=== PATIENT | female | born 1985 | race Caucasian/White ===

== ENCOUNTER → 2022-04-22 | Outpatient (CLI) | payer OTHER, SELFPAY ==
[2022-04-22 17:50] LABS: hCG Titer Quant., Serum 5852 mIU/mL (1-3)
== END | disposition home or self-care (01) ==
PROVIDERS: Visit Provider Obstetrics & Gynecology
DX: N92.0 Excessive and frequent menstruation with regular cycle (principal)
CPT/HCPCS: 36415; 84702; 86850; 86900; 86901

== ENCOUNTER → 2022-04-24 | Outpatient (CLI) | payer OTHER, SELFPAY ==
[2022-04-24 17:38] LABS: hCG Titer Quant., Serum 8251 mIU/mL (1-3)
== END | disposition home or self-care (01) ==
LOC: LAB 16:40
PROVIDERS: Visit Provider Obstetrics & Gynecology
DX: N92.0 Excessive and frequent menstruation with regular cycle (principal)
CPT/HCPCS: 36415; 84702

== ENCOUNTER 2022-04-25 18:07 | Emergency (ER) | payer OTHER, SELFPAY ==
[2022-04-25 18:08] VITALS: BP 114/77; PULSE 123; RESP 16; TEMP 37; O2SAT 100; BMI 17.2
--- NOTE | 2022-04-25 18:34 | US_ITS ---
ACR Level 3 findings have been noted. An addendum which confirms receipt of the report will follow. STUDY: FIRST TRIMESTER OBSTETRICAL ULTRASOUND REASON FOR EXAM: Female, 36 years old Pelvic pain/ bleeding with LMP: February 27, 2022 TECHNIQUE: Transvaginal TECHNICAL QUALITY: Adequate. PRIOR ULTRASOUND: None. FINDINGS: There is visualization of a single gestational sac in a normal intrauterine position. The mean sac diameter (MSD) measures 1.1 cm, indicating an estimated gestational age (EGA) of 6 weeks, 0 days. The gestational sac shape is within normal limits. There is a visualized yolk sac. The yolk sac measures 0.2 cm. The placenta is non-visualized. There is visualization of an embryo with no cardiac activity, consistent with intrauterine demise. The crown-rump length (CRL) measures 1.1 cm, indicating an estimated gestational age (EGA) of 7 weeks, 2 days. The estimated gestation age (EGA) by LMP is 8 weeks, 1 days. The estimated date of delivery (KIMBERLEE) by LMP is December 04, 2022. The estimated gestation age (EGA) by US is 6 weeks, 5 days. The estimated date of delivery (KIMBERLEE) by US is December 14, 2022. The uterus measures 9.7 x 6.5 x 5.3 cm. There is no demonstrated uterine fibroid. The cervix is closed. The right ovary measures 2.8 x 2.4 x 1.8 cm. There is no right ovarian cyst. There is no visualized right adnexal mass or complex lesion. The left ovary measures 2.9 x 2.4 x 2.1 cm. There is no left ovarian cyst. There is no visualized left adnexal mass or complex lesion. There is no fluid in the cul de sac. US/Transvaginal w/Preg US IMPRESSION: demise in utero at 6 weeks 5 days. Electronically Signed: Melvin Hall MD at 20:06 [facility] ,
[2022-04-25 18:51] LABS: Absolute Lymphocyte Count 1.94 X10^3/uL (0.83-4.51); Absolute Neutrophil Count 6.2 X10^3/uL (2.0-7.7); Basophil# 0.04 X10^3/uL; Basophil% 0.4 % (0-1); Eosinophil# 0.15 X10^3/uL; Eosinophils% 1.7 % (0-5); Hematocrit 42.7 % (37-47); Hemoglobin 13.9 g/dL (12.0-15.0); Lymphocyte # 1.94 X10^3/ul (0.83-4.51); Lymphocyte % 21.6 % (19-41); Mean Corp Hgb Conc 32.6 g/dL (32-36); Mean Corpuscular Hgb 26.8 pg (27.0-32.0); Mean Corpuscular Volume 82.3 fL (81-99); Mean Platelet Vol. 10.3 fl (6.2-12.0); Monocyte# 0.63 X10^3/uL; NRBC Flagged by Analyzer 0 % (0-5); Neutrophil # 6.19 X10^3/uL (2.7-7.7); Platelet Count 250 K/mm3 (150-450); RBC Distribution Width CV 13.2 % (11.6-14.6); RBC Distribution Width SD 39.8 fl (35.1-43.9); Red Blood Count 5.19 M/mm3 (4.2-5.4)
--- NOTE | 2022-04-25 18:54 | ED.VIS.FEGU ---
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 current occupational exposures/hazards: No pets and animals: Yes (Not managing litterbox) pets and animals: cat(s) history of recent travel: Yes ([place] February) out of state: Yes out of country: No sexually active: Yes Smoking Status: Never smoker alcohol intake: former details: social prior to substance use type: does not use well-balanced diet: about half the time caffeine: No eating out: 1-3 times/week during the past year weight has: remained stable what type of physical activity do you participate in: none champ/spiritism: Orthodox seatbelt use: always do you feel safe at home: Yes additional social history: Palomo- Principal EXAM Physical Exam Const Vital Signs: 04/25/22 18:08 Temperature 98.6 F Temperature Source Temporal Pulse Rate 123 H Respiratory Rate 16 Blood Pressure 114/77 Blood Pressure Mean 89 Pulse Ox 100 Oxygen Delivery Method Room Air [facility] Lab Data Labs: Laboratory Results - last 24 hr 04/25/22 18:43 WBC 9.0 RBC 5.19 Hgb 13.9 Hct 42.7 MCV 82.3 MCH 26.8 L MCHC 32.6 RDW Std Deviation 39.8 RDW Coeff of Tamiko 13.2 Plt Count 250 MPV 10.3 Immature Gran % (Auto) 0.300 Neut % (Auto) 69.0 Lymph % (Auto) 21.6 Carbon % (Auto) 7.0 Eos % (Auto) 1.7 Baso % (Auto) 0.4 Absolute Neuts (auto) 6.2 Absolute Lymphs (auto) 1.94 Nucleated RBC % 0 Discharge Plan Triage Chief Complaint: Vag Bld, Preg ED Provider: Priyank Martinez Dx/Rx/DC Orders Prescriptions: No Action PNV no.[id number] 400 mcg-35 mg- 25 mg-5 mg tablet,chewable PO Primary Care Provider: Care Physician,No Primary Referrals: Care Physician,No Primary [Primary Care Provider] -
--- NOTE | 2022-04-25 18:54 | ED.VIS.FEGU ---
HPI HPI - Female History of Present Illness Chief Complaint: Vag Bld, Preg Narrative Narrative: 36-year-old at approximately 8 weeks gestation presents with left-sided pelvic pain, and reported vaginal bleeding. She states that her vaginal bleeding is only when she urinates. She was seen at an outside emergency department and diagnosed with a urinary tract infection. She completed 5 days of Keflex, but states she is still having vaginal bleeding. It is only when she urinates. She is not having vaginal bleeding otherwise. She was concerned about this, and also she states that her beta-hCG was not rising consistently so she was being seen by her POWER DRIVEN BRUSH MAKER, Dr. Adele Miner, and had quantitative measurements performed yesterday in the . She is scheduled for an ultrasound in the office on Friday but was concerned because of the continued vaginal bleeding and her left pelvic cramping. She was unsure of her blood type but states she thinks she did it when she had it done as an outpatient recently. 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 current occupational exposures/hazards: No pets and animals: Yes (Not managing litterbox) pets and animals: cat(s) history of recent travel: Yes (February) out of state: Yes out of country: No sexually active: Yes Smoking Status: Never smoker alcohol intake: former details: social prior to substance use type: does not use well-balanced diet: about half the time caffeine: No eating out: 1-3 times/week during the past year weight has: remained stable what type of physical activity do you participate in: none champ/sikhism: Baptist seatbelt use: always do you feel safe at home: Yes additional social history: Palomo- Principal ROS ROS ED ROS Narrative Constitutional: No fever, no chills. HEENT: No sore throat. No neck pain. No loss of vision. No rhinorrhea. Cardiovascular: No chest pain. No palpitations. No pedal edema. Respiratory: No cough, no shortness of breath. Abdominal: No abdominal pain. No nausea. No vomiting. Left-sided pelvic cramping on occasion. Genitourinary: No dysuria. Positive hematuria reported as vaginal bleeding. Bleeding only happens when she urinates and wipes with toilet tissue. Diagnosed with recent UTI treated with 5 days of Keflex 4 times a day. Musculoskeletal: No myalgias. No arthralgias. Neurologic: No headaches. No dizziness. No lightheadedness. Skin: No rash. No change in color. Psychiatric: No depression. No anxiety. EXAM Physical Exam Narrative Exam Narrative: Afebrile. Vital signs noted. HEENT: Normocephalic. Atraumatic. PERRL, EOMI. Neck soft and supple. No point tenderness or step off. Cardiovascular: Regular rate and rhythm with intermittent tachycardia. No murmurs, rubs, or gallops appreciated. Respiratory: No tachypnea. Lungs clear to auscultation bilaterally. Gastrointestinal: Abdomen soft, nontender, with normoactive bowel sounds. No rebound or guarding. Neurological: Awake. Alert. Nonfocal, nonlateralizing. Skin: No rash. Normal color. No pallor. Musculoskeletal: No pedal edema. Full range of motion extremities. Const Vital Signs: 04/25/22 18:08 04/25/22 20:07 Temperature 98.6 F Temperature Source Temporal Pulse Rate 123 H Respiratory Rate 16 18 Blood Pressure 114/77 Blood Pressure Mean 89 Pulse Ox 100 Oxygen Delivery Method Room Air MDM MDM MDM Narrative Medical decision making narrative: Comprehensive work-up was pursued. I reviewed her laboratory work from yesterday. She has a positive and her blood type. Additionally her quantitative measurement was greater than 8000. CBC shows normal white count of 9.0, hemoglobin 13.9, hematocrit 42.7. Electrolyte panel is grossly unremarkable except for AST of 13 and low. hCG quantitative measurement is 9644. Urinalysis shows 10-25 RBCs but no evidence of infection. I do not feel further antibiotics are indicated. Ultrasound was obtained transvaginally. While there is gestational sac with a crown rump length of the embryo of 1.1 cm, there is no noted cardiac activity. This is consistent with demise at 6 weeks and 5 days. Pelvic examination was deferred. Once again, patient states that she has not had actually having vaginal bleeding but is more from the urethra as shown by hematuria on her urinalysis. In discussion with Dr. Adele Miner, patient is to report to the office tomorrow morning at 820. Repeat ultrasound will be performed at that time. However, with the suspicion of intrauterine demise, should the patient be thinking of a surgical option, she will be n.p.o. after midnight and only drink clear liquids in the morning. Should she experience heavy vaginal bleeding, she is to return to the emergency department. I feel she can be discharged safely home with close follow-up tomorrow morning with her [employer] MAKER who will also provide further counseling. Return instructions were reviewed. Disposition is discharged home in stable condition. Lab Data Attestation: I reviewed the patient's lab results. Labs: Laboratory Results - last 24 hr 04/25/22 04/25/22 04/25/22 18:43 18:43 18:43 WBC 9.0 RBC 5.19 Hgb 13.9 Hct 42.7 MCV 82.3 MCH 26.8 L MCHC 32.6 RDW Std Deviation 39.8 RDW Coeff of Tamiko 13.2 Plt Count 250 MPV 10.3 Immature Gran % (Auto) 0.300 Neut % (Auto) 69.0 Lymph % (Auto) 21.6 [place] % (Auto) 7.0 Eos % (Auto) 1.7 Baso % (Auto) 0.4 Absolute Neuts (auto) 6.2 Absolute Lymphs (auto) 1.94 Nucleated RBC % 0 Sodium 139 Potassium 3.8 Chloride 105 Carbon Dioxide 28.0 Anion Gap 6 BUN 10 Creatinine 0.61 Estim Creat Clear Calc 92.17 Est GFR (MDRD) Af Amer 144 Est GFR (MDRD) Non-Af 119 BUN/Creatinine Ratio 16.5 Glucose 94 Calcium 9.5 Total Bilirubin 0.80 AST 13 L ALT 17 Alkaline Phosphatase 46 Total Protein 7.7 Albumin 4.2 Globulin 3.5 Albumin/Globulin Ratio 1.2 HCG, Quant 9644 H Urine Color Urine Clarity Urine pH Ur Specific [place] Urine Protein Urine Glucose (UA) Urine Ketones Urine Occult Blood Urine Nitrite Urine Bilirubin Urine Urobilinogen Ur Leukocyte Esterase Urine RBC Urine WBC Ur Squamous Epith Cells Urine Bacteria Urine Mucus 04/25/22 18:50 WBC RBC Hgb Hct MCV MCH MCHC RDW Std Deviation RDW Coeff of Tamiko Plt Count MPV Immature Gran % (Auto) Neut % (Auto) Lymph % (Auto) [place] % (Auto) Eos % (Auto) Baso % (Auto) Absolute Neuts (auto) Absolute Lymphs (auto) Nucleated RBC % Sodium Potassium Chloride Carbon Dioxide Anion Gap BUN Creatinine Estim Creat Clear Calc Est GFR (MDRD) Af Amer Est GFR (MDRD) Non-Af BUN/Creatinine Ratio Glucose Calcium Total Bilirubin AST ALT Alkaline Phosphatase Total Protein Albumin Globulin Albumin/Globulin Ratio HCG, Quant Urine Color Yellow Urine Clarity Sl. Cloudy Urine pH 7.0 Ur Specific [place] 1.010 Urine Protein Negative Urine Glucose (UA) Normal Urine Ketones 15 H Urine Occult Blood 250 H Urine Nitrite Negative Urine Bilirubin Negative Urine Urobilinogen Normal Ur Leukocyte Esterase 25 H Urine RBC 10-25 SEEN Urine WBC 0-5 SEEN Ur Squamous Epith Cells 0-5 SEEN Urine Bacteria 0 SEEN Urine Mucus 0 SEEN Radiography Diagnostic Testing: Clinical Impression(s) from Imaging Studies Obstetrics Ultrasound 04/25/22 18:34 IMPRESSION: demise in utero at 6 weeks 5 days. Electronically Signed: Melvin Hall MD at 20:06 EST , ADDENDUM: 04/25/222014 IMPRESSION: demise in utero at 6 weeks 5 days. N.B. : CRISPIN Dolan, confirmed on 04/25/2022 20:08:57 (ET) that the healthcare facility has received the radiology report. Electronically Signed: Melvin Hall MD at 20:06 EST , Discharge Plan Triage Chief Complaint: Vag Bld, Preg ED Provider: Priyank Martinez Dx/Rx/DC Orders Clinical Impression: demise, less than 22 weeks, Hematuria, Incomplete miscarriage Instructions: Loss Grieving, ED MISCARRIAGE Incomplete, ED Hematuria Prescriptions: No Action PNV no.[id number] 400 mcg-35 mg- 25 mg-5 mg tablet,chewable PO Primary Care Provider: Care Physician,No Primary Referrals: Adele Miner MD [Med Staff - Active Staff] - 1 Day Care Physician,No Primary [Primary Care Provider] - Activity Restrictions/Additional Instructions: Go to Dr. Adele Miner's office tomorrow morning at 820 a.m. He will have a repeat ultrasound. If you think you may want a surgical procedure, only have clear liquids in the morning and do not eat anything after midnight tonight. Disposition Disposition: Home, Self Care
[2022-04-25 19:00] LABS: Bacteria 0 SEEN /hpf (None Seen); Mucous, Urine 0 SEEN /hpf (<or=2+)
[2022-04-25 19:01] LABS: Color, Urine Yellow (Yellow); Glucose, Dipstick Normal (Normal); Ketone-Dipstick 15 mg/dl (Negative); Leukocyte Esterase-Dipstick 25 /ul (Negative); Nitrite-Dipstick Negative (Negative); Occult Blood-Urine 250 /ul (Negative); Protein-Dipstick Negative (Negative); Urine Bilirubin Dipstick Negative (Negative); Urine Clarity Sl. Cloudy (Clear); Urine Urobilinogen Normal (Normal)
[2022-04-25] MEDS: 0.9% Normal Saline 1,000 ML 999 ML IV (19:01)
[2022-04-25 19:08] LABS: ALB/GLOB Ratio 1.2 RATIO (0.9-2.4); AST(SGOT) 13 U/L (15-37); Alanine Aminotransfer ALT/SGPT 17 U/L (13-56); Albumin, Serum 4.2 g/dL (3.2-5.0); Alkaline Phosphatase 46 U/L (45-117); Anion Gap 6 (5-15); BUN 10 mg/dL (7-18); BUN/Creat Ratio 16.5 RATIO (10-20); Calcium,Total 9.5 mg/dL (8.5-10.1); Chloride 105 mmol/L (98-107); Creatinine, Serum 0.61 mg/dL (0.55-1.02); EST Glomerular Filtration Rate 119 mL/min (>60); Est Glom Filt Rate - Afr Amer 144 mL/min (>60); Estimated Creatinine Clearance 92.17 ml/min; Globulin 3.5 g/dL (2.2-4.2); Glucose 94 mg/dL (74-106); Potassium 3.8 mmol/L (3.5-5.1); Protein, Total 7.7 g/dL (6.4-8.2); Sodium Level 139 mmol/L (136-145)
[2022-04-25 19:19] LABS: Red Blood Cells-Urine 10-25 SEEN /hpf (0-5); Squamous Epithelial Cells - UA 0-5 SEEN /hpf (5-10); White Blood Cells 0-5 SEEN /hpf (0-5)
[2022-04-25 19:24] LABS: hCG Titer Quant., Serum 9644 mIU/mL (1-3)
[2022-04-25 20:07] VITALS: RESP 18
[2022-04-25 20:31] VITALS: RESP 16
== END 2022-04-25 20:48 | disposition home or self-care (01) ==
PROVIDERS: Emergency Provider Emergency Medicine; Visit Provider Emergency Medicine
DX: O03.4 Incomplete spontaneous abortion without complication (principal); O26.891 Other specified pregnancy related conditions, first trimester; R31.9 Hematuria, unspecified; Z3A.08 8 weeks gestation of pregnancy
CPT/HCPCS: 76817; 80053; 81001; 84702; 85025; 99282; J7030

== ENCOUNTER 2022-04-26 10:18 | Day surgery (SDC) | payer OTHER, SELFPAY ==
[2022-04-26] VITALS (9 sets, daily range): BP systolic 77–105; BP diastolic 49–67; PULSE 68–82; RESP 12–18; TEMP 37–37.4; O2SAT 98–100; BMI 16.2
[2022-04-26] MEDS: Lactated Ringers 1,000 ML 15 ML IV (10:30)
--- NOTE | 2022-04-26 12:31 | HP.PCM_ITS ---
History and Physical [facility] [address] [place] [address] OFFICE VISIT Date of Service:? 04/26/22 MR#: [id number] Acct: [id number] Name:ARANZA AVILEZ Rep #: [id number] : 1985 ? ? Provider: Dr. Adele Miner MD Age/Sex:? 36/F ? ? Location: [facility] [place] Status: Signed Intake Vital Signs ? 04/25/2218:08 04/26/2208:49 04/26/2208:54 Height 5 ft 4 in 5 ft 4 in 5 ft 4 in Weight: 100 lb ? 96 lb 4 oz BMI 17.2 ? 16.5 BP 114/77 ? 125/88 H Respiration 16 ? ? Pulse 123 H ? ? Temp 98.6 F ? ? Pulse Oximetry (%) 100 ? ? Intake Visit Reasons:?ER follow up SAB Keyboarding Clerk Required: No Is patient in pain?: No Allergies No Known Allergies Allergy (Verified 04/26/22 08:54) Medications PNV 153-FA 400 mcg-om3 35 mg-dha 25 mg-epa 5 mg-fish oil chew tablet tab PO 04/23/22 [History Confirmed 04/26/22] Is last menstrual period known: Yes Last Menstrual Period: 02/27/22 Post menopausal: No Patient : Yes : No PFSH Surgical History?(Updated 04/26/22 @ 08:55 by Sally Worthington) S/P Family History?(Updated 04/26/22 @ 08:55 by Sally Worthington) Grandmother?? Colon cancer ?? ? Paternal Brain cancer,? Onset Age: 70 ?? ? MaternalGrandfather Heart disease Social History? adopted:? No household members:? spouse and children housing:? house number of children:? 2 current occupational status:? 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 No pets and animals:? Yes (Not managing litterbox) pets and animals: cat(s) history of recent travel:? Yes (February) out of state: Yes out of country: No sexually active:? Yes Smoking Status:? Never smoker alcohol intake:? former details:? social prior to substance use type:? does not use well-balanced diet:? about half the time caffeine:? No eating out:? 1-3 times/week during the past year weight has:? remained stable what type of physical activity do you participate in:? none champ/muslim:? Holiness seatbelt use:? always do you feel safe at home:? Yes additional social history:? Palomo- Principal HPI ER follow up SAB Details: ARANZA LAM is a 36 year old who presents for follow up from er having bleeding and cramping, on ultrasound pole 10mm with no FHT seen and last night 12 mm with no FHT seen.? she denies fevers and is having less bleeding this morning, wants t oproceed with d and c Female Reproductive History Last Menstrual Period: 02/27/22 History ? ? ? 3 ? Elective abortions ? Hx Para ? ? ? 2 ? Spontaneous abortions ? Hx # Term Pregnancies ? Ectopic pregnancies ? Hx # Pregnancies ? Multiple births ? # of living children ? ? ? 2 Past Pregnancies Del. Date Name GA/Weeks Outcome Route Bth Weight Gen Labor Lgth Anesthesia Del Locatn Provider FOB 02/11/16 Rubén 41 live - full term C-sectionA 7#4oz Male 24 hours epidural Emely Culver 02/03/19 Ellen 37 live - full term 6#7oz Female 8 hours epidural Emely Culver Delivery Date: 02/11/16? Last Updated by: Fouzia Funes ? ? ? Failure to progress Delivery Date: 02/03/19? Last Updated by: Fouzia Funes ? ? ? pre-term labor ROS Const Constitutional: Reports as per HPI; Denies fever(s) ENT ENT: Reports system reviewed and no additional complaints, except as documented Cardio Card: Reports system reviewed and no additional complaints, except as documented Resp Resp: Reports system reviewed and no additional complaints, except as documented GI GI: Reports as per HPI : Reports as per HPI Musc Musc: Reports system reviewed and no additional complaints, except as documented Skin Skin/Breast: Reports system reviewed and no additional complaints, except as documented Neuro Neuro: Reports system reviewed and no additional complaints, except as documented Endo Endo: Reports system reviewed and no additional complaints, except as documented Exam Const General: healthy appearing, comfortable and no acute distress HENMT Head: normal to inspection and normocephalic Neck Neck: no lymphadenopathy noted Thyroid: thyroid normal Chest Chest palpation & inspection: normal inspection of the chest Resp Effort & Inspection: normal respiratory effort Cardio Rate: regular rate Rhythm: regular rhythm GI Inspection: normal to inspection Palpation: soft and nontender External Female Exam: normal external appearance Speculum Exam - Vagina: normal appearance of the vagina and vaginal bleeding Bimanual Exam- Vagina & Uterus: uterine shape normal and non-tender OB/External & Speculum: vaginal bleeding Speculum Exam: vaginal bleeding Skin General: no rashes or lesions noted Neuro General: no focal motor deficits Extrem General: normal to inspection and no pedal edema Psych Appearance: grossly normal Coding Level of Care Code Off vis,est,level 4 Diagnoses Missed ? O02.1 Assessment and Plan Assessment and Plan (1) Missed : ?Status:?Acute ?Comment: proceed with d and c Plan After discussing the patient's diagnosis and treatment plan options, patient wishes to proceed with surgical management.? I have discussed with the patient the risks, benefits, and alternatives of the procedure which include but are not limited to risks of anesthesia, bleeding, infection, possible damage to bowel, bladder, or surrounding vasculature which could lead to additional surgery to evaluate any complications.? Patient agrees to procedure and wishes to proceed.? ACOG/uptodate references given for additional information regarding procedure.?
--- NOTE | 2022-04-26 12:58 | OP.PCM_ITS ---
Problems Associated Problem List Diagnoses (1) Missed : Report of Operation Date of Procedure: 04/26/22 Pre-Operative Diagnosis: see problem list Post-Operative Diagnosis: same Surgery/Procedure Performed:: Suction dilation and curettage Description of Surgical Findings:: no FHT present, Nonviable 7 weeks tight rope walker: None Type of Anesthesia: Local MAC Special Medications: none Specimen's removed: POC Drains: none Estimated Blood Loss (mL): 50 Fluids Replaced: crystalloid Description of Procedure: Patient was taken to the operating room and placed under MAC local anesthesia. She was prepped and draped in the normal sterile fashion the dorsal lithotomy position. Bladder was drained of clear urine and anterior lip of the cervix was grasped and the uterus sounded to 9. Cervix was progressively dilated to allow passage of a 9 mm suction curette. Progressive passes were made removing the retained products of conception without complication. Sharp curettage confirmed complete removal of the retained products. All instruments were removed from the vagina and excellent hemostasis was noted and the patient was taken to recovery in stable condition. Grafts/Implants Used: none Complications none Admit VTE Documentation VTE Present on Admission: No VTE Mechan Device Prophylaxis: SCD's Procedures Urinary/Genital [id number]: [id number] Surg Trtmt missed Ab, 1TM
--- NOTE | 2022-04-26 13:00 | POC_PTH ---
PATIENT: ARANZA LAM LOC: [facility] [place] U#:[id number] AGE/SX: 36/F ROOM: RE04/26/[address]: Dr. Adele Miner MD : 1985 BED: DIS: 04/26/2022 SPEC #: [id number] RECD: 04/26/22 14:34 STATUS: HUBERT REAnnmarie #: [id number] JOVANNI: 04/26/22 13:[address]: Adele Miner DEPT: SURGICAL PATHOLOGY RECD BY: Abena Carrasco ENTERED: 04/29/22 10:22 SP TYPE: PROD CONC OTHR DR: No Primary Care Phys Tissues: Product of conception, NOS Procedures: Surgery Specimen Level IV HEADER OPERATION: Suction dilation and curettage PRE-OP DIAGNOSIS: Missed TISSUE SUBMITTED: Products of conception MICROSCOPIC DIAGNOSIS Endometrium, curettage: Chorionic villi, decidualized stroma and trophoblastic cells consistent with products of conception. AM:patti 04/30/2022 MICROSCOPIC DESCRIPTION Slides are reviewed. GROSS DESCRIPTION Received in fixative is one container labeled with the patient's name and designated products of conception. The specimen consists of multiple irregular fragments of dean soft tissue mixed with mucoid tissue that in aggregate measure 5 x 5 x 1.5 cm. tissue is not identified. [employer] Tube Bender tissue is submitted in three cassettes. / SJ:patti 04/29/2022 TC:5 CPT: 30881
--- NOTE | 2022-04-26 13:01 | DCINST_ITS ---
Discharge Instructions Procedure D&C Diet Discharge Diet: No restrictions Activity Discharge Activity: Return to Normal Activity, May Shower and May Take a Tub Bath (after 1 week) May resume sexual activity in: 1-2 weeks Weight Bearing Status: Weight bearing as tolerated Lifting Restrictions: none Dressing / Incision Call your doctor if you observe: Fever of 101 or Higher, Using more than 1 pad per hour, Shortness of breath and Uncontrolled pain Follow Up Care Please Follow Up With: Adele Miner MD When: Call [phone] to schedule appointment. Test Results: Test results from this visit will be discussed in further detail at your follow- up appointment, if applicable. Discharge Plan Admission Attending Provider: Adele Miner Primary Care Provider: Care Physician,Alisa Primary Discharge Orders/Prescriptions Prescriptions: No Action PNV no.[id number] 400 mcg-35 mg- 25 mg-5 mg tablet,chewable PO Referrals / Follow Up: Care Physician,No Primary [Primary Care Provider] - Disposition Disposition (needs filled in before D/C Order can be placed): Home, Self Care
[2022-04-26] MEDS: Lidocaine 1% (20 ml mdv) 20 ML Vial (13:12)
== END 2022-04-26 14:45 | disposition home or self-care (01) ==
LOC: SDC 10:20 → AC 10:21
PROVIDERS: Referring Provider Obstetrics & Gynecology; Visit Provider Obstetrics & Gynecology
PROC: (CPT 59820; principal; 2022-04-26 12:45)
DX: O02.1 Missed abortion (principal)
CPT/HCPCS: 59820; 01965; 88305; J7120

== ENCOUNTER → 2024-10-18 | Outpatient (CLI) | payer OTHER, SELFPAY ==
[2024-10-21 06:07] LABS: Chlamydia By Nucleic Acid AMP Negative (Negative); Gonococcus By Nucleic Acid AMP Negative (Negative)
[2024-10-21 11:08] LABS: HPV APTIMA, High Risk Negative (Negative)
== END | disposition home or self-care (01) ==
LOC: LABSPEC 15:45
PROVIDERS: Referring Provider Obstetrics & Gynecology; Visit Provider Obstetrics & Gynecology
DX: O09.90 Supervision of high risk pregnancy, unspecified, unspecified trimester (principal); Z3A.00 Weeks of gestation of pregnancy not specified
CPT/HCPCS: 87086; 87088; 87491; 87591; 87624; 88175; G0145

== ENCOUNTER → 2024-11-15 | Outpatient (CLI) | payer OTHER, SELFPAY ==
[2024-11-15 17:11] LABS: Absolute Lymphocyte Count 1.78 X10^3/uL (0.83-4.51); Absolute Neutrophil Count 8.5 X10^3/uL (2.0-7.7); Basophil# 0.04 X10^3/uL; Basophil% 0.4 % (0-1); Eosinophil# 0.32 X10^3/uL; Eosinophils% 2.8 % (0-5); Hematocrit 38.8 % (37-47); Hemoglobin 12.9 g/dL (12.0-15.0); Lymphocyte # 1.78 X10^3/ul (0.83-4.51); Lymphocyte % 15.7 % (19-41); Mean Corp Hgb Conc 33.2 g/dL (32-36); Mean Corpuscular Hgb 27.2 pg (27.0-32.0); Mean Corpuscular Volume 81.9 fL (81-99); Mean Platelet Vol. 10.7 fl (6.2-12.0); Monocyte# 0.69 X10^3/uL; Monocyte% 6.1 % (0-10); NRBC Flagged by Analyzer 0 % (0-5); Neutrophil # 8.46 X10^3/uL (2.7-7.7); Neutrophil % 74.5 % (47-70); Platelet Count 256 K/mm3 (150-450); RBC Distribution Width CV 13.5 % (11.6-14.6); RBC Distribution Width SD 40.1 fl (35.1-43.9); Red Blood Count 4.74 M/mm3 (4.2-5.4); White Blood Count 11.4 K/mm3 (4.4-11.0)
[2024-11-15 18:12] LABS: Ferritin 18 ng/mL (22-378); HIV Nonreactive (Nonreactive); Hepatitis B Surface Antigen Nonreactive (Nonreactive); Hepatitis C Antibody Nonreactive (Nonreactive); Iron 61 ug/dL (50-170); Iron Binding Capacity,Total 442 ug/dL (250-450); Iron Binding Capacity,Unsat 381 ug/dL (228-428); Rubella IgG REAC (Nonreactive); Syphilis Antibodies Nonreactive (Nonreactive); Vitamin B12 524 pg/mL (180-914)
--- OUTSIDE RECORDS SUMMARY | 2024-11-15 23:32 | XMS RPT_ITS | CCD ---
Author Organization [facility] Care Team Providers Care Binding Cutter Name Role Phone Liliana, Mirian F Unavailable Unavailable Liliana, Mirian F Unavailable Unavailable Liliana, Mirian F Unavailable Unavailable Liliana, Mirian F Unavailable Unavailable Unavailable Unavailable Unavailable LILIANAMIRIAN F. STiffanie Admitting Unavailabl e LILIANA, MIRIAN FTiffanie Gibson Attending Unavailabl e No, Physician Primary Care Provider Unavailabl e LILIANA, MIRIAN FTiffanie STiffanie Attending Unavailabl e LILIANA, MIRIAN FTiffanie STiffanie Attending Unavailabl e LILIANA, MIRIAN F. STiffanie Attending Unavailabl e LILIAAN, MIRIAN F. STiffanie Attending Unavailabl e LILIANA, MIRIAN F. STiffanie Attending Unavailabl e LILIANA, MIRIAN F. STiffanie Attending Unavailabl e LILIANA, MIRIAN F. STiffanie Attending Unavailabl e NO, PHYSICIAN Primary Care Unavailable No, Physician Primary Care Provider Unavailabl KRISTY Jeter Attending Unavailable NO, PHYSICIAN Primary Care Unavailable Required, No Pcp Unavailable Unavailable Evan Robinsn Unavailable Unavailable Care Physician, No Primary Primary Care Provider Unavailable Care Physician, No Primary Referring Provider Un available Dr. Adele Miner Attending Provider Dr. Adele Miner Referring Provider Dr. Adele Miner Other Provider NO, PHYSICIAN Primary Care Unavailable DARSHAN PARDO Attending Unavailab Orlin Soriano Unavailable Unavailable Mandie Treviño Unavailable Unavailable Chantelle Robins Attending Unavailable Ms. Orlin Casarez Attending Audrey Treviño, Ms. Mandie Oneil Attending Unavailable Generic Provider MD, No Assigned Pcp Primary Car e Provider Unavailable RITA BERMUDEZ Admitting Unavailable NO, PHYSICIAN Primary Care Unavailable SYSTEM, PROVIDER NOT IN Referring Unavaila RITA [employer] Unavailable RITA BERMUDEZ Admitting Unavailable NO, PHYSICIAN Primary Care Unavailable NICOLE BLANDON Attending Unavailabl e SYSTEM, PROVIDER NOT IN Referring Unavaila ble Stentz PA-C, Thierry Primary Care Provider MARKUS ARCE Attending Unavailable STENTZ, THIERRY Primary Care Unavailable Stentz PA-C, Thierry Unavailable STENTZ, THIERRY Attending Unavailable STENTZ, THIERRY Referring Unavailable STENTZ, THIERRY Primary Care Unavailable STENTZ, THIERRY Primary Care Unavailable Care Physician, No Primary Primary Care Provider Unavailable Lety Mejia RN Attending Provider Unavailabl e Care Physician, No Primary Referring Provider Un available Isidra SANDRA, Dr. Angulo Attending Provider [phone] Dr. Adele Miner MD Referring Provider Care Physician, No Primary Referring Unava ilable Care Physician, No Primary Primary Care Unava ilable Manuela Olea NP Attending Unavailable Lety Mejia Attending Unavailable Care Physician, No Primary Primary Care Unava ilable Care Physician, No Primary Primary Care Unava ilable Lety Mejia Attending Unavailable Care Physician, No Primary Primary Care Unava ilable Adele Miner Referring Unavailable Adele Miner Attending Unavailable Care Physician, No Primary Referring Unava ilable Care Physician, No Primary Primary Care Unava ilable Adele Miner Attending Unavailable Emmie BOOKER-CManuela Attending Provider [phone] Medications Current Medications Medication Drug Class(es) Dates Sig (Normalized) Sig (Original) acetaminophen 325 mg / oxyCODONE hydrochloride 5 mg oral tablet (2 sources) Opioid Agonist Start: 02-06-2019 End: 02-11-2019 take 1 tablet by mouth every six hours as needed for pain oxyCODONE-acetami nophen (PERCOCET) 5-325 mg per tablet Indications: Delivery of by section Take 1 (one) tablet by mouth every 6 (six) hours as needed for pain . 20 tablet 0 02/06/2019 02/11/2019 Active Start: 02-05-2019 End: 02-06-2019 take 1 tablet by mouth every four hours as needed oxyCODONE-acetaminophen (PERCOCET) 5-325 mg per tablet 1 tablet azithromycin 250 mg oral tablet (1 source) Macrolide Antimicrobial Start: 03-29-2022 End: 04-02-2022 Zithromax Z-Lázaro 250 mg oral tablet ; 2 tab(s) by mouth at once on day 1, then 1 tablet once a day on days 2-5 Quantity: 6 Refills: 0 Ordered: 29-Mar-2022 Chantelle Robins Start: 29-Mar-2022 End: 02-Apr-2022 Generic Substitution Allowed Comments: Do not take dairy products, antacids, or iron preparations within one hour of this medication.Finish all this medication unless otherwise directed by prescriber. Comment on above: Do not take dairy pr oducts, antacids, or iron preparations within one hour of this medication.Finish all this medication unless otherwise directed by prescriber. cetirizine hydrochloride 10 mg oral tablet (1 source) Histamine-1 Receptor Antagonist Start: 06-24-2024 End: 06-24-2025 take 1 tablet by mouth once daily cetirizine (ZyrTEC) 10 mg tablet Indications: Seasonal allergies Take 1 tablet (10 mg) by mouth once daily. 90 tablet 3 06/24/2024 06/24/2025 Active cholecalciferol 0.025 mg oral tablet (2 sources) Vitamin D Start: 05-22-2023 End: 06-24-2025 take 1 tablet by mouth once daily cholecalciferol (Vitamin D-3) 25 MCG (1000 UT) tablet Indications: Vitamin D deficiency Take 1 tablet (1,000 Units) by mouth once daily. 90 tablet 3 06/24/2024 06/24/2025 Active ergocalciferol 1.25 mg oral capsule (1 source) Provitamin D2 Compound Start: 05-23-2023 End: 05-22-2024 take 1 capsule by mouth every week ergocalciferol (Vitamin D-2) 1.25 MG (39091 UT) capsule Indications: Vitamin D deficiency Take 1 capsule (50,000 Units) by mouth 1 (one) time per week. 12 capsule 3 05/23/2023 05/22/2024 Active ibuprofen 800 mg oral tablet (2 sources) Nonsteroidal Anti-inflammatory Drug Start: 02-06-2019 End: 03-08-2019 take 1 tablet by mouth every six hours as needed ibuprofen (ADVIL,MOTRIN) 800 MG tablet Take 1 (one) tablet (800 mg total) by mouth every 6 (six) hours as needed for pain . 30 tablet 0 02/06/2019 03/08/2019 Active Start: 02-05-2019 End: 02-06-2019 take 1 tablet by mouth every eight hours as needed ibuprofen (ADVIL,MOTRIN) tablet 800 mg Pnv No.[id number]-Gaah (3 sources) Start: 04-23-2022 Pnv No.[id number] Active TABLET PO April 23, 2022 12:00am Pnv No.[id number]-Gg0-Tsp-Zbh-Gabt 400 mcg-35 mg- 25 mg-5 mg tablet,chewable (2 sources) Start: 04-23-2022 Pnv No.[id number]-Oxq-Lfa-Opag 400 mcg-35 mg- 25 mg-5 mg tablet,chewable Active {tbl} PO April 23, 2022 1:00am polymyxin b 42598 unt/ml / trimethoprim 1 mg/ml ophthalmic solution (1 source) Dihydrofolate Reductase Inhibitor Antibacterial , Polymyxin-cla ss Antibacterial Start: 08-27-2022 End: 09-02-2022 take 1 drop(s) into the eye(s) every three hours Polytrim 10,000 units-1 mg/mL ophthalmic solution ; 1 drop(s) in each affected eye every 3 hours Quantity: 1 Refills: 0 Ordered: 27-Aug-2022 Mandie Treviño Start: 27-Aug-2022 End: 02-Sep-2022 Generic Substitution Allowed Comments: For the eye. Comment on above: For the eye. vitamin with Ca-Iron-FA 27-1 mg Tab (2 sources) take 1 tablet by mouth once daily vitamin with Ca-Iron-FA 27-1 mg Tab Indications: Take 1 tablet by mouth daily Reasons: . 0 Active Completed/Discontinued Medications Medication Drug Class(es) Dates Sig (Normalized) Sig (Original) aluminum hydroxide 40 mg/ml / magnesium hydroxide 40 mg/ml / simethicone 4 mg/ml oral suspension (1 source) Start: 02-03-2019 End: 02-06-2019 take 30 mL by mouth every four hours as needed 30 mL, Oral, Every 4 hours PRN, indigestion, Starting Fri02/03/19 at 2302, bisacodyl 10 mg rectal suppository (1 source) Stimulant Laxative Start: 02-03-2019 End: 02-06-2019 10 mg, Rectal, Daily PRN, constipation, Starting Fri02/03/19 at 2302, Use oral medication first for constipation. Use rectal suppository, if ordered, for constipation if oral route not tolerated. calcium chloride 0.0014 meq/ml / potassium chloride 0.004 meq/ml / sodium chloride 0.103 meq/ml / sodium lactate 0.028 meq/ml injectable solution (2 sources) Start: 02-04-2019 End: 02-06-2019 take 60 mL intravenous route every hour 60 mL/hr, Intravenous, Continuous, Starting [facility] 02/04/19 at 0000, L&D Post-Delivery Start when oxyTOCIN (PITOCIN) drip is discontinued. Discontinue after 24 hours if patient is afebrile and tolerating orals. Start: 02-03-2019 End: 02-03-2019 take 1000 mL intravenous route every twenty-four hours as needed lactated ringers bolus 1,000 mL ceFAZolin 2000 mg injection (1 source) Cephalosporin Antibacterial Start: 02-03-2019 End: 02-03-2019 ceFAZolin in dextrose (iso-os) (ANCEF) 2 gram/50 mL IVPB - ADS Override Pull citric acid 66.8 mg/ml / sodium citrate 100 mg/ml oral solution (1 source) Calculi Dissolution Agent, Anti-coagulant Start: 02-03-2019 End: 02-03-2019 citric acid-sodium citrate (BICITRA) 500-334 mg/5 mL solution - ADS Override Pull diphenhydrAMINE (BENADRYL) oral solid 25 mg (1 source) Start: 02-03-2019 End: 02-06-2019 take 25 mg by mouth every six hours as needed diphenhydrAMINE (BENADRYL) oral solid 25 mg docusate sodium 100 mg oral capsule (1 source) Start: 02-03-2019 End: 02-06-2019 100 mg, Oral, 2 times daily PRN, constipation, Starting Fri02/03/19 at 2302, Use oral medication first for constipation.&nbsp ; Use rectal suppository, if ordered, for constipation if oral route not tolerated. DO NOT CRUSH OR CHEW. 2 ml famotidine 10 mg/ml injection (1 source) Histamine-2 Receptor Antagonist Start: 02-03-2019 End: 02-03-2019 famotidine (PEPCID) 20 mg/2 mL injection - ADS Override Pull ferrous sulfate 325 mg oral tablet (1 source) Start: 02-03-2019 End: 02-06-2019 325 mg, Oral, 2 times daily PRN, If hemoglobin is less than 10, Starting 02/03/19 at 2302, iohexol (OMNIPaque) 350 mg iodine/mL solution 60 mL (1 source) Start: 05-20-2023 End: 05-20-2023 iohexol (OMNIPaque) 350 mg iodine/mL solution 60 mL 1 ml ketorolac tromethamine 30 mg/ml injection (1 source) Nonsteroidal Anti-inflammatory Drug, Cyclooxygenase Inhibitor Start: 02-04-2019 End: 02-05-2019 take 30 mg intravenous route every six hours as needed ketorolac (TORADOL) injection 30 mg Medrol Dosepak 4 mg oral tablet (1 source) Start: 05-25-2022 Medrol Dosepak 4 mg oral tablet ; Take as directed. Quantity: 1 Refills: 0 Ordered: 25-May-2022 Orlin Casarez Start: 25-May-2022 Generic Substitution Allowed Comments: It is very important that you take or use this exactly as directed. Do not skip doses or discontinue unless directed by your doctor.Obtain medical advice before taking any non-prescription drugs as some may affect the action of this medication.Take with food or milk. Comment on above: It is very important that you take or use this exactly as directed. Do not skip doses or discontinue unless directed by your doctor.Obtain medical advice before taking any non-prescription drugs as some may affect the action of this medication.Take with food or milk. 2 ml metoclopramide 5 mg/ml injection (1 source) Dopamine-2 Receptor Antagonist Start: 02-03-2019 End: 02-03-2019 metoclopramide (REGLAN) 5 mg/mL injection - ADS Override Pull 30 ml morphine sulfate 1 mg/ml injection (1 source) Opioid Agonist Start: 02-03-2019 End: 02-03-2019 morphine 30 mg/30 mL (1 mg/mL) PRESCRIPTION CLERK - ADS Override Pull morphine air intelligence specialist bolus from syringe 2 mg (1 source) Start: 02-03-2019 End: 02-06-2019 take 2 mg intravenous route every hour as needed 2 mg, Intravenous, Every 1 hour prn, PRN pain, Starting Fri02/03/19 at 2301, For 4 doses May give additional bolus to a max of four doses. If pain is not controlled after, call physician. Indication: Naive 1 ml nalbuphine hydrochloride 10 mg/ml injection (1 source) Opioid Agonist/Antagonist Start: 02-03-2019 End: 02-03-2019 take 10 mg intravenous route every three hours as needed nalbuphine (NUBAIN) injection 10 mg naloxone (NARCAN) injection 0.4 mg (1 source) Start: 02-03-2019 End: 02-06-2019 naloxone (NARCAN) injection 0.4 mg 2 ml ondansetron 2 mg/ml injection (1 source) Serotonin-3 Receptor Antagonist Start: 02-03-2019 End: 02-06-2019 take 4 mg intravenous route every six hours as needed 4 mg, Intravenous, Every 6 hours PRN, nausea, vomiting, Starting Fri02/03/19 at 2301 oxytocin in lactated ringers (PITOCIN) 20 unit/1,000 mL infusion (1 source) Start: 02-03-2019 End: 02-04-2019 oxytocin in lactated ringers (PITOCIN) 20 unit/1,000 mL infusion vitamin with Ca-Iron-FA tablet 1 tablet (1 source) Start: 02-04-2019 End: 02-06-2019 take 1 tablet by mouth once daily 1 tablet, Oral, Daily, First dose on Juliana 02/04/19 at 0900, rho(d) immune globulin (RHOPHYLAC) injection 300 mcg (1 source) Start: 02-03-2019 End: 02-06-2019 inject 300 ug by intramuscular injection every twenty-four hours as needed rho(d) immune globulin (RHOPHYLAC) injection 300 mcg simethicone 80 mg chewable tablet (1 source) Start: 02-03-2019 End: 02-06-2019 take 80 mg by mouth after mealtime as needed 80 mg, Oral, After meals as needed, flatulence, Starting Fri02/03/19 at 2302, 1000 ml sodium chloride 9 mg/ml injection (3 sources) Start: 05-20-2023 End: 05-20-2023 sodium chloride 0.9 % bolus 1,000 mL Start: 02-03-2019 End: 02-06-2019 0-150 mL/hr, Intravenous, As needed, To flush line after IV infusions when no maintenance IV ordered or a compatibility issue with maintenance IV, Starting Fri02/03/19 at 2302, L&D Post-Delivery Run as Primary IV. NOT intended for KVO. 1 ml terbutaline sulfate 1 m g/ml injection (1 source) Start: 02-03-2019 End: 02-03-2019 terbutaline (BRETHINE) 1 mg/ mL injection - ADS Override Pull Problems Active Problems Problem Classification Problem Date Documented Da te Episodic/Chronic Acute cerebrovascular disease (3 sources) Hemorrhage into subdural space of neuraxis; Translations: [Nontraumatic subdural hemorrhage, unspecified] Onset: 05-20-2023 05-20-2023 Chronic Genitourinary symptoms and ill-defined conditions (5 sources) Blood in urine; Translations: [Hematuria, unspecified] 05-03-2022 Episodic Headache; including migraine (1 source) Headache; including migraine; Translations: [Headache, unspecified] Onset: 05-25-2022 Hemorrhage during ; abruptio placenta; placenta previa (2 sources) Threatened ; Translations: [Threatened ] Onset: 04-20-2022 Episodic Inflammation; infection of eye (except that caused by tuberculosis or sexually transmitteddisease) (2 sources) Acute infectious conjunctivitis; Translations: [Other mucopurulent conjunctivitis] Onset: 08-27-2022 08-27-2022 Episodic Inflammatory diseases of female pelvic organs (3 sources) Cyst of Bartholin's gland duct; Translations: [Cyst of Bartholin's gland] 10-18-2024 Episodic Comment on above: left side asymptomat ic reviewed precautions Malaise and fatigue (5 sources) Fatigue; Translations: [Other fatigue] Onset: 06-24-2024 06-24-2024 Episodic Menstrual disorders (8 sources) Amenorrhea; Translations: [Absence of menstruation] Onset: 03-29-2022 03-29-2022 Chronic Comment on above: hcg x2 Nutritional deficiencies (7 sources) Vitamin D deficiency; Translations: [Vitamin D deficiency, unspecified] Onset: 05-23-2023 05-23-2023 Chronic Other complications of (5 sources) Miscarriage; Translations: [ demise, less than 22 weeks] 05-03-2022 Episodic Other complications of (5 sources) Missed miscarriage; Translations: [Missed ] 04-30-2022 Episodic Comment on above: proceed with d and c Other complications of (10 sources) High risk ; Translations: [Supervision of high risk , unspecified, unspecified trimester] 10-08-2024 Episodic Comment on above: , KIMBERLEE 05/18/25, PC: Rubén & Ellen, : Palomo , KIMBERLEE 12/04/22, P C uRbén, Ellen Palomo Other complications of (4 sources) Missed ; Translations: [Missed ] Episodic Other complications of (4 sources) H/O: miscarriage; Translations: [Supervision of with other poor reproductive or obstetric history, unspecified trimester] 10-18-2024 Episodic Comment on above: x1, Apr 2022 Other complications of (5 sources) Multigravida of advanced maternal age; Translations: [Supervision of elderly multigravida, unspecified trimester] 10-08-2024 Episodic Other complications of (1 source) Supervision of high risk , unspecified, unspecified trimester; Translations: [Supervision of high risk , unspecified, unspecified trimester] Onset: 11-05-2024 Episodic Other eye disorders (1 source) Other specified disorders of eye and adnexa; Translations: [Other specified disorders of eye and adnexa] Onset: 08-27-2022 Episodic Other female genital disorders (5 sources) History of premature labor; Translations: [Personal history of pre-term labor] 10-08-2024 Episodic Comment on above: Last - 37w eeks Other lower respiratory disease (2 sources) Cough 03-29-2022 Episodic Comment on above: COUGH Other nutritional; endocrine; and metabolic disorders (1 source) Decreased body mass index; Translations: [Body mass index (BMI) 19.9 or less, adult] 06-24-2024 Episodic Other nutritional; endocrine; and metabolic disorders (4 sources) Body mass index (BMI) 19.9 or less, adult; Translations: [Body mass index (BMI) 19.9 or less, adult] Onset: 06-24-2024 Episodic Other nutritional; endocrine; and metabolic disorders (5 sources) Underweight; Translations: [Underweight] 10-08-2024 Episodic Comment on above: BMI 18; B12, Thiamin e & iron studies ordered w/NOB Other and delivery including normal (11 sources) ; Translations: [Encounter for supervision of normal , unspecified, unspecified trimester] Onset: 03-29-2022 10-18-2024 Episodic Comment on above: Discussed genetic/ca rrier testing plan NIPT discussed genetic & carrier testing Other screening for suspected conditions (not mental disorders or infectious disease) (7 sources) Prothrombin time abnormal; Translations: [Abnormal coagulation profile] Onset: 05-23-2023 05-23-2023 Episodic Other upper respiratory disease (6 sources) Seasonal allergy; Translations: [Other seasonal allergic rhinitis] 06-24-2024 Chronic Other upper respiratory disease (2 sources) Other seasonal allergic rhinitis; Translations: [Other seasonal allergic rhinitis] Onset: 06-24-2024 Chronic Other upper respiratory disease (2 sources) Pain in throat 05-25-2022 Episodic Comment on above: SORE THROAT Spontaneous (5 sources) Incomplete miscarriage; Translations: [Incomplete spontaneous without complication] 05-03-2022 Episodic Unclassified (2 sources) PINK EYE SX 08-27-2022 Comment on above: PINK EYE SX Unclassified (1 source) Acute bacterial conjunctivitis of left eye 08-27-2022 Unclassified (1 source) Contact with and (suspected) exposure to COVID-19; Translations: [Contact with and (suspected) exposure to COVID-19] Onset: 05-25-2022 Unclassified (1 source) Cough, unspecified; Translations: [Cough, unspecified] Onset: 05-25-2022 Unclassified (1 source) Partially vaccinated for COVID-19; Translations: [Partially vaccinated for COVID-19] Onset: 03-29-2022 Unclassified (1 source) Traumatic subdural hemorrhage with loss of consciousness status unknown, initial encounter; Translations: [Traumatic subdural hemorrhage with loss of consciousness status unknown, initial encounter] Onset: 05-20-2023 Unclassified (2 sources) trauma- syncopal event- Sm SDH Onset: 05-20-2023 Past or Other Problems Problem Classification Problem Date Documented Date Episodic/Chronic Acute bronchitis (3 sources) Acute bronchitis; Translations: [Acute bronchitis] Onset: 03-29-2022 03-29-2022 Episodic Fluid and electrolyte disorders (2 sources) Hypokalemia; Translations: [Hypokalemia] Onset: 05-23-2023 05-23-2023 Episodic Intracranial injury (3 sources) Traumatic subdural hemorrhage; Translations: [Traumatic subdural hemorrhage with loss of consciousness of unspecified duration, subsequent encounter] Onset: 05-23-2023 2023 Episodic Other circulatory disease (1 source) Other specified symptoms and signs involving the circulatory and respiratory systems; Translations: [Oth symptoms and signs involving the circ and resp systems] Onset: 03-29-2022 Episodic Other complications of ; puerperium affecting management of mother (3 sources) Deliveries by ; Translations: [Encounter for delivery without indication] Onset: 02-03-2019 02-03-2019 Episodic Other lower respiratory disease (1 source) Chronic cough; Translations: [Chronic cough] Onset: 03-29-2022 Episodic Other upper respiratory disease (1 source) Nasal congestion; Translations: [Nasal congestion] Onset: 03-29-2022 Episodic Other upper respiratory infections (4 sources) Acute upper respiratory infection; Translations: [Acute upper respiratory infections of unspecified site] Onset: 05-25-2022 05-25-2022 Episodic Residual codes; unclassified (1 source) Immunization not carried out for unspecified reason; Translations: [Immunization not carried out for unspecified reason] Onset: 03-29-2022 Episodic Syncope (5 sources) Syncope and collapse; Translations: [Syncope and collapse] Onset: 05-20-2023 05-20-2023 Episodic Unclassified (1 source) Traumatic subdural hemorrhage with loss of consciousness status unknown, initial encounter; Translations: [Traumatic subdural hemorrhage with loss of consciousness status unknown, initial encounter] Onset: 05-20-2023 Unclassified (2 sources) Onset: 05-23-2023 Resolved: 06-24-2024 05-23-2023 Results Test Name Value Interpretation Reference Range Facility Chlamydia/GC LASHON aptimaon CHLAMY,NUC ACID Negative Normal Negative [facility] Comment on above: Performed By: #### L 7000.1800, L7400.0280, M100.2200 #### [facility] [address] [place], [address] GC BY NUC ACID Negative Normal Negative [facility] Comment on above: Result Comment: Perf ormed at: =G - [facility] [address], [place] [id number] Drafter Chief Design: Kelsie Hartman MD, Phone: [phone] Performed By: #### L 7000.1800, L7400.0280, M100.2200 #### [facility] [address] [place], [address] PAP IG HPV APTIMA 16/18,45on 10-21-2024 ADEQ Comment Normal . [facility] Comment on above: Order Comment: Speci men Comment: [id number] Specimen Comment: No. of containers..01 ThinPrep Vial Result Comment: Sati sfactory for evaluation. No endocervical component is identified. Performed By: #### L 7000.1800, L7400.0280, M100.2200 #### [facility] [address] [place], [address] COMM . Normal . [facility] Comment on above: Order Comment: Speci men Comment: [id number] Specimen Comment: No. of containers..01 ThinPrep Vial Performed By: #### L 7000.1800, L7400.0280, M100.2200 #### [facility] [address] [place], [address] COMMENT Comment Normal . [facility] Comment on above: Order Comment: Speci men Comment: [id number] Specimen Comment: No. of containers..01 ThinPrep Vial Result Comment: This liquid based ThinPrep(R) pap test was screened with the use of an image guided system. Performed By: #### L 7000.1800, L7400.0280, M100.2200 #### [facility] [address] [place], [address] DIAG Comment Normal . [facility] Comment on above: Order Comment: Speci men Comment: [id number] Specimen Comment: No. of containers..01 ThinPrep Vial Result Comment: NEGA TIVE FOR INTRAEPITHELIAL LESION OR MALIGNANCY. Performed By: #### L 0.1800, L7400.0280, M100.2200 #### [facility] [address] [place], [address] HPV APTIMA, HR Negative Normal Negative [facility] Comment on above: Order Comment: Speci men Comment: [id number] Specimen Comment: No. of containers..01 ThinPrep Vial Result Comment: This nucleic acid amplification test detects fourteen high- risk HPV types (16,18,31,33,35,39,45,51,52,56,58,59,66,68) without differentiation. Performed By: #### L 7000.1800, L7400.0280, M10 #### [facility] [address] [place], [address] HPV [place] Rfx Comment Normal . [facility] Comment on above: Order Comment: Speci men Comment: [id number] Specimen Comment: No. of containers..01 ThinPrep Vial Result Comment: Crit eria not met, HPV Genotype not performed. Performed at: - [facility] [id number] Drafter Chief Design: Kelsie Hartman MD, Phone: [phone] Performed at: = - [facility], [place] [id number] Drafter Chief Design: Kelsie Hartman MD, Phone: [phone] Performed By: #### L 7000.1800, L7400.0280, M100.2200 #### [facility] [address] [place], [address] PAPSMR Comment Normal . [facility] Comment on above: Order Comment: Speci men Comment: [id number] Specimen Comment: No. of containers..01 ThinPrep Vial Result Comment: The Pap smear is a screening test designed to aid in the detection of premalignant and malignant conditions of the uterine cervix. It is not a diagnostic procedure and should not be used as the sole means of detecting cervical cancer. Both false-positive and false-negative reports do occur. Performed By: #### L 7000.1800, L7400.0280, M100.2200 #### [facility] [address] [place], [address] PERFORM Comment Normal . [facility] Comment on above: Order Comment: Speci men Comment: [id number] Specimen Comment: No. of containers..01 ThinPrep Vial Result Comment: Ada Hatch, Hospice Executive Director (ASCP) Performed By: #### L 7000.1800, L7400.0280, M100.2200 #### [facility] [address] [place], [address] Urine Cultureon 10-21-2024 [facility] Mixed Gram Positive Organisms [place] Count 25,000-50,000 MIXC Mixed contaminants. Submit a new specimen if indicated. Normal [facility] Comment on above: Performed By: #### L 7000.1800, L7400.0280, M100.2200 #### [facility] [address] [place], [address] Cervical or vaginal specimen microscopic examination by liquid based cytology (reportOrdered By: Adele Miner on 10-18-2024 Cytology report Cyto stain.thin prep Doc (Cvx/Vag) Comment . [facility] Comment on above: Criteria not met, HP V Genotype not performed.Performed at: [address], [place] [id number] Director: Kelsie Hartman MD, Phone: [phone] at: =G [address] [place], [place] [id number] Director: Kelsie Hartman MD, Phone: [phone] Cervical or vagninal specime n microscopic examination by cytology stain (reported asOrdered By: Adele Miner on 10-18-2024 Cytology report Cyto stain Doc (Cvx/Vag) Comment . [facility] Comment on above: The Pap smear is a s creening test designed to aid in thedetection of premalignant and malignant conditions of theuterine cervix. It is not a diagnostic procedure andshould not be used as the sole means of detecting cervicalcancer. Both false-positive and false-negative reports dooccur. Chlamydia trachomatis rRNA d etection by probe and target amplification methodOrdered By: Adele Miner on 10-18-2024 C. trachomatis rRNA LASHON+probe Ql (Unsp spec) Negative Negative [facility] Detection in cervical specim en of any of human papilloma virus (HPV) 16, 18, 31, 33,Ordered By: Adele Miner on 10-18-2024 HPV 16+18+31+33+35+39+45+5 1+52+56+58+59+66+68 DNA Probe+sig amp Ql (Cvx) Negative Negative [facility] Comment on above: This nucleic acid am plification test detects fourteen high- risk HPV types (16,18,31,33,35,39,45,51,52,56,58,59,66,68)without differentiation. Laboratory - CytologyOrdered By: Adele Miner on 10-18-2024 Hospice Executive Director Cyto stain Nom (Cvx/Vag) [ID] Comment . [facility] Comment on above: Elvia Hatch, Hospice Executive Director (ASCP) Laboratory - Miscellaneous t estsOrdered By: Adele Miner on 10-18-2024 Service comment (Unsp spec) [Interp] . . [facility] Neisseria gonorrhoeae nuclei c acid detection by amplified probe techniqueOrdered By: Adele Miner on 10-18-2024 N. gonorrhoeae DNA LASHON+probe Ql (Unsp spec) Negative Negative [facility] Comment on above: Performed at: =G - L [address]ow[address] MarcumQmgtvxajfb[address] StreetMauris[address] [place] [id number] Director: Kelsie Hartman MD, Phone: [phone] No Panel InformationOrdered By: Adele Miner on 10-18-2024 Pap Smear Specimen Adequacy Comment . [facility] Comment on above: Satisfactory for jose luation. No endocervical component is identified. [facility] Visit Reporton 10-18-2024 [facility] Visit Report [facility] [address], [address] [place] [address] OFFICE VISIT Date of Service: 10/18/24 MR#: [id number] Acct: [id number] Name: ALYSSIA ROBERSON Rep #: [id number] : 1985 Provider: Dr. Adele mackey MD Age/Sex: 39/F Location[place] [facility] [place] Status: Signed with Addenda ADDENDUM by Dr. Adele Miner MD on 10/18/24 at 1321 Assessment and Plan Assessment and Plan (1) : Status: Acute Qualifiers: Weeks of gestation: 9 weeks Qualified Code(s): Z3A.09 - 9 weeks gestation of Comment: Discussed genetic/carrier testing plan NIPT (2) Supervision of high-risk : Status: Acute Comment: , KIMBERLEE 05/18/25, PC: Rubén Hughes, : Palomo (3) History of delivery, currently : Status: Acute Comment: x2 - desires repeat csec (4) AMA (advanced maternal age) multigravida 35+: Status: Acute (5) Underweight (BMI < 18.5): Status: Acute Comment: BMI 18; B12, Thiamine iron studies ordered w/NOB (6) History of labor: Status: Acute Comment: Last - 37weeks (7) History of miscarriage, currently : Status: Resolved Comment: x1, Apr 2022 Plan left labia bartholins gland fluctuant cyst 10/18/24 1321 Date Adele Miner MD cc: * Signed Intake Vital Signs 05/10/22 16:08 10/18/24 10:21 Height 5 ft 4 in 5 ft 4 in Weight: 108 lb 2 oz BMI 18.5 BP 112/71 Intake Visit Reasons: NOB 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 Missed Surgical History (Updated 10/08/24 @ 12:08 by Lety Mejia RN) Status post surgery S/P dilatation and curettage S/P Family History Grandmother Brain cancer, Onset Age: 70 Grandfather Heart disease Mother Heart disease Grandmother Colon cancer Social History adopted: No household members: spouse and children housing: house number of children: 2 current occupational status: employed current occupation: [employer] current occupational exposures/hazards: No pets and animals: Yes (Not managing litterbox) pets and animals: cat(s) history of recent travel: No sexually active: Yes Smoking Status: Never smoker alcohol intake: current alcohol intake frequency: holidays/special occasions only details: Not while substance use type: does not use well-balanced diet: daily or most days caffeine: Yes Type: coffee eating out: 1-3 times/week during the past year weight has: remained stable what type of physical activity do you participate in: none champ/yazidism: Yazidism seatbelt use: always do you feel safe at home: Yes additional social history: : Palomo- Principal History 4 Elective abortions Hx Para 2 Spontaneous abortions 1 Hx # Term Pregnancies Ectopic pregnancies Hx # Pregnancies Multiple births # of living children 2 Past Pregnancies Del. Date Name GA/Weeks Outcome Route Bth Weight Infant Gen Labor Lgth Anesthesia Del Locatn Provider FOB 02/11/16 Rubén 41 live - full term 7#4oz Male 24 hours epidural Emely Culver 02/03/19 Ellen 37 live - full term 6#7oz Female 8 hours epidural Emely Culver 04/09/22 8 spontaneous Delivery Date: 02/11/16 Last Updated by: Fouzia Funes Failure to progress Delivery Date: 02/03/19 Last Updated by: Fouzia Funes pre-term labor Delivery Date: 04/09/22 Last Updated by: Lety Mejia RN D C HPI NOB LMP 3/5 Details: ALYSSIA ROBERSON is a 39 year old who presents for New OB visit. OB Visit KIMBERLEE Calculator Estimated Delivery Date Method Current WG Current Estimate 05/18/25 LMP (Certain) 9w 5d Estimated Due Date: 05/18/25 Expected Delivery Route/Plan plan RLTCS Specific Issue/Plans Covid status: [] Flu vaccine: [] Tdap vaccine: [] Rhogam: [] LARC form signed: [] Problem list reviewed and updated with the most current plan of care details and appropriate orders placed. Relevant counseling for the gestational age provide (more content not included)... Normal [facility] Urine cultureOrdered By: Coy Miner on 10-18-2024 Bacteria identified Cx Nom (U) Positive Abnormal [facility] CBC panel Auto (Bld)on 06-24 Erythrocyte distribution width (RBC) [Ratio] 12.6 % Normal 11.5-14.5 [facility] Comment on above: Performed By: #### 5 8410-2 #### ANGEL MOLINA ([id number]) [facility]) [address] [place] [address] Hematocrit (Bld) [Volume fraction] 46.1 % High 36.0-46.0 [facility] Comment on above: Performed By: #### 5 8410-2 #### ANGEL MOLINA ([id number]) [facility] ([facility]) [address] [place] [address] Hemoglobin (Bld) [Mass/Vol] 14.8 g/dL Normal 12.0-16.0 [facility] Comment on above: Performed By: #### 5 8410-2 #### ANGEL MOLINA ([id number]) [facility] ([facility]) [address] [place] [address] 08583 MCH (RBC) [Entitic mass] 26.9 pg Normal 26.0-34.0 [facility] Comment on above: Performed By: #### 5 8410-2 #### ANGEL MOLINA ([id number]) [facility] ([facility]) [address] [place] [address] 91590 MCHC (RBC) [Mass/Vol] 32.1 g/dL Normal 32.0-36.0 [facility] Comment on above: Performed By: #### 5 8410-2 #### ANGEL MOLINA ([id number]) [facility] ([facility]) [address] [place] [address] 09904 MCV (RBC) [Entitic vol] 84 fL Normal 80-100 [facility] Comment on above: Performed By: #### 5 8410-2 #### ANGEL MOLINA ([id number]) [facility] ([facility]) [address] [place] [address] 81198 Nucleated RBC/100 WBC (Bld) [Ratio] 0.0 /100 WBCs Normal 0.0-0.0 [facility] Comment on above: Performed By: #### 5 8410-2 #### ANGEL MOLINA ([id number]) [facility] ([facility]) [address] [place] [address] 50007 Platelets (Bld) [#/Vol] 310 x10*3/uL Normal 150-450 [facility] Comment on above: Performed By: #### 5 8410-2 #### ANGEL MOLINA ([id number]) [facility] ([facility]) [address] [place] [address] 38756 RBC (Bld) [#/Vol] 5.50 x10*6/uL High 4.00-5.20 [facility] Comment on above: Performed By: #### 5 8410-2 #### ANGEL MOLINA ([id number]) [facility] ([facility]) [address] [place], [place] [address] WBC (Bld) [#/Vol] 9.5 x10*3/uL Normal 4.4-11.3 [facility] Comment on above: Performed By: #### 5 8410-2 #### ANGEL MOLINA ([id number]) [facility] ([facility]) [address] [place] [address] Calcidiolon 06-24-2024 25-hydroxyvitamin D3 [Mass/Vol] 33 ng/mL Normal 30-100 [facility] Comment on above: Order Comment: Defic iency: < 20 ng/ml Insufficiency: 20-29 ng/ml Sufficiency: 30-100 ng/ml This assay accurately quantifies the sum of Vitamin D3, 25-Hydroxy and Vitamin D2,25-Hydroxy. Performed By: #### 1 989-3 #### ANGEL MOLINA ([id number]) [facility] ([facility]) [address] [place] [address] Cobalaminson 06-24-2024 Cobalamin (Vitamin B12) [Mass/Vol] 431 pg/mL Normal 211-911 [facility] Comment on above: Performed By: #### 2 132-9 #### ANGEL MOLINA ([id number]) [facility] ([facility]) [address] [place], [place] [address] Comprehensive metabolic 2000 panelon 06-24-2024 Albumin BCP dye [Mass/Vol] 4.7 g/dL Normal 3.4-5.0 [facility] Comment on above: Performed By: #### 2 4323-8 #### ANGEL MOLINA ([id number]) [facility] ([facility]) [address] [place], [place] [address] ALP [Catalytic activity/Vol] 42 U/L Normal 33-110 [facility] Comment on above: Performed By: #### 2 4323-8 #### ANGEL MOLINA ([id number]) [facility] ([facility]) [address] [place] [address] ALT With P-5'-P [Catalytic activity/Vol] 9 U/L Normal 7-45 [facility] Comment on above: Result Comment: Jocy ents treated with Sulfasalazine may generate falsely decreased results for ALT. Performed By: #### 2 4323-8 #### ANGEL MOLINA ([id number]) [facility] ([facility]) [address] [place] [address] Anion gap [Moles/Vol] 10 mmol/L Normal 10-20 [facility] Comment on above: Performed By: #### 2 4322-8 #### ANGEL MOLINA ([id number]) [facility]) [address] [place] [address] AST With P-5'-P [Catalytic activity/Vol] 17 U/L Normal 9-39 [facility] Comment on above: Performed By: #### 2 4322-8 #### ANGEL MOLINA ([id number]) [facility]) [address] [place] [address] Bilirubin [Mass/Vol] 0.8 mg/dL Normal 0.0-1.2 [facility] Comment on above: Performed By: #### 2 4322-8 #### ANGEL MOLINA ([id number]) [facility]) [address] [place] [address] Calcium [Mass/Vol] 9.7 mg/dL Normal 8.6-10.3 [facility] Comment on above: Performed By: #### 2 3-8 #### ANGEL MOLINA ([id number]) [facility]) [address] [place] [address] Chloride [Moles/Vol] 102 mmol/L Normal 98-107 [facility] Comment on above: Performed By: #### 2 3-8 #### ANGEL MOLINA ([id number]) [facility]) [address] [place] [address] CO2 [Moles/Vol] 30 mmol/L Normal 21-32 [facility] Comment on above: Performed By: #### 2 4323-8 #### ANGEL MOLINA ([id number]) [facility]) [address] [place] [address] Creatinine [Mass/Vol] 0.71 mg/dL Normal 0.50-1.05 [facility] Comment on above: Performed By: #### 2 4323-8 #### ANGEL MOLINA ([id number]) [facility]) [address] [place] [address] GFR/1.73 sq M.predicted MDRD (S/P/Bld) [Vol rate/Area] mL/min/{1.73_m2} Normal >60 [facility] Comment on above: Result Comment: Calc ulations of estimated GFR are performed using the 2020 CKD-EPI Study Refit equation without the race variable for the IDMS-Traceable creatinine methods. https://jasn.asnjournals.org/content/early//ASN.53451 49361 Performed By: #### 2 4323-8 #### ANGEL MOLINA ([id number]) [facility] ([facility]) [address] [place] [address]3097 Glucose [Mass/Vol] 76 mg/dL Normal 74-99 [facility] Comment on above: Performed By: #### 2 4323-8 #### ANGEL MOLINA ([id number]) [facility]) [address] [place] [address] 44087 Potassium [Moles/Vol] 3.7 mmol/L Normal 3.5-5.3 [facility] Comment on above: Performed By: #### 2 4323-8 #### ANGEL MOLINA ([id number]) [facility]) [address] [place] [address]1705 Protein [Mass/Vol] 7.3 g/dL Normal 6.4-8.2 [facility] Comment on above: Performed By: #### 2 4323-8 #### ANGEL JESSE ([id number]) [facility]) [facility] [place] [address] Sodium [Moles/Vol] 138 mmol/L Normal 136-145 [facility] Comment on above: Performed By: #### 2 4323-8 #### ORTIZ JESSE ([id number]) [facility]) [address] [place] [address] Urea nitrogen [Mass/Vol] 15 mg/dL Normal 6-23 [facility] Comment on above: Performed By: #### 2 4323-8 #### ORTIZ JESSE ([id number]) [facility] ([facility]) [address] [place] [address] TSH WITH REFLEX TO FREE T4 I F ABNORMALon 06-24-2024 TSH Qn 1.46 m[IU]/L Normal 0.44-3.98 [facility] Comment on above: Order Comment: TSH t esting is performed using different testing methodology at [facility] than at other [facility]. Direct result comparisons should only be made within the same method. Performed By: #### T HYDS #### ANGEL MOLINA ([id number]) [facility] ([facility]) [address] [place], [place] [address] ECHOCARDIOGRAM COMPLETE W CO NTRASTon 05-21-2023 ECHOCARDIOGRAM COMPLETE W CONTRAST Patient Info Name: ALYSSIA ROBERSON Age: 37 years : 1985 Gender: Female Ht: 163 cm Wt: 46 kg BSA: 1.44 m2 HR: 86 bpm BP: 94 / 57 mmHg Heart Rhythm: Sinus Rhythm Technical Quality: Technically difficult Exam Date: 05/21/2023 10:00 AM Patient Status: Inpatient Technical Support Agent: Bessie Jaffe RCDS Exam Type: ECHOCARDIOGRAM COMPLETE W CONTRAST Study Info Indications R55 - Syncope and collapse Referring Physician: ODELL Owens; [id number] BMI: 17.51 kg/m2 Summary 1. Normal LV chamber size. Normal wall thickness. Systolic function is normal with no regional wall motion abnormalities. Estimated ejection fraction of 55 to 60%. 2. The left ventricular diastolic function is normal. 3. No hemodynamically significant valvular disease. 4. Right ventricular size and systolic function are normal. 5. There is no pulmonary hypertension, estimated right ventricle systolic pressure is 22 mmHg. History/Risk Factors Tobacco Use: Never Family History: Diabetes Mellitus History/Risk Factors Syncope, subdural hematoma. Procedure(s): Complete two-dimensional, color flow and Doppler transthoracic echocardiogram is performed. Definity explained to patient. Patient verbalizes understanding and agrees to proceed. Definity 1.3ml/8.7ml normal sterile saline 2 ml total given IV over 30-60 seconds. Left Ventricle Normal LV chamber size. Normal wall thickness. Systolic function is normal with no regional wall motion abnormalities. Estimated ejection fraction of 55 to 60%. The left ventricular diastolic function is normal. Right Ventricle Right ventricular size and systolic function are normal. Left Atria Left atrial chamber is normal with a left atrial volume index of 16 ml/m2 by BP MOD. Right Atria Right atrial chamber dimension is normal. Pericardium/Pleural There is no pericardial effusion. Inferior Vena Cava Normal inferior vena cava with >50% collapse upon inspiration consistent with normal right atrial pressure. Aorta The aortic measurements are indexed to age and body surface area. The aortic root is normal measuring 2.5 cm with an index of 1.7 cm/m2. The proximal ascending aorta is normal measuring 2.5 cm with an index of 1.7 cm/m2. Left Ventricular Outflow Tract ---- Name Value Normal ---- LVOT 2D ---- LVOT Diameter 1.9 cm LVOT Doppler ---- LVOT Peak Velocity 1.0 m/s LVOT Mean Gradient 3 mmHg LVOT VTI 23 cm LVOT VTI/AV VTI Ratio 0.9 LVOT Stroke Volume 64 ml LVOT Stroke Index 44.61 ml/m2 Pulmonic Valve ---- Name Value Normal ---- RVOT Doppler ---- RVOT Peak Velocity 63 cm/s RVOT Mean Gradient 1 mmHg RVOT VTI 16 cm PV Doppler ---- PV Peak Velocity 0.80 m/s PV Mean Gradient 2 mmHg PV VTI 19 cm Mitral Valve ---- Name Value Normal ---- MV Doppler ---- MV Peak Velocity 1.02 m/s MV Mean Gradient 2 mmHg MV VTI 21 cm MV Decel [place] 489 cm/s2 MV PHT 53 ms MV Area (PHT) 4.1 cm2 4.0-5.0 MV Area (Cont Eq VTI) 3.0 cm2 MV Area Index (Cont Eq VTI) 2.08 cm2/m2 MV DVI 0.95 MV Diastolic Function ---- MV E Peak Velocity 1.10 m/s MV A Peak Velocity 0.72 m/s MV E/A 1.5 MV Decel Time 183 ms MV Annular TDI ---- MV Septal e' Velocity 11.1 cm/s >=8.0 MV E/e' (Septal) 9.9 <=8.0 MV Lateral e' Velocity 13.2 cm/s >=10.0 MV E/e' (Lateral) 8.3 <=8.0 MV e' Average 12.15 cm/s MV E/e' (Average) 9.1 Tricuspid Valve ---- Name Value Normal ---- TV Regurgitation Doppler ---- TR Peak Velocity 2.17 m/s Estimated PAP/RSVP ---- RA Pressure 3 mmHg <=5 PA Systolic Pressure 22 mmHg <=36 RV Systolic Pressure 22 mmHg <36 TV Annular TDI ---- RV s' Velocity 0.1 m/s 0.1-0.2 Aorta ------- (more content not included)... Normal [facility] US DOPPLER CAROTIDon 05-21-2 023 US DOPPLER CAROTID Patient Info Name: ALYSSIA ROBERSON Age: 37 years : 1985 Gender: Female Exam Date: 05/21/2023 7:58 AM Patient Status: Inpatient Healthcare Or Medical: Elvia Jarvis, PRINCE, BEVERLY Referring Physician: EROS Rueda; Indications - syncopal work up R55 - Syncope and collapse Procedure Description 37619 Duplex examination using B-mode, color and spectral Doppler of extracranial arteries; complete bilateral study. NASCET criteria is used when performing imaging correlation with carotid duplex interpretation. Conclusions * Right. * Normal duplex examination of the right internal carotid artery. * Right vertebral artery is patent with antegrade flow. * No evidence of hemodynamically significant stenosis in the right common carotid, external carotid and subclavian arteries. * Left. * Normal duplex examination of the left internal carotid artery. * Left vertebral artery is patent with antegrade flow. * No evidence of hemodynamically significant stenosis in the left common carotid, external carotid and subclavian arteries. Recommendations * Based upon this study, Advanced Carotid Imaging does not appear to be warranted. Clinical correlation advised. Measurements ---- Name Value ---- Right PSV ---- Right Prox CCA PSV 108 cm/s Right Mid CCA PSV 118 cm/s Right Distal CCA PSV 103 cm/s Right Prox ICA PSV 137 cm/s Right Mid ICA PSV 101 cm/s Right Distal ICA PSV 102 cm/s Right ECA PSV 126 cm/s Right Vert PSV 52 cm/s Right Prox SCA PSV 136 cm/s Rt ICA/CCA Ratio 1.3 Measurements ---- Name Value ---- Right EDV ---- Right Prox CCA EDV 20 cm/s Right Mid CCA EDV 25 cm/s Right Distal CCA EDV 28 cm/s Right Prox ICA EDV 37 cm/s Right Mid ICA EDV 44 cm/s Right Distal ICA EDV 47 cm/s Right ECA EDV 0 cm/s Right Vert EDV 15 cm/s Right Prox SCA EDV 12 cm/s Measurements ---- Name Value ---- Left PSV ---- Left Prox CCA PSV 108 cm/s Left Mid CCA PSV 117 cm/s Left Distal CCA PSV 102 cm/s Left Prox ICA PSV 104 cm/s Left Mid ICA PSV 97 cm/s Left Distal ICA PSV 85 cm/s Left ECA PSV 117 cm/s Left Vert PSV 58 cm/s Left Prox SCA PSV 196 cm/s Lt ICA/CCA Ratio 1.0 Measurements ---- Name Value ---- Left EDV ---- Left Prox CCA EDV 26 cm/s Left Mid CCA EDV 30 cm/s Left Distal CCA EDV 31 cm/s Left Prox ICA EDV 33 cm/s Left Mid ICA EDV 33 cm/s Left Distal ICA EDV 36 cm/s Left ECA EDV 10 cm/s Left Vert EDV 21 cm/s Left Prox SCA EDV 0 cm/s Right Findings * No plaque noted in the right common carotid artery. * No plaque noted in the right internal carotid artery. * No plaque noted in the right external carotid artery. Left Findings * No plaque noted in the left common carotid artery. * No plaque noted in the left internal carotid artery. * No plaque noted in the left external carotid artery. Risk Factors Patient has a history of SDH. . Report Signatures Finalized by ADY Barba DO on 05/21/2023 09:14 AM Normal [facility] Basic metabolic 2000 panelon 05-20-2023 Anion gap [Moles/Vol] 9 mmol/L Low 10 - 2 0 mmol/L [facility] Calcium [Mass/Vol] 7.7 mg/dL Low 8.6 - 10. 3 mg/dL [facility] Chloride [Moles/Vol] 111 mmol/L High 98 - 10 7 mmol/L [facility] CO2 [Moles/Vol] 22 mmol/L 21 - 32 mmol/L [facility] Creatinine [Mass/Vol] 0.76 mg/dL 0.50 - 1.05 mg/dL [facility] GFR/1.73 sq M.predicted MDRD (S/P/Bld) [Vol rate/Area] - PINF [facility] Comment on above: Calculations of gricelda mated GFR are performed using the 2020 CKD-EPI Study Refit equation without the race variable for the IDMS-Traceable creatinine methods. https://jasn.asnjournals.org/content/early/ASN.89809 61138 Glucose [Mass/Vol] 98 mg/dL 74 - 99 mg/dL [facility] Interpretation and review of laboratory results Abnormal [facility] Potassium [Moles/Vol] 3.8 mmol/L 3.5 - 5.3 mmol/L [facility] Sodium [Moles/Vol] 138 mmol/L 136 - 145 mmol/L [facility] Urea nitrogen [Mass/Vol] 13 mg/dL 6 - 23 mg/dL [facility] Anion gap [Moles/Vol] 9 mmol/L Low 10-20 [facility] Comment on above: Performed By: #### 2 4321-2 #### ORTIZ JESSE ([id number]) [facility] ([facility]) [address] [place] [address] Calcium [Mass/Vol] 7.7 mg/dL Low 8.6-10.3 [facility] Comment on above: Performed By: #### 2 4321-2 #### ANGEL MOLINA ([id number]) [facility] ([facility]) [address] [place] [address] Chloride [Moles/Vol] 111 mmol/L High 98-107 [facility] Comment on above: Performed By: #### 2 4321-2 #### ANGEL MOLINA ([id number]) [facility] ([facility]) [facility] [place] [address] CO2 [Moles/Vol] 22 mmol/L Normal 21-32 [facility] Comment on above: Performed By: #### 2 4321-2 #### ANGEL MOLINA ([id number]) [facility] ([facility]) [address] [place] [address] Creatinine [Mass/Vol] 0.76 mg/dL Normal 0.50-1.05 [facility] Comment on above: Performed By: #### 2 4321-2 #### ANGEL MOLINA ([id number]) [facility] ([facility]) [address] [place] [address] GFR/1.73 sq M.predicted MDRD (S/P/Bld) [Vol rate/Area] mL/min/{1.73_m2} Normal >60 [facility] Comment on above: Result Comment: Calc ulations of estimated GFR are performed using the 2020 CKD-EPI Study Refit equation without the race variable for the IDMS-Traceable creatinine methods. https://jasn.asnjournals.org/content/early//ASN.25544 86518 Performed By: #### 2 4321-2 #### ANGEL MOLINA ([id number]) [facility] ([facility]) [address] [place] [address] Glucose [Mass/Vol] 98 mg/dL Normal 74-99 [facility] Comment on above: Performed By: #### 2 4321-2 #### ANGEL MOLINA ([id number]) [facility] ([facility]) [address] [place] [address] Potassium [Moles/Vol] 3.8 mmol/L Normal 3.5-5.3 [facility] Comment on above: Performed By: #### 2 4321-2 #### ANGEL MOLINA ([id number]) [facility] ([facility]) [address] [place] [address] Sodium [Moles/Vol] 138 mmol/L Normal 136-145 [facility] Comment on above: Performed By: #### 2 4321-2 #### ANGEL MOLINA ([id number]) [facility] ([facility]) [address] [place] [address] Urea nitrogen [Mass/Vol] 13 mg/dL Normal 6-23 [facility] Comment on above: Performed By: #### 2 4321-2 #### ANGEL MOLINA ([id number]) [facility] ([facility]) [address] [place] [address] CBC W Auto Differential pane l (Bld)on 05-20-2023 Basophils (Bld) [#/Vol] 0.05 10*3/uL [facility] Basophils/100 WBC (Bld) 0.7 % 0.0 - 2.0 % [facility] Eosinophils (Bld) [#/Vol] 0.30 10*3/uL [facility] Eosinophils/100 WBC (Bld) 4.1 % 0.0 - 6.0 % [facility] Erythrocyte distribution width (RBC) [Ratio] 12.9 % 11.5 - 14.5 % [facility] Hematocrit (Bld) [Volume fraction] 41.4 % 36.0 - 46.0 % [facility] Hemoglobin (Bld) [Mass/Vol] 13.7 g/dL 12.0 - 16.0 g/dL [facility] Immature granulocytes (Bld) [#/Vol] 0.03 10*3/uL [facility] Immature granulocytes/100 WBC (Bld) 0.4 % 0.0 - 0.9 % [facility] Comment on above: Immature Granulocyte Count (IG) includes promyelocytes, myelocytes and metamyelocytes but does not include bands. Percent differential counts (%) should be interpreted in the context of the absolute cell counts (cells/UL). Lymphocytes (Bld) [#/Vol] 1.65 10*3/uL [facility] Lymphocytes/100 WBC (Bld) 22.5 % 13.0 - 44.0 % [facility] MCH (RBC) [Entitic mass] 27.1 pg 26.0 - 34.0 pg [facility] MCHC (RBC) [Mass/Vol] 33.1 g/dL 32.0 - 36.0 g/dL [facility] MCV (RBC) [Entitic vol] 82 fL 80 - 100 fL [facility] Monocytes (Bld) [#/Vol] 0.48 10*3/uL [facility] Monocytes/100 WBC (Bld) 6.5 % 2.0 - 10.0 % [facility] Neutrophils (Bld) [#/Vol] 4.82 10*3/uL [facility] Comment on above: Percent differential counts (%) should be interpreted in the context of the absolute cell counts (cells/uL). Neutrophils/100 WBC (Bld) 65.8 % 40.0 - 80.0 % [facility] Nucleated RBC/100 WBC (Bld) [Ratio] 0.0 % [facility] Platelets (Bld) [#/Vol] 191 10*3/uL [facility] RBC (Bld) [#/Vol] 5.06 10*6/uL [facility] WBC (Bld) [#/Vol] 7.3 10*3/uL [facility] Basophils (Bld) [#/Vol] 0.05 x10*3/uL Normal 0.00-0.10 [facility] Comment on above: Performed By: #### 5 7021-8 #### ANGEL MOLINA ([id number]) [facility] ([facility]) [address] [place] [address] Basophils/100 WBC (Bld) 0.7 % Normal 0.0-2.0 [facility] Comment on above: Performed By: #### 5 7021-8 #### ANGEL MOLINA ([id number]) [facility] ([facility]) [address] [place] [address] 10141 Eosinophils (Bld) [#/Vol] 0.30 x10*3/uL Normal 0.00-0.70 [facility] Comment on above: Performed By: #### 5 7021-8 #### ANGEL MOLINA ([id number]) [facility] ([facility]) [address] [place] [address] Eosinophils/100 WBC (Bld) 4.1 % Normal 0.0-6.0 [facility] Comment on above: Performed By: #### 5 7021-8 #### ANGEL MOLINA ([id number]) [facility] ([facility]) [address] [place] [address] 03667 Erythrocyte distribution width (RBC) [Ratio] 12.9 % Normal 11.5-14.5 [facility] Comment on above: Performed By: #### 5 7021-8 #### ANGEL MOLINA ([id number]) [facility] ([facility]) [address] [place] [address] 27652 Hematocrit (Bld) [Volume fraction] 41.4 % Normal 36.0-46.0 [facility] Comment on above: Performed By: #### 5 7021-8 #### ANGEL MOLINA ([id number]) [facility] ([facility]) [address] [place] [address] 47[address] Hemoglobin (Bld) [Mass/Vol] 13.7 g/dL Normal 12.0-16.0 [facility] Comment on above: Performed By: #### 5 7021-8 #### ANGEL MOLINA ([id number]) [facility] ([facility]) [address] [place] [address] Immature granulocytes (Bld) [#/Vol] 0.03 x10*3/uL Normal 0.00-0.70 [facility] Comment on above: Performed By: #### 5 7021-8 #### ANGEL MOLINA ([id number]) [facility] ([facility]) [address] [place] [address] 82372 Immature granulocytes/100 WBC (Bld) 0.4 % Normal 0.0-0.9 [facility] Comment on above: Result Comment: Christine ture Granulocyte Count (IG) includes promyelocytes, myelocytes and metamyelocytes but does not include bands. Percent differential counts (%) should be interpreted in the context of the absolute cell counts (cells/UL). Performed By: #### 5 7021-8 #### ANGEL MOLINA ([id number]) [facility] ([facility]) [address] [place] [address] Lymphocytes (Bld) [#/Vol] 1.65 x10*3/uL Normal 1.20-4.80 [facility] Comment on above: Performed By: #### 5 7021-8 #### ANGEL MOLINA ([id number]) [facility] ([facility]) [address] [place] [address] Lymphocytes/100 WBC (Bld) 22.5 % Normal 13.0-44.0 [facility] Comment on above: Performed By: #### 5 7021-8 #### ANGEL MOLINA ([id number]) [facility] ([facility]) [address] [place] [address] MCH (RBC) [Entitic mass] 27.1 pg Normal 26.0-34.0 [facility] Comment on above: Performed By: #### 5 7021-8 #### ANGEL MOLINA ([id number]) [facility] ([facility]) [address] [place] [address] MCHC (RBC) [Mass/Vol] 33.1 g/dL Normal 32.0-36.0 [facility] Comment on above: Performed By: #### 5 7021-8 #### ANGEL MOLINA ([id number]) [facility] ([facility]) [address] [place] [address] MCV (RBC) [Entitic vol] 82 fL Normal 80-100 [facility] Comment on above: Performed By: #### 5 7021-8 #### ANGEL MOLINA ([id number]) [facility] ([facility]) [address] [place] [address] Monocytes (Bld) [#/Vol] 0.48 x10*3/uL Normal 0.10-1.00 [facility] Comment on above: Performed By: #### 5 7021-8 #### ANGEL MOLINA ([id number]) [facility] ([facility]) [address] [place] [address] 80079 Monocytes/100 WBC (Bld) 6.5 % Normal 2.0-10.0 [facility] Comment on above: Performed By: #### 5 7021-8 #### ANGEL MOLINA ([id number]) [facility] ([facility]) [address] [place] [address] 81146 Neutrophils (Bld) [#/Vol] 4.82 x10*3/uL Normal 1.20-7.70 [facility] Comment on above: Result Comment: Perc ent differential counts (%) should be interpreted in the context of the absolute cell counts (cells/uL). Performed By: #### 5 7021-8 #### ANGEL MOLINA ([id number]) [facility] ([facility]) [address] [place] [address] 36503 Neutrophils/100 WBC (Bld) 65.8 % Normal 40.0-80.0 [facility] Comment on above: Performed By: #### 5 7021-8 #### ANGEL MOLINA ([id number]) [facility] ([facility]) [address] [place] [address] 33350 Nucleated RBC/100 WBC (Bld) [Ratio] 0.0 /100 WBCs Normal 0.0-0.0 [facility] Comment on above: Performed By: #### 5 7021-8 #### ANGEL MOLINA ([id number]) [facility] ([facility]) [address] [place] [address] 32945 Platelets (Bld) [#/Vol] 191 x10*3/uL Normal 150-450 [facility] Comment on above: Performed By: #### 5 7021-8 #### ANGEL MOLINA ([id number]) [facility] ([facility]) [address] [place] [address] 00762 RBC (Bld) [#/Vol] 5.06 x10*6/uL Normal 4.00-5.20 [facility] Comment on above: Performed By: #### 5 7021-8 #### ANGEL MOLINA ([id number]) [facility] ([facility]) [address] [place] [address] WBC (Bld) [#/Vol] 7.3 x10*3/uL Normal 4.4-11.3 [facility] Comment on above: Performed By: #### 5 7021-8 #### ANGEL MOLINA ([id number]) [facility] ([facility]) [address] [place] [address]8949 COVID-19, MOLECULARon 2022 SARS-CoV-2 (COVID-19) RNA LASHON+probe Ql (Unsp spec) Not detected Normal Not Detected [facility] Comment on above: Order Comment: This test was performed under the FDA's Emergency Use Authorization (EUA). Testing was performed using the Hebert SARS-CoV-2 RT-PCR Test on the [employer] System. This test has not been approved for use in asymptomatic patients and its performance in this patient population has not been evaluated. Negative results do not rule out the presence of SARS-CoV-2. Fact sheets for the EUA can be found at the following links: For Healthcare Providers: https://www.fda.gov/media/226517/download For Patients: https://www.fda.gov/media/246063/download Performed By: #### L [id number] #### [facility] [address] [place], [place] [address] Malvin Weller M.D. [id number] CT ANGIO CHEST FOR PULMONARY EMBOLISMon 05-20-2023 CT ANGIO CHEST FOR PULMONARY EMBOLISM Interpreted By: Lesley Talbot, STUDY: CT ANGIO CHEST FOR PULMONARY EMBOLISM; 05/20/2023 10:29 am INDICATION: Signs/Symptoms:tachyca rdia/syncope. COMPARISON: None. ACCESSION NUMBER(S): [id number] ORDERING CLINICIAN: MARKUS ARCE TECHNIQUE: Helical data acquisition of the chest was obtained 60 mL Omnipaque 350. Images were reformatted in axial, coronal, and sagittal planes. 3D MIP images were generated and reviewed. FINDINGS: LUNGS and AIRWAYS: There is no infiltrate or pleural fluid. There is no pulmonary nodule. MICKIE AND MEDIASTINUM: There is no hilar or mediastinal adenopathy. HEART and VESSELS: There is no thoracic aortic aneurysm or dissection. There is good opacification of the pulmonary arterial system with no embolism. No coronary artery calcifications are seen. The study is not optimized for evaluation of coronary arteries. The cardiac chambers are not enlarged. No evidence of pericardial effusion. UPPER ABDOMEN: The visualized subdiaphragmatic structures demonstrate no remarkable findings. CHEST WALL and OSSEOUS STRUCTURES: There are no suspicious osseous lesions. Multilevel degenerative changes are present IMPRESSION: Unremarkable CT scan of the chest. No pulmonary embolism. MACRO: None Signed by: Lesley Talbot 05/20/2023 10:35 AM Dictation workstation: [id number] [facility] CT CERVICAL SPINE WO IV CONT [facility] 05-20-2023 CT CERVICAL SPINE WO IV CONTRAST Interpreted By: Liz Cavazos, STUDY: CT CERVICAL SPINE WO IV CONTRAST; 05/20/2023 12:16 pm INDICATION: Signs/Symptoms:trauma. COMPARISON: None. ACCESSION NUMBER(S): [id number] ORDERING CLINICIAN: MARKUS ARCE TECHNIQUE: Axial CT images of the cervical spine are obtained. Axial, coronal and sagittal reconstructions are provided for review. FINDINGS: No acute fracture or subluxation. Straightening of the cervical spine may be seen with strain or sprain. Bifid anterior and posterior aspects of C1 arch likely developmental. No vertebral body or disc height loss. No significant osteophyte formation. No facet arthropathy. No prevertebral hematoma. Minimal bilateral maxillary sinus mucosal thickening. IMPRESSION: No evidence for an acute fracture or subluxation of the cervical spine. Straightening of the cervical spine may be seen with strain or sprain. Signed by: Liz Cavazos 05/20/2023 12:29 PM Dictation workstation: [id number] [facility] CT Cervical spine WO contras ton 05-20-2023 No evidence for an acute fracture or subluxation of the cervical spine. Straightening of the cervical spine may be seen with strain or sprain. Signed by: Liz Cavazos 05/20/2023 12:29 PM Dictation workstation: [id number] MMODAL Interpreted By: Liz Cavazos, STUDY: CT CERVICAL SPINE WO IV CONTRAST; 05/20/2023 12:16 pm INDICATION: Signs/Symptoms:trauma. COMPARISON: None. ACCESSION NUMBER(S): [id number] ORDERING CLINICIAN: MARKUS ARCE TECHNIQUE: Axial CT images of the cervical spine are obtained. Axial, coronal and sagittal reconstructions are provided for review. FINDINGS: No acute fracture or subluxation. Straightening of the cervical spine may be seen with strain or sprain. Bifid anterior and posterior aspects of C1 arch likely developmental. No vertebral body or disc height loss. No significant osteophyte formation. No facet arthropathy. No prevertebral hematoma. Minimal bilateral maxillary sinus mucosal thickening. MMODAL Liz Cavazos MD - 05/20/2023 Interpreted By: Liz Cavazos, STUDY: CT CERVICAL SPINE WO IV CONTRAST; 05/20/2023 12:16 pm INDICATION: Signs/Symptoms:trauma. COMPARISON: None. ACCESSION NUMBER(S): [id number] ORDERING CLINICIAN: MARKUS ARCE TECHNIQUE: Axial CT images of the cervical spine are obtained. Axial, coronal and sagittal reconstructions are provided for review. FINDINGS: No acute fracture or subluxation. Straightening of the cervical spine may be seen with strain or sprain. Bifid anterior and posterior aspects of C1 arch likely developmental. No vertebral body or disc height loss. No significant osteophyte formation. No facet arthropathy. No prevertebral hematoma. Minimal bilateral maxillary sinus mucosal thickening. IMPRESSION: No evidence for an acute fracture or subluxation of the cervical spine. Straightening of the cervical spine may be seen with strain or sprain. Signed by: Liz Cavazos 05/20/2023 12:29 PM Dictation workstation: [id number] [facility] Work Phone: Radiology Study observation (narrative) [facility] Work Phone: CT Cervical spine WO contras tOrdered By: Liz Cavazos on 05-20-2023 [facility] Work Phone: CT Chest W contrast IV and C T angiogram Pulmonary arteries for pulmonary embolus W contrast Axel 05-20-[address] scan of the chest. No pulmonary embolism. MACRO: None Signed by: Lesley Talbot 05/20/2023 10:35 AM Dictation workstation: [id number] [facility] Interpreted By: Lesley Talbot, STUDY: CT ANGIO CHEST FOR PULMONARY EMBOLISM; 05/20/2023 10:29 am INDICATION: Signs/Symptoms:tachyca rdia/syncope. COMPARISON: None. ACCESSION NUMBER(S): [id number] ORDERING CLINICIAN: MARKUS ARCE TECHNIQUE: Helical data acquisition of the chest was obtained 60 mL Omnipaque 350. Images were reformatted in axial, coronal, and sagittal planes. 3D MIP images were generated and reviewed. FINDINGS: LUNGS and AIRWAYS: There is no infiltrate or pleural fluid. There is no pulmonary nodule. MICKIE AND MEDIASTINUM: There is no hilar or mediastinal adenopathy. HEART and VESSELS: There is no thoracic aortic aneurysm or dissection. There is good opacification of the pulmonary arterial system with no embolism. No coronary artery calcifications are seen. The study is not optimized for evaluation of coronary arteries. The cardiac chambers are not enlarged. No evidence of pericardial effusion. UPPER ABDOMEN: The visualized subdiaphragmatic structures demonstrate no remarkable findings. CHEST WALL and OSSEOUS STRUCTURES: There are no suspicious osseous lesions. Multilevel degenerative changes are present MMODAL Lesley Talbot M D - 05/20/2023 Interpreted By: Lesley Talbot, STUDY: CT ANGIO CHEST FOR PULMONARY EMBOLISM; 05/20/2023 10:29 am INDICATION: Signs/Symptoms:tachyca rdia/syncope. COMPARISON: None. ACCESSION NUMBER(S): [id number] ORDERING CLINICIAN: MARKUS ARCE TECHNIQUE: Helical data acquisition of the chest was obtained 60 mL Omnipaque 350. Images were reformatted in axial, coronal, and sagittal planes. 3D MIP images were generated and reviewed. FINDINGS: LUNGS and AIRWAYS: There is no infiltrate or pleural fluid. There is no pulmonary nodule. MICKIE AND MEDIASTINUM: There is no hilar or mediastinal adenopathy. HEART and VESSELS: There is no thoracic aortic aneurysm or dissection. There is good opacification of the pulmonary arterial system with no embolism. No coronary artery calcifications are seen. The study is not optimized for evaluation of coronary arteries. The cardiac chambers are not enlarged. No evidence of pericardial effusion. UPPER ABDOMEN: The visualized subdiaphragmatic structures demonstrate no remarkable findings. CHEST WALL and OSSEOUS STRUCTURES: There are no suspicious osseous lesions. Multilevel degenerative changes are present IMPRESSION: Unremarkable CT scan of the chest. No pulmonary embolism. MACRO: None Signed by: Lesley Talbot 05/20/2023 10:35 AM Dictation workstation: [id number] [facility] Work Phone: CT Chest W contrast IV and C T angiogram Pulmonary arteries for pulmonary embolus W contrast IVOrdered By: Lesley Talbot on 05-20-2023 [facility] Work Phone: CT HEAD OR BRAIN WITHOUT CON TRASTon 05-20-2023 CT HEAD OR BRAIN WITHOUT CONTRAST EXAMINATION: CT HEAD OR BRAIN WITHOUT CONTRAST HISTORY: follow up SDH Injury/Trauma or Illness?:Illness/Other How long have you had these symptoms (acute/chronic)?:Acute Reason for exam?:follow up SDH Type of Exam?:Subsequent/Follo w-up Additional signs and symptoms?:n/a S06.5XAA SDH (subdural hematoma) (HCC) COMPARISON: Head CT on 05/20/2023 at 10:29 a[address] TECHNIQUE: CT of the head without intravenous contrast. Dose reduction techniques were performed. FINDINGS: Acute: Trace hyperdensity along the right aspect the anterior interhemispheric fissure best seen on axial image 46, series 60. No new hemorrhage, herniation, or hydrocephalus. No evidence of recent infarct. Brain: Brain parenchyma within normal limits in density and volume for age. Vessels: No abnormal intravascular density to suggest thrombosis. Bones: No suspicious lesion in the calvarium or skull base. Other: Unremarkable extracranial soft tissues. IMPRESSION: Stable tiny para falcine subdural hematoma without new acute intracranial findings or mass effect. Workstation ID: [id number] Dictated by: ROSEMARY BANEGAS on FriMay 20, 2023 6:03:10 PM EST Transcribed by: ROSEMARY BANEGAS on FriMay 20, 2023 6:03:10 PM EST Finalized by: ROSEMARY BANEGAS on FriMay 20, 2023 6:03:[address] [facility] Comment on above: Order Comment: Injur y/Trauma or Illness?:Illness/Other How long have you had these symptoms (acute/chronic)?:Acute Reason for exam?:follow up SDH Type of Exam?:Subsequent/Follow-up Additional signs and symptoms?:n/a CT HEAD WO IV CONTRASTon CT HEAD WO IV CONTRAST Interpreted By: Garfield Oshea, STUDY: CT HEAD WO IV CONTRAST; 05/20/2023 10:29 am INDICATION: Signs/Symptoms:syncope /fall. COMPARISON: None. ACCESSION NUMBER(S): [id number] ORDERING CLINICIAN: MARKUS ARCE TECHNIQUE: Noncontrast axial CT scan of head was performed. Angled reformats in brain and bone windows were generated. The images were reviewed in bone, brain, blood and soft tissue windows. FINDINGS: There is trace acute subdural hematoma along the anterior interhemispheric fissure measuring up to 0.3 cm in thickness. No midline shift is seen. The li/white matter junction is preserved. The basal cisterns are patent. Visualized paranasal sinuses and mastoid air cells are clear. The calvarium is intact. IMPRESSION: Trace acute subdural hematoma along the anterior interhemispheric fissure measuring up to 0.3 cm in thickness. No midline shift. I discussed the findings by phone with Dr. Arce at 11:20 a.m. on 05/20/2020 Signed by: Garfield Oshea 05/20/2023 11:22 AM Dictation workstation: [id number] [facility] CT Head WO contraston 2022 Trace acute subdural hematoma along the anterior interhemispheric fissure measuring up to 0.3 cm in thickness. No midline shift. I discussed the findings by phone with Dr. Arce at 11:20 a.m. on 05/20/2020 Signed by: Garfield Oshea 05/20/2023 11:22 AM Dictation workstation: [id number] Interpreted By: Garfield Oshea, STUDY: CT HEAD WO IV CONTRAST; 05/20/2023 10:29 am INDICATION: Signs/Symptoms:syncope /fall. COMPARISON: None. ACCESSION NUMBER(S): [id number] ORDERING CLINICIAN: MARKUS ARCE TECHNIQUE: Noncontrast axial CT scan of head was performed. Angled reformats in brain and bone windows were generated. The images were reviewed in bone, brain, blood and soft tissue windows. FINDINGS: There is trace acute subdural hematoma along the anterior interhemispheric fissure measuring up to 0.3 cm in thickness. No midline shift is seen. The li/white matter junction is preserved. The basal cisterns are patent. Visualized paranasal sinuses and mastoid air cells are clear. The calvarium is intact. MMODAL Garfield Oshea MD - 05/20/2023 Interpreted By: Garfield Oshea, STUDY: CT HEAD WO IV CONTRAST; 05/20/2023 10:29 am INDICATION: Signs/Symptoms:syncope /fall. COMPARISON: None. ACCESSION NUMBER(S): [id number] ORDERING CLINICIAN: MARKUS ARCE TECHNIQUE: Noncontrast axial CT scan of head was performed. Angled reformats in brain and bone windows were generated. The images were reviewed in bone, brain, blood and soft tissue windows. FINDINGS: There is trace acute subdural hematoma along the anterior interhemispheric fissure measuring up to 0.3 cm in thickness. No midline shift is seen. The li/white matter junction is preserved. The basal cisterns are patent. Visualized paranasal sinuses and mastoid air cells are clear. The calvarium is intact. IMPRESSION: Trace acute subdural hematoma along the anterior interhemispheric fissure measuring up to 0.3 cm in thickness. No midline shift. I discussed the findings by phone with Dr. Arce at 11:20 a.m. on 05/20/2020 Signed by: Garfield Oshea 05/20/2023 11:22 AM Dictation workstation: [id number] [facility] Work Phone: CT Head WO contrastOrdered B y: Garfield Oshea on 05-20-2023 [facility] Work Phone: HCG ( test) IA.rapi d Ql (U)Ordered By: Taylor Metcalf on 05-20-2023 HCG ( test) Ql (U) Negative NEGATIVE [facility] Interpretation and review of laboratory results Normal [facility] HCG ( test) IAmartin d Ql (U)on 05-20-2023 HCG ( test) Ql (U) Negative Normal NEGATIVE [facility] Comment on above: Performed By: #### 8 0384-1 #### ORTIZ JESSE ([id number]) [facility] ([facility]) [address] [place] [address] No Panel Informationon 05-20 Radiology Study observation (narrative) [facility] Work Phone: [facility] I.cardiac panel Hig h sensitivity methodon 05-20-2023 Interpretation and review of laboratory results Normal [facility] Less than 99th percentile of normal range cutoff- Female and children under 18 years old <14 ng/L; Male <21 ng/L: Negative Repeat testing should be performed if clinically indicated. Female and children under 18 years old 14-50 ng/L; Male 21-50 ng/L: Consistent with possible cardiac damage and possible increased clinical risk. Serial measurements may help to assess extent of myocardial damage. >50 ng/L: Consistent with cardiac damage, increased clinical risk and myocardial infarction. Serial measurements may help assess extent of myocardial damage. NOTE: Children less than 1 year old may have higher baseline troponin levels and results should be interpreted in conjunction with the overall clinical context. NOTE: Troponin I testing is performed using a different testing methodology at [facility] than at other [facility]. Direct result comparisons should only be made within the same method. [facility] Interpretation and review of laboratory results Normal [facility] Less than 99th percentile of normal range cutoff- Female and children under 18 years old <14 ng/L; Male <21 ng/L: Negative Repeat testing should be performed if clinically indicated. Female and children under 18 years old 14-50 ng/L; Male 21-50 ng/L: Consistent with possible cardiac damage and possible increased clinical risk. Serial measurements may help to assess extent of myocardial damage. >50 ng/L: Consistent with cardiac damage, increased clinical risk and myocardial infarction. Serial measurements may help assess extent of myocardial damage. NOTE: Children less than 1 year old may have higher baseline troponin levels and results should be interpreted in conjunction with the overall clinical context. NOTE: Troponin I testing is performed using a different testing methodology at [facility] than at other [facility]. Direct result comparisons should only be made within the same method. [facility] Troponin I, High Sensitivity , Initialon 05-20-2023 Tropinin I.cardiac panel High sensitivity method ng/L 0 - 13 ng/L [facility] Troponin I.cardiac panelon 1 07-21-2022 Tropinin I.cardiac panel High sensitivity method <3 Normal 0-13 [facility] Comment on above: Order Comment: Less than 99th percentile of normal range cutoff- Female and children under 18 years old <14 ng/L; Male <21 ng/L: Negative Repeat testing should be performed if clinically indicated. Female and children under 18 years old 14-50 ng/L; Male 21-50 ng/L: Consistent with possible cardiac damage and possible increased clinical risk. Serial measurements may help to assess extent of myocardial damage. >50 ng/L: Consistent with cardiac damage, increased clinical risk and myocardial infarction. Serial measurements may help assess extent of myocardial damage. NOTE: Children less than 1 year old may have higher baseline troponin levels and results should be interpreted in conjunction with the overall clinical context. NOTE: Troponin I testing is performed using a different testing methodology at [facility] than at other [facility]. Direct result comparisons should only be made within the same method. Performed By: #### 8 9577-1 #### ORTIZ JESSE ([id number]) [facility] ([facility]) [address] [place] [address] Tropinin I.cardiac panel High sensitivity method <3 Normal 0-13 [facility] Comment on above: Order Comment: Less than 99th percentile of normal range cutoff- Female and children under 18 years old <14 ng/L; Male <21 ng/L: Negative Repeat testing should be performed if clinically indicated. Female and children under 18 years old 14-50 ng/L; Male 21-50 ng/L: Consistent with possible cardiac damage and possible increased clinical risk. Serial measurements may help to assess extent of myocardial damage. >50 ng/L: Consistent with cardiac damage, increased clinical risk and myocardial infarction. Serial measurements may help assess extent of myocardial damage. NOTE: Children less than 1 year old may have higher baseline troponin levels and results should be interpreted in conjunction with the overall clinical context. NOTE: Troponin I testing is performed using a different testing methodology at [facility] than at other [facility]. Direct result comparisons should only be made within the same method. Performed By: #### 8 9577-1 #### ANGEL MOLINA ([id number]) [facility] ([facility]) [address] [id number] Troponin, High Sensitivity, 1 Houron 05-20-2023 Tropinin I.cardiac panel High sensitivity method ng/L 0 - 13 ng/L [facility] Urinalysis complete panel (U )on 05-20-2023 Appearance (U) Clear Clear [facility] Bilirubin (U) [Mass/Vol] Negative NEGATIVE [facility] Color (U) Straw Straw, Yellow [facility] Glucose Auto test strip (U) [Mass/Vol] Negative NEGATIVE mg/dL [facility] Interpretation and review of laboratory results Normal [facility] Ketones (U) [Mass/Vol] Negative NEGAT PIPE mg/dL [facility] Leukocyte esterase Auto test strip Ql (U) [facility] Nitrite Auto test strip Ql (U) Negative NEGATIVE [facility] pH (U) 7.0 [pH] 5.0, 5.5, 6.0, 6.5, 7.0, 7.5, 8.0 [facility] Protein (U) [Mass/Vol] Negative NEGAT PIPE mg/dL [facility] RBC (U) [#/Vol] Negative [facility] Specific gravity (U) [Rel density] 1.009 1.005 - 1.035 [facility] Urobilinogen (U) [Mass/Vol] mg/dL NINF - 2.0 mg/dL [facility] Appearance (U) Clear Normal Clear [facility] Comment on above: Performed By: #### 2 4356-8 #### ANEGL MOLINA ([id number]) [facility] ([facility]) [address] [place] [address] Bilirubin (U) [Mass/Vol] Negative Normal NEGATIVE [facility] Comment on above: Performed By: #### 2 435-8 #### ANGEL MOLINA ([id number]) [facility] ([facility]) [address] [place] [address] Color (U) Straw Normal Straw, Yellow [facility] Comment on above: Performed By: #### 2 435-8 #### ANGEL MOLINA ([id number]) [facility] ([facility]) [address] [place] [address] Glucose Auto test strip (U) [Mass/Vol] Negative Normal NEGATIVE [facility] Comment on above: Performed By: #### 2 435-8 #### ANGEL MOLINA ([id number]) [facility] ([facility]) [address] [place] [address] Ketones (U) [Mass/Vol] Negative Normal NEGATIVE [facility] Comment on above: Performed By: #### 2 435-8 #### ANGEL MOLINA ([id number]) [facility] ([facility]) [address] [place] [address]95 Leukocyte esterase Auto test strip Ql (U) Negative Normal NEGATIVE [facility] Comment on above: Performed By: #### 2 4355-8 #### ANGEL MOLINA ([id number]) [facility] ([facility]) [address] [place] [address] 27775 Nitrite Auto test strip Ql (U) Negative Normal NEGATIVE [facility] Comment on above: Performed By: #### 2 4355-8 #### ANGEL MOLINA ([id number]) [facility] ([facility]) [address] [place] [address] 20819 pH (U) 7.0 [pH] Normal 5.0, 5.5, 6.0, 6.5, 7.0, 7.5, 8.0 [facility] Comment on above: Performed By: #### 2 435-8 #### ANGEL MLOINA ([id number]) [facility] ([facility]) [address] [place] [address] Protein (U) [Mass/Vol] Negative Normal NEGATIVE [facility] Comment on above: Performed By: #### 2 4356-8 #### ANGEL MOLINA ([id number]) [facility] ([facility]) [address] [place] [address] RBC (U) [#/Vol] Negative Normal NEGATIVE [facility] Comment on above: Performed By: #### 2 4356-8 #### ANGEL MOLINA ([id number]) [facility] ([facility]) [address] [place] [address] Specific gravity (U) [Rel density] 1.009 Normal 1.005-1.035 [facility] Comment on above: Performed By: #### 2 4356-8 #### ANGEL MOLINA ([id number]) [facility] ([facility]) [address] [place] [address] Urobilinogen (U) [Mass/Vol] mg/dL Normal <2.0 [facility] Comment on above: Performed By: #### 2 4356-8 #### ANGEL MOLINA ([id number]) [facility] ([facility]) [address] [place] [address] Provider Note - ED v3on 08-08 Provider Note - ED v3 Provider Note: Chart Review: ED NOTES ED NOTES: 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 She stated she noticed the drainage and it kept waking her last night. She woke up with crust in her left eye and her sclera red. She denies any URI symptoms. She has a young child at home but is unaware of exposure. HISTORY OF PRESENTING ILLNESS ALYSSIA is a 37 year old Female and was seen by me at 27-Aug-2022 09:57. The historian is the patient. Triage Information: Most recent Vital Sign Value Date PAST MEDICAL HISTORY ALLERGIES/INTOLERANCES : No Known Allergies HEALTH HISTORY: No documented data. OUTPATIENT MEDICATIONS: Home Medications Review Status for Reconciliation: Complete Med Status: Patient Currently Takes Medications Drug Name: Polytrim 10,000 units-1 mg/mL ophthalmic solution Instructions: 1 drop(s) in each affected eye every 3 hours SIGNIFICANT EVENTS: Social/Behavioral Description:pt denies PHYSICAL EXAM CONSTITUTIONAL: Well appearing, well nourished, awake, alert, oriented to person, place, time/situation and in no apparent distress. HENMT: Airway patent, ears with clear tympanic membranes bilaterally. Nasal mucosa clear. Mouth with normal mucosa. Throat has no vesicles, no oropharyngeal exudates and uvula is midline. Face with no lymph node enlargement. EYES: Left eye with moderate red and injected peripheral conjunctivae. No crust noted at this time. CRITICAL CARE VITAL SIGNS: T PRBP SpO2O2(LPM) %FiO2 Method 27-Aug-2022 09:14:[id number]/8 7 98 MDM MDM/ED COURSE: Alyssia is a 37 yo female evaluated for bacterial conjunctivitis. The clinical presentation was consistent with bacterial conjunctivitis. I will treat with polytrim drops. Also discuss non-pharmacological interventions to help with the symptoms. Alyssia denied need for work note. SHe was discharged. DISPOSITION Diagnosis/Annotation: ED Dx Name:Acute bacterial conjunctivitis of left eye Code:H10.32 Disposition: discharged CONSULT CRITICAL CARE TIME Is this a critically ill patient: no Electronic Signatures: Mandie Treviño (BREAD SLICER MACHINE-PATIENT SCHEDULER) (Signed 27-Aug-2022 20:03) Authored: ED Notes, HPI, PMH, PE, Results/Vital Signs, MDM/ED Course, Clinical Impression, Attestation, Chart Review, Scores Last Updated: 27-Aug-2022 20:03 by Mandie Treviño (BREAD SLICER MACHINE-PATIENT SCHEDULER) [facility] Covid 19 Resultson 2 SARS-CoV-2 (COVID-19) RNA LASHON+probe Ql (Unsp spec) NEGATIVE COVID-19 Test Coronaviruses are common world-wide and are the cause of many common colds. SARS-COV2 is a new coronavirus that began circulating worldwide in 2019 so we are calling it COVID-19. It has been estimated that four out of five patients with COVID-19 will recover at home without the need for medical attention. Symptoms of COVID-19 may include cough, fever, shortness of breath, loss of taste or smell and other flu-like symptoms including chills, sore muscles, sore throat, and headache. Severe illness is more common in older people and people with other health problems such as high blood pressure, obesity, and immune system problems. If the test is positive, you have COVID-19. You will be contacted by the ordering physicians office and instructed to remain on home isolation, in accordance with CDC guidelines. You may also be contacted by the [facility] to see if any of your close contacts may have been exposed to the virus and need to quarantine. If the test is negative, you likely do not have COVID-19 at this time, but you still may have a different illness that can spread to other people (like Influenza, or the Flu) and could still be at risk for getting COVID-19. We recommend that you stay away from other people to limit the spread of illness until your symptoms are improving and you are fever-free for 24 hours without the use of fever lowering medications such as acetaminophen or ibuprofen. No test is 100% accurate so if you are still concerned you may have COVID-19, talk to your doctor about the need to continue to stay away from others. Medicines Unless your provider told you not to use the following: Acetaminophen (Tylenol and others) is generally safe. Anti-inflammatory medications, such as Ibuprofen (Advil or Motrin) or Naproxen (Aleve) can also be used. Huzb-pmr-vjhiijz cough and cold medicines can be used according to the instructions on the package. Some nujx-dtu-vfnszyh medicines also contain acetaminophen. Make sure you are not taking more than your recommended dose. For those not hospitalized, there is no specific treatment available for this illness. Antibiotics do not treat Coronaviruses. Follow-Up Follow up with your doctor by scheduling a virtual visit or consider follow-up at one of our urgent care fever clinics. If you are having difficulty breathing, or are very weak and having difficulty standing, this is a medical emergency. Call 911 or have someone take you to the nearest emergency room immediately. If possible, wear a facemask. Additional guidance from the CDC for patients who tested POSITIVE for COVID-19 How to isolate: Isolate yourself in a specific room at home and limit your contact with others. Use a separate bathroom from other members of the household, when possible. Leave home only to get essential medical care. Do not go to work, school or public areas. Avoid using public transportation, ride-sharing, or taxis. Restrict contact with pets and other animals. If you must care for your pet or be around animals while you are sick, wash your hands before and after your interaction and wear a facemask. Make sure that shared spaces in the home have good airflow, such as by an air conditioner or an opened window, weather permitting. Personal Hygiene Procedures: Wear a face mask when in the same room as other people or pets. If a face mask interferes with your breathing, others should wear a mask when sharing space with you. Frequent hand-washing: wash your hands with soap and water for at least 20 seconds. If soap and water are not available, use alcohol-based hand supervisor plastics. Avoid touching your eyes, nose, and mouth with unwashed hands. Household Hygiene Procedures: Avoid sharing personal household items such as dishes, glassware, cups, eating utensils, towels or bedding with other people or pets in your home. After use, these items should be washed with soap and hot water. Disinfect all high-touch surfaces every day with antibacterial cleaning solutions such as Lysol wipes, bleach, cleansers, etc. High-touch surfaces include tabletops, doorknobs, bathroom fixtures, toilets, phones, keyboards, tablets and bedside tables. Immediately clean any surfaces that may have blood, poop or body fluids on them, using antibacterial cleaning solutions such as Lysol wipes, bleach, cleansers, etc. If clothing or bedding come into contact with blood, poop or body fluids, they should be washed immediately. Follow the directions on the laundry detergent and clothing labels but hot water is recommended when possible. Stopping home isolation precautions: If possible, consult your doctor before stopping home isolation precautions. According to the CDC, you can discontinue home isolation precautions when you have met both of these criteria: Your fever and respiratory symptoms have been gone for 24 emma (more content not included)... Normal [facility] INFLUENZA A/B, COVID 2019 PC R,SYMPTOMATICon 05-26-2022 INFLUENZA A, PCR Detected Abnormal Not Detected [facility] Comment on above: Result Comment: Resp iratory virus testing is performed routinely by PCR for Influenza A/B and RSV. If Influenza and RSV PCR are negative, testing for parainfluenza 1,2,3 viruses and adenovirus is routinely performed for oncology inpatients and intensive care unit patients at [facility] and is available on request on other patients by calling Laboratory Client Services at [phone]. Not Detected results do not preclude Influenza A/B or RSV infections since the adequacy of sample collection or low viral burden may impact the clinical sensitivity of this test method. Performed By: #### C OINP #### [facility] [id number] [place] [id number] INFLUENZA B, PCR Not detected Normal Not Detected [facility] Comment on above: Result Comment: Resp iratory virus testing is performed routinely by PCR for Influenza A/B and RSV. If Influenza and RSV PCR are negative, testing for parainfluenza 1,2,3 viruses and adenovirus is routinely performed for oncology inpatients and intensive care unit patients at [facility] and is available on request on other patients by calling Laboratory Client Services at [phone] Not Detected results do not preclude Influenza A/B or RSV infections since the adequacy of sample collection or low viral burden may impact the clinical sensitivity of this test method. Performed By: #### C OINP #### [facility] [address] [place] [id number] SARS-CoV-2 (COVID-19) RNA LASHON+probe Ql (Unsp spec) Not detected Normal Not Detected [facility] Comment on above: Result Comment: . This assay is designed to detect the ORF1a/b and E genes of SARS-CoV-2 via nucleic acid amplification. A Not Detected result does not preclude 2019-nCoV infection since the adequacy of sample collection and/or low viral burden may result in presence of viral nucleic acids below the clinical sensitivity of this test method. Fact sheet for providers: https://www.fda.gov/media/563890/download Fact sheet for patients: https://www.fda.gov/media/295275/download This test has received FDA Emergency Use Authorization (EUA) and has been verified for use by [facility] ([facility]). This test is only authorized for the duration of time that circumstances exist to justify the authorization of the emergency use of in vitro diagnostic tests for the detection of SARS-CoV-2 virus and/or diagnosis of COVID-19 infection under section 564(b)(1) of the Act, 21 U.S.C. 360bbb-3(b)(1), unless the authorization is terminated or revoked sooner. [facility] is certified under CLIA-88 as qualified to perform high complexity testing. Testing is performed in the [facility] laboratories [place] [address] [place] [address]. Performed By: #### C OINP #### [facility] [address] [place] [address] GROUP A STREP,PCRon 05-25-20 22 GROUP A STREP,PCR Not detected Normal Not Detected [facility] Comment on above: Result Comment: This test was performed utilizing an FDA-cleared rapid nucleic acid amplification by PCR to qualitatively detect Group A Streptococci from throat swab specimens without the need for culture confirmation of negative results. Performed By: #### G APC1 #### [place] [address] Lab Specimen Source Throat Normal [facility] Comment on above: Performed By: #### G APC1 #### [place] [address] INFLUENZA A/B, COVID 2019 PC R,SYMPTOMATICon 05-25-2022 Lab Specimen Source Nasal, Nasopharyngeal Normal [facility] Comment on above: Performed By: #### C OINP #### [address] [place] [address] Provider Note - ED v3on 05-09 Provider Note - ED v3 Provider Note: Chart Review ED NOTES ED NOTES: Presents for evaluation of URI. Symptoms including cough, hoarse voice, sore throat, congestion, body aches, malaise, and headache have been present for 2-3 days and refractory to OTC meds. No fever, chills, loss of taste/smell, nausea, vomiting, abdominal pain, CP, or SOB. No exacerbating factors. 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 HISTORY OF PRESENTING ILLNESS ALYSSIA is a 36 year old Female and was seen by me at 25-May-2022 08:26. Triage Information: Most recent Vital Sign Value Date PAST MEDICAL HISTORY ALLERGIES/INTOLERANCES : No Known Allergies HEALTH HISTORY: No documented data. 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 HENMT: Airway patent, ears with clear tympanic membranes bilaterally. Nasal mucosa clear. Mouth with normal mucosa. Throat has no vesicles, no oropharyngeal exudates and uvula is midline. Face with no lymph node enlargement. EYES: Clear bilaterally, pupils equal, round and reactive to light. CARDIOVASCULAR: Normal rate, regular rhythm. Heart sounds S1, S2. No murmurs, rubs or gallops. PMI non-displaced. RESPIRATORY: Breath sounds clear and equal bilaterally. NEUROLOGICAL: Alert and oriented, no focal deficits, no motor or sensory deficits. SKIN: Skin normal color for race, warm, dry and intact. No evidence of trauma. PSYCHIATRIC: Alert and oriented to person, place, time/situation. normal mood and affect. No apparent risk to self or others. CRITICAL CARE VITAL SIGNS: T PRBP SpO2O2(LPM) %FiO2 Method 25-May-2022 08:22:[id number]/8 6 99RA MDM MDM/ED COURSE: Discussed Findings with: patient Data Reviewed: vital signs Awaiting: lab results Treatment Plan: Swab obtained for flu COVID and strep testing. Rx Medrol Dosepak. Encouraged pt to trial otc cold remedies, push by mouth fluids and rest. Patient's clinical presentation is otherwise unremarkable at this time. Patient is discharged with instructions to follow-up with primary care or seek emergency medical attention for worsening symptoms or any new concerns. DISPOSITION Diagnosis/Annotation: ED Dx Name:Acute upper respiratory infection Code:J06.9 Disposition: discharged Type: home CONSULT CRITICAL CARE TIME Is this a critically ill patient: no Electronic Signatures for Addendum Section: Orlin Casarez (BREAD SLICER MACHINE-PATIENT SCHEDULER) (Signed Addendum 26-May-2022 12:23) Pt notified of covid/flu/strep test results. Electronic Signatures: Orlin Casarez (BREAD SLICER MACHINE-PATIENT SCHEDULER) (Signed 26-May-2022 12:23) Authored: ED Notes, HPI, PMH, ROS, PE, Results/Vital Signs, MDM/ED Course, Clinical Impression, Attestation, Chart Review, Scores Last Updated: 26-May-2022 12:23 by Orlin Casarez (BREAD SLICER MACHINE-PATIENT SCHEDULER) [facility] Absolute lymphocyte counton 04-25-2022 Lymphocytes Auto (Unsp spec) [#/Vol] 1.94 10*3/uL 0.83-4.51 [facility] Work Phone: Basophil percentageon 2021 Basophil percentage 0-5 SEEN /hpf 0-5 [facility] Work Phone: Basophils/100 WBC (Bld) 0.4 % 0-1 [facility] Work Phone: Bilirubin [Mass/Vol] 0.80 mg/dL 0.20-1.00 [facility] Work Phone: Comment on above: For patients on eltr ombopag therapy, use of Dimension [place] TBIL is not recommended. Chloride [Moles/Vol] 105 mmol/L 98-107 [facility] Work Phone: Eosinophils/100 WBC (Bld) 1.7 % 0-5 [facility] Work Phone: Glucose [Mass/Vol] 94 mg/dL 74-106 [facility] Work Phone: Neutrophils (Bld) [#/Vol] 6.2 10*3/uL 2.0-7.7 [facility] Work Phone: Neutrophils/100 WBC (Bld) 69.0 % 47-70 [facility] Work Phone: Potassium [Moles/Vol] 3.8 mmol/L 3.5-5.1 [facility]: Protein [Mass/Vol] 7.7 g/dL 6.4-8.2 [facility] Work Phone: Sodium [Moles/Vol] 139 mmol/L 136-145 [facility] Work Phone: WBC (Bld) [#/Vol] 9.0 10*3/uL 4.4-11.0 [facility] Work Phone: Bilirubin Test strip Ql (U)o n 04-25-2022 Bilirubin Ql (U) Negative Negative [facility] Work Phone: Blood erythrocytes count (nu mber/volume)on 04-25-2022 RBC (Bld) [#/Vol] 5.19 10*6/uL 4.2-5.4 [facility] Work Phone: Blood hemoglobin measurement (mass/volume)on 04-25-2022 Hemoglobin (Bld) [Mass/Vol] 13.9 g/dL 12.0-15.0 [facility] Work Phone: Blood lymphocytes/100 leukoc yteson 04-25-2022 Lymphocytes/100 WBC (Bld) 21.6 % 19-41 [facility] Work Phone: Blood monocytes/100 leukocyt eson 04-25-2022 Monocytes/100 WBC (Bld) 7.0 % 0-10 [facility] Work Phone: Blood platelet mean volumeon 04-25-2022 Platelet mean volume (Bld) [Entitic vol] 10.3 fL 6.2-12.0 [facility] Work Phone: Determination of erythrocyte mean corpuscular volume (MCV)on 04-25-2022 MCV (RBC) [Entitic vol] 82.3 fL 81-99 [facility] Work Phone: Hematocrit Auto (Bld) [Volum e fraction]on 04-25-2022 Hematocrit (Bld) [Volume fraction] 42.7 % 37-47 [facility] Work Phone: Ketones Test strip Ql (U)on 04-25-2022 Ketones Ql (U) 15 mg/dl Negative [facility] Work Phone: Laboratory - Chemistry and C hemistry - challengeon 04-25-2022 ALP [Catalytic activity/Vol] 46 U/L 45-117 [facility] Work Phone: ALT [Catalytic activity/Vol] 17 U/L 13-56 [facility] Work Phone: CO2 [Moles/Vol] 28.0 mmol/L 21.0-32.0 [facility] Work Phone: Globulin (S) [Mass/Vol] 3.5 g/dL 2.2-4.2 [facility] Work Phone: Urea nitrogen/Creatinine [Mass ratio] 16.5 mg/mg 10-20 [facility] Work Phone: Laboratory - Hematology and Cell countson 04-25-2022 Erythrocyte distribution width (RBC) [Entitic vol] 39.8 fL 35.1-43.9 [facility] Work Phone: Erythrocyte distribution width (RBC) [Ratio] 13.2 % 11.6-14.6 [facility] Work Phone: Immature granulocytes/100 WBC (Bld) 0.300 % 0.0-0.9 [facility] Work Phone: Comment on above: IG% - Immature Granu locytes (promyelocytes, myelocytes and metamyelocytes) > 1% indicates that a LEFT SHIFT is Present. MCH (RBC) [Entitic mass] 26.8 pg 27.0-32.0 [facility] Work Phone: Nucleated RBC/100 WBC (Bld) [Ratio] 0 % 0-5 [facility] Work Phone: MCHC Auto (RBC) [Mass/Vol]on 04-25-2022 MCHC (RBC) [Mass/Vol] 32.6 g/dL 32-36 [facility] Work Phone: Mucus LM Ql (Urine sed)on Mucus Ql (Urine sed) 0 SEEN /hpf [facility] Work Phone: Nitrite Test strip Ql (U)on 04-25-2022 Nitrite Ql (U) Negative Negative [facility] Work Phone: No Panel Informationon 04-25 Estimated Creatinine Clearance Calc 92.17 ml/min [facility] Work Phone: Estimated GFR (MDRD) Amer 144 mL/min >60 [facility] Work Phone: Comment on above: GFR Calc Estimated GFR (MDRD) Non-Af Amer 119 mL/min >60 [facility] Work Phone: Comment on above: Non- GFR Calc Platelets bldon 04-25-2022 Platelets (Bld) [#/Vol] 250 10*3/uL 150-450 [facility] Work Phone: Protein Test strip Ql (U)on 04-25-2022 Protein Ql (U) Negative Negative [facility] Work Phone: Serum or plasma albumin sugar urement (mass/volume)on 04-25-2022 Albumin [Mass/Vol] 4.2 g/dL 3.2-5.0 [facility] Work Phone: Serum or plasma albumin/glob ulin mass ratioon 04-25-2022 Albumin/Globulin [Mass ratio] 1.2 {ratio} 0.9-2.4 [facility] Work Phone: Serum or plasma calcium sugar urement (mass/volume)on 04-25-2022 Calcium [Mass/Vol] 9.5 mg/dL 8.5-10.1 [facility] Work Phone: Serum or plasma choriogonado tropin detectionon 04-25-2022 HCG ( test) Ql 9644 mIU/mL <4 [facility] Work Phone: Comment on above: hCG levels with Gest ational AgeGestational Age hCG mIU/mL (IU/L)0.2 - 1 week 5 - 501-2 weeks 50 - 5002-3 weeks 100 - 59118-9 weeks 500 - 886576-2 weeks 1000 - 693742-7 weeks 46937 - 100,0006-8 weeks 05766 - 200,0002-3 months 60623 - 100,000 Serum or plasma creatinine m easurement (mass/volume)on 04-25-2022 Creatinine [Mass/Vol] 0.61 mg/dL 0.55-1.02 [facility] Work Phone: Comment on above: The validity of the calculated GFR & GFRAA in patients over 70 years has not been determined. Clinical correlation is essential. Serum or plasma urea nitroge n measurement (mass/volume)on 04-25-2022 Urea nitrogen [Mass/Vol] 10 mg/dL 7-18 [facility] Work Phone: Squamous epithelial cells de tection in urine sediment by light microscopyon 04-25-2022 Epithelial cells.squamous LM Ql (Urine sed) 0-5 SEEN /hpf 5-10 [facility] Work Phone: Thin prep Papanicolaou smear with manual screeningon 04-25-2022 Thin prep Papanicolaou smear with manual screening 13 U/L 15-37 [facility] Work Phone: Thin prep Papanicolaou smear with manual screening 6 5-15 [facility] Work Phone: Urine blood detectionon 04-09 RBC Ql (U) 250 /ul Negative [facility] Work Phone: RBC Ql (U) 10-25 SEEN /hpf 0-5 [facility] Work Phone: Urine clarityon 04-25-2022 Clarity (U) Sl. Cloudy Clear [facility] Work Phone: Urine color determinationon 04-25-2022 Color (U) Yellow Yellow [facility] Work Phone: Urine glucose detectionon Glucose Ql (U) Normal mg/dl Normal [facility] Work Phone: Urine leukocyte esterase det ection by dipstickon 04-25-2022 Leukocyte esterase Test strip Ql (U) 25 /ul Negative [facility] Work Phone: Urine pHon 04-25-2022 pH (U) 7.0 [pH] 5.0 - 8.0 [facility] Work Phone: Urine sediment bacteria coun t by microscopy (number/high power field)on 04-25-2022 Bacteria LM.HPF (Urine sed) [#/Area] 0 /[HPF] None Seen [facility] Work Phone: Urine specific gravity measu rementon 04-25-2022 Specific gravity (U) [Rel density] 1.010 1.002-1.030 [facility] Work Phone: Urobilinogen Auto test strip Ql (U)on 04-25-2022 Urobilinogen Ql (U) Normal mg/dl Normal [facility] Work Phone: Serum or plasma choriogonado tropin detectionon 04-24-2022 HCG ( test) Ql 8251 mIU/mL <4 [facility] Work Phone: Comment on above: hCG levels with Gest ational AgeGestational Age hCG mIU/mL (IU/L)0.2 - 1 week 5 - 501-2 weeks 50 - 5002-3 weeks 100 - 06857-2 weeks 500 - 924504-7 weeks 1000 - 457989-8 weeks 11378 - 100,0006-8 weeks 87539 - 200,0002-3 months 67282 - 100,000 Serum or plasma choriogonado tropin detectionon 04-22-2022 HCG ( test) Ql 5852 mIU/mL <4 [facility] Work Phone: Comment on above: hCG levels with Gest ational AgeGestational Age hCG mIU/mL (IU/L)0.2 - 1 week 5 - 501-2 weeks 50 - 5002-3 weeks 100 - 46689-5 weeks 500 - 548434-7 weeks 1000 - 673302-5 weeks 78328 - 100,0006-8 weeks 71359 - 200,0002-3 months 48521 - 100,000 Provider Note - ED v3on 10-2 Provider Note - ED v3 Provider Note: Chart Review: HISTORY OF PRESENTING ILLNESS ALYSSIA is a 36 year old Female and was seen by me at 29-Mar-2022 17:10. The historian is the patient. Triage Information: Most recent Vital Sign Value Date PAST MEDICAL HISTORY ALLERGIES/INTOLERANCES : No Known Allergies HEALTH HISTORY: No known health issues. Family history: no pertinent history. Social history: non-smoker. ; has a daughter. OUTPATIENT MEDICATIONS: Home Medications Review Status for Reconciliation: Complete Med Status: Patient Currently Takes Medications Drug Name: Zithromax Z-Lázaro 250 mg oral tablet Instructions: 2 tab(s) by mouth at once on day 1, then 1 tablet once a day on days 2-5 SIGNIFICANT EVENTS: Social/Behavioral Description:pt denies History of excision of benign tumor in R arm. Has had csections x2. Has received 1 dose of the COVID-19 vaccine, and received the [id number] influenza vaccine. CRITICAL CARE RESULTS: Recent Lab Results: Urine Hcg test today was positive. VITAL SIGNS: T PRBP SpO2O2(LPM) %FiO2 Method 29-Mar-2022 17:03:[id number] 0 98 MDM MDM/ED COURSE: This note was generated with voice recognition software and may contain errors including spelling, grammar, syntax, and misrecognization of what was dictated CHIEF COMPLAINT cough HISTORY OF PRESENT ILLNESS Patient presents today with complaints of a persitsent, painful cough (clear phlegm) x 2 weeks. Reports she feels like her chest is congested, but does not always produce phlegm with her cough. She has slight nasal congestion (clear to yellow nasal drainage), a sore throat, PND, and a hoarse voice. She denies any fever/chills, body aches, ear pain, headaches, abdominal pain, chest pain, wheezing/shortness of breath, rashes, urinary symptoms, nausea/vomiting, and diarrhea. Denies any lightheadedness or dizziness; no changes in mental status. No swelling in legs. Appetite is normal and is able to drink fluids without difficulty; denies any loss of sense of taste/smell. Reports feels like symptoms are getting worse since onset. Has been taking Mucinex, aspirin, and Tylenol with some relief; no other yzvt-zrn-wedimve medications or home remedies for symptom management. Her daughter is currently ill with similar sxs; no other known ill contacts. Has received the COVID-19 vaccine x1, as well as this year's flu vaccine. Is not a smoker. Reports is overdue for her menses - is sexually active and reports her and her have been considering conceiving. REVIEW OF SYSTEMS 10 systems reviewed negative with exception of history of present illness listed above PHYSICAL EXAMINATION General: Mildly ill-appearing, pleasant female; alert and oriented; in no acute distress. Sitting comfortably on exam table. Non-dyspneic. Eyes: Pupils equal, round and reactive to light. No conjunctival erythema; no scleral icterus. HENT: No frontal or maxillary sinus tenderness; + audible nasal congestion. Airway patent, TMs and ear canals clear bilaterally. Nasal mucosa mildly injected and edematous. Oral mucosa moist. Posterior pharynx pink but without vesicles or oropharyngeal exudate aside from PND. Uvula is midline. Managing oral secretions without difficulty. Neck: Supple. Mildly tender, mobile anterior cervical lymphadenopathy bilat. Trachea is midline. Respiratory: Respirations easy and unlabored, Breath sounds equal. Lungs are clear to auscultation; no wheezes, rhonchi, or rales; has good air movement throughout. Persistent, non-productive cough noted a few times during visit. Slight tenderness noted over entire anterior chest wall. Non-dyspneic with ambulation; able to maintain SpO2. Cardiovascular: Normal rate, Regular rhythm. Normal S1S2. No m/r/g. No peripheral edema. Gastrointestinal: Soft, non-tender, non-distended; no palpable masses or organomegaly. Bowel sounds normoactive. Musculoskeletal: Grossly normal; appropriate for age. Integumentary: [place], warm, dry, and intact. No rashes or skin discoloration appreciated. Good skin turgor. Neurologic: Alert and oriented, no gross deficits. Cognition and Speech: Oriented, Speech clear and coherent. Psychiatric: Cooperative, Appropriate mood & affect. MEDICAL DECISION MAKING Course: Worsening; stable. Impression/Plan: No red flags on exam today, but will need close monitoring, especially in light of today's + test. I have reviewed the COVID-19 algorithm, and counseled pt on COVID-19 current recommendations. Symptoms consistent with acute bronchitis, but reviewed other potential etiologies. Patient declines testing for COVID today, but urged precautionary measures. Due to severity and duration of symptoms, will begin treatment with Zithromax today. Urged to complete full course of medication, even if symptoms resolve more quickly. Instructed to push fluids, rest, and to u (more content not included)... Normal [facility]Con 02-04-2019 Erythrocyte distribution width (RBC) [Entitic vol] 13.3 % 11.6 - 14.8 % [facility] Hematocrit (Bld) [Volume fraction] 29.7 % Low 36 - 46 % [facility] Hemoglobin (Bld) [Mass/Vol] 9.8 g/dL Low 12 - 16 g/dL [facility] Interpretation and review of laboratory results Abnormal [facility] MCH (RBC) [Entitic mass] 25.5 pg Low 26 - 34 pg [facility] MCHC (RBC) [Mass/Vol] 33.0 g/dL 31 - 37 g/dL [facility] MCV (RBC) [Entitic vol] 77.1 fL Low 80 - 100 fL [facility] Platelet mean volume (Bld) [Entitic vol] 11.8 fL 9 - 15.5 fL [facility] Platelets (Bld) [#/Vol] 163 10*3/uL [facility] RBC (Bld) [#/Vol] 3.85 10*6/uL Low [facility] WBC (Bld) [#/Vol] 15.05 10*3/uL [facility] CBC WITH AUTO DIFFERENTIALon 02-03-2019 Basophils (Bld) [#/Vol] 0.03 10*3/uL [facility] Basophils/100 WBC (Bld) 0.3 % [facility] Eosinophils (Bld) [#/Vol] 0.11 10*3/uL [facility] Eosinophils/100 WBC (Bld) 1.0 % [facility] Erythrocyte distribution width (RBC) [Entitic vol] 13.3 % 11.6 - 14.8 % [facility] Hematocrit (Bld) [Volume fraction] 36.9 % 36 - 46 % [facility] Hemoglobin (Bld) [Mass/Vol] 12.3 g/dL 12 - 16 g/dL [facility] Immature granulocytes (Bld) [#/Vol] 0.06 10*3/uL [facility] Immature granulocytes/100 WBC (Bld) 0.50 % [facility] Comment on above: The IG parameter is the percentage of metamyelocytes, myelocytes, and promyelocytes. Interpretation and review of laboratory results Abnormal [facility] Lymphocytes (Bld) [#/Vol] 2.17 10*3/uL [facility] Lymphocytes/100 WBC (Bld) 19.9 % [facility] MCH (RBC) [Entitic mass] 25.3 pg Low 26 - 34 pg [facility] MCHC (RBC) [Mass/Vol] 33.3 g/dL 31 - 37 g/dL [facility] MCV (RBC) [Entitic vol] 75.9 fL Low 80 - 100 fL [facility] Monocytes (Bld) [#/Vol] 0.83 10*3/uL [facility] Monocytes/100 WBC (Bld) 7.6 % [facility] Neutrophils (Bld) [#/Vol] 7.71 10*3/uL High [facility] Neutrophils/100 WBC (Bld) 70.7 % [facility] Platelet mean volume (Bld) [Entitic vol] 11.4 fL 9 - 15.5 fL [facility] Platelets (Bld) [#/Vol] 211 10*3/uL [facility] RBC (Bld) [#/Vol] 4.86 10*6/uL [facility] WBC (Bld) [#/Vol] 10.91 10*3/uL [facility] Metabolic Pane cosme 02-03-2019 Albumin [Mass/Vol] 3.0 g/dL Low 3.2 - 5.2 g/dL [facility] ALP [Catalytic activity/Vol] 139 U/L 40 - 140 U/L [facility] ALT [Catalytic activity/Vol] 11 U/L Low 14 - 65 U/L [facility] Anion gap [Moles/Vol] 15 mmol/L 10 - 2 0 mmol/L [facility] AST [Catalytic activity/Vol] 17 U/L 0 - 45 U/L [facility] Bilirubin [Mass/Vol] 0.3 mg/dL 0 - 1.3 mg/dL [facility] Calcium [Mass/Vol] 8.9 mg/dL 8.4 - 10. 2 mg/dL [facility] Chloride [Moles/Vol] 107 mmol/L 98 - 10 8 mmol/L [facility] Creatinine [Mass/Vol] 0.76 mg/dL 0.4 - 1.1 mg/dL [facility] GFR/1.73 sq M predicted among non-blacks MDRD (S/P/Bld) [Vol rate/Area] The eGFR should be used for monitoring renal function only and not for medication dosing. [facility] GFR/1.73 sq M.predicted CKD-EPI (S/P/Bld) [Vol rate/Area] 104 >=60 mL/min/1.73 m2 [facility] Glucose [Mass/Vol] 80 mg/dL 65 - 99 mg/dL [facility] HCO3 [Moles/Vol] 22 mmol/L 21 - 32 mmol/L [facility] Interpretation and review of laboratory results Abnormal [facility] Potassium [Moles/Vol] 3.6 mmol/L 3.5 - 5.1 mmol/L [facility] Protein [Mass/Vol] 6.9 g/dL 6 - 8 g/dL [facility] Sodium [Moles/Vol] 140 mmol/L 135 - 145 mmol/L [facility] Urea nitrogen [Mass/Vol] 8 mg/dL 8 - 25 mg/dL [facility] Urea nitrogen/Creatinine [Mass ratio] 10.5 mg/mg [facility] Type and Screenon 02-03-2019 ABO and Rh group Nom (Bld) A Positive [facility] Blood group antibody screen Ql Negative [facility] Specimen Expires 02/06/2019 23:59 EST [facility] GYNon 03-25-2017 RAT EXTERMINATOR Name: ALYSSIA ROBERSON LResubmission due to incomplete transmission of the original reportSour Thin Prep Cervical/Endocervical- Pap Smear Clinical History None given Specimen Adequacy Satisfactory No transformation zone component identified. Diagnosis Negative for Intraepithelial Lesion or Malignancy. HPV Results HPV 16/18/Other HPV16: Negative HPV18: Negative HPVOTHER: Negative Assay performed using [employer] 4800 system utilizing Real-Time PCR toamplify target HPV DNA. This system specifically identifies HPV16 [id number] while concurrently detecting the other twelve high risk types(31,33,35,39,45,5 1,52,56,58,59,66,68). Completed by LT on 2017-04-03 Electronically Signed By Harpreet MESA (ASCP) , Transition Specialist (Case signed 04/01/2017) The Papanicolaou smear is a screening tool, and like any screen, has an inherent false negative rate. Interpretation of results should be made in the context of patient history and clinical findings. Normal [facility] Human Papillomavirus,High Ri skon 03-25-2017 HPV 16 Negative Normal Negative [facility] Comment on above: Performed By: #### H PV ####Unless otherwise noted, all testing performed by [address] [id number]: [id number] Director: Malvin Weller M.D. HPV 18 Negative Normal Negative [facility] Comment on above: Performed By: #### H PV ####Unless otherwise noted, all testing performed by [address] [id number]: [id number] Director: Malvin Weller M.D. HPV, Other Negative Normal Negative [facility] Comment on above: Result Comment: Assa y performed using [employer]00 system utilizing Real-Time PCR toamplify target HPV DNA. This system specifically identifies HPV16 [id number] while concurrently detecting the other twelve high risk types(31,33,35,39,45,51,52,56,58,59,66,68).Test Performed by [facility] [id number] [place] [address] Performed By: #### H PV ####Unless otherwise noted, all testing performed by [address] [id number]: [id number] Director: Malvin Weller M.D. Vital Signs Date Time Vital Sign Value Performing Clinician Facility 11-15-2024 13:36-0400 Body height 162.56 cm No Primary Care Physician [facility] 11-15-2024 13:36-0400 Body mass index (BMI) [Ratio] 18.2 kg/m2 No Primary Care Physician [facility] 11-15-2024 13:36-040 Body weight 48.19 kg No Primary Care Physician [facility] 11-15-2024 13:36-0400 Diastolic blood pressure 70 mm[Hg] No Primary Care Physician [facility] 11-15-2024 13:36-0400 Systolic blood pressure 103 mm[Hg] No Primary Care Physician [facility] 10-18-2024 10:210400 Body height 162.56 cm No Primary Care Physician [facility] 10-18-2024 10:21-0400 Body mass index (BMI) [Ratio] 18.5 kg/m2 No Primary Care Physician [facility] 10-18-2024 10:210400 Body weight 49.04 kg No Primary Care Physician [facility] 10-18-2024 10:-0400 Diastolic blood pressure 71 mm[Hg] No Primary Care Physician [facility] 10-18-2024 10:210400 Systolic blood pressure 112 mm[Hg] No Primary Care Physician [facility] 06-24-2024 13:10-0500 Body height 167.6 cm Thierry Stentz PA-C Work Phone: [facility] 06-24-2024 13:10-0500 Body mass index (BMI) [Ratio] 17.27 kg/m2 Thierry Stentz PA-C Work Phone: [facility] 06-24-2024 13:10-0500 Body weight 48.53 kg Thierry Stentz PA-C Work Phone: [facility] 06-24-2024 13:10-0500 Diastolic blood pressure 70 mm[Hg] Thierry Stentz PA-C Work Phone: [facility] 06-24-2024 13:10-0500 Heart rate 105 /min Thierry Stentz PA-C Work Phone: [facility] 06-24-2024 13:10-0500 SaO2% (BldA) [Mass fraction] 96 % Thierry Stentz PA-C Work Phone: [facility] 06-24-2024 13:10-0500 Systolic blood pressure 100 mm[Hg] Thierry Stentz PA-C Work Phone: [facility] 2023 10:06-0500 Body height 168.9 cm Thierry Stentz PA-C Work Phone: [facility] 2023 10:06-0500 Body mass index (BMI) [Ratio] 16.22 kg/m2 Thierry Stentz PA-C Work Phone: [facility] 2023 10:06-0500 Body weight 46.27 kg Thierry Stentz PA-C Work Phone: [facility] 2023 10:06-0500 Diastolic blood pressure 70 mm[Hg] Thierry Stentz PA-C Work Phone: [facility] 2023 10:06-0500 Heart rate 74 /min Thierry Stentz PA-C Work Phone: [facility] 2023 10:06-0500 Systolic blood pressure 98 mm[Hg] Thierry Stentz PA-C Work Phone: [facility] 05-20-2023 13:41-0500 Diastolic blood pressure 75 mm[Hg] Markus Arce DO Work Phone: [facility] 05-20-2023 13:41-0500 Heart rate 101 /min Markus Arce DO Work Phone: [facility] 05-20-2023 13:41-0500 Respiratory rate 17 /min Markus Arce DO Work Phone: [facility] 05-20-2023 13:41-0500 SaO2% (BldA) [Mass fraction] 99 % Markus Arce DO Work Phone: [facility] 05-20-2023 13:41-0500 Systolic blood pressure 99 mm[Hg] Markus Arce DO Work Phone: [facility] 05-20-2023 07:53-0500 Body height 162.6 cm Markus Arce DO Work Phone: [facility] 05-20-2023 07:53-0500 Body mass index (BMI) [Ratio] 17.16 kg/m2 Markus Arce DO Work Phone: [facility] 05-20-2023 07:53-0500 Body temperature 98.91 [degF] Markus Arce DO Work Phone: [facility] 05-20-2023 07:53-0500 Body weight 45.36 kg Markus Arce DO Work Phone: [facility] 08-27-2022 11:14-0400 Body height 162.5 cm No Pcp Required [facility] 08-27-2022 11:14-0400 Body temperature 98.06 [degF] No Pcp Required [facility] 08-27-2022 11:14-0400 Diastolic blood pressure 87 mm[Hg] No Pcp Required [facility] 08-27-2022 11:14-0400 Heart rate 93 /min No Pcp Required [facility] 08-27-2022 11:14-0400 Respiratory rate 18 /min No Pcp Required [facility] 08-27-2022 11:14-0400 SaO2% (BldA) [Mass fraction] 98 % No Pcp Required [facility] 08-27-2022 11:14-0400 Systolic blood pressure 132 mm[Hg] No Pcp Required [facility] 05-25-2022 10:22-0500 Body height 163 cm No Pcp Required [facility] 05-25-2022 10:22-0500 Body temperature 97.88 [degF] No Pcp Required [facility] 05-25-2022 10:22-0500 Diastolic blood pressure 86 mm[Hg] No Pcp Required [facility] 05-25-2022 10:22-0500 Heart rate 62 /min No Pcp Required [facility] 05-25-2022 10:22-0500 SaO2% (BldA) [Mass fraction] 99 % No Pcp Required [facility] 05-25-2022 10:22-0500 Systolic blood pressure 119 mm[Hg] No Pcp Required [facility] 04-26-2022 13:55-0500 Body temperature 98.6 [degF] No Primary Care Physician [facility] Work Phone: 04-26-2022 13:55-0500 Diastolic blood pressure 67 mm[Hg] No Primary Care Physician [facility] Work Phone: 04-26-2022 13:55-0500 Heart rate 77 /min No Primary Care Physician [facility] Work Phone: 04-26-2022 13:55-0500 Respiratory rate 14 /min No Primary Care Physician [facility] Work Phone: 04-26-2022 13:55-0500 SaO2% (BldA) [Mass fraction] 100 % No Primary Care Physician [facility] Work Phone: 04-26-2022 13:55-0500 Systolic blood pressure 95 mm[Hg] No [facility] Physician [facility] [facility] Work Phone: 04-26-2022 11:23-0500 Body height 162.56 cm No Primary Care Physician [facility] Work Phone: 04-26-2022 11:23-0500 Body mass index (BMI) [Ratio] 16.2 kg/m2 No Primary Care Physician [facility] Work Phone: 04-26-2022 11:23-0500 Body weight 43 kg No Primary Care Physician [facility] Work Phone: 04-26-2022 08:54-0500 Body mass index (BMI) [Ratio] 16.5 kg/m2 No Primary Care Physician [facility] Work Phone: 04-26-2022 08:54-0500 Body weight 43.65 kg No Primary Care Physician [facility] Work Phone: 04-26-2022 08:54-0500 Diastolic blood pressure 88 mm[Hg] No Primary Care Physician [facility] Work Phone: 04-26-2022 08:54-0500 Systolic blood pressure 125 mm[Hg] No Primary Care Physician [facility] Work Phone: 04-25-2022 20:31-0500 Respiratory rate 16 /min No Primary Care Physician [facility] Work Phone: 04-25-2022 18:08-0500 Body mass index (BMI) [Ratio] 17.2 kg/m2 No Primary Care Physician [facility] Work Phone: 04-25-2022 18:08-0500 Body temperature 98.6 [degF] No Primary Care Physician [facility] Work Phone: 04-25-2022 18:08-0500 Body weight 45.35 kg No Primary Care Physician [facility] Work Phone: 04-25-2022 18:08-0500 Diastolic blood pressure 77 mm[Hg] No Primary Care Physician [facility] Work Phone: 04-25-2022 18:08-0500 Heart rate 123 /min No Primary Care Physician [facility] Work Phone: 04-25-2022 18:08-0500 SaO2% (BldA) [Mass fraction] 100 % No Primary Care Physician [facility] Work Phone: 04-25-2022 18:08-0500 Systolic blood pressure 114 mm[Hg] No Primary Care Physician [facility] Work Phone: 03-29-2022 19:03-0400 Body height 162 cm No Pcp Required [facility] 03-29-2022 19:03-0400 Body temperature 98.24 [degF] No Pcp Required [facility] 03-29-2022 19:03-0400 Diastolic blood pressure 90 mm[Hg] No Pcp Required [facility] 03-29-2022 19:03-0400 Heart rate 88 /min No Pcp Required [facility] 03-29-2022 19:03-0400 Respiratory rate 14 /min No Pcp Required [facility] 03-29-2022 19:03-0400 SaO2% (BldA) [Mass fraction] 98 % No Pcp Required [facility] 03-29-2022 19:03-0400 Systolic blood pressure 125 mm[Hg] No Pcp Required [facility] 03-19-2019 15:46-0400 Body weight 52.16 kg Sophia Ford RN [facility] 03-19-2019 15:46-0400 Diastolic blood pressure 75 mm[Hg] Sophia Ford RN [facility] 03-19-2019 15:46-0400 Systolic blood pressure 98 mm[Hg] Sophia Ford RN [facility] 02-06-2019 07:35-0400 Body Temperature 98.1 [degF] [facility] 02-06-2019 07:35-0400 BP Diastolic 67 mm[Hg] [facility] 02-06-2019 07:35-0400 BP Systolic 101 mm[Hg] [facility] 02-06-2019 07:35-0400 Pulse (Heart Rate) 85 /min [facility] 02-06-2019 07:35-0400 Pulse Oximetry 96 % [facility] 02-06-2019 07:35-0400 Respiratory Rate 16 /min [facility] 02-03-2019 20:50-0400 Body weight 58.33 kg [facility] Encounters Encounter Date Encounter Type Care Provider Facility Start: 11-15-2024 End: 11-15-2024 ambulatory No Primary Care Physician Facility:[facility] Start: 11-15-2024 End: 11-15-2024 Patient encounter procedure Manuela MANCIA -[facility] Work Phone: Start: 10-18-2024 End: 10-18-2024 ambulatory No Primary Care Physician [facility] Work Phone: Start: 10-18-2024 End: 10-18-[address] Adele Miner MD -[facility] Work Phone: Start: 10-18-2024 End: 10-18-[address] Adele Miner MD -[facility] Work Phone: Start: 10-18-2024 End: 10-18-2024 ambulatory No Primary Care Physician Facility:[facility] Start: 10-18-2024 End: 10-18-2024 ambulatory No Primary Care Physician Facility:[facility] Start: 10-08-2024 Non-patient / Non-visit Lety gill RN -[facility] Work Phone: Start: 10-08-2024 ambulatory Lety Mejia Facility :[facility] Start: 06-24-2024 End: 06-24-2024 Office outpatient visit 15 minutes Thierry Diaz PA-C Work Phone: [facility] Comment on above: Vitamin D deficiency (Primary Dx); Screening for thyroid disorder; Fatigue, unspecified type; BMI < 18.5; Seasonal allergies Start: 06-24-2024 End: 06-24-2024 ambulatory [facility] Start: 2023 End: 2023 Office outpatient visit 15 minutes Thierry Stentbarney PA-C Work Phone: [facility] Comment on above: Traumatic subdural h emorrhage with loss of consciousness, subsequent encounter (Primary Dx) Start: 05-20-2023 End: 05-21-2023 ambulatory [facility] Start: 05-20-2023 End: 05-20-2023 Emergency department patient visit Markus Arce DO Work Phone: [facility] Comment on above: Subdural hemorrhage (CMS/HCC) (Primary Dx); Syncope and collapse Start: 08-27-2022 End: 08-27-2022 Emergency department patient visit Mandie Deeum [facility] Start: 05-25-2022 End: 05-25-2022 Emergency department patient visit Orlin Casarez [facility] Start: 04-26-2022 Non-patient / Non-visit No Valarie bessie Care Physician [facility] Start: 04-26-2022 End: 04-26-2022 [facility] to [facility] day [facility] Start: 04-26-2022 End: 04-26-2022 ambulatory No Primary Care Physician [facility] Work Phone: Start: 04-26-2022 End: 04-26-2022 Patient encounter procedure No Primary Care Physician [facility] Start: 04-25-2022 End: 04-25-2022 Emergency department patient visit No Primary Care Physician [facility]-Emergency Department Start: 04-24-2022 End: 04-24-2022 ambulatory No Primary Care Physician [facility] Work Phone: Start: 04-24-2022 End: 04-24-2022 Patient encounter procedure No Primary Care Physician [facility]-Laboratory Start: 04-22-2022 End: 04-22-2022 ambulatory No Primary Care Physician [facility] Work Phone: Start: 04-22-2022 End: 04-22-2022 Patient encounter procedure No Primary Care Physician [facility]Laboratory Start: 04-20-2022 End: 04-20-2022 Emergency department patient visit PHYSICIAN DEREK [facility] Start: 03-29-2022 End: 03-29-2022 Emergency department patient visit Chantelle Shimon [facility] Start: 10-01-2021 ambulatory [facility] Start: 10-01-2021 Chart abstracting Sophia Ford RN [facility] Start: 03-22-2019 End: 03-24-2019 [facility] Start: 02-03-2019 Evaluation and management of inpatient [place] Domenico Gibson [facility] Start: 02-03-2019 End: 02-06-2019 Evaluation and management of inpatient Mar[place] Domenico Gibson [facility] Work Phone: [facility] Labor [facility] Delivery Comment on above: Delivery of pregnanc y by section (Primary Dx) Start: 01-18-2019 End: 01-18-2019 Patient encounter procedure [place] Domenico Gibson [facility] Start: 11-24-2018 End: 11-25-2018 [facility] [facility] Start: 08-17-2018 End: 08-18-2018 [facility] Start: 08-07-2018 End: 08-07-2018 [facility] [place] [facility] Start: 06-30-2018 End: 06-30-2018 Patient encounter procedure MIRIAN FORD [facility] Start: 03-25-2017 Ambulatory Mirian Ford Facili ty:[facility] Start: 03-25-2017 End: 03-25-2017 Patient encounter procedure Mirian Ford Work Phone: [facility] Procedures Date Procedure Procedure Detail Performing Clinician Start: 10-18-2024 Liquid based cervica l cytology screening No Primary Care Physician Comment on above: NEGATIVE FOR INTRAEP ITHELIAL LESION OR MALIGNANCY. This liquid based Th inPrep(R) pap test was screened withthe use of an image guided system. Start: 10-18-2024 Urine culture No Primar y Care Physician Start: 05-20-2023 CT CERVICAL SPINE WO IV CONTRAST MARKUS ARCE Start: 05-20-2023 INITIATE REQUEST TO ANOTHER FACILITY MARKUS ARCE Start: 05-20-2023 CT ANGIO CHEST FOR PULMONARY EMBOLISM MARKUS ARCE Start: 05-20-2023 CT HEAD WO IV CONTRAST MARKUS ARCE Start: 05-20-2023 Ct cervical spine w/ o contrast material Markus Arce DO Work Phone: Start: 05-20-2023 HCG, URINE, QUALITATIVE [facility] Start: 05-20-2023 URINALYSIS WITH REFL EX MICROSCOPIC MARKUS ARCE Start: 05-20-2023 Basic metabolic 2000 panel - Serum or Plasma MARKUS ARCE Start: 05-20-2023 CBC W Auto Different ial panel - Blood MARKUS ARCE Start: 05-20-2023 TROPONIN SERIES- (IN ITIAL, 1 HR) [facility]US ARCE Start: 05-20-2023 Ct angiography chest w/contrast/noncontrast Markus Arce DO Work Phone: Start: 05-20-2023 Ct head/brain w/o co ntrast material Markus Arce DO Work Phone: Start: 05-20-2023 ECG 12-LEAD [facility] Start: 05-20-[address] VIVIANEN YAZMIN Start: 05-20-2023 ORTHOSTATIC BLOOD PRESSURE MARKUS ARCE Start: 05-20-2023 Urnls dip stick/tabl et rgnt auto w/o microscopy Markus Arce DO Work Phone: Start: 05-20-2023 End: 05-20-2023 Basic metabolic panel calcium total Markus Arce DO Work Phone: Start: 05-20-2023 Troponin I.cardiac p megan - Serum or Plasma by High sensitivity method Markus Arce DO Work Phone: Start: 04-26-2022 Dilation and curetta ge of uterus No Primary Care Physician Start: 04-25-2022 Transvaginal obstetr ic ultrasonography No Primary Care Physician Start: 02-04-2019 Complete blood count (hemogram) panel - Blood by Automated count Mirian Ford Work Phone: Start: 02-04-2019 Blood type and Indir ect antibody screen panel - Blood Mirian Ford Work Phone: Start: 02-04-2019 Comprehensive metabo lic 2000 panel - Serum or Plasma Mirian Ford Work Phone: Start: 02-04-2019 Complete blood count with white cell differential, automated Mirian Ford Work Phone: Start: 02-04-2019 Complete blood count with white cell differential, manual Mirian Ford Work Phone: section Mirian Ford Work Phone: H/O: section Hx of cesa rean section No Primary Care Physician Comment on above: X 2 H/O: section History of delivery, currently No Primary Care Physician Comment on above: x2 - desires repeat csec H/O: section History of delivery, currently Dr. Adele Miner MD H/O: section History of delivery, currently Manuela Olea [employer] H/O: surgery S/P dilatation a nd curettage No Primary Care Physician End: 06-09-2021 H/O: surgery S/P dilatation and curettage No Primary Care Physician Plan of Treatment Date Care Activity Detail Author Start: 2036 Zoster Vaccines (1 of 2) Zoste r Vaccines (1 of 2) [facility] Start: 02-06-2029 DTaP/Tdap/Td Vaccine s (2 - Td or Tdap) DTaP/Tdap/Td Vaccines (2 - Td or Tdap) [facility] Start: 06-24-2025 End: 06-24-2025 Patient encounter procedure 06/24/2025 1:15 PM EST Office Visit [facility] [address] [place] [address] Thierry Diaz PA-C [address] [facility] [address] [place] [address] [facility] Start: 11-15-2024 Procedure [facility] Start: 11-15-2024 CBC W Auto Different ial panel - Blood [facility] Start: 11-15-2024 Cobalamin (Vitamin B 12) [Mass/volume] in Serum or Plasma [facility] Start: 11-15-2024 Ferritin [Mass/volum e] in Serum or Plasma [facility] Start: 11-15-2024 Hepatitis C antibody measurement [facility] Start: 11-15-2024 Iron and Iron bindin g capacity panel - Serum or Plasma [facility] Start: 11-15-2024 Rubella IgG measurement [facility] Start: 11-15-2024 Serologic test for syphilis [facility] Start: 11-15-2024 Thiamine measurement [facility] Start: 11-15-2024 [facility] Start: 06-24-2024 End: 06-24-2025 25-hydroxyvitamin D3 [Mass/volume] in Serum or Plasma Vitamin D 25-Hydroxy,Total (for eval of Vitamin D levels) Lab Routine Vitamin D deficiency Expected: 06/24/2024 (Approximate), Expires: 06/24/2025 [facility] Work Phone: Comment on above: Expected: 06/24/2024 (Approximate), Expires: 06/24/2025 Start: 06-24-2024 End: 06-24-2025 CBC panel - Blood by Automated count CBC Lab Routine BMI < 18.5 Expected: 06/24/2024 (Approximate), Expires: 06/24/2025 [facility] Work Phone: Comment on above: Expected: 06/24/2024 (Approximate), Expires: 06/24/2025 Start: 06-24-2024 End: 06-24-2025 Cobalamin (Vitamin B12) [Mass/volume] in Serum or Plasma Vitamin B12 Lab Routine Fatigue, unspecified type Expected: 06/24/2024 (Approximate), Expires: 06/24/2025 [facility] Work Phone: Comment on above: Expected: 06/24/2024 (Approximate), Expires: 06/24/2025 Start: 06-24-2024 End: 06-24-2025 Comprehensive metabolic 2000 panel - Serum or Plasma Comprehensive Metabolic Panel Lab Routine BMI < 18.5 Expected: 06/24/2024 (Approximate), Expires: 06/24/2025 [facility] Service Area Work Phone: Comment on above: Expected: 06/24/2024 (Approximate), Expires: 06/24/2025 Start: 06-24-2024 End: 06-24-2025 TSH with reflex to Free T4 if abnormal TSH with reflex to Free T4 if abnormal Lab Routine Screening for thyroid disorder Expected: 06/24/2024 (Approximate), Expires: 06/24/2025 [facility] Work Phone: Comment on above: Expected: 06/24/2024 (Approximate), Expires: 06/24/2025 Start: 06-24-2024 End: 06-24-2024 Patient encounter procedure 06/24/2024 1:15 PM EST Office Visit [facility] [address] [place] [address] Thierry Diaz PA-C [address] [facility] [address] [place] [address] [facility] Start: 02-08-2024 COVID-19 Vaccine ( season) COVID-19 Vaccine ( season) [facility] Start: 02-08-2024 Influenza vaccination Influenza Vacc ine (#1) [facility] Start: 02-07-2023 Influenza vaccination Influenza Vacc ine (#1) [facility] Start: 04-26-2022 Ambulation without limitation [facility] Work Phone: Start: 04-26-2022 Medical regimen orde rs management [facility] Work Phone: Start: 04-26-2022 Medication education [facility] Work Phone: Start: 04-26-2022 Patient discharge [facility] Work Phone: Start: 04-26-2022 Procedure discontinued [facility] Work Phone: Start: 04-26-2022 Taking patient vital signs [facility] Work Phone: Start: 04-26-2022 Vital signs measurements [facility] Work Phone: Start: 04-26-2022 [facility] Work Phone: Start: 04-29-2021 COVID-19 Vaccine (3 - Pfizer series) COVID-19 Vaccine (3 - Pfizer series) [facility] Start: 02-03-2019 End: 02-03-2019 Anesthesia Event 02/03/2019 Anesthesia Event Obstetrics Shaheed Kraus MD [address] [place] [address] [phone] [facility] Start: 2007 Screening for malign ant neoplasm of cervix [facility] Start: 2005 Hepatitis B Vaccines (1 of 3 - 19+ 3-dose series) Hepatitis B Vaccines (1 of 3 - 19+ 3-dose series) [facility] Start: 2004 Hepatitis C screening Hepatitis C [facility] Start: 1999 Varicella vaccination Varicell a Vaccines (1 of 2 - 13+ 2-dose series) [facility] Start: 1987 MMR Vaccines (1 of 1 - Standard series) MMR Vaccines (1 of 1 - Standard series) [facility] Start: 1987 Varicella vaccination Varicell a Vaccines (1 of 2 - 2-dose childhood series) [facility] Start: 1986 Hepatitis B Vaccines (1 of 3 - 3-dose series) Hepatitis B Vaccines (1 of 3 - 3-dose series) [facility] Start: 1986 HIV screening HIV Screening [facility] Start: 1986 Lipid panel Lipid Panel [facility] Start: 1986 Yearly Adult Physical Yearly Adult P [facility] CBC W Auto Different ial panel - Blood [facility] Cobalamin (Vitamin B 12) [Mass/volume] in Serum or Plasma [facility] End: 05-20-2023 ECG 12 lead ECG 12 lead ECG STAT Once for 1 Occurrences starting 05/20/2023 until 05/20/2023 [facility] Service Area Work Phone: Comment on above: Once for 1 Occurrenc es starting 05/20/2023 until 05/20/2023 Erythrocyte mean corpuscular volume determination [facility] Ferritin [Mass/volum e] in Serum or Plasma [facility] Hematocrit [Volume Fraction] of Blood [facility] Hemoglobin [Mass/vol ume] in Blood [facility] Hepatitis B virus surface Ag [Presence] in Serum [facility] Hepatitis C antibody measurement [facility] Iron [Mass/mass] in Unspecified specimen [facility] Iron and Iron bindin g capacity panel - Serum or Plasma [facility] Iron saturation [Mas s Fraction] in Serum or Plasma [facility] Leukocytes [#/volume ] in Blood [facility] Mean corpuscular hemoglobin concentration determination [facility] Mean corpuscular hemoglobin determination [facility] Neutrophil count [facility] Neutrophil percent differential count [facility] Patient Education Loss Grieving ED MISCARRIAGE Incomplete ED Hematuria [facility] Work Phone: Patient referral [facility] Work Phone: Platelets [#/volume] in Blood [facility] Red blood cell count [facility] Red cell distributio n width determination [facility] Rubella IgG measurement [facility] Serologic test for syphilis [facility] Thiamine measurement [facility] Total iron binding capacity measurement [facility] Immunizations Immunization Date Immunization Notes Care Provider Fa cility 02-06-2019 tetanus toxoid, reduced diphtheria toxoid, and acellular pertussis vaccine, adsorbed [facility] 02-03-2019 diphtheria, tetanus toxoids and acellular pertussis vaccine, unspecified formulation [facility] 02-03-2019 measles, mumps and rubella virus vaccine [facility] 02-03-2019 varicella zoster immune globulin [facility] 02-13-2016 influenza, seasonal, injectable Thierry Diaz PA-C Work Phone: [facility] 02-13-2016 influenza virus vaccine, unspecified formulation Markus Arce DO Work Phone: [facility] Work Phone: Payers Date Payer Category Payer Self-pay 2021 Managed Care (Private) MEDICAL M NDUAL [facility] [id number] 2018 Unknown [id number] 2018 Unknown MMO MED MUTUAL S UPERMED PPO xxxxxxxxxxxx 2018-Present [id number] 2018 Unknown [id number] [id number]. [id number] 1986 Unknown [id number] 2.16.840.1.369384.3.579.2. 903 1986 Unknown [id number] 2.16.840.1.286358.3.579.2. 900 1986 Unknown [id number] 2.16.840.1.873267.3.579.2. 900 1986 Unknown [id number] 2.16.840.1.505311.3.579.2. 900 1986 Unknown [id number] 2.16.840.1.844235.3.579.2. 900 1986 Unknown [id number] 2.16.840.1.899031.3.579.2. 900 1986 Unknown [id number] 2.16.840.1.711575.3.579.2. 900 1986 Unknown [id number] 2.16.840.1.103162.3.579.2. 900 1986 Unknown [id number] 2.16.840.1.507827.3.579.2. 903 1986 Unknown [id number] 2.16.840.1.796510.3.579.2. 902 1986 Unknown [id number] 2.16.840.1.505122.3.579.2. 1069 1986 Unknown [id number] 2.16.840.1.115059.3.579.2. 1069 1986 Unknown [id number] 2.16.840.1.727241.3.579.2. 1069 1986 Unknown [id number] 2.16.840.1.455283.3.579.2. 903 1986 Unknown [id number] 2.16.840.1.110646.3.579.2. 903 1986 Unknown [id number] 2.16.840.1.462788.3.579.2. 1243 1986 Unknown [id number] 2.16.840.1.901920.3.579.2. 1244 1986 Unknown [id number] 2.16.840.1.953573.3.579.2. 1245 Unknown [id number] Unknown [id number] 2.16.840.1.285505.3.579.2. 462 Unknown [id number] 2.16.840.1.663234.3.579.2. 462 Unknown [id number] 2.16.840.1.086498.3.579.2. 462 Unknown [id number] 2.16.840.1.099641.3.579.2. 462 Unknown [id number] 2.16.840.1.726473.3.579.2. 462 Social History Date Type Detail Facility Start: 03-29-2017 End: 04-26-2022 Tobacco smoking status [facility] Unknown if ever smoked [facility] Work Phone: Start: 1985 Sex Assigned At Not on file [facility] Work Phone: Start: 02-06-2019 End: 10-08-2024 Tobacco smoking status [facility]IS Never smoker [facility] Start: 02-06-2019 Alcohol intake Ex-drinker (finding) [facility] Start: 02-04-2019 End: 05-23-2023 Tobacco use and exposure Smokeless tobacco non-user [facility] Start: 1985 Sex Assigned At Female [facility] Start: 05-23-2023 End: 2023 Gender identity Not on file [facility] Work Phone: Start: 05-10-2023 End: 06-24-2024 Exposure to SARS-CoV-2 (event) Not sure [facility] Work Phone: Start: 05-23-2023 End: 2023 History of Social function [facility] Work Phone: Goals Date Patient Goal Desired Activity /State Mental Status Date Assessment Result Facility 04-26-2022 Cognitive function Level Of Consciousness Sedated [facility] Work Phone: 04-26-2022 Cognitive function Patient Ángel cooper Person;Place;Time [facility] Work Phone: Clinical Notes 05-20-2023 to 11-15-2024 Note Date & Type Note Facility 11-15-2024 Progress note [facility] 10-18-2024 Evaluation note Diagnosis Onset Date Resolution AMA (advanced maternal age) multigravida 35+ acute October 18, 2024 10:17am History of delivery, currently acute October 18, 2024 10:17am History of labor acute October 18, 2024 10:17am acute October 18, 2024 10:17am Supervision of high-risk acute October 18 10:17am Underweight (BMI < 18.5) acute October 18, 2024 10:17am History of miscarriage, currently resolved October 18 10:17am [facility] Work Phone: 1(713) 259-334005-12-2025 Evaluation note* Diagnosis Onset Date Resolution Status Admit Date AMA (advanced maternal age) multigravida 35+ acute October 18, 2024 10:17am History of delivery , currently acute October 18 10:17am History of labor acute October 18, 2024 10:17am acute October 18, 2024 10:17am Supervision of high-risk acute October 18, 2024 1 0:17am Underweight (BMI < 18.5) acute October 18, 2024 10:17am History of miscarriage, currently resolved October 18 10:17am AMA (advanced maternal age) multigravida 35+ acute November 15, 2024 1:28pm Bartholin's gland cyst acute 2024 1:28pm History of delivery , currently acute November 15 1:28pm History of labor acute November 15, 2024 1:28pm acute November 15, 2024 1:28pm Supervision of high-risk acute November 15, 2024 1 :28pm Underweight (BMI < 18.5) acute November 15, 2024 1:28pm [facility] Work Phone: 1(334) 598-917001-16-2025 History of Present illness Narrative* Thierry Diaz PA-C - 06/24/2024 1:15 PM EST Subjective Patient ID: Alyssia Roberson is a 39 y.o. female who presents for pt here for 1 yr follow up (Pt c/o frequent bloody nose and allergy sx). HPI ALLERGIES: Chronic, worse now in winter. Bloody noses. Zyrtec prn helpful. VIT D DEF: 1000mcg daily, need to check level. Was following [employer] in [place], needs to schedule. Review of Systems Constitutional: Negative. Respiratory: Negative. Cardiovascular: Negative. Gastrointestinal: Negative. Objective BP 100/70 Pulse 105 Ht 1.676 m (5' 6) Wt 48.5 kg (107 lb) SpO2 96% BMI 17.27 kg/m Physical Exam Constitutional: General: She is not in acute distress. Appearance: Normal appearance. She is not ill-appearing. HENT: Head: Normocephalic and atraumatic. Eyes: Extraocular Movements: Extraocular movements intact. Conjunctiva/sclera: Conjunctivae normal. Cardiovascular: Rate and Rhythm: Normal rate. Pulmonary: Effort: Pulmonary effort is normal. Abdominal: General: There is no distension. Musculoskeletal: General: Normal range of motion. Cervical back: Normal range of motion. Skin: General: Skin is warm and dry. Neurological: General: No focal deficit present. Mental Status: She is alert and oriented to person, place, and time. Psychiatric: Mood and Affect: Mood normal. Behavior: Behavior normal. Thought Content: Thought content normal. Judgment: Judgment normal. Assessment/Plan Nonfasting labs today. Rx Zyrtec daily, advised saline gel dry nares. No other medication changes today. Follow up 1 year or sooner prn. documented in this [facility] Work Phone: 1(661) 770-512001-15-2024 History of Present illness Narrative* Thierry Diaz PA-C - 2023 10:00 AM EST Subjective Patient ID: Alyssia Roberson is a 38 y.o. female who presents for pt here for 1 month f/u brain bleed due to fall . HPI 1 month since admitted for subdural hemorrhage, cleared by neuro who does not desire follow up withher. She endorses feeling very well and back to baseline, denies any symptoms currently. Review of Systems Constitutional: Negative. Respiratory: Negative. Cardiovascular: Negative. Gastrointestinal: Negative. Objective BP 98/70 Pulse 74 Ht 1.689 m (5' 6.5) Wt 46.3 kg (102 lb) BMI 16.22 kg/m Physical Exam Constitutional: General: She is not in acute distress. Appearance: Normal appearance. She is not ill-appearing. HENT: Head: Normocephalic and atraumatic. Eyes: Extraocular Movements: Extraocular movements intact. Conjunctiva/sclera: Conjunctivae normal. Cardiovascular: Rate and Rhythm: Normal rate and regular rhythm. Heart sounds: Normal heart sounds. No murmur heard. Pulmonary: Effort: Pulmonary effort is normal. Abdominal: General: There is no distension. Musculoskeletal: General: Normal range of motion. Cervical back: Normal range of motion. Skin: General: Skin is warm and dry. Neurological: General: No focal deficit present. Mental Status: She is alert and oriented to person, place, and time. Psychiatric: Mood and Affect: Mood normal. Behavior: Behavior normal. Thought Content: Thought content normal. Judgment: Judgment normal. Assessment/Plan We will follow up in 1 year and recheck Vit D levels then. [facility] 1(440) 953-335912-12-2023 Emergency department Note* Markus Arce, DO - 05/20/2023 7:46 AM EST HPI Chief Complaint Patient presents with Syncope Brought to ED per [facility] squad from home after syncopal episode. She reports that she passed out when she stood up from the toilet. started with N/V around 0300, but she denies any N/V/D. EKG done at Patient presents by mahsa after a syncopal event at home. States that she did not feel well yesterday and actually had lied herself on the ground when walking to bed last night. She states that she had a prior syncopal episode a decade ago when she was told to lay down if I felt like I was ever going to pass out again. She states that she got up to use the bathroom this morning and had a syncopal event. She believes it was only brief but woke up on the ground. At the time of arrival she states her only symptom is she feels tired. Additionally, she states that her was up all night vomiting so she does not sleep very well. She herself has not had any nausea or vomiting. Denies coughor shortness of breath. Johnston Coma Scale Score: 15 Patient History No past medical history on file. No past surgical history on file. No family history on file. Social History Tobacco Use Smoking status: Not on file Smokeless tobacco: Not on file Substance Use Topics Alcohol use: Not on file Drug use: Not on file Physical Exam ED Triage Vitals [05/20/23 0753] Temp Heart Rate Resp BP 37.2 C (98.9 F) (!) 117 16 91/72 SpO2 Temp src Heart Rate Source Patient Position 100 % -- -- -- BP Location FiO2 (%) -- -- Physical Exam Vitals and nursing note reviewed. Constitutional: General: She is not in acute distress. Appearance: Normal appearance. She is normal weight. She is not ill-appearing, toxic-appearing or diaphoretic. HENT: Head: Normocephalic and atraumatic. Right Ear: Tympanic membrane, ear canal and external ear normal. There is no impacted cerumen. Left Ear: Tympanic membrane, ear canal and external ear normal. There is no impacted cerumen. Ears: Comments: No hemotympanum Nose: Nose normal. No rhinorrhea. Eyes: Extraocular Movements: Extraocular movements intact. Pupils: Pupils are equal, round, and reactive to light. Neck: Comments: Trachea is midline Cardiovascular: Rate and Rhythm: Regular rhythm. Tachycardia present. Heart sounds: No murmur heard. Pulmonary: Effort: Pulmonary effort is normal. Breath sounds: Normal breath sounds. No wheezing. Abdominal: General: Abdomen is flat. Bowel sounds are normal. There is no distension. Palpations: Abdomen is soft. Tenderness: There is no abdominal tenderness. Musculoskeletal: General: Normal range of motion. Cervical back: Normal range of motion. Skin: General: Skin is warm and dry. Findings: No rash. Neurological: General: No focal deficit present. Mental Status: She is alert and oriented to person, place, and time. Mental status is at baseline. Cranial Nerves: No cranial nerve deficit. Motor: No weakness. Psychiatric: Mood and Affect: Mood normal. Behavior: Behavior normal. Thought Content: Thought content normal. Judgment: Judgment normal. ED Course & MDM Diagnoses as of 05/20/23 1245 Subdural hemorrhage (CMS/HCC) Syncope and collapse Medical Decision Making Twelve-lead EKG was interpreted by myself and this was noted to contribute directly to patient care. Study reveals a sinus tachycardia with sinus arrhythmia at 104 bpm, normal axis, normal R wave progression, no acute ischemic changes. No S1 Q3 T3 is identified Patient was notably orthostatic while here in the department. She was given several fluid boluses which was noted to improve, but not resolved, her tachycardia and hypotension. When the patient's CATscan results were made available to me, specifically the CAT scan of her brain, I spoke to Dr. Mallika pena, who is on-call for neurosurgery services. His recommendation was to repeat the patient's CAT scan in 6 hours after the initial study and if this was negative to discharge the patient home. Giventhe nature of the patient's presentation, with her still being tachycardic and hypotensive, I feel that the risk for recurrent syncope and additional injury is high. I felt that the patient would need to be admitted for medical services as well in addition to having the subdural hemorrhage monitored. I spoke to our hospitalist physician on-call here who was not comfortable admitting the patient here without trauma or neurosurgery services. I spoke to the transfer center once again, and they informed me that the system is full with no available beds anywhere. I did speak to the hospitalist at [place], Dr. Mccullough, who stated that he would accept the patient however it might be a day or 2 until the patient has a bed available. Given lack of available resources with the system at this time which I did convey to the patient, she was agreeable to transfer to an outside facility. I spoke to Rosemary who is the nurse practitioner for trauma services at [facility] and she agreed to accept the patient to the service of her attending physician, Dr. Bermudez. The patient will be transported by local [facility] in stabilized condition to [facility] emergency room to the service of Dr. Bermudez Critical care time for this patient excluding billable procedures is 48 minutes secondary to multiple repeat physical examinations, expert consultation, and interpretation of radiographic studies. Procedure Procedures Makrus Arce DO 05/20/23 1245 documented in this [facility] Work Phone: 1(349) 579-355712-12-2023 Physician Emergency department Note* Markus Arce DO - 05/20/2023 7:46 AM EST HPI Chief Complaint Patient presents with Syncope Brought to ED per SUNNY bragg from home after syncopal episode. She reports that she passed out when she stood up from the toilet. started with N/V around 0300, but she denies any N/V/D. EKG done at Patient presents by mahsa after a syncopal event at home. States that she did not feel well yesterday and actually had lied herself on the ground when walking to bed last night. She states that she had a prior syncopal episode a decade ago when she was told to lay down if I felt like I was ever going to pass out again. She states that she got up to use the bathroom this morning and had a syncopal event. She believes it was only brief but woke up on the ground. At the time of arrival she states her only symptom is she feels tired. Additionally, she states that her was up all night vomiting so she does not sleep very well. She herself has not had any nausea or vomiting. Denies coughor shortness of breath. Randolph Coma Scale Score: 15 Patient History No past medical history on file. No past surgical history on file. No family history on file. Social History Tobacco Use Smoking status: Not on file Smokeless tobacco: Not on file Substance Use Topics Alcohol use: Not on file Drug use: Not on file Physical Exam ED Triage Vitals [05/20/23 0753] Temp Heart Rate Resp BP 37.2 C (98.9 F) (!) 117 16 91/72 SpO2 Temp src Heart Rate Source Patient Position 100 % -- -- -- BP Location FiO2 (%) -- -- Physical Exam Vitals and nursing note reviewed. Constitutional: General: She is not in acute distress. Appearance: Normal appearance. She is normal weight. She is not ill-appearing, toxic-appearing or diaphoretic. HENT: Head: Normocephalic and atraumatic. Right Ear: Tympanic membrane, ear canal and external ear normal. There is no impacted cerumen. Left Ear: Tympanic membrane, ear canal and external ear normal. There is no impacted cerumen. Ears: Comments: No hemotympanum Nose: Nose normal. No rhinorrhea. Eyes: Extraocular Movements: Extraocular movements intact. Pupils: Pupils are equal, round, and reactive to light. Neck: Comments: Trachea is midline Cardiovascular: Rate and Rhythm: Regular rhythm. Tachycardia present. Heart sounds: No murmur heard. Pulmonary: Effort: Pulmonary effort is normal. Breath sounds: Normal breath sounds. No wheezing. Abdominal: General: Abdomen is flat. Bowel sounds are normal. There is no distension. Palpations: Abdomen is soft. Tenderness: There is no abdominal tenderness. Musculoskeletal: General: Normal range of motion. Cervical back: Normal range of motion. Skin: General: Skin is warm and dry. Findings: No rash. Neurological: General: No focal deficit present. Mental Status: She is alert and oriented to person, place, and time. Mental status is at baseline. Cranial Nerves: No cranial nerve deficit. Motor: No weakness. Psychiatric: Mood and Affect: Mood normal. Behavior: Behavior normal. Thought Content: Thought content normal. Judgment: Judgment normal. ED Course & MDM Diagnoses as of 05/20/23 1245 Subdural hemorrhage (CMS/HCC) Syncope and collapse Medical Decision Making Twelve-lead EKG was interpreted by myself and this was noted to contribute directly to patient care. Study reveals a sinus tachycardia with sinus arrhythmia at 104 bpm, normal axis, normal R wave progression, no acute ischemic changes. No S1 Q3 T3 is identified Patient was notably orthostatic while here in the department. She was given several fluid boluses which was noted to improve, but not resolved, her tachycardia and hypotension. When the patient's CATscan results were made available to me, specifically the CAT scan of her brain, I spoke to Dr. Mallika pena, who is on-call for neurosurgery services. His recommendation was to repeat the patient's CAT scan in 6 hours after the initial study and if this was negative to discharge the patient home. Giventhe nature of the patient's presentation, with her still being tachycardic and hypotensive, I feel that the risk for recurrent syncope and additional injury is high. I felt that the patient would need to be admitted for medical services as well in addition to having the subdural hemorrhage monitored. I spoke to our hospitalist physician on-call here who was not comfortable admitting the patient here without trauma or neurosurgery services. I spoke to the transfer center once again, and they informed me that the system is full with no available beds anywhere. I did speak to the hospitalist at [place], Dr. Mccullough, who stated that he would accept the patient however it might be a day or 2 until the patient has a bed available. Given lack of available resources with the system at this time which I did convey to the patient, she was agreeable to transfer to an outside facility. I spoke to Rosemary who is the nurse practitioner for trauma services at [facility] and she agreed to accept the patient to the service of her attending physician, Dr. Bermudez. The patient will be transported by local squad in stabilized condition to [facility] emergency room to the service of Dr. Bermudez Critical care time for this patient excluding billable procedures is 48 minutes secondary to multiple repeat physical examinations, expert consultation, and interpretation of radiographic studies. Procedure Procedures Markus Arce DO 05/20/23 1245 [facility] Work Phone: Evaluation note* Diagnosis Onset Date Resolution Status Missed acute Missed acute [facility] Work Phone: Evaluation noteNo assessment information available [facility] Work Phone: Evaluation note* Diagnosis Subdural hemorrhage (CMS/HCC)- Primary Subdural hemorrhage Syncope and collapse documented in [facility] Work Phone: Evaluation note* Diagnosis Traumatic subdural hemorrhage with loss of consciousness, subsequent encounter- Primary documented in this encounter [facility] Work Phone: Evaluation note* Diagnosis Vitamin D deficiency- Primary Screening for thyroid disorder Fatigue, unspecified type BMI < 18.5 Seasonal allergies Allergic rhinitis, cause unspecified documented in this encounter [facility] Work Phone: Progress note Author Manuela Olea [facility] Note Date/Time November 15, 2024 1:52p [facility]'[address], [address] [place] [address] OFFICE VISIT Date of Service: 11/15/24 MR#: [id number] Acct: [id number] Name: ALYSSIA ROBERSON Rep #: [id number] : 1985 Provider: BLANCHE Olea Age/Sex: 39/F [place] [facility] [place] Status: Signed Intake Vital Signs 05/10/22 16:08 10/18/24 10:21 11/15/24 13:36 Height 5 ft 4 in 5 ft 4 in 5 ft 4 in Weight: 106 lb 4 oz BMI 18.2 BP 103/70 Intake Visit Reasons: 14wk ob Chief Complaint: 14 Week 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: No Is patient in pain?: No Allergies No Known Allergies Allergy (Verified 11/15/24 13:37) Medications ?Medication ?Instructions ?Recorded ?Confirmed ?Type PNV 153-FA 400 mcg-om3 35 mg-dha tab PO 04/23/2211/15 History 25 mg-epa 5 mg-fish oil chew tablet Last Menstrual Period: 08/11/24 Zika: Zika virus screening: Negative : No PFSH PFSH Medical History Seasonal allergies 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 Missed Surgical History Status post surgery S/P dilatation and curettage S/P Family History Grandmother Brain cancer, Onset Age: 70 Grandfather Heart disease Mother Heart disease Grandmother Colon cancer Social History adopted: No household members: spouse and children housing: house number of children: 2 current occupational status: employed current occupation: [employer] current occupational exposures/hazards: No pets and animals: Yes (Not managing litterbox) pets and animals: cat(s) history of recent travel: No sexually active: Yes Smoking Status: Never smoker alcohol intake: current alcohol intake frequency: holidays/special occasions only details: Not while substance use type: does not use well-balanced diet: daily or most days caffeine: Yes Type: coffee eating out: 1-3 times/week during the past year weight has: remained stable what type of physical activity do you participate in: none champ/yazidism: Yazidism seatbelt use: always do you feel safe at home: Yes additional social history: : Palomo- Principal History 4 Elective abortions Hx Para 2 Spontaneous abortions 1 Hx # Term Pregnancies Ectopic pregnancies Hx # Pregnancies Multiple births # of living children 2 Past Pregnancies Del. Date Name GA/Weeks Outcome Route Bth Weight Gen Labor Lgth Anesthesia Del Locatn Provider FOB 02/11/16 Rubén 41 live - full term 7#4oz Male 24 hours epidural Emely Culver 02/03/19 Ellen 37 live - full term 6#7oz Female 8 hours epidural Emely Culver 04/09/22 8 spontaneous Delivery Date: 02/11/16 Last Updated by: Fouzia Funes Failure to progress Delivery Date: 02/03/19 Last Updated by: Fouzia Funes pre-term labor Delivery Date: 04/09/22 Last Updated by: Lety Mejia RN D&C HPI 14wk ob Details: ALYSSIA ROBERSON is a 39 year old who presents for routine OB visit. OB Visit KIMBERLEE Calculator Estimated Delivery Date Method Current WG Current Estimate 05/18/25 LMP (Certain) 13w 5d Expected Delivery Route/Plan plan RLTCS Specific Issue/Plans Covid status: [] Flu vaccine: [] Tdap vaccine: [] Rhogam: [] LARC form signed: [] Problem list reviewed and updated with the most current plan of care details and appropriate orders placed. Relevant counseling for the gestational age provided. Continue routine care and follow up unless otherwise noted in visit notes/problem list details Initial Weight: Not Recorded Date -?-?-?-?-?-?-?-?-?-?-?-?- EGA Weight BP Urine Prot -?-?-?-?-?-?-?-?-?-?-?-?- Glucose FHR FuHt Pres Dilation -?-?-?-?-?-?-?-?-?-?-?-?- Effaced St Visit Note 10/18/24 -?-?-?-?-?-?-?-?-?-?-?-?- 9w 5d 108 lb 2 oz 112/71 -?-?-?-?-?-?-?-?-?-?-?-?- 160 -?-?-?-?-?-?-?-?-?-?-?-?- SM- SM- CRL 3.1cm cons with LMP 11/15/24 -?-?-?-?-?-?-?-?-?-?-?-?- 13w 5d 106 lb 4 oz 103/70 Nega tive -?-?-?-?-?-?-?-?-?-?-?-?- Negative 160 -?-?-?-?-?-?-?-?-?-?-?-?- MH-No VB. Feels well. PN labs and NIPT today. Br US to confirm FHT ACOG First Trimester First Trimester: Desire for , Alcohol, Tobacco Cessation, Illicit/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 Drug/Substance Use, Intimate Partner Violence, Barriers to care, Unstable Housing, Communication Barriers, Environmental/Work Hazards, Anticipated Course of Care, Toxoplasmosis Precations, Use of Any medications, Sexual activity, Exercise, Dental Care, Sauna/Hot tub use, Seat Belt use, Childbirth classes/Hospital facilities, Travel, Indications for Ultrasound and Screening for Aneuploidy; Discussed ROS Const Reports system reviewed and no additional complaints, except as documented GI Denies abdominal pain, Denies nausea and Denies vomiting Exam Const General: cooperative Nutritional Appearance: well nourished GI Palpation: soft, nontender and other (gravid) Results POC Urinalysis 2 Dip (Clinic) Office Urine Glucose Negative Last Edit by Renée Arce on 11/15/24 13 :38 Office Urine Protein Negative Last Edit by Renée Arce on 11/15/24 13 :38 Coding Level of Care Code OB Routine Diagnoses Supervision of high risk in second trimester O09.92 Trimester: second trimester 13 weeks gestation of Z3A.13 Weeks of gestation: 13 weeks History of delivery, currently O34.219 Multigravida of advanced maternal age in second trimester O09.522 Trimester: second trimester Underweight (BMI < 18.5) R63.6; Z68.1 History of labor Z87.51 Bartholin's gland cyst N75.0 Assessment and Plan Assessment and Plan (1) Supervision of high-risk : Status: Acute Qualifiers: Trimester: second trimester Qualified Code(s): O09.92 - Supervision of high risk , unspecified, second trimester Comment: , KIMBERLEE 05/18/25, PC: Tay, : Palomo (2) : Status: Acute Qualifiers: Weeks of gestation: 13 weeks Qualified Code(s): Z3A.13 - 13 weeks gestation of Comment: Discussed genetic/carrier testing plan NIPT (3) History of delivery, currently : Status: Acute Comment: x2 - desires repeat csec (4) AMA (advanced maternal age) multigravida 35+: Status: Acute Qualifiers: Trimester: second trimester Qualified Code(s): O09.522 - Supervision of elderly multigravida, second trimester (5) Underweight (BMI < 18.5): Status: Acute Comment: BMI 18; B12, Thiamine & iron studies ordered w/NOB (6) History of labor: Status: Acute Comment: Last - 37weeks (7) Bartholin's gland cyst: Status: Acute Comment: left side asymptomatic reviewed precautions Orders: Orders POC Urinalysis 2 Dip (Clinic) Today Plan problem list reviewed and updated for most current plan of care and appropriate orders placed. Relevant counseling for the gestational age appropriate provided and ACOG education checklist updated. Continue routine care and follow up. 11/15/24 1352 <Electronically signed by Manuela ferrell INSIDE CONTRACTOR SALES INSIDE CONTRACTOR SALES-C> Date _ Manuela Olea INSIDE CONTRACTOR SALES INSIDE CONTRACTOR SALES-C Cosigner Signature: Date (if applicable) CC: ~ [facility] Work Phone: Reason for referral (narrative)* Consultation (Routine) - Authorized Specialty Diagnoses / Procedures Referred By Contac t Referred To Contact Primary Care Procedures Follow Up In Primary Care - Established Thierry Diaz PA-C [address] [facility], [place] [address] Referral ID Status Reason Start Date Expiration Date V isits Requested Visits Authorized [id number] Authorized 2023 06/22/2024 1 1 [facility] Work Phone: reason for referral (narrative)* Consultation (Routine) - Authorized Specialty Diagnoses / Procedures Referred By Jack parkinson Referred To Contact Primary Care Procedures Follow Up In Primary Care - Established Thierry Diaz PA-C [address] [facility], [place] [address] Phone: tel: fax: Referral ID Status Reason Start Date Expiration Date V isits Requested Visits Authorized [id number] Authorized 06/24/2024 06/24/2025 1 1 [facility] Work Phone: reason for referral (narrative)No reason for referral information [facility] Work Phone: Summary Purpose Family History Relationship Condition Age at Onset Recorded Date/T barron grandmother Malignant neoplasm of colon Unknown Malignant neoplasm of brain 70 grandfather Cardiac disease Unknown Relationship Condition Age at Onset Recorded Date/T barron grandmother Malignant neoplasm of brain 70 grandfather Cardiac disease Unknown mother Cardiac disease Unknown grandmother Malignant neoplasm of colon Unknown Advance Directives Documents on File Type Date Recorded 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 Expl anation Advance Directives and Livin g Will 02/03/2019 9:10 PM Latest Code Status on File Code Status Date Activated Date Inactivated Comments Full Code 02/03/2019 11:02 PM Full Code 02/03/2019 9:19 PM 02/03/2019 11:02 PM Advance Directive Response Recorded Date/ Time Living Will No April 25 8:11pm Power of Wallcovering Hanger No April 25, 2022 8:11pm Hospital Course * Laxmi Bee, - 02/06/2019 10:30 AM EDT DISCHARGE SUMMARY Patient: Alyssia Roberson Date of : 1985 Site: [facility] Family Provider: Physician No Admit Date: 02/03/2019 Discharge Date/Time: 02/06/19 Midday Disposition: Home Clinical Summary Hospital Course: Alyssia Roberson is a 33 y.o. female patient of Dr. Ford who presented in labor at 38 weeks. Patient had history of previous and desired repeat for delivery. Patient underwent a repeat LTCS without complications. Patient had a normal postop course and was discharged on POD#3. Discharge Diagnoses: Term IUP, RLTCS. Surgeries: 02/03/19 SECTION Consults: No orders of the defined types were placed in this encounter. Allergies: Patient has no known allergies. Discharge Diet: Condition: Good Discharge Medications: Current Discharge Medication List START taking these medications Details ibuprofen (ADVIL,MOTRIN) 800 MG tablet Take 1 (one) tablet (800 mg total) by mouth every 6 (six) hours as needed for pain . Qty: 30 tablet, Refills: 0 oxyCODONE-acetaminophen (PERCOCET) 5-325 mg per tablet Take 1 (one) tablet by mouth every 6 (six) hours as needed for pain . Qty: 20 tablet, Refills: 0 Associated Diagnoses: Delivery of by section CONTINUE these medications which have NOT CHANGED Details vitamin with Ca-Iron-FA 27-1 mg Tab Take 1 tablet by mouth daily Reasons: . Physician(s) Family Provider: Physician No, Phone: None Address: [facility] Follow Up: No follow-up provider specified. Additional Information: Pelvic rest, driving restrictions, no heavy lifting. Follow-up in 4-6 weeks. Patient instructions, including activity, were given to the patient/family at discharge. Please seethe After Visit Summary in the electronic medical record for details. Time spent on discharge: < 30 minutes Completed by: Laxmi Bee DO on 02/06/19, 10:30 AM documented in this encounter Discharge Instructions * Discharge Instr - Other Orders* Janice Krishnan RN - 02/06/2019 10:55 AM EDT Thank you for delivery at [facility], it was a pleasure taking care of you. If you have anyquestions regarding your care please call the [facility] [phone]. * Additional Instructions* Janice Krishnan RN - 02/06/2019 Section: What to Expect at Home Your Recovery A section, or , is surgery to deliver your baby through a cut, called an incision, that the doctor makes in your lower belly and uterus. You may have some pain in your lower belly and need pain medicine for 1 to 2 weeks. You can expect some vaginal bleeding for several weeks. You will probably need about 6 weeks to fully recover. It is important to take it easy while the incision is healing. Avoid heavy lifting, strenuous activities, or exercises that strain the belly muscles while you are recovering. Ask a family member or friend for help with housework, cooking, and shopping. This care sheet gives you a general idea about how long it will take for you to recover. But each person recovers at a different pace. Follow the steps below to get better as quickly as possible. How can you care for yourself at home? Activity Rest when you feel tired. Getting enough sleep will help you recover. Try to walk each day. Start by walking a little more than you did the day before. Bit by bit, increase the amount you walk. Walking boosts blood flow and helps prevent pneumonia, constipation, and blood clots. Avoid strenuous activities, such as bicycle riding, jogging, weightlifting, and aerobic exercise, for 6 weeks or until your doctor says it is okay. Until your doctor says it is okay, do not lift anything heavier than your baby. Do not do sit-ups or other exercises that strain the belly muscles for 6 weeks or until your doctorsays it is okay. Hold a pillow over your incision when you cough or take deep breaths. This will support your belly and decrease your pain. You may shower as usual. Pat the incision dry when you are done. You will have some vaginal bleeding. Wear sanitary pads. Do not douche or use tampons until your doctor says it is okay. Ask your doctor when you can drive again. You will probably need to take at least 6 weeks off work. It depends on the type of work you do andhow you feel. Ask your doctor when it is okay for you to have sex. Diet You can eat your normal diet. If your stomach is upset, try bland, low-fat foods like plain rice, broiled chicken, toast, and yogurt. Drink plenty of fluids (unless your doctor tells you not to). You may notice that your bowel movements are not regular right after your surgery. This is common. Try to avoid constipation and straining with bowel movements. You may want to take a fiber supplement every day. If you have not had a bowel movement after a couple of days, ask your doctor about taking a mild laxative. If you are , limit alcohol. Alcohol can cause a lack of energy and other health problems for the baby when a woman drinks heavily. It can also get in the way of a mom's ability to feed her baby or to care for the child in other ways. There isn't a lot of research about exactly how much alcohol can harm a baby. Having no alcohol is the safest choice for your baby. If youchoose to have a drink now and then, have only one drink, and limit the number of occasions that you have a drink. Wait to breastfeed at least 2 hours after you have a drink to reduce the amount of alcohol the baby may get in the milk. Medicines Your doctor will tell you if and when you can restart your medicines. He or she will also give you instructions about taking any new medicines. If you take blood thinners, such as warfarin (Coumadin), clopidogrel (Plavix), or aspirin, be sure to talk to your doctor. He or she will tell you if and when to start taking those medicines again. Make sure that you understand exactly what your doctor wants you to do. Take pain medicines exactly as directed. ? If the doctor gave you a prescription medicine for pain, take it as prescribed. ? If you are not taking a prescription pain medicine, ask your doctor if you can take an ztxv-pwy-thpehtc medicine. If you think your pain medicine is making you sick to your stomach: ? Take your medicine after meals (unless your doctor has told you not to). ? Ask your doctor for a different pain medicine. If your doctor prescribed antibiotics, take them as directed. Do not stop taking them just because you feel better. You need to take the full course of antibiotics. Incision care If you have strips of tape on the incision, leave the tape on for a week or until it falls off. Wash the area daily with warm, soapy water, and pat it dry. Don't use hydrogen peroxide or alcohol,which can slow healing. You may cover the area with a gauze bandage if it weeps or rubs against clothing. Change the bandage every day. Keep the area clean and dry. Other instructions If you breastfeed your baby, you may be more comfortable while you are healing if you place the baby so that he or she is not resting on your belly. Try tucking your baby under your arm, with his or her body along the side you will be feeding on. Support your baby's upper body with your arm. With that hand you can control your baby's head to bring his or her mouth to your breast. This is sometimes called the football hold. Follow-up care is a morocho part of your treatment and safety. Be sure to make and go to all appointments, and call your doctor if you are having problems. It's also a good idea to know your test resultsand keep a list of the medicines you take. When should you call for help? Call 911 anytime you think you may need emergency care. For example, call if: You have thoughts of harming yourself, your baby, or another person. You passed out (lost consciousness). You have chest pain, are short of breath, or cough up blood. You have a seizure. Call your doctor now or seek immediate medical care if: You have pain that does not get better after you take pain medicine. You have severe vaginal bleeding. You are dizzy or lightheaded, or you feel like you may faint. You have new or worse pain in your belly or pelvis. You have loose stitches, or your incision comes open. You have symptoms of infection, such as: ? Increased pain, swelling, warmth, or redness. ? Red streaks leading from the incision. ? Pus draining from the incision. ? A fever. You have symptoms of a blood clot in your leg (called a deep vein thrombosis), such as: ? Pain in your calf, back of the knee, thigh, or groin. ? Redness and swelling in your leg or groin. You have signs of preeclampsia, such as: ? Sudden swelling of your face, hands, or feet. ? New vision problems (such as dimness, blurring, or seeing spots). ? A severe headache. Watch closely for changes in your health, and be sure to contact your doctor if: You do not get better as expected. Where can you learn more? Log into your personal health record on https://Nuservt.OmniGuide and enter M806 in the Education box to learn more about Section: What to Expect at Home. Current as of: February 11, 2018 Content Version: 12.1 6789-0460 [employer]. Care instructions adapted under license by your healthcare professional. If you have questions about a medical condition or this instruction, always ask your healthcare professional. [employer] disclaims any warranty or liability for your use of this information. After Your Delivery (the Period): Care Instructions Your Care Instructions Congratulations on the of your baby. Like , the period can be a time of excitement, whitney, and exhaustion. You may look at your wondrous little baby and feel happy. You may also be overwhelmed by your new sleep hours and new responsibilities. At first, babies often sleep during the days and are awake at night. They do not have a pattern or routine. They may make sudden gasps, jerk themselves awake, or look like they have crossed eyes. These are all normal, and they may even make you smile. In these first weeks after delivery, try to take good care of yourself. It may take 4 to 6 weeks tofeel like yourself again, and possibly longer if you had a . You will likely feel very tired for several weeks. Your days will be full of ups and downs, but lots of whitney as well. Follow-up care is a morocho part of your treatment and safety. Be sure to make and go to all appointments, and call your doctor if you are having problems. It's also a good idea to know your test resultsand keep a list of the medicines you take. How can you care for yourself at home? Take care of your body after delivery Use pads instead of tampons for the bloody flow that may last as long as 2 weeks. Ease cramps with ibuprofen (Advil, Motrin). Ease soreness of hemorrhoids and the area between your vagina and rectum with ice compresses or witch lynnette pads. Ease constipation by drinking lots of fluid and eating high-fiber foods. Ask your doctor about uvmt-tdm-rblkanj stool softeners. Cleanse yourself with a gentle squeeze of warm water from a bottle instead of wiping with toilet paper. Take a sitz bath in warm water several times a day. Wear a good nursing bra. Ease sore and swollen breasts with warm, wet washcloths. If you are not , use ice rather than heat for breast soreness. Your period may not start for several months if you are . You may bleed more, and longer at first, than you did before you got . Wait until you are healed (about 4 to 6 weeks) before you have sexual intercourse. Your doctor willtell you when it is okay to have sex. Try not to travel with your baby for 5 or 6 weeks. If you take a long car trip, make frequent stopsto walk around and stretch. Avoid exhaustion Rest every day. Try to nap when your baby naps. Ask another adult to be with you for a few days after delivery. Plan for children's program coordinator if you have other children. Stay flexible so you can eat at odd hours and sleep when you need to. Both you and your baby are making new schedules. Plan small trips to get out of the house. Change can make you feel less tired. Ask for help with housework, cooking, and shopping. Remind yourself that your job is to care for your baby. Know about help for depression Baby blues are common for the first 1 to 2 weeks after . You may cry or feel sad or irritable for no reason. Rest whenever you can. Being tired makes it harder to handle your emotions. Go for walks with your baby. Talk to your partner, friends, and family about your feelings. If your symptoms last for more than a few weeks, or if you feel very depressed, ask your doctor forhelp. depression can be treated. Support groups and counseling can help. Sometimes medicine can also help. Stay healthy Eat healthy foods so you have more energy and lose extra baby pounds. If you breastfeed, avoid drugs. If you quit smoking during , try to stay smoke-free. If you choose to have a drink now and then, have only one drink, and limit the number of occasions that you have a drink. Wait to breastfeed at least 2 hours after you have a drink to reduce the amount of a lcohol the baby may get in the milk. Start daily exercise after 4 to 6 weeks, but rest when you feel tired. Learn exercises to tone your belly. Do Kegel exercises to regain strength in your pelvic muscles. You can do these exercises while you stand or sit. ? Squeeze the same muscles you would use to stop your urine. Your belly and thighs should not move. ? Hold the squeeze for 3 seconds, and then relax for 3 seconds. ? Start with 3 seconds. Then add 1 second each week until you are able to squeeze for 10 seconds. ? Repeat the exercise 10 to 15 times for each session. Do three or more sessions each day. Find a class for new mothers and new babies that has an exercise time. If you had a , give yourself a bit more time before you exercise, and be careful. When should you call for help? Call 911 anytime you think you may need emergency care. For example, call if: You have thoughts of harming yourself, your baby, or another person. You passed out (lost consciousness). You have chest pain, are short of breath, or cough up blood. You have a seizure. Call your doctor now or seek immediate medical care if: You have severe vaginal bleeding. This means you are passing blood clots and soaking through a pad each hour for 2 or more hours. You are dizzy or lightheaded, or you feel like you may faint. You have a fever. You have new or more belly pain. You have signs of a blood clot in your leg (called a deep vein thrombosis), such as: ? Pain in the calf, back of the knee, thigh, or groin. ? Redness and swelling in your leg or groin. You have signs of preeclampsia, such as: ? Sudden swelling of your face, hands, or feet. ? New vision problems (such as dimness, blurring, or seeing spots). ? A severe headache. Watch closely for changes in your health, and be sure to contact your doctor if: Your vaginal bleeding seems to be getting heavier. You have new or worse vaginal discharge. You feel sad, anxious, or hopeless for more than a few days. You do not get better as expected. Where can you learn more? Log into your personal health record on https://Unyqehart.Akira Mobile.Oxynade and enter A461 in the Education box to learn more about After Your Delivery (the Period): Care Instructions. Current as of: February 11, 2018 Content Version: 12.20050414-2108 [employer]. Care instructions adapted under license by your healthcare professional. If you have questions about a medical condition or this instruction, always ask your healthcare professional. [employer] disclaims any warranty or liability for your use of this information. * Attachments The following attachments cannot be sent through Care Everywhere. * Baby-Friendly : General Info ([place]) * Section: Post-op ([place]) * ([place]) documented in this encounter History of Present Illness * Laxmi Bee DO - 02/06/2019 10:22 AM EDT Patient seen and evaluated, doing very well. Ambulating, urinating, tolerating regular diet. VSS Exam WNL POD#3 D/C to home. JRV * Mirian Ford MD - 02/05/2019 12:59 PM EDT POST OP DAY 2 Well. Excellent pain control. 98.3 83 18 101/68 Chest clear. Cor RRR. Breasts lactating. Abdomen soft non tender. Fundus below umbilicus. Extremities without edema. Post op day 2 well. Start oral meds. * Mirian Ford MD - 02/04/2019 12:45 PM EDT POST OP DAY 1 Breast feeding. Feels well. 97.8 98 18 108/76 Chest clear. Cor RRR. Breasts without lesions. Abdomen soft and non tender. Normal bowel sounds. Incision clean and dry. Extremities without edema. HGB 9.8 Post op day 1 well. documented in this encounter Assessments Diagnosis Delivery of by section- Primary Chief Complaint and Reason for Visit Chief Complaint E ORDER E ORDER VAGINAL BLEEDING ER follow up SAB Reason for Visit Missed Missed Chief Complaint E ORDER E ORDER VAGINAL BLEEDING ER follow up SAB Chief Complaint Admit Date Amb Documentation October 08, 2024 11:36a m Amb Documentation October 08, 2024 12:15p m NOB LMP 08/11October 18, 2024 10:17 am Reason for Visit Admit Date AMA (advanced maternal age) multigravida 35+ October 18, 2024 10:17am History of delivery, currently October 18, 2024 10:17am History of labor October 18, 2024 10:17am October 18, 2024 10:17 am Supervision of high-risk October 072024 10:17am Underweight (BMI < 18.5) October 18, 2024 10:17am History of miscarriage, currently pregna nt October 18, 2024 10:17am Chief Complaint Admit Date Amb Documentation October 08, 2024 11:36a m Amb Documentation October 08, 2024 12:15p m NOB LMP 3/5 October 18, 2024 10:17 am 14wk ob November 15, 2024 1:28p m Reason for Visit Admit Date AMA (advanced maternal age) multigravida 35+ October 18, 2024 10:17am History of delivery, currently October 18, 2024 10:17am History of labor October 18, 2024 10:17am October 18, 2024 10:17 am Supervision of high-risk October 072024 10:17am Underweight (BMI < 18.5) October 18, 2024 10:17am History of miscarriage, currently pregna nt October 18, 2024 10:17am AMA (advanced maternal age) multigravida 35+ November 15, 2024 1:28pm Bartholin's gland cyst November 15, 2024 1: 28pm History of delivery, currently November 15, 2024 1:28pm History of labor November 15, 2024 1:28pm November 15, 2024 1:28p m Supervision of high-risk November 15, 2024 1:28pm Underweight (BMI < 18.5) November 15, 2024 1:28pm Additional Source Comments INFORMATION SOURCE (unrecogn ized section and content) DATE CREATED AUTHOR 12/02/2017 [facility] DATE CREATED AUTHOR AUTHOR'S ORGANIZ ATION 02/04/2019 [facility] DATE CREATED AUTHOR AUTHOR'S ORGANIZ ATION 03/26/2019 [facility] DATE CREATED AUTHOR AUTHOR'S ORGANIZ ATION 10/03/2021 [facility] DATE CREATED AUTHOR AUTHOR'S ORGANIZ ATION 04/26/2022 [facility] DATE CREATED AUTHOR AUTHOR'S ORGANIZ ATION 05/31/2022 [facility] DATE CREATED AUTHOR AUTHOR'S ORGANIZ ATION 09/01/2022 [facility] DATE CREATED AUTHOR AUTHOR'S ORGANIZ ATION 05/25/2023 [facility] DATE CREATED AUTHOR AUTHOR'S ORGANIZ ATION 02/25/[address] [facility] DATE CREATED AUTHOR AUTHOR'S ORGANIZ ATION 06/27/2024 [facility] DATE CREATED AUTHOR AUTHOR'S ORGANIZ ATION 06/29/2024 [place] DATE CREATED AUTHOR AUTHOR'S ORGANIZ ATION 11/11/2024 [facility] Reason for Visit (unrecogniz ed section and content) Reason Comments Back Pain Status Reason Specialty Diagnoses / Procedures Referre d By Contact Referred To Contact Diagnoses PRIOR C/S Procedures SECTION Reason Comments Syncope Brought to ED per AF D squad from home after syncopal episode. She reports that she passed out when she stood up from the toilet. started with N/V around 0300, but she denies any N/V/D. EKG done at Reason Comments pt here for 1 month f/u brain bleed due to fall Specialty Diagnoses / Procedures Referred By Jack parkinson Referred To Contact Primary Care Procedures Follow Up In Primary Care - Established Thierry Diaz PA-C [address] [place] [address] Referral ID Status Reason Start Date Expiration Date V isits Requested Visits Authorized [id number] Authorized 05/23/2023 05/22/2024 1 1 Reason Comments pt here for 1 yr follow up Pt c/o freque nt bloody nose and allergy sx Specialty Diagnoses / Procedures Referred By Contoleg t Referred To Contact Primary Care Procedures Follow Up In Primary Care - Established Thierry Diaz PA-C [address] [place] [address] Phone: tel: fax: Referral ID Status Reason Start Date Expiration Date V isits Requested Visits Authorized [id number] Authorized 2023 06/22/2024 1 1 Mirian Ford MD - 02/03/2019 9:18 PM EDT H&P Notes (unrecognized sect ion and content) PRE OP HISTORY AND PHYSICAL Chief complaint: at 38 weeks gestation, prior section in labor. History of present illness: Alyssia is a 33-year-old who is 2 para 1001, her last menstrual period was 05/14/18, giving her a due date of February 182018, placing her at 38 weeks gestation. She presented to labor and delivery in labor dilated to 5 cm. The tracing is reassuring. She had had a section for cephalopelvic disproportion of a 7 pound 5 ounce male back in 2015. She gives full informed consent for a repeat section, which was originally scheduled for 39 weeks gestation. care: Uncomplicated care she has remained normotensive her total weight gain has been 30 pounds group B strep status is negative, her diabetes screen was normal. Past medical history: No chronic illnesses. Allergies: no known drug allergies. Medications: vitamins. 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 section in 2015, for cephalopelvic disproportion after laboring for 24 hours. Family history: Negative for diabetes, hypertension, heart disease, renal disease. Review of systems: Negative for fever, chills, nausea, vomiting, diarrhea, vaginal bleeding, headaches, visual changes, epigastric pain. Physical examination: She appears uncomfortable as she is in labor. She is 5 feet 4 inches tall. She weighs 130 pounds. Pulse is 80. Respiratory rate is 12. Blood pressure is 120/80. Temperature 98.6. HEENT is within normal limits. Neck is supple. There is no thyromegaly. Chest is clear. Heart shows regular rate and rhythm without murmurs. Breasts are without lesions. Abdomen is gravid soft and nontender with a fundal height of 36 cm. Extremities are without edema. Cervix is 80% effaced 5 cm dilated -1 station the baby is vertex. Membranes are intact. monitoring: Contractions are every 3 minutes. The tracing is category 1 with nice accelerations no decelerations. Assessment and plan: 33-year-old female at 38 weeks gestation with prior section now on labor. The plan is to proceed with a section to which she gives full informed consent. documented in this encounter Plan of Care - Janice Krishnan RN - 02/06/2019 1:21 PM EDTPlan of Care - Asya Nagy RN - 02/05/2019 11:46 PM EDTPlan of Care - Ailin Crockett RN - 02/05/2019 1:16 AM EDT Miscellaneous Notes (unrecog nized section and content) Patient has met all care plan outcomes. She has not had any pain today, discharge instructions were given & she understood all them. Pt is aware of s/s of infection & is not currently experiencing any. No signs of fluid imbalance, no s/s of DVT. Problem: Actual or potential alteration in health Goal: Absence of healthcare acquired conditions Outcome: Partially Met Goal: Knowledge of Interdisciplinary Plan of Care Outcome: Partially Met Goal: Knowledge of Enviroment Outcome: Partially Met Problem: Pain Goal: Manage acute pain Outcome: Partially Met Goal: Manage chronic pain Outcome: Partially Met Goal: Reduced pain sensation Outcome: Partially Met Goal: Achievement of comfort function goal Outcome: Partially Met Problem: Fluid Volume - Risk of, Imbalanced Goal: Absence of imbalanced fluid volume signs and symptoms Outcome: Partially Met Goal: Balanced intake and output Outcome: Partially Met Problem: Infection - Risk of, Surgical Site Infection Goal: Absence of infection signs and symptoms Outcome: Partially Met Problem: Venous Thromboembolism, Risk of Goal: Absence of venous thromboembolism Outcome: Partially Met Problem: Plan for Discharge Goal: Knowledge of discharge plan and instructions Outcome: Partially Met POC Updated Section Delivery Note Diagnosis: Active Problems: Delivery of by section Maude Roberson [[id number]] Delivery Anesthesia Method: Spinal Operative Delivery Forceps attempted?: No Vacuum extractor attempted?: Yes Number of pop offs: 1 Presentation Presentation: Vertex Alpha Information date/time: 02/03/192221 Gender: Female Delivery type: , Low Transverse Delivery location: OB Unit Initial disposition: Routine NB Care Details: Trial of labor?: No categorization: Repeat priority: Unscheduled Indications for : Prior , Low Transverse Skin incision type: Pfannenstiel Delivery Providers Delivering clinician: Mirian Ford MD Other personnel: Provider Role Covering Attending Resident Wireline Operator Delivery Nurse Registered Nurse Delivery Assist Nurse Practitioner Cord Vessels: 3 vessels Complications: None Delayed cord clamping?: No Cord blood obtained?: Refrigerator Cord segment obtained?: No Gases sent?: No Stem cell collection (by Provider)?: No Placenta Date/time: 02/03/20192222 Removal: Manual removal Appearance: Intact Disposition: Refrigerator Alpha Apgars Living status: Living Scoring [place]: 0 1 2 Skin color Blue or pale Acrocyanotic Completely pink Heart rate Absent <100 bpm >100 bpm Reflex irritability No response Grimace Cry or active withdrawal Muscle tone Limp Some flexion Active motion Respiratory effort Absent Weak cry; hypoventilation Good, crying Skin color: Heart rate: Reflex irritability: Muscle tone: Respiratory effort: Total: 1 Minute: 1 2 2 2 2 9 5 Minute: 1 2 2 2 2 9 10 Minute: 15 Minute: 20 Minute: Apgars assigned by: Addis LOMAS RN Measurements Weight: 6 lb 8 oz (2948 g) Length: 20 Head Circumference: 13.5 Chest Circumference: 12.25 Abdominal Girth: 12 Lacerations Episiotomy: None Perineal lacerations: None Other Lacerations: no non-perineal laceration Repair suture: None Other Procedures Procedures: None Poc reviewed Pt refuses etco2 Pt is alert and oriented PO is on and is 98% on room air Brief Post Operative Note Patient Name: Alyssia Roberson : 1985 (33 y.o.) Date of Service: 02/03/2019 CSN: [id number] Procedure(s): SECTION Pre-Operative Diagnoses: * PRIOR C/S, labor Post-Operative Diagnoses:same Surgeon(s) and Role: * Mirian Ford MD - Primary Anesthesiologist: Shaheed Kraus MD Pre Wave Assembler: Carole Adams RN Scrub Person: Chantelle Wilde RN Scrub Person Assist: Katelyn Pratt RN Nursery Nurse: Lyndsey Lomas RN Operative findings: 6# 8 oz female, apgars of 9 & 9. Normal tubes and ovaries. Normal uterus. Intra and immediate post-operative complications: none. Type of anesthesia used: Estimated blood loss: 500 ml Estimated urine output: Refer to surgical log Specimen(s): * No specimens in log * Implant(s): * No implants in log * Drain(s): * No LDAs found * Wound(s): * No LDAs found * Mirian Ford MD 02/03/2019 10:47 PM documented in this encounter Care Teams (unrecognized sec tion and content) Binding Cutter Relationship Specialty Start Date End Date No, Physician [facility] PCP - General 02/03/19 Binding Cutter Relationship Specialty Start Date End Date Generic Provider, No Assigned PcpMD [address] [place] [address] PCP - General Family Medicine 05/20/23 Binding Cutter Relationship Specialty Start Date End Date Thierry Diaz PA-C [address] [facility] [place] [address] PCP - General Family Medicine 05/23/23 Binding Cutter Relationship Specialty Start Date End Date Thierry Diaz PA-C [address] [facility], [place] [address] PCP - General Family Medicine 05/23/23 Thierry Diaz PA-C [address] [facility] [address] [place] [address] PCP - MMO ACO PCP 06/09/23 Team Status: Active Member Role Status Dates No Primary Care Physician Primary Care Provider Active Team Status: Active Member Role Status Dates No Primary Care Physician Primary Care Provider Active Start: October 08, 2024 Lety Mejia RN Attending Provider Active St art: October 08, 2024 Team Status: Inactive Member Role Status Dates No Primary Care Physician Primary Care Provider Active Start: October 18, 2024 End: October 18, 2024 No Primary Care Physician Referring Provider Active Start: October 18, 2024 End: October 18, 2024 Dr. Adele Miner MD Attending Provider Active Start: October 18, 2024 End: October 18, 2024 Team Status: Inactive Member Role Status Dates No Primary Care Physician Primary Care Provider Active Start: October 18, 2024 End: October 18, 2024 Dr. Adele Miner MD Attending Provider Active Start: October 18, 2024 End: October 18, 2024 Dr. Aedle Miner MD Referring Provider Active Start: October 18, 2024 End: October 18, 2024 Team Status: Inactive Member Role Status Dates No Primary Care Physician Primary Care Provider Active Start: November 15, 2024 End: November 15, 2024 No Primary Care Physician Referring Provider Active Start: November 15, 2024 End: November 15, 2024 Manuela Olea NP, [employer] Attending Provider Active Start: November 15, 2024 End: November 15, 2024 Team Status: Active Member Role Status Dates No Primary Care Physician Primary Care Provider Active Start: November 15, 2024 Dr. Adele Miner MD Attending Provider Active Start: November 15, 2024 Dr. Adele Miner MD Referring Provider Active Start: November 15, 2024 <item><item><item> Privacy Markings (unrecogniz ed section and content) Section Author: Becka Johnson PROHIBITION ON REDISCLOSURE OF CONFIDENTIAL INFORMATION This notice accompanies a disclosure of information concerning a client made to you with the consent of such client. Section Author: Becka Johnson PROHIBITION ON REDISCLOSURE OF CONFIDENTIAL INFORMATION This notice accompanies a disclosure of information concerning a client made to you with the consent of such client. Section Author: Becka Johnson PROHIBITION ON REDISCLOSURE OF CONFIDENTIAL INFORMATION This notice accompanies a disclosure of information concerning a client made to you with the consent of such client. Scheduled Active and Recently Administ ered Medications (unrecognized section and content) Medication Order 05/18/2023 05/19/2023 05/20/2023 iohexol (OMNIPaque) 350 mg iodine/mL solution 60 mL (COMPLETED) 60 mL, intravenous, Once in imaging, Starting on Fri05/20/23 at 1029, For 1 dose 1030 (Given - Provid er: Ashley Harmon) sodium chloride 0.9 % bolus 1,000 mL (COMPLETED) 1,000 mL, intravenous, at 1,000 mL/hr, Administer over 1 Hours, Once, On Fri05/20/23 at 0800, For 1 dose 0805 (New Bag - Prov ider: Ashleigh Valentin RN)0910 (Stopped - Provider: Ashleigh Valentin RN) sodium chloride 0.9 % bolus 1,000 mL (COMPLETED) 1,000 mL, intravenous, at 1,000 mL/hr, Administer over 1 Hours, Once, On Fri05/20/23 at 0920, For 1 dose 0928 (New Bag - Prov ider: Ashleigh Valentin RN)1036 (Stopped - Provider: Ashleigh Valentin RN) Goals (unrecognized section and content) Goals may be documented in a n alternate sectionGoals may be documented in an alternate section FOR RECORDS PERTAINING TO PATIENTS WHO ARE OR HAVE BEEN ENROLLED IN A CHEMICAL DEPENDENCY/SUBSTANCEABUSE PROGRAM, SOME INFORMATION MAY BE OMITTED. This clinical summary was aggregated from multiple sources. Caution should be exercised in using it in the provision of clinical care. This summary normalizes information from multiple sources, and as a consequence, information in this document may materially change the coding, format and clinical context of patient data. In addition, data may be omitted in some cases. CLINICAL DECISIONS SHOULD BE BASED ON THE PRIMARY CLINICAL RECORDS. [employer] provides no warranty or guarantee of the accuracy or completeness of information in this document.
== END | disposition home or self-care (01) ==
PROVIDERS: Referring Provider Obstetrics & Gynecology; Visit Provider Obstetrics & Gynecology
DX: O09.521 Supervision of elderly multigravida, first trimester (principal); Z3A.00 Weeks of gestation of pregnancy not specified
CPT/HCPCS: 36415; 82607; 82728; 83540; 83550; 84425; 85025; 86703; 86762; 86780; 86803; 86850; 86900; 86901; 87340

== ENCOUNTER → 2025-02-10 | Outpatient (CLI) | payer OTHER, SELFPAY ==
[2025-02-10 15:54] LABS: Hematocrit 34.7 % (37-47); Hemoglobin 11.3 g/dL (12.0-15.0); Immature Granulocytes Count 0.200 X10^3/uL (0.0-0.0); Mean Corp Hgb Conc 32.6 g/dL (32-36); Mean Corpuscular Volume 83.4 fL (81-99); Mean Platelet Vol. 10.4 fl (6.2-12.0); NRBC Flagged by Analyzer 0 % (0-5); Platelet Count 242 K/mm3 (150-450); RBC Distribution Width CV 13.6 % (11.6-14.6); RBC Distribution Width SD 41.1 fl (35.1-43.9); Red Blood Count 4.16 M/mm3 (4.2-5.4); White Blood Count 10.8 K/mm3 (4.4-11.0)
[2025-02-10 16:33] LABS: Glucose Challenge Gest 1H 50g 176 mg/dL (70-140); HIV Nonreactive (Nonreactive); Syphilis Antibodies Nonreactive (Nonreactive)
--- OUTSIDE RECORDS SUMMARY | 2025-02-10 21:18 | XMS RPT_ITS | CCD ---
Author Organization [facility] CliniSyfl Care Team Providers Care Manager Paper Name Role Phone Liliana, Mirian F Unavailable Unavailable Liliana, Mirian F Unavailable Unavailable Liliaan, Mirian F Unavailable Unavailable Liliana, Mirian F Unavailable Unavailable Unavailable Unavailable Unavailable LILIANAMIRIAN F. STiffanie Admitting Unavailabl e LILIANA, MIRIAN FTiffanie Gibson Attending Unavailabl e No, Physician Primary Care Provider Unavailabl e LILIANA, MIRIAN F. STiffanie Attending Unavailabl e LILIANA, MIRIAN FTiffanie [...] Primary Referring Provider Un available Dr. Adele Gan Attending Provider Dr. Adele Gan Referring Provider Dr. Adele Gan Other Provider [phone] NO, PHYSICIAN Primary Care Unavailable DARSHAN PARDO [...] Stentz PA-C, Thierry Primary Care Provider MARKUS MENDOZA Attending Unavailable STENTZ, THIERRY Primary Care Unavailable Stentz PA-C, Thierry Unavailable STENTZ, THIERRY Attending Unavailable STENTZ, THIERRY Referring Unavailable STENTZ, THIERRY Primary Care Unavailable STENTZ, THIERRY Primary Care Unavailable Care Physician, No Primary Primary Care Provider Unavailable Lety Mejia RN Attending Provider Unavailabl e Care Physician, No Primary Referring Provider Un available Isidra SANDRA, Dr. Angulo Attending Provider [phone] Dr. Adele Gan MD Referring Provider Emmie HEAD OF DIGITAL-CManuela Attending Provider [phone] Ja Dietz DO, Dr. Scanlon Attending Provider NO PRIMARY CARE, MD Primary Care Unavailable THIERRY VELAZQUEZ Attending Unavailable ADELE GAN Referring UnavailBianca Nickerson CNM Attending Provider [phone] Care Physician, No Primary Referring Unava ilable Care Physician, No Primary Primary Care Unava ilable Emmie HEAD OF DIGITALManuela Attending Unavailable Adele Gan Attending Unavailable Adele Gan Referring Unavailable Care Physician, No Primary Primary Care Unava ilable Adele Gan Referring Unavailable Care Physician, No Primary Primary Care Unava ilable Adele Gan Attending Unavailable Care Physician, No Primary Referring Unava ilable Care Physician, No Primary Primary Care Unava ilable Adele Gan Attending Unavailable Lety Mejia Attending Unavailable Care Physician, No Primary Primary Care Unava ilable Lety Mejia Attending Unavailable Care Physician, No Primary Primary Care Unava ilable Adele Gan Attending Unavailable Care Physician, No Primary Referring Unava ilable Care Physician, No Primary Primary Care Unava ilable Care Physician, No Primary Referring Unava ilable Bianca Perez Attending Unavailable Care Physician, No Primary Primary Care Unava ilable Care Physician, No Primary Referring Unava ilable Care Physician, No Primary Primary Care Unava ilGhislaine Ley Attending [facility] Care Physician, No Primary Primary Care Provider Unavailable Medications Current Medications Medication Drug Class(es) Dates [...] every week ergocalciferol (Vitamin D-2) 1.25 MG (35200 UT) capsule Indications: Vitamin D deficiency Take [...] needed ibuprofen (ADVIL,MOTRIN) tablet 800 mg Pnv No.026-Zg-Rr1-Ytl-Nkk-Wlck (3 sources) Start: 04-23-2022 Pnv No.541-Sb-Rr4-Izm-Nsw-Yjoq Active TABLET PO April 23, 2022 12:00am Pnv No.914-El-Yu3-Rbx-Gnd-Bnxi 400 mcg-35 mg- 25 mg-5 mg tablet,chewable (6 sources) Start: 04-23-2022 Pnv No.821-Wc-Cg3-Amu-Noz-Mogr 400 mcg-35 mg- 25 mg-5 mg tablet,chewable Active {tbl} PO April 23, 2022 1:00am polymyxin b 20448 unt/ml / trimethoprim 1 mg/ml ophthalmic solution [...] Oral, Every 4 hours PRN, indigestion, Starting 02/03/19 at 2302, bisacodyl 10 mg rectal suppository (1 source) Stimulant Laxative Start: 02-03-2019 End: 02-06-2019 10 mg, Rectal, Daily PRN, constipation, Starting 02/03/19 at 2302, Use oral medication first for constipation. Use rectal suppository, if ordered, for constipation if oral route not tolerated. 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 pelvic rest . Inflammation; infection of eye (except that caused by tuberculosis or sexually transmitteddisease) (2 sources) Acute infectious conjunctivitis; Translations: [Other mucopurulent conjunctivitis] Onset: 08-27-2022 08-27-2022 Episodic Inflammatory diseases of female pelvic organs (18 sources) Cyst of Bartholin's gland duct; Translations: [Cyst of Bartholin's gland] Onset: 01-12-2025 10-18-2024 Episodic Comment on above: left side asymptomat ic reviewed precautions Malaise and fatigue (5 sources) Fatigue; Translations: [Other fatigue] Onset: 06-24-2024 06-24-2024 Episodic Menstrual disorders (12 sources) Amenorrhea; Translations: [Absence of menstruation] Onset: 03-29-2022 03-29-2022 Chronic Comment on above: hcg x2 Nutritional deficiencies (7 sources) Vitamin D deficiency; Translations: [Vitamin D deficiency, unspecified] Onset: 05-23-2023 05-23-2023 Chronic Other complications of (9 sources) Miscarriage; Translations: [ demise, less than 22 weeks] 05-03-2022 Episodic Other complications of (9 sources) Missed miscarriage; Translations: [Missed ] 04-30-2022 Episodic Comment on above: proceed with d and c Other complications of (20 sources) High risk ; Translations: [Supervision of high risk , unspecified, unspecified trimester] 10-08-2024 Episodic Comment on above: , KIMBERLEE 05/18/25, PC: [facility] Ellen, : Palomo , KIMBERLEE 12/04/22, P C Ellen [place] Palomo Other complications of (4 sources) Missed ; Translations: [Missed ] Episodic Other complications of (12 sources) H/O: miscarriage; Translations: [Supervision of with other poor reproductive or obstetric history, unspecified trimester] 10-18-2024 Episodic Comment on above: x1, Apr 2022 Other complications of (20 sources) Multigravida of advanced maternal age; Translations: [Supervision of elderly multigravida, unspecified trimester] 10-08-2024 Episodic Other complications of (1 source) Supervision of high risk , unspecified, second trimester; Translations: [Supervision of high risk , unspecified, second trimester] Onset: 01-12-2025 Episodic Other complications of (1 source) Supervision of elderly multigravida, second trimester; Translations: [Supervision of elderly multigravida, second trimester] Onset: 01-12-2025 Episodic Other complications of (1 source) Supervision of elderly multigravida, first trimester; Translations: [Supervision of elderly multigravida, first trimester] Onset: 11-19-2024 Episodic Other eye disorders (1 source) Other specified disorders of eye and adnexa; Translations: [Other specified disorders of eye and adnexa] Onset: 08-27-2022 Episodic Other female genital disorders (20 sources) History of premature labor; Translations: [Personal history of pre-term labor] 10-08-2024 Episodic Comment on above: Last - 37w eeks Other female genital disorders (1 source) Personal history of pre-term labor; Translations: [Personal history of pre-term labor] Onset: 01-12-2025 Episodic Other lower respiratory disease (2 sources) Cough 03-29-2022 Episodic Comment on above: COUGH Other nutritional; endocrine; and metabolic disorders (1 source) Decreased body mass index; Translations: [Body mass index (BMI) 19.9 or less, adult] 06-24-2024 Episodic Other nutritional; endocrine; and metabolic disorders (5 sources) Body mass index (BMI) 19.9 or less, adult; Translations: [Body mass index (BMI) 19.9 or less, adult] Onset: 06-24-2024 Episodic Other nutritional; endocrine; and metabolic disorders (20 sources) Underweight; Translations: [Underweight] 10-08-2024 Episodic Comment on above: BMI 18; B12, Thiamin e & iron studies ordered w/NOB Other nutritional; endocrine; and metabolic disorders (1 source) Underweight; Translations: [Underweight] Onset: 01-12-2025 Episodic Other and delivery including normal (20 sources) ; Translations: [Encounter for supervision of normal , unspecified, unspecified trimester] Onset: 03-29-2022 10-18-2024 Episodic Comment on above: Discussed genetic/ca rrier testing plan NIPT discussed genetic & carrier testing Other screening for suspected conditions (not mental disorders or infectious disease) (7 sources) Prothrombin time abnormal; Translations: [Abnormal coagulation profile] Onset: 05-23-2023 05-23-2023 Episodic Other upper respiratory disease (10 sources) Seasonal allergy; Translations: [Other seasonal allergic rhinitis] 06-24-2024 Chronic Other upper respiratory disease (2 sources) Other seasonal allergic rhinitis; Translations: [Other seasonal allergic rhinitis] Onset: 06-24-2024 Chronic Other upper respiratory disease (2 sources) Pain in throat 05-25-2022 Episodic Comment on above: SORE THROAT Previous (1 source) Maternal care for unspecified type scar from previous delivery; Translations: [Maternal care for unspecified type scar from previous delivery] Onset: 01-12-2025 Episodic Residual codes; unclassified (1 source) 22 weeks gestation of ; Translations: [22 weeks gestation of ] Onset: 01-12-2025 Episodic Residual codes; unclassified (1 source) 18 weeks gestation of ; Translations: [18 weeks gestation of ] Onset: 12-15-2024 Episodic Residual codes; unclassified (1 source) 13 weeks gestation of ; Translations: [13 weeks gestation of ] Onset: 11-15-2024 Episodic Spontaneous (9 sources) Incomplete miscarriage; Translations: [Incomplete spontaneous without [...] without indication] Onset: 02-03-2019 02-03-2019 Episodic Other complications of (1 source) Supervision of high risk , unspecified, unspecified trimester; Translations: [Supervision of high risk , unspecified, unspecified trimester] Onset: 11-05-2024 Episodic Other lower respiratory disease (1 source) [...] Test Name Value Interpretation Reference Range Facility Laboratory - Chemistry and C hemistry - challengeOrdered By: Bianca Perez on 01-12-2025 Glucose Ql (U) Negative [facility] - UrinalysisOrder ed By: Bianca Perez on 01-12-2025 Protein Ql (U) Negative [facility] Office Visit Reporton 01-12-2025 [facility] Office Visit Report [facility] [address], [address] [place] [address] OFFICE VISIT Date of Service: 01/12/25 MR#: [id number] Acct: [id number] Name: ALYSSIA ROBERSON Rep #: [id number] : 1985 Provider: NEVAEH Mayes ams Age/Sex: 39/F [place] [facility] [place]: [place] Intake Vital Signs 10/18/24 10:21 12/15/24 11:00 01/12/25 09:22 Height 5 ft 4 in 5 ft 4 in 5 ft 4 in Weight: 115 lb 5 oz BMI 19.8 BP 103/72 Intake Visit Reasons: 22wk ob Shingle Packer Required: No Is patient in pain?: No Feel stressed/tense/nervous/an xious/difficulty sleeping: not at all Allergies No Known Allergies Allergy (Verified 01/12/25 09:31) Medications ???Medication ???Instructions ???Recorded ???Confirmed ???Type PNV 153-FA 400 mcg-om3 35 mg-dha tab PO 04/23/22 01/12/25 History 25 mg-epa 5 mg-fish oil chew [...] 2 current occupational status: employed current occupation: [employer] current occupational exposures/hazards: No pets and animals: [...] physical activity do you participate in: none champ/yazidi: Cheondoism seatbelt use: always do you feel safe [...] by: Lety Mejia RN D C HPI 22wk ob Details: ALYSSIA ROBERSON is a 39 year old who presents for routine OB visit. OB Visit KIMBERLEE Calculator Estimated Delivery Date Method Current WG Current Estimate 05/18/25 LMP (Certain) 22w 0d Expected Delivery Route/Plan plan RLTCS Specific Issue/Plans [...] list details Initial Weight: Not Recorded Date -???-???-???-???-???-???- ???-???-???-???-???-???- EGA Weight BP Urine Prot -???-???-???-???-???-???- ???-???-???-???-???-???- Glucose FHR FuHt Pres Dilation -???-???-???-???-???-???- ???-???-???-???-???-???- Effaced St Visit Note 10/18/24 -???-???-???-???-???-???- ???-???-???-???-???-???- 9w 5d 108 lb 2 oz 112/71 -???-???-???-???-???-???- ???-???-???-???-???-???- 160 -???-???-???-???-???-???- ???-???-???-???-???-???- SM- SM- CRL 3.1cm cons with LMP 11/15/24 -???-???-???-???-???-???- ???-???-???-???-???-???- 13w 5d 106 lb 4 oz 103/70 Negative -???-???-???-???-???-???- ???-???-???-???-???-???- Negative 160 -???-???-???-???-???-???- ???-???-???-???-???-???- MH-No VB. Fe els well. PN labs and NIPT today. Br US to confirm FHT 12/15/24 -???-???-???-???-???-???- ???-???-???-???-???-???- 18w 0d 109 lb 2 oz 110/75 Negative -???-?? (more content not included)... Normal [facility] - Chemistry and C hemistry - challengeOrdered By: Ghislaine Dietz on 12-15-2024 Glucose Ql (U) Negative [facility] - UrinalysisOrder ed By: Ghislaine Dietz on 12-15-2024 Protein Ql (U) Negative [facility] Office Visit Reporton 12-15-2024 Coal [facility] Office Visit Report [facility] [address], [address] [place] [address] OFFICE VISIT Date of Service: 12/15/24 MR#: [id number] Acct: [id number] Name: ALYSSIA ROBERSON Rep #: [id number] : 1985 Provider: Dr. Ghislaine Salinas, Age/Sex: 39/F [place] [facility] [place]: Signed Intake Vital Signs 10/18/24 10:21 11/15/24 13:36 12/15/24 11:00 Height 5 ft 4 in 5 ft 4 in 5 ft 4 in Weight: 109 lb 2 oz BMI 18.7 BP 110/75 Intake Visit Reasons: 18wk ob Shingle Packer Required: No Is patient in pain?: No Allergies No Known Allergies Allergy (Verified 12/15/24 11:02) Medications ???Medication ???Instructions ???Recorded ???Confirmed ???Type PNV 153-FA 400 mcg-om3 35 mg-dha tab PO 04/23/22 12/15/24 History 25 mg-epa 5 mg-fish oil chew [...] 2 current occupational status: employed current occupation: [employer] current occupational exposures/hazards: No pets and animals: [...] physical activity do you participate in: none champ/yazidi: Cheondoism seatbelt use: always do you feel safe [...] Emely Culver 04/09/22 8 spontaneous Delivery Date: 09/04/16 Last Updated by: Fouzia Funes Failure to progress Delivery Date: 02/03/19 Last Updated by: Fouzia Funes pre-term labor Delivery Date: 04/09/22 Last Updated by: Lety Mejia RN D C HPI 18wk ob Details: ALYSSIA ROBERSON is a 39 year old who presents for routine OB visit. OB Visit KIMBERLEE Calculator Estimated Delivery Date Method Current WG Current Estimate 05/18/25 LMP (Certain) 18w 0d Expected Delivery Route/Plan plan RLTCS Specific Issue/Plans [...] list details Initial Weight: Not Recorded Date -???-???-???-???-???-???- ???-???-???-???-???-???- EGA Weight BP Urine Prot -???-???-???-???-???-???- ???-???-???-???-???-???- Glucose FHR FuHt Pres Dilation -???-???-???-???-???-???- ???-???-???-???-???-???- Effaced St Visit Note 10/18/24 -???-???-???-???-???-???- ???-???-???-???-???-???- 9w 5d 108 lb 2 oz 112/71 -???-???-???-???-???-???- ???-???-???-???-???-???- 160 -???-???-???-???-???-???- ???-???-???-???-???-???- SM- SM- CRL 3.1cm cons with LMP 11/15/24 -???-???-???-???-???-???- ???-???-???-???-???-???- 13w 5d 106 lb 4 oz 103/70 Negative -???-???-???-???-???-???- ???-???-???-???-???-???- Negative 160 -???-???-???-???-???-???- ???-???-???-???-???-???- MH-No VB. Fe els well. PN labs and NIPT today. Br US to confirm FHT 12/15/24 -???-???-???-???-???-???- ???-???-???-???-???-???- 18w 0d 109 lb 2 oz 110/75 Negative -???-???-???-???-???-???- ???-???-???-???-???-???- Negative 150 (more content not included)... Normal [facility] Vitamin B1, Thiamineon 11-24 VIT B1 THIAMINE 176.5 nmol/L Normal 66.5-200.0 [facility] Comment on above: Order Comment: Test( s) 764479-Eom. B1, Whole Bloodwas developed and its performance characteristicsdetermined by [employer]. It has not been cleared or approvedby the Food and Drug Administration. Result Comment: Perf ormed at: [facility] - [facility] [id number] [employer]ver[employer] Operator: Kristen Kothari MD, Phone: [phone] Performed By: #### L 791.2532, Z027.8814, L3890.6006, L100.0100, BTS, L509.8002, L3890.6102, L509.4006, L3890.6301, L3300.8000, L503.6030 ####[facility] [id number] [facility]. [place], [place], [phone]) Absolute lymphocyte countOrd ered By: Adele Gan on 11-15-2024 Lymphocytes Auto (Unsp spec) [#/Vol] 1.78 10*3/uL 0.83-4.51 [facility] Absolute neutrophil countOrd ered By: Adele Gan on 11-15-2024 Neutrophils (Bld) [#/Vol] 8.5 10*3/uL High 2.0-7.7 [facility] Automated lymphocyte count a s percentage of total leukocytesOrdered By: Adele Gan on 11-15-2024 Lymphocytes/100 WBC Auto (Unsp spec) 15.7 % Low 19-41 [facility] Basophil percentageOrdered B y: Adele Gan on 11-15-2024 Basophils/100 WBC (Bld) 0.4 % 0-1 [facility] CBC W/Diff, Automatedon 06-0 Absolute Lymph 1.78 X10 3/uL Normal 0.83-4.51 [facility] Comment on above: Performed By: #### L 503.0106, L503.6550, L3890.6006, L100.0100, BTS, L509.8002, L3890.6102, L509.4006, L3890.6301, L3300.8000, L503.6030 #### [facility] [address] [place], [place], [phone] ([phone]) Absolute Neut 8.5 X10 3/uL High 2.0-7.7 [facility] Comment on above: Performed By: #### L 503.0106, L503.6550, L3890.6006, L100.0100, BTS, L509.8002, L3890.6102, L509.4006, L3890.6301, L3300.8000, L503.6030 #### [facility] [address] [place], [address] Basophils/100 WBC (Bld) 0.4 % Normal 0-1 [facility] Comment on above: Performed By: #### L 503.0106, L503.6550, L3890.6006, L100.0100, BTS, L509.8002, L3890.6102, L509.4006, L3890.6301, L3300.8000, L503.6030 #### [facility] [address] [place], [address] Eosinophils/100 WBC (Bld) 2.8 % Normal 0-5 [facility] Comment on above: Performed By: #### L 503.0106, L503.6550, L3890.6006, L100.0100, BTS, L509.8002, L3890.6102, L509.4006, L3890.6301, L3300.8000, L503.6030 #### [facility] [address] [place], [address] Erythrocyte distribution width (RBC) [Ratio] 13.5 % Normal 11.6-14.6 [facility] Comment on above: Performed By: #### L 503.0106, L503.6550, L3890.6006, L100.0100, BTS, L509.8002, L3890.6102, L509.4006, L3890.6301, L3300.8000, L503.6030 #### [facility] [address] [place], [address] Hematocrit (Bld) [Volume fraction] 38.8 % Normal 37-47 [facility] Comment on above: Performed By: #### L 503.0106, L503.6550, L3890.6006, L100.0100, BTS, L509.8002, L3890.6102, L509.4006, L3890.6301, L3300.8000, L503.6030 #### [facility] [address] [place], [address] Hemoglobin (Bld) [Mass/Vol] 12.9 g/dL Normal 12.0-15.0 [facility] Comment on above: Performed By: #### L 503.0106, L503.6550, L3890.6006, L100.0100, BTS, L509.8002, L3890.6102, L509.4006, L3890.6301, L3300.8000, L503.6030 #### [facility] [address] [place], [address] IG% 0.500 Normal 0.0-0.9 [facility] Comment on above: Result Comment: IG% - Immature Granulocytes (promyelocytes, myelocytes and metamyelocytes) > 1% indicates that a LEFT SHIFT is Present. Performed By: #### L 503.0106, L503.6550, L3890.6006, L100.0100, BTS, L509.8002, L3890.6102, L509.4006, L3890.6301, L3300.8000, L503.6030 #### [facility] [address] [place], [address] Lymphocytes/100 WBC (Bld) 15.7 % Low 19-41 [facility] Comment on above: Performed By: #### L 503.0106, L503.6550, L3890.6006, L100.0100, BTS, L509.8002, L3890.6102, L509.4006, L3890.6301, L3300.8000, L503.6030 #### [facility] [address] [place], [address] MCH (RBC) [Entitic mass] 27.2 pg Normal 27.0-32.0 [facility] Comment on above: Performed By: #### L 503.0106, L503.6550, L3890.6006, L100.0100, BTS, L509.8002, L3890.6102, L509.4006, L3890.6301, L3300.8000, L503.6030 #### [facility] [address] [place], [address] MCHC (RBC) [Mass/Vol] 33.2 g/dL Normal 32-36 [facility] Comment on above: Performed By: #### L 503.0106, L503.6550, L3890.6006, L100.0100, BTS, L509.8002, L3890.6102, L509.4006, L3890.6301, L3300.8000, L503.6030 #### [facility] [address] [place], [address] MCV (RBC) [Entitic vol] 81.9 fL Normal 81-99 [facility] Comment on above: Performed By: #### L 503.0106, L503.6550, L3890.6006, L100.0100, BTS, L509.8002, L3890.6102, L509.4006, L3890.6301, L3300.8000, L503.6030 #### [facility] [address] [place], [address] Monocytes/100 WBC (Bld) 6.1 % Normal 0-10 [facility] Comment on above: Performed By: #### L 503.0106, L503.6550, L3890.6006, L100.0100, BTS, L509.8002, L3890.6102, L509.4006, L3890.6301, L3300.8000, L503.6030 #### [facility] [address] [place], [address] Neutrophils/100 WBC (Bld) 74.5 % High 47-70 [facility] Comment on above: Performed By: #### L 503.0106, L503.6550, L3890.6006, L100.0100, BTS, L509.8002, L3890.6102, L509.4006, L3890.6301, L3300.8000, L503.6030 #### [facility] [address] [place], [address] Nucleated RBC (Bld) [#/Vol] 0 10*3/uL Normal 0-5 [facility] Comment on above: Performed By: #### L 503.0106, L503.6550, L3890.6006, L100.0100, BTS, L509.8002, L3890.6102, L509.4006, L3890.6301, L3300.8000, L503.6030 #### [facility] [address] [place], [place], [phone] ([phone] Platelet mean volume (Bld) [Entitic vol] 10.7 fL Normal 6.2-12.0 [facility] Comment on above: Performed By: #### L 503.0106, L503.6550, L3890.6006, L100.0100, BTS, L509.8002, L3890.6102, L509.4006, L3890.6301, L3300.8000, L503.6030 #### [facility] [address] [place], [address] Platelets (Bld) [#/Vol] 256 10*3/uL Normal 150-450 [facility] Comment on above: Performed By: #### L 503.0106, L503.6550, L3890.6006, L100.0100, BTS, L509.8002, L3890.6102, L509.4006, L3890.6301, L3300.8000, L503.6030 #### [facility] [address] [place], [address] RBC (Bld) [#/Vol] 4.74 10*6/uL Normal 4.2-5.4 [facility] Comment on above: Performed By: #### L 503.0106, L503.6550, L3890.6006, L100.0100, BTS, L509.8002, L3890.6102, L509.4006, L3890.6301, L3300.8000, L503.6030 #### [facility] [address] [place], [address] RDW SD 40.1 fl Normal 35.1-43.9 [facility] Comment on above: Performed By: #### L 503.0106, L503.6550, L3890.6006, L100.0100, BTS, L509.8002, L3890.6102, L509.4006, L3890.6301, L3300.8000, L503.6030 #### [facility] [address] [place], [address] WBC (Bld) [#/Vol] 11.4 10*3/uL High 4.4-11.0 [facility] Comment on above: Performed By: #### L 503.0106, L503.6550, L3890.6006, L100.0100, BTS, L509.8002, L3890.6102, L509.4006, L3890.6301, L3300.8000, L503.6030 #### [facility] [address] [place], [address] Eosinophil percentageOrdered By: Adele Gan on 11-15-2024 Eosinophils/100 WBC (Bld) 2.8 % 0-5 [facility] Erythrocyte distribution wid th ratioOrdered By: Adele Gan on 11-15-2024 Erythrocyte distribution width (RBC) [Ratio] 13.5 % 11.6-14.6 [facility] Erythrocyte distribution wid th standard deviationOrdered By: Adele Gan on 11-15-2024 Erythrocyte distribution width (RBC) [Ratio] 40.1 fl 35.1-43.9 [facility] Ferritinon 11-15-2024 Ferritin [Mass/Vol] 18 ng/mL Low 22-378 [facility] Comment on above: Performed By: #### L 503.0106, L503.6550, L3890.6006, L100.0100, BTS, L509.8002, L3890.6102, L509.4006, L3890.6301, L3300.8000, L503.6030 #### [facility] [address] [place], [address] HIVon 11-15-2024 HIV Non-Reactive Normal Nonreactive [facility] Comment on above: Result Comment: Non- Reactive Reactive Repeatedly reactive samples must be confirmed according to CDC recommended confirmatory algorithms. The subresults for either HIVAG or AHIV can be used as an aid in the selection of the confirmation algorithm for reactive samples. Send out specimens with Reactive results to [facility] for confirmation. Order the HIV antibody detection and differentiation: #[id number] Performed By: #### L 503.0106, L503.6550, L3890.6006, L100.0100, BTS, L509.8002, L3890.6102, L509.4006, L3890.6301, L3300.8000, L503.6030 #### [facility] [address] [place], [address] Hematocrit Auto (Bld) [Volum e fraction]Ordered By: Adele Gan on 11-15-2024 Hematocrit (Bld) [Volume fraction] 38.8 % 37-47 [facility] Hemoglobin measurementOrdere d By: Adele Gan on 11-15-2024 Hemoglobin (Bld) [Mass/Vol] 12.9 g/dL 12.0-15.0 [facility] Hepatitis C Antibodyon 11-15 Hepatitis C Ab Non-Reactive Normal Nonreactive [facility] Comment on above: Result Comment: Reac tive: Presumptive evidence of antibodies to HCV. Follow CDC recommendations for supplemental testing. Non-Reactive: Antibodies to HCV were not detected; does not exclude the possibility of exposure to HCV Reactive Results are presumptive evidence of antibodies to HCV. Follow CDC recommendations for supplemental testing. Order confirmation testing: HCV Quant by PCR testing - HCVPCR lc#[id number] Non Reactive: < 0.8 Equivocal: >/= 0.8 to < 1.0 Reactive: >/= 1.0 The CDC requires that a reactive/equivocal HCV antibody result be sent out for confirmation. HCV Quant by PCR testing. Performed By: #### L 503.0106, L503.6550, L3890.6006, L100.0100, BTS, L509.8002, L3890.6102, L509.4006, L3890.6301, L3300.8000, L503.6030 ####[facility] [address] [facility] [place], [place], [id number] Immature granulocytes/100 WB C Auto (Bld)Ordered By: Adele Gan on 11-15-2024 Immature granulocytes/100 WBC (Bld) 0.500 % 0.0-0.9 [facility] Comment on above: IG% - Immature Granu locytes (promyelocytes, myelocytes and metamyelocytes) > 1% indicates that a LEFT SHIFT is Present. Iron measurement (mass/mass) Ordered By: Adele Gan on 11-15-2024 Iron (Unsp spec) [Mass/Mass] 61 ug/dL 50-170 [facility] Iron+Iron Binding Capacityon 11-15-2024 Iron [Mass/Vol] 61 ug/dL Normal 50-170 [facility] Comment on above: Performed By: #### L 503.0106, L503.6550, L3890.6006, L100.0100, BTS, L509.8002, L3890.6102, L509.4006, L3890.6301, L3300.8000, L503.6030 #### [facility] [address] [place], [place], [id number] IRON SATURATION 14.0 Normal 13-59 [facility] Comment on above: Performed By: #### L 503.0106, L503.6550, L3890.6006, L100.0100, BTS, L509.8002, L3890.6102, L509.4006, L3890.6301, L3300.8000, L503.6030 #### [facility] [address] [place], [address] TIBC 442 ug/dL Normal 250-450 [facility] Comment on above: Performed By: #### L 503.0106, L503.6550, L3890.6006, L100.0100, BTS, L509.8002, L3890.6102, L509.4006, L3890.6301, L3300.8000, L503.6030 #### [facility] [address] [place], [address] UIBC 381 ug/dL Normal 228-428 [facility] Comment on above: Performed By: #### L 503.0106, L503.6550, L3890.6006, L100.0100, BTS, L509.8002, L3890.6102, L509.4006, L3890.6301, L3300.8000, L503.6030 #### [facility] [address] [place], [address] L3890.6102on 11-15-2024 HEP B Surf Ag Non-Reactive Normal Nonreactive [facility] Comment on above: Result Comment: Reac tive: Presumptive evidence of HBV. Repeatedly reactive samples must be confirmed using a neutralization test ([employer]ys HBsAg Confirmatory Test) Non-Reactive: HBsAg not detected; does not exclude the possibility of exposure to HBV Performed By: #### L 503.0106, L503.6550, L3890.6006, L100.0100, BTS, L509.8002, L3890.6102, L509.4006, L3890.6301, L3300.8000, L503.6030 ####[facility] [address] [place], [place], [id number] L509.4006on 11-15-2024 Rubella IgG REAC Normal Nonreactive [facility] Comment on above: Result Comment: Anti body Result: Interpretation Non-Reactive: Non-Immune Reactive: Immune The following results were obtained with the [employer]ys Rubella IgG assay. Results from assays of other manufacturers cannot be used interchangeably. Performed By: #### L 503.0106, L503.6550, L3890.6006, L100.0100, BTS, L509.8002, L3890.6102, L509.4006, L3890.6301, L3300.8000, L503.6030 #### [facility] [address] [place], [place], [id number] Laboratory - Chemistry and C hemistry - challengeOrdered By: Manuela Olea on 11-15-2024 Glucose Ql (U) Negative [facility] - Microbiology an d Antimicrobial susceptibilityOrdered By: Adele Gan on 11-15-2024 HBV surface Ag Ql (S) Non-Reactive Nonreactive [facility] Comment on above: Reactive: Presumptiv e evidence of HBV. Repeatedly reactive samples must be confirmed using a neutralization test ([employer]ys HBsAg Confirmatory Test)Non-Reactive: HBsAg not detected; does not exclude the possibility of exposure to HBV Laboratory - UrinalysisOrder ed By: Manuela Olea on 11-15-2024 Protein Ql (U) Negative [facility] MCV (mean corpuscular volume ) determinationOrdered By: Adele Gan on 11-15-2024 MCV (RBC) [Entitic vol] 81.9 fL 81-99 [facility] Mean corpuscular hemoglobin (MCH) determinationOrdered By: Adele Gan on 11-15-2024 MCH (RBC) [Entitic mass] 27.2 pg 27.0-32.0 [facility] Mean corpuscular hemoglobin concentration (MCHC) determinationOrdered By: Adele Gan on 11-15-2024 MCHC (RBC) [Mass/Vol] 33.2 g/dL 32-36 [facility] Mean platelet volume determi nationOrdered By: Adele Gan on 11-15-2024 Platelet mean volume (Bld) [Entitic vol] 10.7 fL 6.2-12.0 [facility] Monocyte percentageOrdered B y: Adele Gan on 11-15-2024 Monocytes/100 WBC (Bld) 6.1 % 0-10 [facility] NATERAon 11-15-2024 NATURA SEE SCANNED REPORT Normal [facility] Comment on above: Performed By: #### L 900.0098 ####[facility] [address] [place], [address] Neutrophil percentageOrdered By: Adele Gan on 11-15-2024 Neutrophils/100 WBC (Bld) 74.5 % High 47-70 [facility] No Panel InformationOrdered By: Adele Gan on 11-15-2024 HIV (1&2) Antibody Non-Reactive Nonreactive [facility] Comment on above: Non-ReactiveReactive Repeatedly reactive samples must be confirmed according to CDC recommended confirmatory algorithms. The subresults for either HIVAG or AHIV can be used as an aid in the selection of the confirmation algorithm for reactive samples.Send out specimens with Reactive results to [facility] for confirmation.Order the HIV antibody detection and differentiation: #[id number] Unsaturated Iron Binding Capacity 381 ug/dL 228-428 [facility] Nucleated red blood cell per centageOrdered By: Adele Gan on 11-15-2024 Nucleated RBC/100 WBC (Bld) [Ratio] 0 % 0-5 [facility] [employer] Office Visit Reporton 11-15-2024 [facility] Office Visit Report [facility] [address], [address] [place] [address] OFFICE VISIT Date of Service: 11/15/24 MR#: [id number] Acct: [id number] Name: ALYSSIA ROBERSON Rep #: [id number] : 1985 Provider: BLANCHE hendricks Age/Sex: 39/F [place] [facility] [place]: Signed Intake Vital Signs 05/10/22 16:08 10/18/24 10:21 11/15/24 13:36 Height 5 ft 4 in 5 ft 4 in 5 ft 4 in Weight: 106 lb 4 oz BMI 18.2 BP 103/70 Intake Visit Reasons: 14wk ob Chief Complaint: 14 Week OB Shingle Packer Required: No Is patient in pain?: No Allergies No Known Allergies Allergy (Verified 11/15/24 13:37) Medications ???Medication ???Instructions ???Recorded ???Confirmed ???Type PNV 153-FA 400 mcg-om3 35 mg-dha tab PO 04/23/22 11/15/24 History 25 mg-epa 5 mg-fish oil chew [...] 2 current occupational status: employed 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 - [employer] current occupational exposures/hazards: No pets and [...] physical activity do you participate in: none cahmp/yazidi: Cheondoism seatbelt use: always do you feel safe [...] labor Delivery Date: 04/09/22 Last Updated by: ADAN Carmona C HPI 14wk ob Details: ALYSSIA ROBERSON is [...] list details Initial Weight: Not Recorded Date -???-???-???-???-???-???- ???-???-???-???-???-???- EGA Weight BP Urine Prot -???-???-???-???-???-???- ???-???-???-???-???-???- Glucose FHR FuHt Pres Dilation -???-???-???-???-???-???- ???-???-???-???-???-???- Effaced St Visit Note 10/18/24 -???-???-???-???-???-???- ???-???-???-???-???-???- 9w 5d 108 lb 2 oz 112/71 -???-???-???-???-???-???- ???-???-???-???-???-???- 160 -???-???-???-???-???-???- ???-???-???-???-???-???- SM- SM- CRL 3.1cm cons with LMP 11/15/24 -???-???-???-???-???-???- ???-???-???-???-???-???- 13w 5d 106 lb 4 oz 103/70 Negative -???-???-???-???-???-???- ???-???-???-???-???-???- Negative 160 -???-???-???-???-???-???- ???-???-???-???-???-???- MH-No VB. Fe els well. PN labs and NIPT today. Br US to confirm FHT ACOG First Trimester First Trimester: Desire for , Alcohol, Tobacco Cessation, Illicit/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 Drug/Substance Us (more content not included)... Normal [facility] Platelet countOrdered By: Maddie Gan on 11-15-2024 Platelets (Bld) [#/Vol] 256 10*3/uL 150-450 [facility] RBC Auto (Bld) [#/Vol]Ordere d By: Adele Gan on 11-15-2024 RBC (Bld) [#/Vol] 4.74 10*6/uL 4.2-5.4 [facility] Serum or plasma ferritin kamari surement (mass/volume)Ordered By: Adele Gan on 11-15-2024 Ferritin [Mass/Vol] 18 ng/mL Low 22-378 [facility] Serum or plasma iron saturat ion measurement (mass fraction)Ordered By: Adele Gan on 11-15-2024 Iron saturation [Mass fraction] 14.0 % 13-59 [facility] Serum or plasma thiamine kamari surement (mass/volume)Ordered By: Adele Gan on 11-15-2024 Thiamine [Mass/Vol] 176.5 nmol/L 66.5-200.0 [facility] Comment on above: Performed at: [address] [id number] Director: Kristen Kothari MD, Phone: [phone] Syphilis Antibodieson 2024 Syphilis Abs Non-Reactive Normal Nonreactive [facility] Comment on above: Performed By: #### L 503.0106, L503.6550, L3890.6006, L100.0100, BTS, L509.8002, L3890.6102, L509.4006, L3890.6301, L3300.8000, L503.6030 #### [facility] [address] [place], [place], [id number] Type AND Screenon 11-15-2024 ABO and Rh group Nom (Bld) Blood group A Rh(D) positive Normal [facility] Comment on above: Order Comment: PN Performed By: #### L 503.0106, L503.6550, L3890.6006, L100.0100, BTS, L509.8002, L3890.6102, L509.4006, L3890.6301, L3300.8000, L503.6030 ####[facility] [address] [place], [place], [address] Vitamin B12on 11-15-2024 Cobalamin (Vitamin B12) [Mass/Vol] 524 pg/mL Normal 180-914 [facility] Comment on above: Performed By: #### L 503.0106, L503.6550, L3890.6006, L100.0100, BTS, L509.8002, L3890.6102, L509.4006, L3890.6301, L3300.8000, L503.6030 #### [facility] [address] [place], [address] Vitamin B12 ser/plasOrdered By: Adele Isidra on 11-15-2024 Cobalamin (Vitamin B12) [Mass/Vol] 524 pg/mL 180-914 [facility] White blood cell (WBC) count Ordered By: Adele Gan on 11-15-2024 WBC (Bld) [#/Vol] 11.4 10*3/uL High 4.4-11.0 [facility] Chlamydia/GC LASHON aptimaon CHLAMY,NUC ACID Negative Normal Negative [facility] Comment on above: Performed By: #### M 100.2200, L7000.1800, L7400.0280 ####[facility] [address] [place], [address] GC BY NUC ACID Negative Normal Negative [facility] Comment on above: Result Comment: Perf ormed at: =G - [facility] [address] [id number] [employer] Operator: Kelsie Hartman MD, Phone: [phone] Performed By: #### M 100.2200, L7000.1800, L7400.0280 ####[facility] [address] [place], [address] PAP IG HPV APTIMA 16/18,45on 10-21-2024 ADEQ Comment Normal . [facility] Comment on above: Order Comment: Speci men Comment: [id number] Comment: No. of containers..01 ThinPrep Vial Result Comment: Sati sfactory for evaluation. No endocervical component is identified. Performed By: #### M 100.2200, L7000.1800, L7400.0280 ####[facility] [address] [place], [address] COMM . Normal . [facility] Comment on above: Order Comment: Speci men Comment: [id number] Comment: No. of containers..01 ThinPrep Vial Performed By: #### M 100.2200, L7000.1800, L7400.0280 ####[facility] [address] [place], [address] COMMENT Comment Normal . [facility] Comment on above: Order Comment: Speci men Comment: [id number] Comment: No. of containers..01 ThinPrep Vial Result Comment: This liquid based ThinPrep(R) pap test was screened with the use of an image guided system. Performed By: #### M 100.2200, L7000.1800, L7400.0280 ####[facility] [address] [place], [address] DIAG Comment Normal . [facility] Comment on above: Order Comment: Speci men Comment: [id number] Comment: No. of containers..01 ThinPrep Vial Result Comment: NEGA TIVE FOR INTRAEPITHELIAL LESION OR MALIGNANCY. Performed By: #### M 100.2200, L7000.1800, L7400.0280 ####[facility] [address] [place], [address] HPV APTIMA, HR Negative Normal Negative [facility] Comment on above: Order Comment: Speci men Comment: [id number] Comment: No. of containers..01 ThinPrep Vial Result Comment: This nucleic acid amplification test detects fourteen high- risk HPV types (16,18,31,33,35,39,45,51,52,56,58,59,66,68) without differentiation. Performed By: #### M 100.2200, L7000.1800, L7400.0280 ####[facility] [address] [place], [address] HPV [place] Rfx Comment Normal . [facility] Comment on above: Order Comment: Speci men Comment: [id number] Comment: No. of containers..01 ThinPrep Vial Result Comment: Crit erbetty not met, HPV Genotype not performed. Performed at: - [address] [id number] [employer] Operator: Kelsie Hartman MD, Phone: [phone] Performed at: = - [address] [id number] [employer] Operator: Kelsie Hartman MD, Phone: [phone] Performed By: #### M 100.2200, L7000.1800, L7400.0280 ####[facility] [address] [place], [place], [address] PAPSMR Comment Normal . [facility] Comment on above: Order Comment: Speci men Comment: [id number] Comment: No. of containers..01 ThinPrep Vial Result Comment: The Pap smear is a screening test designed to aid in the detection of premalignant and malignant conditions of the uterine cervix. It is not a diagnostic procedure and should not be used as the sole means of detecting cervical cancer. Both false-positive and false-negative reports do occur. Performed By: #### M 100.2200, L7000.1800, L7400.0280 ####[facility] [address] [place], [place], [address] PERFORM Comment Normal . [facility] Comment on above: Order Comment: Speci men Comment: [id number] Comment: No. of containers..01 ThinPrep Vial Result Comment: Ada Hatch Skatesman (ASCP) Performed By: #### M 100.2200, L7000.1800, L7400.0280 ####[facility] [address] [place], [place], [phone] Urine Cultureon 10-21-2024 URC Mixed Gram Positive Organisms [place] Count 25,000-50,000 MIXC Mixed contaminants. Submit a new specimen if indicated. Normal [facility] Comment on above: Performed By: #### M 100.2200, L7000.1800, L7400.0280 ####[facility] [address] [place], [address] Cervical or vaginal specimen microscopic examination by liquid based cytology (reportOrdered By: Adele Gan on 10-18-2024 Cytology report Cyto stain.thin prep Doc (Cvx/Vag) Comment . [facility] Comment on above: Criteria not met, HP V Genotype not performed.Performed at: [facility] [address] [id number] Director: Kelsie Hartman MD, Phone: [phone] at: =[facility] [id number] Director: Kelsie Hartman MD, Phone: [phone] Cervical or vagninal specime n microscopic examination by cytology stain (reported asOrdered By: Adele Gan on 10-18-2024 Cytology report Cyto stain Doc (Cvx/Vag) Comment . [facility] Comment on above: The Pap smear is a s creening test designed to aid in thedetection of premalignant and malignant conditions of theuterine cervix. It is not a diagnostic procedure andshould not be used as the sole means of detecting cervicalcancer. Both false-positive and false-negative reports dooccur. Chlamydia trachomatis rRNA d etection by probe and target amplification methodOrdered By: Adele Gan on 10-18-2024 C. trachomatis rRNA LASHON+probe Ql (Unsp spec) Negative Negative [facility] Detection in cervical specim en of any of human papilloma virus (HPV) 16, 18, 31, 33,Ordered By: Adele Gan on 10-18-2024 HPV 16+18+31+33+35+39+45+5 1+52+56+58+59+66+68 DNA Probe+sig amp Ql (Cvx) Negative Negative [facility] Comment on above: This nucleic acid am plification test detects fourteen high- risk HPV types (16,18,31,33,35,39,45,51,52,56,58,59,66,68)without differentiation. Laboratory - CytologyOrdered By: Adele Gan on 10-18-2024 Skatesman Cyto stain Nom (Cvx/Vag) [ID] Comment . [facility] Comment on above: Elvia Hatch, Skatesman (ASCP) Laboratory - Miscellaneous t estsOrdered By: Adele Gan on 10-18-2024 Service comment (Unsp spec) [Interp] . . [facility] Neisseria gonorrhoeae nuclei c acid detection by amplified probe techniqueOrdered By: Adele Gan on 10-18-2024 N. gonorrhoeae DNA LASHON+probe Ql (Unsp spec) Negative Negative [facility] Comment on above: Performed at: =[address] [id number] Director: Kelsie Hartman MD, Phone: [phone] No Panel InformationOrdered By: Adele Gan on 10-18-2024 Pap Smear Specimen Adequacy Comment . [facility] Comment on above: Satisfactory for jose luation. No endocervical component is identified. Coal Shooter Office Visit Reporton 10-18-2024 Coal Shooter Office Visit Report [facility] [address], [address] [place] [address] OFFICE VISIT Date of Service: 10/18/24 MR#: [id number] Acct: [id number] Name: ALYSSIA ROBERSON Rep #: [id number] : 1985 Provider: Dr. Adele mackey MD Age/Sex: 39/F [place] [facility] [place]: Signed with Addenda ADDENDUM by Dr. Aedle Gan MD on 10/18/24 at 1321 Assessment and [...] gland fluctuant cyst 10/18/24 1321 Date Adele Gan MD cc: * Signed Intake Vital Signs 05/10/22 16:08 10/18/24 10:21 Height 5 ft 4 in 5 ft 4 in Weight: 108 lb 2 oz BMI 18.5 BP 112/71 Intake Visit Reasons: NOB LMP 3 Shingle Packer Required: No Is patient in pain?: No Allergies No Known Allergies Allergy (Verified 10/18/24 10:31) Medications ???Medication ???Instructions ???Recorded ???Confirmed ???Type PNV 153-FA 400 mcg-om3 35 mg-dha tab PO 04/23/22 10/18/24 History 25 mg-epa 5 mg-fish oil chew tablet Last Menstrual Period: 08/11/24 Zika: Zika virus screening: Negative : No PFSH PFSH Medical History (Updated 10/18/24 @ 10:[address] Adele Gan MD) Seasonal allergies Benign neoplasm of short [...] 2 current occupational status: employed current occupation: [employer] current occupational exposures/hazards: No pets and animals: [...] physical activity do you participate in: none champ/yazidi: Cheondoism seatbelt use: always do you feel safe [...] age provide (more content not included)... Normal [facility] Urine cultureOrdered By: Coy Gan on 10-18-2024 Bacteria identified Cx Nom (U) Positive Abnormal [facility] CBC panel Auto (Bld)on 06-24 Erythrocyte distribution width (RBC) [Ratio] 12.6 % Normal 11.5-14.5 [facility] Comment on above: Performed By: #### 5 8410-2 #### ANGEL MOLINA ([id number]) [facility] ([facility]) [address] [place] [address] Hematocrit (Bld) [Volume fraction] 46.1 % High 36.0-46.0 [facility] Comment on above: Performed By: #### 5 8410-2 #### ANGEL MOLINA ([id number]) [facility] ([facility]) [address] [place] [address] Hemoglobin (Bld) [Mass/Vol] 14.8 g/dL Normal 12.0-16.0 [facility] Comment on above: Performed By: #### 5 8410-2 #### ANGEL MOLINA ([id number]) [facility] ([facility]) [address] [place] [address] MCH (RBC) [Entitic mass] 26.9 pg Normal 26.0-34.0 [facility] Comment on above: Performed By: #### 5 8410-2 #### ANGEL MOLINA ([id number]) [facility] ([facility]) [address] [place] [address] MCHC (RBC) [Mass/Vol] 32.1 g/dL Normal 32.0-36.0 [facility] Comment on above: Performed By: #### 5 8410-2 #### ANGEL MOLINA ([id number]) [facility] ([facility]) [address] [place] [address]14 MCV (RBC) [Entitic vol] 84 fL Normal 80-100 [facility] Comment on above: Performed By: #### 5 8410-2 #### ANGEL MOLINA ([id number]) [facility] ([facility]) [address] [place] [address] Nucleated RBC/100 WBC (Bld) [Ratio] 0.0 /100 WBCs Normal 0.0-0.0 [facility] Comment on above: Performed By: #### 5 8410-2 #### ANGEL MOLINA ([id number]) [facility] ([facility]) [address] [place] [address] Platelets (Bld) [#/Vol] 310 x10*3/uL Normal 150-450 [facility] Comment on above: Performed By: #### 5 8410-2 #### ANGEL MOLINA ([id number]) [facility] ([facility]) [address] [place] [address] 11554 RBC (Bld) [#/Vol] 5.50 x10*6/uL High 4.00-5.20 [facility] Comment on above: Performed By: #### 5 8410-2 #### ANGEL MOLINA ([id number]) [facility] ([facility]) [address] [place] [address]263 WBC (Bld) [#/Vol] 9.5 x10*3/uL Normal 4.4-11.3 [facility] Comment on above: Performed By: #### 5 8410-2 #### ANGEL MOLINA ([id number]) [facility] ([facility]) [address] [place], [place] [id number] Calcidiolon 06-24-2024 25-hydroxyvitamin D3 [Mass/Vol] 33 ng/mL Normal 30-100 [facility] Comment on above: Order Comment: Defic iency: < 20 ng/ml Insufficiency: 20-29 ng/ml Sufficiency: 30-100 ng/ml This assay accurately quantifies the sum of Vitamin D3, 25-Hydroxy and Vitamin D2,25-Hydroxy. Performed By: #### 1 989-3 #### ANGEL MOLINA ([id number]) [facility] ([facility]) [address] [place] [address] Cobalaminson 06-24-2024 Cobalamin (Vitamin B12) [Mass/Vol] 431 pg/mL Normal 211-911 [facility] Comment on above: Performed By: #### 2 132-9 #### ANGEL MOLINA ([id number]) [facility] ([facility]) [address] [place] [address] Comprehensive metabolic 2000 panelon 06-24-2024 Albumin BCP dye [Mass/Vol] 4.7 g/dL Normal 3.4-5.0 [facility] Comment on above: Performed By: #### 2 4323-8 #### ANGEL MOLINA ([id number]) [facility] ([facility]) [address] [place] [address] 75576 ALP [Catalytic activity/Vol] 42 U/L Normal 33-110 [facility] Comment on above: Performed By: #### 2 4323-8 #### ANGEL MOLINA ([id number]) [facility] ([facility]) [address] [place] [address] 66164 ALT With P-5'-P [Catalytic activity/Vol] 9 U/L Normal 7-45 [facility] Comment on above: Result Comment: Jocy ents treated with Sulfasalazine may generate falsely decreased results for ALT. Performed By: #### 2 4323-8 #### ANGEL MOLINA ([id number]) [facility] ([facility]) [address] [place] [address] 01567 Anion gap [Moles/Vol] 10 mmol/L Normal 10-20 [facility] Comment on above: Performed By: #### 2 4323-8 #### ANGEL MOLINA ([id number]) [facility] ([facility]) [address] [place] [address] 66760 AST With P-5'-P [Catalytic activity/Vol] 17 U/L Normal 9-39 [facility] Comment on above: Performed By: #### 2 4323-8 #### ANGEL MOLINA ([id number]) [facility] ([facility]) [address] [place] [address] 53423 Bilirubin [Mass/Vol] 0.8 mg/dL Normal 0.0-1.2 [facility] Comment on above: Performed By: #### 2 4323-8 #### ANGEL MOLINA ([id number]) [facility] ([facility]) [address] [place] [address] 33915 Calcium [Mass/Vol] 9.7 mg/dL Normal 8.6-10.3 [facility] Comment on above: Performed By: #### 2 4323-8 #### ANGEL MOLINA ([id number]) [facility] ([facility]) [address] [place] [address] Chloride [Moles/Vol] 102 mmol/L Normal 98-107 [facility] Comment on above: Performed By: #### 2 4323-8 #### ANGEL MOLINA ([id number]) [facility] ([facility]) [address] [place] [address] 31786 CO2 [Moles/Vol] 30 mmol/L Normal 21-32 [facility] Comment on above: Performed By: #### 2 4323-8 #### ANGEL MOLINA ([id number]) [facility] ([facility]) [address] [place] [address] 97267 Creatinine [Mass/Vol] 0.71 mg/dL Normal 0.50-1.05 [facility] Comment on above: Performed By: #### 2 4323-8 #### ANGEL MOLINA ([id number]) [facility] ([facility]) [address] [place] [address] 34976 GFR/1.73 sq M.predicted MDRD (S/P/Bld) [Vol rate/Area] mL/min/{1.73_m2} Normal >60 [facility] Comment on above: Result Comment: Calc ulations of estimated GFR are performed using the 2020 CKD-EPI Study Refit equation without the race variable for the IDMS-Traceable creatinine methods. https://jasn.asnjournals.org/content//ASN.62417 01970 Performed By: #### 2 4323-8 #### ANGEL MOLINA ([id number]) [facility] ([facility]) [facility] [place] [address] Glucose [Mass/Vol] 76 mg/dL Normal 74-99 [facility] Comment on above: Performed By: #### 2 4323-8 #### ANGEL MOLINA ([id number]) [facility] ([facility]) [address] [place] [address] 22336 Potassium [Moles/Vol] 3.7 mmol/L Normal 3.5-5.3 [facility] Comment on above: Performed By: #### 2 4323-8 #### ANGEL MOLINA ([id number]) [facility] ([facility]) [address] [place], [place] [address] Protein [Mass/Vol] 7.3 g/dL Normal 6.4-8.2 [facility] Comment on above: Performed By: #### 2 4323-8 #### ANGEL MOLINA ([id number]) [facility] ([facility]) [address] [place] [address] Sodium [Moles/Vol] 138 mmol/L Normal 136-145 [facility] Comment on above: Performed By: #### 2 4323-8 #### ANGEL MOLINA ([id number]) [facility] ([facility]) [address] [place] [address] Urea nitrogen [Mass/Vol] 15 mg/dL Normal 6-23 [facility] Comment on above: Performed By: #### 2 4323-8 #### ANGEL MOLINA ([id number]) [facility] ([facility]) [address] [place] [address] TSH WITH REFLEX TO FREE T4 I F ABNORMALon 06-24-2024 TSH Qn 1.46 m[IU]/L Normal 0.44-3.98 [facility] Comment on above: Order Comment: TSH t esting is performed using different testing methodology at [facility] than at other [facility]. Direct result comparisons should only be made within the same method. Performed By: #### T HYDS #### ANGEL MOLINA ([id number]) [facility] ([facility]) [address] [place], [place] [id number] ECHOCARDIOGRAM COMPLETE W CO NTRASTon 05-21-2023 ECHOCARDIOGRAM COMPLETE W CONTRAST Patient Info Name: ALYSSIA ROBERSON Age: 37 years : 1985 Gender: Female Ht: 163 cm Wt: 46 kg BSA: 1.44 m2 HR: 86 bpm BP: 94 / 57 mmHg Heart Rhythm: Sinus Rhythm Technical Quality: Technically difficult Exam Date: 05/21/2023 10:00 AM Patient Status: Inpatient Mental Health Program Manager: Bessie Jaffe RCDS Exam Type: ECHOCARDIOGRAM COMPLETE W CONTRAST Study Info Indications R55 - Syncope and collapse Referring Physician: ODELL Owens; [id number] BMI: 17.51 kg/m2 Summary 1. Normal LV [...] of 1.7 cm/m2. Left Ventricular Outflow Tract Name Value Normal LVOT 2D LVOT Diameter 1.9 cm LVOT Doppler LVOT Peak Velocity 1.0 m/s LVOT Mean Gradient 3 mmHg LVOT VTI 23 cm LVOT VTI/AV VTI Ratio 0.9 LVOT Stroke Volume 64 ml LVOT Stroke Index 44.61 ml/m2 Pulmonic Valve Name Value Normal RVOT Doppler RVOT Peak Velocity 63 cm/s RVOT Mean Gradient 1 mmHg RVOT VTI 16 cm PV Doppler PV Peak Velocity 0.80 m/s PV Mean Gradient 2 mmHg PV VTI 19 cm Mitral Valve Name Value Normal MV Doppler MV Peak Velocity 1.02 m/s MV Mean Gradient 2 mmHg MV VTI 21 cm MV Decel Assumption 489 cm/s2 MV PHT 53 ms MV Area (PHT) 4.1 cm2 4.0-5.0 MV Area (Cont Eq VTI) 3.0 cm2 MV Area Index (Cont Eq VTI) 2.08 cm2/m2 MV DVI 0.95 MV Diastolic Function MV E Peak Velocity 1.10 m/s MV A Peak Velocity 0.72 m/s MV E/A 1.5 MV Decel Time 183 ms MV Annular TDI MV Septal e' Velocity 11.1 cm/s >=8.0 MV E/e' (Septal) 9.9 <=8.0 MV Lateral e' Velocity 13.2 cm/s >=10.0 MV E/e' (Lateral) 8.3 <=8.0 MV e' Average 12.15 cm/s MV E/e' (Average) 9.1 Tricuspid Valve Name Value Normal TV Regurgitation Doppler TR Peak Velocity 2.17 m/s Estimated PAP/RSVP RA Pressure 3 mmHg <=5 PA Systolic Pressure 22 mmHg <=36 RV Systolic Pressure 22 mmHg <36 TV Annular TDI RV s' Velocity 0.1 m/s 0.1-0.2 Aorta ------- (more content not included)... Normal [facility] US DOPPLER CAROTIDon 05-21-2 023 US DOPPLER CAROTID Patient Info Name: ALYSSIA ROBERSON Age: 37 years : 1985 Gender: Female Exam Date: 05/21/2023 7:58 AM Patient Status: Inpatient Resort Keeper: Elvia Jarvis, SILAST, RVS Referring Physician: EROS Rueda; Indications - syncopal work up R55 - Syncope and collapse Procedure Description 92581 Duplex examination using B-mode, color and spectral [...] to be warranted. Clinical correlation advised. Measurements Name Value Right PSV Right Prox CCA PSV 108 cm/s Right Mid CCA PSV 118 cm/s Right Distal CCA PSV 103 cm/s Right Prox ICA PSV 137 cm/s Right Mid ICA PSV 101 cm/s Right Distal ICA PSV 102 cm/s Right ECA PSV 126 cm/s Right Vert PSV 52 cm/s Right Prox SCA PSV 136 cm/s Rt ICA/CCA Ratio 1.3 Measurements Name Value Right EDV Right Prox CCA EDV 20 cm/s Right Mid CCA EDV 25 cm/s Right Distal CCA EDV 28 cm/s Right Prox ICA EDV 37 cm/s Right Mid ICA EDV 44 cm/s Right Distal ICA EDV 47 cm/s Right ECA EDV 0 cm/s Right Vert EDV 15 cm/s Right Prox SCA EDV 12 cm/s Measurements Name Value Left PSV Left Prox CCA PSV 108 cm/s Left Mid CCA PSV 117 cm/s Left Distal CCA PSV 102 cm/s Left Prox ICA PSV 104 cm/s Left Mid ICA PSV 97 cm/s Left Distal ICA PSV 85 cm/s Left ECA PSV 117 cm/s Left Vert PSV 58 cm/s Left Prox SCA PSV 196 cm/s Lt ICA/CCA Ratio 1.0 Measurements Name Value Left EDV Left Prox CCA EDV 26 cm/s Left [...] Barba DO on 05/21/2023 09:14 AM Normal [facility] Basic metabolic 2000 panelon 05-20-2023 Anion gap [Moles/Vol] 9 mmol/L Low 10 - 2 0 mmol/L [facility] Calcium [Mass/Vol] 7.7 mg/dL Low 8.6 - 10. 3 mg/dL [facility] Chloride [Moles/Vol] 111 mmol/L High 98 - 10 7 mmol/L [facility] CO2 [Moles/Vol] 22 mmol/L 21 - 32 mmol/L [facility] Creatinine [Mass/Vol] 0.76 mg/dL 0.50 - 1.05 mg/dL [facility] GFR/1.73 sq M.predicted MDRD (S/P/Bld) [Vol rate/Area] - PINF [facility] Comment on above: Calculations of gricelda mated GFR are performed using the 2020 CKD-EPI Study Refit equation without the race variable for the IDMS-Traceable creatinine methods. https://jasn.asnjournals.org/content//ASN.58901 48600 Glucose [Mass/Vol] 98 mg/dL 74 - 99 mg/dL [facility] Interpretation and review of laboratory results Abnormal [facility] Potassium [Moles/Vol] 3.8 mmol/L 3.5 - 5.3 mmol/L [facility] Sodium [Moles/Vol] 138 mmol/L 136 - 145 mmol/L [facility] Urea nitrogen [Mass/Vol] 13 mg/dL 6 - 23 mg/dL [place] Anion gap [Moles/Vol] 9 mmol/L Low 10-20 [facility] Comment on above: Performed By: #### 2 4321-2 #### ANGEL MOLINA ([id number]) [facility] ([facility]) [facility] [place] [address] Calcium [Mass/Vol] 7.7 mg/dL Low 8.6-10.3 [facility] Comment on above: Performed By: #### 2 4321-2 #### ANGEL MOLINA ([id number]) [facility] ([facility]) [address] [place] [address] 76413 Chloride [Moles/Vol] 111 mmol/L High 98-107 [facility] Comment on above: Performed By: #### 2 4321-2 #### ANGEL MOLINA ([id number]) [facility] ([facility]) [address] [place] [address] CO2 [Moles/Vol] 22 mmol/L Normal 21-32 [facility] Comment on above: Performed By: #### 2 4321-2 #### ANGEL MOLINA ([id number]) [facility] ([facility]) [facility] [place] [address] Creatinine [Mass/Vol] 0.76 mg/dL Normal 0.50-1.05 [facility] Comment on above: Performed By: #### 2 4321-2 #### ANGEL MOLINA ([id number]) [facility] ([facility]) [address] [place] [address] 63110 GFR/1.73 sq M.predicted MDRD (S/P/Bld) [Vol rate/Area] mL/min/{1.73_m2} Normal >60 [facility] Comment on above: Result Comment: Calc ulations of estimated GFR are performed using the 2020 CKD-EPI Study Refit equation without the race variable for the IDMS-Traceable creatinine methods. https://jasn.asnjournals.org/content//ASN.87825 46100 Performed By: #### 2 4321-2 #### ANGEL MOLINA ([id number]) [facility] ([facility]) [address] [place] [address] 13112 Glucose [Mass/Vol] 98 mg/dL Normal 74-99 [facility] Comment on above: Performed By: #### 2 4321-2 #### ANGEL MOLINA ([id number]) [facility] ([facility]) [address] [place] [address] 32657 Potassium [Moles/Vol] 3.8 mmol/L Normal 3.5-5.3 [facility] Comment on above: Performed By: #### 2 4321-2 #### ANGEL MOLINA ([id number]) [facility] ([facility]) [address] [place] [address] 38361 Sodium [Moles/Vol] 138 mmol/L Normal 136-145 [facility] Comment on above: Performed By: #### 2 4321-2 #### ANGEL MOLINA ([id number]) [facility] ([facility]) [address] [place] [address] 18634 Urea nitrogen [Mass/Vol] 13 mg/dL Normal 6-23 [facility] Comment on above: Performed By: #### 2 4321-2 #### ANGEL MOLINA ([id number]) [facility] ([facility]) [address] [place] [address] 48327 CBC W Auto Differential pane l (Bld)on 05-20-2023 Basophils (Bld) [#/Vol] 0.05 10*3/uL [facility] Basophils/100 WBC (Bld) 0.7 % 0.0 - 2.0 % [facility] Eosinophils (Bld) [#/Vol] 0.30 10*3/uL [facility] Eosinophils/100 WBC (Bld) 4.1 % 0.0 - 6.0 % [facility] Erythrocyte distribution width (RBC) [Ratio] 12.9 % 11.5 - 14.5 % [facility] Hematocrit (Bld) [Volume fraction] 41.4 % 36.0 - 46.0 % [facility] Hemoglobin (Bld) [Mass/Vol] 13.7 g/dL 12.0 - 16.0 g/dL [facility] Immature granulocytes (Bld) [#/Vol] 0.03 10*3/uL [facility] Immature granulocytes/100 WBC (Bld) 0.4 % 0.0 - 0.9 % [facility] Comment on above: Immature Granulocyte Count (IG) includes promyelocytes, myelocytes and metamyelocytes but does not include bands. Percent differential counts (%) should be interpreted in the context of the absolute cell counts (cells/UL). Lymphocytes (Bld) [#/Vol] 1.65 10*3/uL [facility] Lymphocytes/100 WBC (Bld) 22.5 % 13.0 - 44.0 % [facility] MCH (RBC) [Entitic mass] 27.1 pg 26.0 - 34.[address] [facility] MCHC (RBC) [Mass/Vol] 33.1 g/dL 32.0 - 36.0 g/dL [facility] MCV (RBC) [Entitic vol] 82 fL 80 - [address] [facility] Monocytes (Bld) [#/Vol] 0.48 10*3/uL [facility] Monocytes/100 WBC (Bld) 6.5 % 2.0 - 10.0 % [facility] Neutrophils (Bld) [#/Vol] 4.82 10*3/uL [facility] Comment on above: Percent differential counts (%) should be interpreted in the context of the absolute cell counts (cells/uL). Neutrophils/100 WBC (Bld) 65.8 % 40.0 - 80.0 % [facility] Nucleated RBC/100 WBC (Bld) [Ratio] 0.0 % [facility] Platelets (Bld) [#/Vol] 191 10*3/uL [facility] RBC (Bld) [#/Vol] 5.06 10*6/uL [facility] WBC (Bld) [#/Vol] 7.3 10*3/uL [facility] Basophils (Bld) [#/Vol] 0.05 x10*3/uL Normal 0.00-0.10 [facility] Comment on above: Performed By: #### 5 7021-8 #### ANGEL MOLINA ([id number]) [facility] ([facility]) [address] [place] [address] 97642 Basophils/100 WBC (Bld) 0.7 % Normal 0.0-2.0 [facility] Comment on above: Performed By: #### 5 7021-8 #### ANGEL MOLINA ([id number]) [facility] ([facility]) [address] [place] [address] 35569 Eosinophils (Bld) [#/Vol] 0.30 x10*3/uL Normal 0.00-0.70 [facility] Comment on above: Performed By: #### 5 7021-8 #### ANGEL MOLINA ([id number]) [facility] ([facility]) [address] [place] [address] 88401 Eosinophils/100 WBC (Bld) 4.1 % Normal 0.0-6.0 [facility] Comment on above: Performed By: #### 5 7021-8 #### ANGEL MOLINA ([id number]) [facility] ([facility]) [address] [place] [address] 23028 Erythrocyte distribution width (RBC) [Ratio] 12.9 % Normal 11.5-14.5 [facility] Comment on above: Performed By: #### 5 7021-8 #### ANGEL MOLINA ([id number]) [facility] ([facility]) [address] [place] [address] 72417 Hematocrit (Bld) [Volume fraction] 41.4 % Normal 36.0-46.0 [facility] Comment on above: Performed By: #### 5 7021-8 #### ANGEL MOLINA ([id number]) [facility] ([facility]) [address] [place] [address] 76779 Hemoglobin (Bld) [Mass/Vol] 13.7 g/dL Normal 12.0-16.0 [facility] Comment on above: Performed By: #### 5 7021-8 #### ANGEL MOLINA ([id number]) [facility] ([facility]) [address] [place] [address] 40390 Immature granulocytes (Bld) [#/Vol] 0.03 x10*3/uL Normal 0.00-0.70 [facility] Comment on above: Performed By: #### 5 7021-8 #### ANGEL MOLINA ([id number]) [facility] ([facility]) [address] [place] [address] 32390 Immature granulocytes/100 WBC (Bld) 0.4 % Normal 0.0-0.9 [facility] Comment on above: Result Comment: Christine ture Granulocyte Count (IG) includes promyelocytes, myelocytes and metamyelocytes but does not include bands. Percent differential counts (%) should be interpreted in the context of the absolute cell counts (cells/UL). Performed By: #### 5 7021-8 #### ANGEL MOLINA ([id number]) [facility] ([facility]) [address] [place], [place] [address] Lymphocytes (Bld) [#/Vol] 1.65 x10*3/uL Normal 1.20-4.80 [facility] Comment on above: Performed By: #### 5 7021-8 #### ANGEL MOLINA ([id number]) [facility] ([facility]) [address] [place] [address] 15992 Lymphocytes/100 WBC (Bld) 22.5 % Normal 13.0-44.0 [facility] Comment on above: Performed By: #### 5 7021-8 #### ANGEL MOLINA ([id number]) [facility] ([facility]) [address] [place] [address] 27022 MCH (RBC) [Entitic mass] 27.1 pg Normal 26.0-34.0 [facility] Comment on above: Performed By: #### 5 7021-8 #### ANGEL MOLINA ([id number]) [facility] ([facility]) [address] [place] [address] MCHC (RBC) [Mass/Vol] 33.1 g/dL Normal 32.0-36.0 [facility] Comment on above: Performed By: #### 5 7021-8 #### ANGEL MOLINA ([id number]) [facility] ([facility]) [address] [place] [address] 76201 MCV (RBC) [Entitic vol] 82 fL Normal 80-100 [facility] Comment on above: Performed By: #### 5 7021-8 #### ANGEL MOLINA ([id number]) [facility] ([facility]) [address] [place] [address] 39809 Monocytes (Bld) [#/Vol] 0.48 x10*3/uL Normal 0.10-1.00 [facility] Comment on above: Performed By: #### 5 7021-8 #### ANGEL MOLINA ([id number]) [facility] ([facility]) [address] [place] [address] 31400 Monocytes/100 WBC (Bld) 6.5 % Normal 2.0-10.0 [facility] Comment on above: Performed By: #### 5 7021-8 #### ANGEL MOLINA ([id number]) [facility] ([facility]) [address] [place] [address] 30671 Neutrophils (Bld) [#/Vol] 4.82 x10*3/uL Normal 1.20-7.70 [facility] Comment on above: Result Comment: Perc ent differential counts (%) should be interpreted in the context of the absolute cell counts (cells/uL). Performed By: #### 5 7021-8 #### ANGEL MOLINA ([id number]) [facility] ([facility]) [address] [place] [address] 97343 Neutrophils/100 WBC (Bld) 65.8 % Normal 40.0-80.0 [facility] Comment on above: Performed By: #### 5 7021-8 #### ANGEL MOLINA ([id number]) [facility] ([facility]) [address] [place] [address] 70140 Nucleated RBC/100 WBC (Bld) [Ratio] 0.0 /100 WBCs Normal 0.0-0.0 [facility] Comment on above: Performed By: #### 5 7021-8 #### ANGEL MOLINA ([id number]) [facility] ([facility]) [facility] [place] [address] Platelets (Bld) [#/Vol] 191 x10*3/uL Normal 150-450 [facility] Comment on above: Performed By: #### 5 7021-8 #### ANGEL MOLINA ([id number]) [facility] ([facility]) [address] [place] [address] 57076 RBC (Bld) [#/Vol] 5.06 x10*6/uL Normal 4.00-5.20 [facility] Comment on above: Performed By: #### 5 7021-8 #### ANGEL MOLINA ([id number]) [facility] ([facility]) [address] [place] [address] 74584 WBC (Bld) [#/Vol] 7.3 x10*3/uL Normal 4.4-11.3 [facility] Comment on above: Performed By: #### 5 7021-8 #### ANGEL MOLINA ([id number]) [facility] ([facility]) [address] [place] [address] 07263 COVID-19, MOLECULARon 2022 SARS-CoV-2 (COVID-19) RNA LASHON+probe Ql (Unsp spec) Not detected Normal Not Detected [facility] Comment on above: Order Comment: This [...] at the following links: For Healthcare Providers: https://www.fda.gov/media/844405/download For Patients: https://www.fda.gov/media/595095/download Performed By: #### L [id number] #### [place] [address] Malvin Weller M[address]D. [id number] CT ANGIO CHEST FOR PULMONARY EMBOLISMon 05-20-2023 CT ANGIO CHEST FOR PULMONARY EMBOLISM Interpreted By: Lesley Talbot, STUDY: CT ANGIO CHEST FOR PULMONARY EMBOLISM; 05/20/2023 10:29 am INDICATION: Signs/Symptoms:tachycardi a/syncope. COMPARISON: None. ACCESSION NUMBER(S): [id number] ORDERING CLINICIAN: MARKUS MENDOZA TECHNIQUE: Helical data acquisition of the chest [...] Lesley Talbot 05/20/2023 10:35 AM Dictation workstation: [id number] [facility] CT CERVICAL SPINE WO IV CONT [facility] 05-20-2023 CT CERVICAL SPINE WO IV CONTRAST Interpreted By: Liz Cavazos, STUDY: CT CERVICAL SPINE WO IV CONTRAST; 05/20/2023 12:16 pm INDICATION: Signs/Symptoms:trauma. COMPARISON: None. ACCESSION NUMBER(S): [id number] ORDERING CLINICIAN: MARKUS MENDOZA TECHNIQUE: Axial CT images of the cervical [...] Liz Cavazos 05/20/2023 12:29 PM Dictation workstation: [id number] [facility] CT Cervical spine WO contras ton 05-20-2023 No evidence for an a cute fracture or subluxation of the cervical spine. Straightening of the cervical spine may be seen with strain or sprain. Signed by: Liz Cavazos 05/20/2023 12:29 PM Dictation workstation: [id number] [facility]ODAL Interpreted By: Liz Hurley, STUDY: CT CERVICAL SPINE WO IV CONTRAST; 05/20/2023 12:16 pm INDICATION: Signs/Symptoms:trauma. COMPARISON: None. ACCESSION NUMBER(S): [id number] ORDERING CLINICIAN: MARKUS MENDOZA TECHNIQUE: Axial CT images of the cervical [...] pm INDICATION: Signs/Symptoms:trauma. COMPARISON: None. ACCESSION NUMBER(S): [id number] ORDERING CLINICIAN: MARKUS MENDOZA TECHNIQUE: Axial CT images of the cervical [...] Liz Cavazos 05/20/2023 12:29 PM Dictation workstation: [id number] [facility] Work Phone: Radiology Study observation (narrative) [facility] Work Phone: CT Cervical spine WO contras tOrdered By: Liz Cavazos on 05-20-2023 [facility] Work Phone: CT Chest W contrast IV and C T angiogram Pulmonary arteries for pulmonary embolus W contrast Axle 05-20-[address] scan of the chest. No pulmonary embolism. MACRO: None Signed by: Lesley Talbot 05/20/2023 10:35 AM Dictation workstation: [id number] [facility] Interpreted By: Lesley Hicks, STUDY: CT ANGIO CHEST FOR PULMONARY EMBOLISM; 05/20/2023 10:29 am INDICATION: Signs/Symptoms:tachycardi a/syncope. COMPARISON: None. ACCESSION NUMBER(S): [id number] ORDERING CLINICIAN: MARKUS MENDOZA TECHNIQUE: Helical data acquisition of the chest [...] osseous lesions. Multilevel degenerative changes are present [facility] Lesley Talbot M D - 05/20/2023 Interpreted By: Lesley Talbot, STUDY: CT ANGIO CHEST FOR PULMONARY EMBOLISM; 05/20/2023 10:29 am INDICATION: Signs/Symptoms:tachycardi a/syncope. COMPARISON: None. ACCESSION NUMBER(S): [id number] ORDERING CLINICIAN: MARKUS MENDOZA TECHNIQUE: Helical data acquisition of the chest [...] Lesley Talbot 05/20/2023 10:35 AM Dictation workstation: [id number] [facility] Work Phone: CT Chest W contrast IV and C T angiogram Pulmonary arteries for pulmonary embolus W contrast IVOrdered By: Lelsey Talbot on 05-20-2023 [facility] Work Phone: CT HEAD OR BRAIN WITHOUT CON TRASTon 05-20-2023 CT HEAD OR BRAIN WITHOUT CONTRAST EXAMINATION: CT HEAD OR BRAIN WITHOUT CONTRAST HISTORY: follow up SDH Injury/Trauma or Illness?:Illness/Other How long have you had these symptoms (acute/chronic)?:Acute Reason for exam?:follow up SDH Type of Exam?:Subsequent/Follow-u p Additional signs and symptoms?:n/a S06.5XAA SDH (subdural [...] on FriMay 20, 2023 6:03:10 PM EST Normal [facility] Comment on above: Order Comment: Injur y/Trauma or Illness?:Illness/Other How long have you had these symptoms (acute/chronic)?:Acute Reason for exam?:follow up SDH Type of Exam?:Subsequent/Follow-up Additional signs and symptoms?:n/a CT HEAD WO IV CONTRASTon CT HEAD WO IV CONTRAST Interpreted By: Garfield Colon, STUDY: CT HEAD WO IV CONTRAST; 05/20/2023 10:29 am INDICATION: Signs/Symptoms:syncope/fa ll. COMPARISON: None. ACCESSION NUMBER(S): [id number] ORDERING CLINICIAN: MARKUS MENDOZA TECHNIQUE: Noncontrast axial CT scan of head [...] discussed the findings by phone with Dr. Mendoza at 11:20 a.m. on 05/20/2020 Signed by: Garfield Ohsea 05/20/2023 11:22 AM Dictation workstation: [id number] [facility] CT Head WO contraston 2022 Trace acute subdural hematoma along the anterior interhemispheric fissure measuring up to 0.3 cm in thickness. No midline shift. I discussed the findings by phone with Dr. Mendoza at 11:20 a.m. on 05/20/2020 Signed by: Garfield Oshea 05/20/2023 11:22 AM Dictation workstation: [id number] [facility] Interpreted By: Garfield Billy, STUDY: CT HEAD WO IV CONTRAST; 05/20/2023 10:29 am INDICATION: Signs/Symptoms:syncope/fa ll. COMPARISON: None. ACCESSION NUMBER(S): [id number] ORDERING CLINICIAN: MARKUS MENDOZA TECHNIQUE: Noncontrast axial CT scan of head [...] cells are clear. The calvarium is intact. [facility] Garfield Oshea MD - 05/20/2023 Interpreted By: Garfield Oshea, STUDY: CT HEAD WO IV CONTRAST; 05/20/2023 10:29 am INDICATION: Signs/Symptoms:syncope/fa ll. COMPARISON: None. ACCESSION NUMBER(S): [id number] ORDERING CLINICIAN: MARKUS MENDOZA TECHNIQUE: Noncontrast axial CT scan of head [...] discussed the findings by phone with Dr. Mendoza at 11:20 a.m. on 05/20/2020 Signed by: Garfield Oshea 05/20/2023 11:22 AM Dictation workstation: [id number] [facility] Work Phone: CT Head WO contrastOrdered B y: Garfield Oshea on 05-20-2023 [facility] Work Phone: HCG ( test) IA.rapi d Ql (U)Ordered By: Taylor Metcalf on 05-20-2023 HCG ( test) Ql (U) Negative NEGATIVE [facility] Interpretation and review of laboratory results Normal [place] HCG ( test) IA.rapi d Ql (U)on 05-20-2023 HCG ( test) Ql (U) Negative Normal NEGATIVE [facility] Comment on above: Performed By: #### 8 0384-1 #### ORTIZ JESSE ([id number]) [facility] ([facility]) [address] [place] [address] No Panel Informationon 05-20 Radiology Study observation (narrative) [facility] Work Phone: Tropinin I.cardiac panel Hig h sensitivity methodon 05-20-2023 Interpretation and review of laboratory results Normal [facility] Less than 99th perce ntile of normal range cutoff- Female and children [...] performed using a different testing methodology at [facility] than at other [facility]. Direct result comparisons should only be made within the same method. [place] Interpretation and review of laboratory results Normal [facility] Less than 99th perce ntile of normal range cutoff- Female and children [...] performed using a different testing methodology at [facility] than at [facility]. Direct result comparisons should only be made within the same method. [place] Troponin I, High Sensitivity , Initialon 05-20-2023 Tropinin I.cardiac panel High sensitivity method ng/L 0 - 13 ng/L [facility] Troponin I.cardiac panelon 1 07-21-2022 Tropinin I.cardiac panel High sensitivity method <3 Normal 0-13 [facility] Comment on above: Order Comment: Less than [...] performed using a different testing methodology at [facility] than at [facility]. Direct result comparisons should only be made within the same method. Performed By: #### 8 9577-1 #### ORTIZ JESSE ([id number]) [facility] ([facility]) [address] [place] [address] Tropinin I.cardiac panel High sensitivity method <3 Normal 0-13 [facility] Comment on above: Order Comment: Less than [...] performed using a different testing methodology at [facility] than at other [facility]. Direct result comparisons should only be made within the same method. Performed By: #### 8 9577-1 #### ORTIZ JESSE ([id number]) [facility] ([facility]) [address] [place] [address] Troponin, High Sensitivity, 1 Houron 05-20-2023 Tropinin I.cardiac panel High sensitivity method ng/L 0 - 13 ng/L [facility] Urinalysis complete panel (U )on 05-20-2023 Appearance (U) Clear Clear [facility] Bilirubin (U) [Mass/Vol] Negative NEGATIVE [facility] Color (U) Straw Straw, Yellow [facility] Glucose Auto test strip (U) [Mass/Vol] Negative NEGATIVE mg/dL [facility] Interpretation and review of laboratory results Normal [facility] Ketones (U) [Mass/Vol] Negative NEGAT PIPE mg/dL [facility] Leukocyte esterase Auto test strip Ql (U) Negative NEGATIVE [facility] Nitrite Auto test strip Ql (U) Negative NEGATIVE [facility] pH (U) 7.0 [pH] 5.0, 5.5, 6.0, 6.5, 7.0, 7.5, 8.0 [facility] Protein (U) [Mass/Vol] Negative NEGAT PIPE mg/dL [facility] RBC (U) [#/Vol] Negative NEGATIVE [facility] Specific gravity (U) [Rel density] 1.009 1.005 - 1.035 [facility] Urobilinogen (U) [Mass/Vol] mg/dL NINF - 2.0 mg/dL [place] Appearance (U) Clear Normal Clear [facility] Comment on above: Performed By: #### 2 4356-8 #### ANGEL MOLINA ([id number]) [facility] ([facility]) [address] [place] [address] Bilirubin (U) [Mass/Vol] Negative Normal NEGATIVE [facility] Comment on above: Performed By: #### 2 4356-8 #### ANGEL MOLINA ([id number]) [facility] ([facility]) [address] [place] [address] Color (U) Straw Normal Straw, Yellow [facility] Comment on above: Performed By: #### 2 435-8 #### ANGEL MOLINA ([id number]) [facility] ([facility]) [address] [place] [address] Glucose Auto test strip (U) [Mass/Vol] Negative Normal NEGATIVE [facility] Comment on above: Performed By: #### 2 4356-8 #### ANGEL MOLINA ([id number]) [facility] ([facility]) [address] [place] [address] Ketones (U) [Mass/Vol] Negative Normal [facility] Comment on above: Performed By: #### 2 4356-8 #### ANGEL MOLINA ([id number]) [facility] ([facility]) [address] [place] [address]228 Leukocyte esterase Auto test strip Ql (U) Negative Normal NEGATIVE [facility] Comment on above: Performed By: #### 2 4356-8 #### ANGEL MOLINA ([id number]) [facility] ([facility]) [address] [place] [address]70[address] Nitrite Auto test strip Ql (U) Negative Normal NEGATIVE [facility] Comment on above: Performed By: #### 2 4356-8 #### ANGEL MOLINA ([id number]) [facility] ([facility]) [address] [place] [address]22 pH (U) 7.0 [pH] Normal 5.0, 5.5, 6.0, 6.5, 7.0, 7.5, 8.0 [facility] Comment on above: Performed By: #### 2 4356-8 #### ANGEL MOLINA ([id number]) [facility] ([facility]) [address] [place] [address] Protein (U) [Mass/Vol] Negative Normal NEGATIVE [facility] Comment on above: Performed By: #### 2 4356-8 #### ANGEL MOLINA ([id number]) [facility] ([facility]) [address] [place] [address] 84856 RBC (U) [#/Vol] Negative Normal NEGATIVE [facility] Comment on above: Performed By: #### 2 4356-8 #### ANGEL MOLINA ([id number]) [facility] ([facility]) [address] [place] [address] Specific gravity (U) [Rel density] 1.009 Normal 1.005-1.035 [facility] Comment on above: Performed By: #### 2 4356-8 #### ANGEL MOLINA ([id number]) [facility] ([facility]) [address] [place] [address]92 Urobilinogen (U) [Mass/Vol] mg/dL Normal <2.0 [facility] Comment on above: Performed By: #### 2 4356-8 #### ANGEL MOLINA ([id number]) [facility] ([facility]) [address] [place] [address] 38571 Provider Note - ED v3on 08-08 Provider [...] Vital Sign Value Date PAST MEDICAL HISTORY ALLERGIES/INTOLERANCES: No Known Allergies HEALTH HISTORY: No documented [...] SIGNS: T PRBP SpO2O2(LPM) %FiO2 Method 27-Aug-2022 09:14:[id number]/87 98 MDM MDM/ED COURSE: Alyssia is a [...] ill patient: no Electronic Signatures: Mandie Treviño (SQL DATA ANALYST[employer] [facility]) (Signed 27-Aug-2022 20:03) Authored: ED Notes, HPI, PMH, PE, Results/Vital Signs, MDM/ED Course, Clinical Impression, Attestation, Chart Review, Scores Last Updated: 27-Aug-2022 20:03 by Mandie Treviño (SQL DATA ANALYST[employer] [facility]) [facility] Covid 19 Resultson 2 SARS-CoV-2 (COVID-19) [...] You may also be contacted by the [facility] to see if any of your close [...] or Naproxen (Aleve) can also be used. Flnc-wqz-sorbgxg cough and cold medicines can be used according to the instructions on the package. Some omqf-pji-nrttdqj medicines also contain acetaminophen. Make sure you [...] water are not available, use alcohol-based hand filenet admin. Avoid touching your eyes, nose, and mouth [...] 24 emma (more content not included)... Normal [facility] INFLUENZA A/B, COVID 2019 PC R,SYMPTOMATICon 05-26-2022 INFLUENZA A, PCR Detected Abnormal Not Detected [facility] Comment on above: Result Comment: Resp iratory virus testing is performed routinely by PCR for Influenza A/B and RSV. If Influenza and RSV PCR are negative, testing for parainfluenza 1,2,3 viruses and adenovirus is routinely performed for oncology inpatients and intensive care unit patients at [facility] and is available on request on other patients by calling Laboratory Client Services at [phone]. Not Detected results do not preclude Influenza A/B or RSV infections since the adequacy of sample collection or low viral burden may impact the clinical sensitivity of this test method. Performed By: #### C OINP #### [facility] [address] [place] [address] INFLUENZA B, PCR Not detected Normal Not Detected [facility] Comment on above: Result Comment: Resp iratory virus testing is performed routinely by PCR for Influenza A/B and RSV. If Influenza and RSV PCR are negative, testing for parainfluenza 1,2,3 viruses and adenovirus is routinely performed for oncology inpatients and intensive care unit patients at [facility] and is available on request on other patients by calling Laboratory Client Services at [phone] Not Detected results do not preclude Influenza A/B or RSV infections since the adequacy of sample collection or low viral burden may impact the clinical sensitivity of this test method. Performed By: #### C OINP #### [facility] [address] [place] [address] SARS-CoV-2 (COVID-19) RNA LASHON+probe Ql (Unsp spec) Not detected Normal Not Detected [facility] Comment on above: Result Comment: . This assay is designed to detect the ORF1a/b and E genes of SARS-CoV-2 via nucleic acid amplification. A Not Detected result does not preclude 2019-nCoV infection since the adequacy of sample collection and/or low viral burden may result in presence of viral nucleic acids below the clinical sensitivity of this test method. Fact sheet for providers: https://www.fda.gov/media/646724/download Fact sheet for patients: https://www.fda.gov/media/665619/download This test has received FDA Emergency Use Authorization (EUA) and has been verified for use by [facility] ([facility]). This test is only authorized for the duration of time that circumstances exist to justify the authorization of the emergency use of in vitro diagnostic tests for the detection of SARS-CoV-2 virus and/or diagnosis of COVID-19 infection under section 564(b)(1) of the Act, 21 U.S.C. 360bbb-3(b)(1), unless the authorization is terminated or revoked sooner. [facility] is certified under CLIA-88 as qualified to perform high complexity testing. Testing is performed in the [facility] laboratories located at [address] [place] [address]. Performed By: #### C OINP #### [place] [address] GROUP A STREP,PCRon 05-25-20 22 GROUP A STREP,PCR Not detected Normal Not Detected [facility] Comment on above: Result Comment: This test was performed utilizing an FDA-cleared rapid nucleic acid amplification by PCR to qualitatively detect Group A Streptococci from throat swab specimens without the need for culture confirmation of negative results. 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 HISTORY OF PRESENTING ILLNESS ALYSSIA is a 36 year old Female and was seen by me at 25-May-2022 08:26. Triage Information: Most recent Vital Sign Value Date PAST MEDICAL HISTORY ALLERGIES/INTOLERANCES: No Known Allergies HEALTH HISTORY: No documented data. OUTPATIENT MEDICATIONS: Home Medications Review Status for Reconciliation: Complete Med Status: No Current Medications SIGNIFICANT EVENTS: Social/Behavioral Description:pt denies MANAGEMENT AND BUDGET ANALYST: Is : no Is : no REVIEW [...] SIGNS: T PRBP SpO2O2(LPM) %FiO2 Method 25-May-2022 08:22:[id number]/86 [facility] MDM/ED COURSE: Discussed Findings with: patient Data [...] Electronic Signatures for Addendum Section: Orlin Casarez (SQL DATA ANALYST-[facility]) (Signed Addendum 26-May-2022 12:23) Pt notified of covid/flu/strep test results. Electronic Signatures: Orlin Casarez (SQL DATA ANALYST-[facility]) (Signed 26-May-2022 12:23) Authored: ED Notes, HPI, PMH, ROS, PE, Results/Vital Signs, MDM/ED Course, Clinical Impression, Attestation, Chart Review, Scores Last Updated: 26-May-2022 12:23 by Orlin Casarez (SQL DATA ANALYST-[facility]) [facility] Absolute lymphocyte counton 04-25-2022 Lymphocytes Auto (Unsp spec) [#/Vol] 1.94 10*3/uL 0.83-4.51 [facility] Work Phone: Basophil percentageon 2021 Basophil percentage 0-5 SEEN /hpf 0-5 [facility] Work Phone: Basophils/100 WBC (Bld) 0.4 % 0-1 [facility] Work Phone: Bilirubin [Mass/Vol] 0.80 mg/dL 0.20-1.00 [facility] Work Phone: Comment on above: For patients on eltr ombopag therapy, use of Dimension [place] TBIL is not recommended. Chloride [Moles/Vol] 105 mmol/L 98-107 [facility] Work Phone: Eosinophils/100 WBC (Bld) 1.7 % 0-5 [facility] Work Phone: Glucose [Mass/Vol] 94 mg/dL 74-106 [facility] Work Phone: Neutrophils (Bld) [#/Vol] 6.2 10*3/uL 2.0-7.7 [facility] Work Phone: Neutrophils/100 WBC (Bld) 69.0 % 47-70 [facility] Work Phone: Potassium [Moles/Vol] 3.8 mmol/L 3.5-5.1 [facility] Work Phone: Protein [Mass/Vol] 7.7 g/dL 6.4-8.2 [facility] Work Phone: Sodium [Moles/Vol] 139 mmol/L 136-145 [facility] Work Phone: [phone] WBC (Bld) [#/Vol] 9.0 10*3/uL 4.4-11.0 [facility] Work Phone: Bilirubin Test strip Ql (U)o n 04-25-2022 Bilirubin Ql (U) Negative Negative [facility] Work Phone: Blood erythrocytes count (nu mber/volume)on 04-25-2022 RBC (Bld) [#/Vol] 5.19 10*6/uL 4.2-5.4 [facility]: Blood hemoglobin measurement (mass/volume)on 04-25-2022 Hemoglobin (Bld) [Mass/Vol] 13.9 g/dL 12.0-15.0 [facility] Work Phone: Blood lymphocytes/100 leukoc yteson 04-25-2022 Lymphocytes/100 WBC (Bld) 21.6 % 19-41 [facility] Work Phone: Blood monocytes/100 leukocyt eson 04-25-2022 Monocytes/100 WBC (Bld) 7.0 % 0-10 [facility] Work Phone: Blood platelet mean volumeon 04-25-2022 Platelet mean volume (Bld) [Entitic vol] 10.3 fL 6.2-12.0 [facility] Work Phone: Determination of erythrocyte mean corpuscular volume (MCV)on 04-25-2022 MCV (RBC) [Entitic vol] 82.3 fL 81-99 [facility] Work Phone: Hematocrit Auto (Bld) [Volum e fraction]on 04-25-2022 Hematocrit (Bld) [Volume fraction] 42.7 % 37-47 [facility] Work Phone: Ketones Test strip Ql (U)on 04-25-2022 Ketones Ql (U) 15 mg/dl Negative [facility] Work Phone: Laboratory - Chemistry and C hemistry - challengeon 04-25-2022 ALP [Catalytic activity/Vol] 46 U/L 45-117 [facility] Work Phone: ALT [Catalytic activity/Vol] 17 U/L 13-56 [facility] Work Phone: CO2 [Moles/Vol] 28.0 mmol/L 21.0-32.0 [facility] Work Phone: Globulin (S) [Mass/Vol] 3.5 g/dL 2.2-4.2 [facility] Work Phone: Urea nitrogen/Creatinine [Mass ratio] 16.5 mg/mg 10-20 [facility] Work Phone: Laboratory - Hematology and Cell countson 04-25-2022 Erythrocyte distribution width (RBC) [Entitic vol] 39.8 fL 35.1-43.9 [facility] Work Phone: Erythrocyte distribution width (RBC) [Ratio] 13.2 % 11.6-14.6 [facility] Work Phone: Immature granulocytes/100 WBC (Bld) 0.300 % 0.0-0.9 [facility] Work Phone: Comment on above: IG% - Immature Granu locytes (promyelocytes, myelocytes and metamyelocytes) > 1% indicates that a LEFT SHIFT is Present. MCH (RBC) [Entitic mass] 26.8 pg 27.0-32.0 [facility] Work Phone: Nucleated RBC/100 WBC (Bld) [Ratio] 0 % 0-5 [facility] Work Phone: MCHC Auto (RBC) [Mass/Vol]on 04-25-2022 MCHC (RBC) [Mass/Vol] 32.6 g/dL 32-36 [facility] Work Phone: Mucus LM Ql (Urine sed)on Mucus Ql (Urine sed) 0 SEEN /hpf [facility] Work Phone: Nitrite Test strip Ql (U)on 04-25-2022 Nitrite Ql (U) Negative Negative [facility] Work Phone: No Panel Informationon 04-25 Estimated Creatinine Clearance Calc 92.17 ml/min [facility] Work Phone: Estimated GFR (MDRD) Amer 144 mL/min >60 [facility] Work Phone: Comment on above: GFR Calc Estimated GFR (MDRD) Non-Af Amer 119 mL/min >60 [facility] Work Phone: Comment on above: Non- GFR Calc Platelets bldon 04-25-2022 Platelets (Bld) [#/Vol] 250 10*3/uL 150-450 [facility] Work Phone: Protein Test strip Ql (U)on 04-25-2022 Protein Ql (U) Negative Negative [facility] Work Phone: Serum or plasma albumin sugar urement (mass/volume)on 04-25-2022 Albumin [Mass/Vol] 4.2 g/dL 3.2-5.0 [facility] Work Phone: Serum or plasma albumin/glob ulin mass ratioon 04-25-2022 Albumin/Globulin [Mass ratio] 1.2 {ratio} 0.9-2.4 [facility] Work Phone: Serum or plasma calcium sugar urement (mass/volume)on 04-25-2022 Calcium [Mass/Vol] 9.5 mg/dL 8.5-10.1 [facility] Work Phone: Serum or plasma choriogonado tropin detectionon 04-25-2022 HCG ( test) Ql 9644 mIU/mL <4 [facility] Work Phone: Comment on above: hCG levels with Gest ational AgeGestational Age hCG mIU/mL (IU/L)0.2 - 1 week 5 - 501-2 weeks 50 - 5002-3 weeks 100 - 47307-3 weeks 500 - 546485-2 weeks 1000 - 318652-7 weeks 22890 - 100,0006-8 weeks 57132 - 200,0002-3 months 05813 - 100,000 Serum or plasma creatinine m easurement (mass/volume)on 04-25-2022 Creatinine [Mass/Vol] 0.61 mg/dL 0.55-1.02 [facility] Work Phone: Comment on above: The validity of the calculated GFR & GFRAA in patients over 70 years has not been determined. Clinical correlation is essential. Serum or plasma urea nitroge n measurement (mass/volume)on 04-25-2022 Urea nitrogen [Mass/Vol] 10 mg/dL 7-18 [facility] Work Phone: Squamous epithelial cells de tection in urine sediment by light microscopyon 04-25-2022 Epithelial cells.squamous LM Ql (Urine sed) 0-5 SEEN /hpf 5-10 [facility] Work Phone: Thin prep Papanicolaou smear with manual screeningon 04-25-2022 Thin prep Papanicolaou smear with manual screening 13 U/L 15-37 [facility] Work Phone: Thin prep Papanicolaou smear with manual screening 6 5-15 [facility] Work Phone: Urine blood detectionon 04-09 RBC Ql (U) 250 /ul Negative [facility] Work Phone: RBC Ql (U) 10-25 SEEN /hpf 0-5 [facility] Work Phone: Urine clarityon 04-25-2022 Clarity (U) Sl. Cloudy Clear [facility] Work Phone: Urine color determinationon 04-25-2022 Color (U) Yellow Yellow [facility] Work Phone: Urine glucose detectionon Glucose Ql (U) Normal mg/dl Normal [facility] Work Phone: Urine leukocyte esterase det ection by dipstickon 04-25-2022 Leukocyte esterase Test strip Ql (U) 25 /ul Negative [facility] Work Phone: Urine pHon 04-25-2022 pH (U) 7.0 [pH] 5.0 - 8.0 [facility] Work Phone: Urine sediment bacteria coun t by microscopy (number/high power field)on 04-25-2022 Bacteria LM.HPF (Urine sed) [#/Area] 0 /[HPF] None Seen [facility] Work Phone: Urine specific gravity measu rementon 04-25-2022 Specific gravity (U) [Rel density] 1.010 1.002-1.030 [facility] Work Phone: Urobilinogen Auto test strip Ql (U)on 04-25-2022 Urobilinogen Ql (U) Normal mg/dl Normal [facility] Work Phone: Serum or plasma choriogonado tropin detectionon 04-24-2022 HCG ( test) Ql 8251 mIU/mL <4 [facility] Work Phone: Comment on above: hCG levels with Gest ational AgeGestational Age hCG mIU/mL (IU/L)0.2 - 1 week 5 - 501-2 weeks 50 - 5002-3 weeks 100 - 56387-4 weeks 500 - 265879-3 weeks 1000 - 295369-4 weeks 42090 - 100,0006-8 weeks 27161 - 200,0002-3 months 89489 - 100,000 Serum or plasma choriogonado tropin detectionon 04-22-2022 HCG ( test) Ql 5852 mIU/mL <4 [facility] Work Phone: Comment on above: hCG levels with Gest ational AgeGestational Age hCG mIU/mL (IU/L)0.2 - 1 week 5 - 501-2 weeks 50 - 5002-3 weeks 100 - 91220-8 weeks 500 - 783846-6 weeks 1000 - 025802-5 weeks 90818 - 100,0006-8 weeks 66104 - 200,0002-3 months 75861 - 100,000 Provider Note - ED v3on 10-2 Provider Note - ED v3 Provider Note: Chart Review: HISTORY OF PRESENTING ILLNESS ALYSSIA is a 36 year old Female and was seen by me at 29-Mar-2022 17:10. The historian is the patient. Triage Information: Most recent Vital Sign Value Date PAST MEDICAL HISTORY ALLERGIES/INTOLERANCES: No Known Allergies HEALTH HISTORY: No known [...] of the COVID-19 vaccine, and received the [id number] influenza vaccine. CRITICAL CARE RESULTS: Recent Lab Results: Urine Hcg test today was positive. VITAL SIGNS: T PRBP SpO2O2(LPM) %FiO2 Method 29-Mar-2022 17:03:[id number] 98 MDM MDM/ED COURSE: This note was [...] and Tylenol with some relief; no other [id number]-vliosfb medications or home remedies for symptom management. [...] Musculoskeletal: Grossly normal; appropriate for age. Integumentary: [place], warm, dry, and intact. No rashes or skin discoloration appreciated. Good skin turgor. Neurologic: Alert and oriented, no gross deficits. Cognition and Speech: Oriented, Speech clear and coherent. Psychiatric: Cooperative, Appropriate mood & affect. MEDICAL DECISION MAKING Course: Worsening; stable. Impression/Plan: No red flags on exam today, but will need close monitoring, especially in light of today's + test. I have reviewed the [facility] COVID-19 algorithm, and counseled pt on COVID-19 [...] to u (more content not included)... Normal [facility] 02-04-2019 Erythrocyte distribution width (RBC) [Entitic vol] 13.3 % 11.6 - 14.8 % [facility] Hematocrit (Bld) [Volume fraction] 29.7 % Low 36 - 46 % [facility] Hemoglobin (Bld) [Mass/Vol] 9.8 g/dL Low 12 - 16 g/dL [facility] Interpretation and review of laboratory results Abnormal [facility] MCH (RBC) [Entitic mass] 25.5 pg Low 26 - 34 pg [facility] MCHC (RBC) [Mass/Vol] 33.0 g/dL 31 - 37 g/dL [facility] MCV (RBC) [Entitic vol] 77.1 fL Low 80 - 100 fL [facility] Platelet mean volume (Bld) [Entitic vol] 11.8 fL 9 - 15.5 fL [facility] Platelets (Bld) [#/Vol] 163 10*3/uL [facility] RBC (Bld) [#/Vol] 3.85 10*6/uL Low [facility] ealth WBC (Bld) [#/Vol] 15.05 10*3/uL [facility] CBC WITH AUTO DIFFERENTIALon 02-03-2019 Basophils (Bld) [#/Vol] 0.03 10*3/uL [facility] Basophils/100 WBC (Bld) 0.3 % [facility] Eosinophils (Bld) [#/Vol] 0.11 10*3/uL [facility] Eosinophils/100 WBC (Bld) 1.0 % [facility] Erythrocyte distribution width (RBC) [Entitic vol] 13.3 % 11.6 - 14.8 % [facility] Hematocrit (Bld) [Volume fraction] 36.9 % 36 - 46 % [facility] Hemoglobin (Bld) [Mass/Vol] 12.3 g/dL 12 - 16 g/dL [facility] Immature granulocytes (Bld) [#/Vol] 0.06 10*3/uL [facility] Immature granulocytes/100 WBC (Bld) 0.50 % [facility] Comment on above: The IG parameter is the percentage of metamyelocytes, myelocytes, and promyelocytes. Interpretation and review of laboratory results Abnormal [facility] Lymphocytes (Bld) [#/Vol] 2.17 10*3/uL [facility] Lymphocytes/100 WBC (Bld) 19.9 % [facility] MCH (RBC) [Entitic mass] 25.3 pg Low 26 - 34 pg [facility] MCHC (RBC) [Mass/Vol] 33.3 g/dL 31 - 37 g/dL [facility] MCV (RBC) [Entitic vol] 75.9 fL Low 80 - 100 fL [facility] Monocytes (Bld) [#/Vol] 0.83 10*3/uL [facility] Monocytes/100 WBC (Bld) 7.6 % [facility] Neutrophils (Bld) [#/Vol] 7.71 10*3/uL High [facility] Neutrophils/100 WBC (Bld) 70.7 % [facility] Platelet mean volume (Bld) [Entitic vol] 11.4 fL 9 - 15.5 fL [facility] Platelets (Bld) [#/Vol] 211 10*3/uL [facility] RBC (Bld) [#/Vol] 4.86 10*6/uL [facility] ealth WBC (Bld) [#/Vol] 10.91 10*3/uL [facility] Metabolic Pane cosme 02-03-2019 Albumin [Mass/Vol] 3.0 g/dL Low 3.2 - 5.2 g/dL [facility] ALP [Catalytic activity/Vol] 139 U/L 40 - 140 U/L [facility] ALT [Catalytic activity/Vol] 11 U/L Low 14 - 65 U/L [facility] Anion gap [Moles/Vol] 15 mmol/L 10 - 2 0 mmol/L [facility] AST [Catalytic activity/Vol] 17 U/L 0 - 45 U/L [facility] Bilirubin [Mass/Vol] 0.3 mg/dL 0 - 1.3 mg/dL [facility] Calcium [Mass/Vol] 8.9 mg/dL 8.4 - 10. 2 mg/dL [facility] Chloride [Moles/Vol] 107 mmol/L 98 - 10 8 mmol/L [facility] Creatinine [Mass/Vol] 0.76 mg/dL 0.4 - 1.1 mg/dL [facility] GFR/1.73 sq M predicted among non-blacks MDRD (S/P/Bld) [Vol rate/Area] The eGFR should be used for monitoring renal function only and not for medication dosing. [facility] GFR/1.73 sq M.predicted CKD-EPI (S/P/Bld) [Vol rate/Area] 104 >=60 mL/min/1.73 m2 [facility] Glucose [Mass/Vol] 80 mg/dL 65 - 99 mg/dL [facility] HCO3 [Moles/Vol] 22 mmol/L 21 - 32 mmol/L [facility] Interpretation and review of laboratory results Abnormal [facility] Potassium [Moles/Vol] 3.6 mmol/L 3.5 - 5.1 mmol/L [facility] Protein [Mass/Vol] 6.9 g/dL 6 - 8 g/dL [facility] alth Sodium [Moles/Vol] 140 mmol/L 135 - 145 mmol/L [facility] Urea nitrogen [Mass/Vol] 8 mg/dL 8 - 25 mg/dL [facility] Urea nitrogen/Creatinine [Mass ratio] 10.5 mg/mg [facility] Type and Screenon 02-03-2019 ABO and Rh group Nom (d) A Positive [facility] Blood group antibody screen Ql Negative [facility] Specimen Expires 02/06/2019 23:59 EST [facility] GYNon 03-25-2017 COYOTE HUNTER Name: ALYSSIA ROBERSON LResubmission due to incomplete transmission of the original reportSour Thin Prep Cervical/Endocervical-Pap Smear Clinical History None given Specimen Adequacy Satisfactory No transformation zone component identified. Diagnosis Negative for Intraepithelial Lesion or Malignancy. HPV Results HPV 16/18/Other HPV16: Negative HPV18: Negative HPVOTHER: Negative Assay performed using [employer] 4800 system utilizing Real-Time PCR toamplify target HPV DNA. This system specifically identifies HPV16 [id number] while concurrently detecting the other twelve high risk types(31,33,35,39,45,51,5 2,56,58,59,66,68). Completed by LT on 2017-04-03 Electronically Signed By Harpreet MESA (ASCP) , Pharmacy Tech Customer Service (Case signed 04/01/2017) The Papanicolaou smear is a screening tool, and like any screen, has an inherent false negative rate. Interpretation of results should be made in the context of patient history and clinical findings. Normal [facility] Human Papillomavirus,High Ri skon 03-25-2017 HPV 16 Negative Normal Negative [facility] Comment on above: Performed By: #### H PV ####Unless otherwise noted, all testing performed by [address] [id number]: [id number] Director: Malvin Weller M.D. HPV 18 Negative Normal Negative [facility] Comment on above: Performed By: #### H PV ####Unless otherwise noted, all testing performed by [address] [id number]: [id number] Director: Malvin Weller M.D. HPV, Other Negative Normal Negative [facility] Comment on above: Result Comment: Assa y performed using [employer] 4800 system utilizing Real-Time PCR toamplify target HPV DNA. This system specifically identifies HPV16 [id number] while concurrently detecting the other twelve high risk types(31,33,35,39,45,51,52,56,58,59,66,68).Test Performed by [facility] [id number] [place] [address] Performed By: #### H PV ####Unless otherwise noted, all testing performed by [address] [id number]: [id number] Director: Malvin Weller M.D. Vital Signs Date Time Vital Sign Value Performing Clinician Facility 02-10-2025 14:52-0400 Body mass index (BMI) [Ratio] 21.3 kg/m2 No Primary Care Physician [facility] 02-10-2025 14:52-0400 Body weight 56.35 kg No Primary Care Physician [facility] 02-10-2025 14:52-0400 Diastolic blood pressure 73 mm[Hg] No Primary Care Physician [facility] 02-10-2025 14:52-0400 Systolic blood pressure 111 mm[Hg] No Primary Care Physician [facility] 01-12-2025 09:22-0400 Body height 162.56 cm No Primary Care Physician [facility] 01-12-2025 09:22-0400 Body mass index (BMI) [Ratio] 19.8 kg/m2 No Primary Care Physician [facility] 01-12-2025 09:22-0400 Body weight 52.3 kg No Primary Care Physician [facility] 01-12-2025 09:22-0400 Diastolic blood pressure 72 mm[Hg] No Primary Care Physician [facility] 01-12-2025 09:22-0400 Systolic blood pressure 103 mm[Hg] No Primary Care Physician [facility] 12-15-2024 11:00-0400 Body height 162.56 cm No Primary Care Physician [facility] 12-15-2024 11:00-0400 Body mass index (BMI) [Ratio] 18.7 kg/m2 No Primary Care Physician [facility] 12-15-2024 11:00-0400 Body weight 49.49 kg No Primary Care Physician [facility] 12-15-2024 11:00-0400 Diastolic blood pressure 75 mm[Hg] No Primary Care Physician [facility] 12-15-2024 11:00-0400 Systolic blood pressure 110 mm[Hg] No Primary Care Physician [facility] 11-15-2024 13:36-0400 Body height 162.56 cm No Primary Care Physician [facility] 11-15-2024 13:36-0400 Body mass index (BMI) [Ratio] 18.2 kg/m2 No Primary Care Physician [facility] 11-15-2024 13:36-0400 Body weight 48.19 kg No Primary Care Physician [facility] 11-15-2024 13:36-0400 Diastolic blood pressure 70 mm[Hg] No Primary Care Physician [facility] 11-15-2024 13:36-0400 Systolic blood pressure 103 mm[Hg] No Primary Care Physician [facility] 10-18-2024 10:21-0400 Body height 162.56 cm No Primary Care Physician [facility] 10-18-2024 10:21-0400 Body mass index (BMI) [Ratio] 18.5 kg/m2 No Primary Care Physician [facility] 10-18-2024 10:-040 Body weight 49.04 kg No Primary Care Physician [facility] 10-18-2024 10:21-0400 Diastolic blood pressure 71 mm[Hg] No Primary Care Physician [facility] 10-18-2024 10:21-0400 Systolic blood pressure 112 mm[Hg] No Primary Care Physician [facility] 06-24-2024 13:10-0500 Body height 167.6 cm Thierry Stentz PA-C Work Phone: [facility] 06-24-2024 13:10-0500 Body mass index (BMI) [Ratio] 17.27 kg/m2 Thierry Stentz PA-C Work Phone: [facility] 06-24-2024 13:10-0500 Body weight 48.53 kg Thierry Stentz PA-C Work Phone: [facility] 06-24-2024 13:10-0500 Diastolic blood pressure 70 mm[Hg] Thierry Stentz PA-C Work Phone: [facility] 06-24-2024 13:10-0500 Heart rate 105 /min Thierry Stentz PA-C Work Phone: [facility] 06-24-2024 13:10-0500 SaO2% (BldA) [Mass fraction] 96 % Thierry Stentz PA-C Work Phone: [facility] 06-24-2024 13:10-0500 Systolic blood pressure 100 mm[Hg] Thierry Stentz PA-C Work Phone: [facility] 2023 10:06-0500 Body height 168.9 cm Thierry Stentz PA-C Work Phone: [facility] 2023 10:06-0500 Body mass index (BMI) [Ratio] 16.22 kg/m2 Thierry Stentz PA-C Work Phone: [facility] 2023 10:06-0500 Body weight 46.27 kg Thierry Stentz PA-C Work Phone: [facility] 2023 10:06-0500 Diastolic blood pressure 70 mm[Hg] Thierry Stentz PA-C Work Phone: [facility] 2023 10:06-0500 Heart rate 74 /min Thierry Stentz PA-C Work Phone: [facility] 2023 10:06-0500 Systolic blood pressure 98 mm[Hg] Thierry Stentz PA-C Work Phone: [facility] 05-20-2023 13:41-0500 Diastolic blood pressure 75 mm[Hg] Markus Mendoza DO Work Phone: [facility] 05-20-2023 13:41-0500 Heart rate 101 /min Markus Mendoza DO Work Phone: [facility] 05-20-2023 13:41-0500 Respiratory rate 17 /min Markus Mendoza DO Work Phone: [facility] 05-20-2023 13:41-0500 SaO2% (BldA) [Mass fraction] 99 % Markus Mendoza DO Work Phone: [facility] 05-20-2023 13:41-0500 Systolic blood pressure 99 mm[Hg] Markus Mendoza DO Work Phone: [facility] 05-20-2023 07:53-0500 Body height 162.6 cm Markus Mendoza DO Work Phone: [facility] 05-20-2023 07:53-0500 Body mass index (BMI) [Ratio] 17.16 kg/m2 Markus Mendoza DO Work Phone: [facility] 05-20-2023 07:53-0500 Body temperature 98.91 [degF] Markus Mendoza DO Work Phone: [facility] 05-20-2023 07:53-0500 Body weight 45.36 kg Markus Mendoza DO Work Phone: [facility] 08-27-2022 11:14-0400 Body height 162.5 cm No Pcp Required [facility] 08-27-2022 11:14-0400 Body temperature 98.06 [degF] No Pcp Required [facility] 08-27-2022 11:14-0400 Diastolic blood pressure 87 mm[Hg] No Pcp Required [facility] 08-27-2022 11:14-0400 Heart rate 93 /min No Pcp Required [facility] 08-27-2022 11:14-0400 Respiratory rate 18 /min No Pcp Required [facility] 08-27-2022 11:14-0400 SaO2% (BldA) [Mass fraction] 98 % No Pcp Required [facility] 08-27-2022 11:14-0400 Systolic blood pressure 132 mm[Hg] No Pcp Required [facility] 05-25-2022 10:22-0500 Body height 163 cm No Pcp Required [facility] 05-25-2022 10:22-0500 Body temperature 97.88 [degF] No Pcp Required [facility] 05-25-2022 10:22-0500 Diastolic blood pressure 86 mm[Hg] No Pcp Required [facility] 05-25-2022 10:22-0500 Heart rate 62 /min No Pcp Required [facility] 05-25-2022 10:22-0500 SaO2% (BldA) [Mass fraction] 99 % No Pcp Required [facility] 05-25-2022 10:22-0500 Systolic blood pressure 119 mm[Hg] No Pcp Required [facility] 04-26-2022 13:55-0500 Body temperature 98.6 [degF] No Primary Care Physician [facility] Work Phone: 04-26-2022 13:55-0500 Diastolic blood pressure 67 mm[Hg] No Primary Care Physician [facility] Work Phone: 04-26-2022 13:55-0500 Heart rate 77 /min No Primary Care Physician [facility] Work Phone: 04-26-2022 13:55-0500 Respiratory rate 14 /min No Primary Care Physician [facility] Work Phone: 04-26-2022 13:55-0500 SaO2% (BldA) [Mass fraction] 100 % No Primary Care Physician [facility] Work Phone: 04-26-2022 13:55-0500 Systolic blood pressure 95 mm[Hg] No Primary Care Physician [facility] Work Phone: 04-26-2022 11:23-0500 Body height 162.56 cm No Primary Care Physician [facility] Work Phone: 04-26-2022 11:23-0500 Body mass index (BMI) [Ratio] 16.2 kg/m2 No Primary Care Physician [facility] Work Phone: 04-26-2022 11:23-0500 Body weight 43 kg No Primary Care Physician [facility] Work Phone: 04-26-2022 08:54-0500 Body mass index (BMI) [Ratio] 16.5 kg/m2 No Primary Care Physician [facility] Work Phone: 04-26-2022 08:54-0500 Body weight 43.65 kg No Primary Care Physician [facility] Work Phone: 04-26-2022 08:54-0500 Diastolic blood pressure 88 mm[Hg] No Primary Care Physician [facility] Work Phone: 04-26-2022 08:54-0500 Systolic blood pressure 125 mm[Hg] No Primary Care Physician [facility] Work Phone: 04-25-2022 20:31-0500 Respiratory rate 16 /min No Primary Care Physician [facility] Work Phone: 04-25-2022 18:08-0500 Body mass index (BMI) [Ratio] 17.2 kg/m2 No Primary Care Physician [facility] Work Phone: 04-25-2022 18:08-0500 Body temperature 98.6 [degF] No Primary Care Physician [facility] Work Phone: 04-25-2022 18:08-0500 Body weight 45.35 kg No Primary Care Physician [facility] Work Phone: 04-25-2022 18:08-0500 Diastolic blood pressure 77 mm[Hg] No Primary Care Physician [facility] Work Phone: 04-25-2022 18:08-0500 Heart rate 123 /min No Primary Care Physician [facility] Work Phone: 04-25-2022 18:08-0500 SaO2% (BldA) [Mass fraction] 100 % No Primary Care Physician [facility] Work Phone: 04-25-2022 18:08-0500 Systolic blood pressure 114 mm[Hg] No Primary Care Physician [facility] Work Phone: 03-29-2022 19:03-0400 Body height 162 cm No Pcp Required [facility] 03-29-2022 19:03-0400 Body temperature 98.24 [degF] No Pcp Required [facility] 03-29-2022 19:03-0400 Diastolic blood pressure 90 mm[Hg] No Pcp Required [facility] 03-29-2022 19:03-0400 Heart rate 88 /min No Pcp Required [facility] 03-29-2022 19:03-0400 Respiratory rate 14 /min No Pcp Required [facility] 03-29-2022 19:03-0400 SaO2% (BldA) [Mass fraction] 98 % No Pcp Required [facility] 03-29-2022 19:03-0400 Systolic blood pressure 125 mm[Hg] No Pcp Required [facility] 03-19-2019 15:46-0400 Body weight 52.16 kg Sophia Ford RN [facility] 03-19-2019 15:46-0400 Diastolic blood pressure 75 mm[Hg] Sophia Ford RN [facility] 03-19-2019 15:46-0400 Systolic blood pressure 98 mm[Hg] Sophia Ford RN [facility] 02-06-2019 07:35-0400 Body Temperature 98.1 [degF] Mirianshan Ford [facility] 02-06-2019 07:35-0400 BP Diastolic 67 mm[Hg] Mirianshan Ford [facility] 02-06-2019 07:35-0400 BP Systolic 101 mm[Hg] Mirianshan Ford [facility] 02-06-2019 07:35-0400 Pulse (Heart Rate) 85 /min Mirianshan MckayLiliana [facility] 02-06-2019 07:35-0400 Pulse Oximetry 96 % Mirianshan Ford [facility] 02-06-2019 07:35-0400 Respiratory Rate 16 /[facility]-03-[facility] 20:50-0400 Body weight 58.33 kg [facility] Encounter Date Encounter Type Care Provider Facility Start: 02-10-2025 End: 02-10-2025 ambulatory No Primary Care Physician [facility] Start: 02-10-2025 End: 02-10-[address] Ghislaine Holliday DO -[facility] Work Phone: Start: 01-12-2025 End: 01-12-2025 Patient encounter procedure Bianca Perez [facility] -[facility] Work Phone: Start: 01-12-2025 End: 01-12-2025 ambulatory No Primary Care Physician -[facility] Start: 12-28-2024 End: 12-28-2024 ambulatory MD NO PRIMARY CARE [facility] Start: 12-15-2024 End: 12-15-[address] Ghislaine Holliday DO [facility] Work Phone: Start: 12-15-2024 End: 12-15-2024 ambulatory No Primary Care Physician -[facility] Start: 11-15-2024 End: 11-15-2024 Patient encounter procedure Manuela MANCIA -[facility] Work Phone: Start: 11-15-2024 End: 11-15-2024 ambulatory No Primary Care Physician [facility] Work Phone: Start: 11-15-2024 End: 11-15-2024 ambulatory Adele Gan Facility:[facility] Start: 10-18-2024 End: 10-18-2024 ambulatory No Primary Care Physician [facility] Work Phone: Start: 10-18-2024 End: 10-18-[address] Adele Gan MD -Laboratory Specimen Work Phone: Start: 10-18-2024 End: 10-18-[address] Adele Gan MD -[facility] Work Phone: Start: 10-18-2024 End: 10-18-2024 ambulatory Adele Gan Facility[facility] Start: 10-18-2024 End: 10-18-2024 ambulatory Adele Gan Facility:[facility] Start: 10-08-2024 Non-patient / Non-visit Lety gill RN -[facility] Work Phone: Start: 10-08-2024 ambulatory Lety Mejia Facility :[facility] Start: 06-24-2024 End: 06-24-2024 Office outpatient visit 15 minutes Thierry DELACRUZ[place] Work Phone: [facility] Comment on above: Vitamin D deficiency (Primary Dx); Screening for thyroid disorder; Fatigue, unspecified type; BMI < 18.5; Seasonal allergies Start: 06-24-2024 End: 06-24-2024 ambulatory [facility] Start: 2023 End: 2023 Office outpatient visit 15 minutes Thierry Diaz PA-C Work Phone: [facility] Comment on above: Traumatic subdural h emorrhage with loss of consciousness, subsequent encounter (Primary Dx) Start: 05-20-2023 End: 05-21-2023 ambulatory RITA [facility] Start: 05-20-2023 End: 05-20-2023 Emergency department patient visit Markus Mendoza DO Work Phone: [facility] Comment on above: Subdural hemorrhage (CMS/HCC) (Primary Dx); Syncope and collapse Start: 08-27-2022 End: 08-27-2022 Emergency department patient visit Manide Treviño [facility] Start: 05-25-2022 End: 05-25-2022 Emergency department patient visit Orlin Casarez [facility] Start: 04-26-2022 Non-patient / Non-visit No Valarie bessie Care Physician [facility] Start: 04-26-2022 End: 04-26-2022 Admission to same day surgery center No Primary Care Physician [facility]-[employer] 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 Start: 04-26-2022 End: 04-26-2022 ambulatory No Primary Care Physician [facility] Work Phone: Start: 04-26-2022 End: 04-26-2022 Patient encounter procedure No Primary Care Physician [facility] Start: 04-25-2022 End: 04-25-2022 Emergency department patient visit No Primary Care Physician [facility]-Emergency Department Start: 04-24-2022 End: 04-24-2022 ambulatory No Primary Care Physician [facility] Work Phone: Start: 04-24-2022 End: 04-24-2022 Patient encounter procedure No Primary Care Physician [facility]-Laboratory Start: 04-22-2022 End: 04-22-2022 ambulatory No Primary Care Physician [facility] Work Phone: Start: 04-22-2022 End: 04-22-2022 Patient encounter procedure No Primary Care Physician [facility]-Laboratory Start: 04-20-2022 End: 04-20-2022 Emergency department patient visit PHYSICIAN DEREK [facility] Start: 03-29-2022 End: 03-29-2022 Emergency department patient visit Chantelle Robins [facility] Start: 10-01-2021 ambulatory [facility] Start: 10-01-2021 Chart abstracting Sophia Ford RN [facility] Ob[facility]etric[facility]necology Start: 03-22-2019 End: 03-24-2019 Patient encounter procedure MIRIAN FORD [facility] Start: 02-03-2019 Evaluation and management of inpatient MIRIAN SLOANIMARAES [facility] Start: 02-03-2019 End: 02-06-2019 Evaluation and management of inpatient Mirian Ford Work Phone: [facility] Labor & Delivery Comment on above: Delivery of pregnanc y by section (Primary Dx) Start: 01-18-2019 End: 01-18-2019 Patient encounter procedure MIRIAN Gibson LILIANA [facility] Start: 11-24-2018 End: 11-25-2018 Patient encounter procedure MIRIAN Gibson [facility] Start: 08-17-2018 End: 08-18-2018 Patient encounter procedure MIRIAN Gibson [facility] Start: 08-07-2018 End: 08-07-2018 Patient encounter procedure MIRIAN Gibson [facility] Start: 06-30-2018 End: 06-30-2018 Patient encounter procedure MIRIAN Gibson [facility] Start: 03-25-2017 Ambulatory Mirian Ford Facili ty:[place] Start: 03-25-2017 End: 03-25-2017 Patient encounter procedure Mirian Ford Work Phone: [facility] Procedures Date Procedure Procedure Detail Performing Clinician Start: 11-15-2024 Procedure No Primary Care Physician Start: 11-15-2024 Hepatitis C antibody measurement No Primary Care Physician Comment on above: Reactive: Presumptiv e evidence of antibodies to HCV. Follow CDC recommendations for supplemental testing.Non-Reactive: Antibodies to HCV were not detected; does not exclude the possibility of exposure to HCVReactive Results are presumptive evidence of antibodies to HCV. Follow CDC recommendations for supplemental testing.Order confirmation testing: HCV Quant by PCR testing - HCVPCR #[id number] Non Reactive: < 0.8 Equivocal: >/= 0.8 to < 1.0 Reactive: >/= 1.0The CDC requires that a reactive/equivocal HCV antibody result be sent out for confirmation. HCV Quant by PCR testing. Start: 11-15-2024 Rubella IgG measurement No Primary Care Physician Comment on above: Antibody Result: Int erpretationNon-Reactive: Non- ImmuneReactive: ImmuneThe following results were obtained with the [employer] Rubella IgG assay. Results from assays of other manufacturers cannot be used interchangeably. Start: 11-15-2024 Serologic test for syphilis No Primary Care Physician Start: 11-15-2024 Total iron binding capacity measurement No Primary Care Physician Start: 10-18-2024 Liquid based cervica l cytology screening No Primary Care Physician Comment on above: NEGATIVE FOR INTRAEP ITHELIAL LESION OR MALIGNANCY. This liquid based Th inPrep(R) pap test was screened withthe use of an image guided system. Start: 10-18-2024 Urine culture No Primar y Care Physician Start: 05-20-2023 CT CERVICAL SPINE WO IV CONTRAST MARKUS MENDOZA Start: 05-20-2023 INITIATE REQUEST TO ANOTHER FACILITY MARKUS MENDOZA Start: 05-20-2023 CT ANGIO CHEST FOR PULMONARY EMBOLISM MARKUS MENDOZA Start: 05-20-2023 CT HEAD WO IV CONTRAST MARKUS MENDOZA Start: 05-20-2023 Ct cervical spine w/ o contrast material Markus Emmanuel Mendoza DO Work Phone: Start: 05-20-2023 HCG, URINE, QUALITATIVE MARKUS MENDOZA Start: 05-20-2023 URINALYSIS WITH REFL EX MICROSCOPIC MARKUS MENDOZA Start: 05-20-2023 Basic metabolic 2000 panel - Serum or Plasma MARKUS MENDOZA Start: 05-20-2023 CBC W Auto Different ial panel - Blood MARKUS MENDOZA Start: 05-20-2023 TROPONIN SERIES- (IN ITIAL, 1 HR) MARKUS MENDOZA Start: 05-20-2023 Ct angiography chest w/contrast/noncontrast Markus Lien Reji DO Work Phone: Start: 05-20-2023 Ct head/brain w/o co ntrast material Markus Emmanuel Reji DO Work Phone: Start: 05-20-2023 ECG 12-LEAD MARKUS MURGUIA Start: 05-20-[address] EPHEN RJEI Start: 05-20-2023 ORTHOSTATIC BLOOD PRESSURE MARKUS MENDOZA Start: 05-20-2023 Urnls dip stick/tabl et rgnt auto w/o microscopy Markus Mendoza DO Work Phone: Start: 05-20-2023 End: 05-20-2023 Basic metabolic panel calcium total Markus Mendoza DO Work Phone: Start: 05-20-2023 Troponin I.cardiac p megan - Serum or Plasma by High sensitivity method Markus Mendoza DO Work Phone: Start: 04-26-2022 Dilation and [...] section History of delivery, currently Dr. Adele Gan MD H/O: section History of delivery, currently Manuela Olea HEAD OF DIGITAL-C H/O: section History of delivery, currently Dr. Ghislaine Holliday DO H/O: section History of delivery, currently Bianca Perez CNM H/O: section History of delivery, currently Dr. Ghislaine Holliday DO H/O: surgery S/P dilatation a nd curettage No Primary Care Physician End: 06-09-2021 H/O: surgery S/P dilatation and curettage No Primary Care Physician Plan of Treatment Date Care Activity Detail Author Start: 2036 Zoster Vaccines (1 of 2) Zoste r Vaccines (1 of 2) [facility] Start: 02-06-2029 DTaP/Tdap/Td Vaccine s (2 - Td or Tdap) DTaP/Tdap/Td Vaccines (2 - Td or Tdap) [facility] Start: 06-24-2025 End: 06-24-2025 Patient encounter procedure 06/24/2025 1:15 PM EST Office Visit [facility] [address] [place] [id number] Thierry Diaz PA-C [address] [facility] [address] [place] [address] [facility] Start: 02-10-2025 CBC W Auto Different ial panel - Blood [facility] Start: 02-10-2025 Measurement of gluco se 2 hours after glucose challenge for glucose tolerance test [facility] Start: 02-10-2025 Serologic test for syphilis [facility] Start: 02-10-2025 [facility] Start: 11-15-2024 Procedure [facility] Start: 11-15-2024 CBC W Auto Different ial panel - Blood [facility] Start: 11-15-2024 Cobalamin (Vitamin B 12) [Mass/volume] in Serum or Plasma [facility] Start: 11-15-2024 Ferritin [Mass/volum e] in Serum or Plasma [facility] Start: 11-15-2024 Hepatitis C antibody measurement [facility] Start: 11-15-2024 Iron and Iron bindin g capacity panel - Serum or Plasma [facility] Start: 11-15-2024 Rubella IgG measurement [facility] Start: 11-15-2024 Serologic test for syphilis [facility] Start: 11-15-2024 Thiamine measurement [facility] Start: 11-15-2024 [facility] Start: 06-24-2024 End: 06-24-2025 25-hydroxyvitamin D3 [Mass/volume] in Serum or Plasma Vitamin D 25-Hydroxy,Total (for eval of Vitamin D levels) Lab Routine Vitamin D deficiency Expected: 06/24/2024 (Approximate), Expires: 06/24/2025 [facility] Work Phone: Comment on above: Expected: 06/24/2024 (Approximate), Expires: 06/24/2025 Start: 06-24-2024 End: 06-24-2025 CBC panel - Blood by Automated count CBC Lab Routine BMI < 18.5 Expected: 06/24/2024 (Approximate), Expires: 06/24/2025 [facility] Work Phone: Comment on above: Expected: 06/24/2024 (Approximate), Expires: 06/24/2025 Start: 06-24-2024 End: 06-24-2025 Cobalamin (Vitamin B12) [Mass/volume] in Serum or Plasma Vitamin B12 Lab Routine Fatigue, unspecified type Expected: 06/24/2024 (Approximate), Expires: 06/24/2025 [facility] Work Phone: Comment on above: Expected: 06/24/2024 (Approximate), Expires: 06/24/2025 Start: 06-24-2024 End: 06-24-2025 Comprehensive metabolic 2000 panel - Serum or Plasma Comprehensive Metabolic Panel Lab Routine BMI < 18.5 Expected: 06/24/2024 (Approximate), Expires: 06/24/2025 [facility] Service Area Work Phone: Comment on above: Expected: 06/24/2024 (Approximate), Expires: 06/24/2025 Start: 06-24-2024 End: 06-24-2025 TSH with reflex to Free T4 if abnormal TSH with reflex to Free T4 if abnormal Lab Routine Screening for thyroid disorder Expected: 06/24/2024 (Approximate), Expires: 06/24/2025 [facility] Work Phone: Comment on above: Expected: 06/24/2024 (Approximate), Expires: 06/24/2025 Start: 06-24-2024 End: 06-24-2024 Patient encounter procedure 06/24/2024 1:15 PM EST Office Visit [facility] [address] [place] [phone] Thierry Diaz PA-C [address] [facility] [address] [place] [id number] [facility] Start: 02-08-2024 COVID-19 Vaccine ( season) COVID-19 Vacc[address] () [facility] Start: 02-08-2024 Influenza vaccination Influenza Vacc ine (#1) [facility] Start: 02-07-2023 Influenza vaccination Influenza Vacc ine (#1) [facility] Start: 04-26-2022 Ambulation without limitation [facility] Work Phone: Start: 04-26-2022 Medical regimen orde rs management [facility] Work Phone: Start: 04-26-2022 Medication education [facility] Work Phone: Start: 04-26-2022 [facility] Start: 04-26-2022 Procedure discontinued [facility] Work Phone: Start: 04-26-2022 Taking patient vital signs [facility] Work Phone: Start: 04-26-2022 Vital signs measurements [facility] Work Phone: Start: 04-26-2022 [facility] Work Phone: Start: 04-29-2021 COVID-19 Vaccine (3 - Pfizer series) COVID-19 Vaccine (3 - Pfizer series) [facility] Start: 02-03-2019 End: 02-03-2019 Anesthesia Event 02/03/2019 Anesthesia Event Obstetrics Shaheed Kraus MD [address] [place] [id number] [facility] Labor & Delivery Start: 2007 Screening for malign ant neoplasm of cervix [facility] Start: 2005 Hepatitis B Vaccines (1 of 3 - 19+ 3-dose series) Hepatitis B Vaccines (1 of 3 - 19+ 3-dose series) [facility] Start: 2004 Hepatitis C screening Hepatitis C Sc reening [facility] Start: 1999 Varicella vaccination Varicell a Vaccines (1 of 2 - 13+ 2-dose series) [facility] Start: 1987 MMR Vaccines (1 of 1 - Standard series) MMR Vaccines (1 of 1 - Standard series) [facility] Start: 1987 Varicella vaccination Varicell a Vaccines (1 of 2 - 2-dose childhood series) [facility] Start: 1986 Hepatitis B Vaccines (1 of 3 - 3-dose series) Hepatitis B Vaccines (1 of 3 - 3-dose series) [facility] Start: 1986 HIV screening HIV Screening [facility] Start: 1986 Lip[address]id Panel [facility] Start: 1986 Yearly Adult Physical Yearly Adult P hysical [facility] CBC W Auto Different ial panel - Blood [facility] CBC W Auto Different ial panel - Blood [facility] Cobalamin (Vitamin B 12) [Mass/volume] in Serum or Plasma [facility] End: 05-20-2023 ECG 12 lead ECG 12 lead ECG STAT Once for 1 Occurrences starting 05/20/2023 until 05/20/2023 [facility] Service Area Work Phone: Comment on above: Once for 1 Occurrenc es starting 05/20/2023 until 05/20/2023 Erythrocyte mean corpuscular volume determination [facility] Erythrocyte mean corpuscular volume determination [facility] Ferritin [Mass/volum e] in Serum or Plasma [facility] Hematocrit [Volume Fraction] of Blood [facility] Hematocrit [Volume Fraction] of Blood [facility] Hemoglobin [Mass/vol ume] in Blood [facility] Hemoglobin [Mass/vol ume] in Blood [facility] Hepatitis B virus surface Ag [Presence] in Serum [facility] Hepatitis C antibody measurement [facility] Iron [Mass/mass] in Unspecified specimen [facility] Iron and Iron bindin g capacity panel - Serum or Plasma [facility] Iron saturation [Mas s Fraction] in Serum or Plasma [facility] Leukocytes [#/volume ] in Blood [facility] Leukocytes [#/volume ] in Blood [facility] Mean corpuscular hemoglobin concentration determination [facility] Mean corpuscular hemoglobin concentration determination [facility] Mean corpuscular hemoglobin determination [facility] Mean corpuscular hemoglobin determination [facility] Measurement of gluco se 2 hours after glucose challenge for glucose tolerance test [facility] Neutrophil count [facility] Neutrophil count [facility] Neutrophil percent differential count [facility] Neutrophil percent differential count [facility] Patient Education Loss Grieving ED MISCARRIAGE Incomplete ED Hematuria [facility] Work Phone: Patient referral [facility] Work Phone: Platelets [#/volume] in Blood [facility] Platelets [#/volume] in Blood [facility] Red blood cell count [facility] Red blood cell count [facility] Red cell distributio n width determination [facility] Red cell distributio n width determination [facility] Rubella IgG measurement [facility] Serologic test for syphilis [facility] Serologic test for syphilis [facility] Thiamine measurement [facility] Total iron binding capacity measurement [facility] Immunizations Immunization Date Immunization Notes Care Provider Fa nitin 02-06-2019 tetanus toxoid, reduced diphtheria toxoid, and acellular pertussis vaccine, adsorbed [facility] 02-03-2019 diphtheria, tetanus toxoids and acellular pertussis vaccine, unspecified formulation [facility] 02-03-2019 measles, mumps and rubella virus vaccine [facility] 02-03-2019 varicella zoster immune globulin Mirian Ford [facility] 02-13-2016 influenza, seasonal, injectable Thierry Diaz PA-C Work Phone: [facility] 02-13-2016 influenza virus vaccine, unspecified formulation Markus Mendoza DO Work Phone: [facility] Work Phone: Payers Date Payer Category Payer Self-pay 2021 Managed Care (Private) MEDICAL [facility] MED [id number] 2018 Unknown [id number] 2018 Unknown MMO MED [employer] S UPER[employer] PPO xxxxxxxxxxxx 2018-Present xxxxxxxxxxxx [id number] 2018 Unknown [id number] 1.13.385.2. [id number] 1986 Unknown [id number] 2.16.840.1.378024.3.579.2. 903 1986 Unknown [id number] 2.16.840.1.902796.3.579.2. 900 1986 Unknown [id number] 2.16.840.1.338586.3.579.2. 900 1986 Unknown [id number] 2.16.840.1.131381.3.579.2. 900 1986 Unknown [id number] 2.16.840.1.581836.3.579.2. 900 1986 Unknown [id number] 2.16.840.1.493070.3.579.2. 900 1986 Unknown [id number] 2.16.840.1.505078.3.579.2. 900 1986 Unknown [id number] 2.16.840.1.539163.3.579.2. 900 1986 Unknown [id number] 2.16.840.1.596754.3.579.2. 903 1986 Unknown [id number] 2.16.840.1.764884.3.579.2. 902 1986 Unknown [id number] 2.16.840.1.918945.3.579.2. 1069 1986 Unknown [id number] 2.16.840.1.508446.3.579.2. 1069 1986 Unknown [id number] 2.16.840.1.568180.3.579.2. 1069 1986 Unknown [id number] 2.16.840.1.315710.3.579.2. 903 1986 Unknown [id number] 2.16.840.1.846423.3.579.2. 903 1986 Unknown [id number] 2.16.840.1.442445.3.579.2. 1243 1986 Unknown [id number] 2.16.840.1.210441.3.579.2. 1244 1986 Unknown [id number] 2.16.840.1.940407.3.579.2. 1245 1986 Unknown [id number] 2.16.840.1.473832.3.579.2. 479 Unknown [id number] Unknown [id number] 2.16.840.1.163537.3.579.2. 462 Unknown [id number] 2.16.840.1.548630.3.579.2. 462 Unknown [id number] 2.16.840.1.628789.3.579.2. 462 Unknown [id number] 2.16.840.1.005227.3.579.2. 462 Unknown [id number] 2.16.840.1.389869.3.579.2. 462 Unknown [id number] 2.16.840.1.073467.3.579.2. 462 Unknown [id number] 2.16.840.1.394129.3.579.2. 462 Unknown [id number] 2.16.840.1.514852.3.579.2. 462 Unknown [id number] 2.16.840.1.372331.3.579.2. 462 Social History Date Type Detail Facility Start: 03-29-2017 End: 04-26-2022 Tobacco smoking status [facility] Unknown if ever smoked [facility] Work Phone: Start: 1985 Sex Assigned At Not on file [facility] Work Phone: Start: 02-06-2019 End: 10-08-2024 Tobacco smoking status GAIS Never smoker [facility] Start: 02-06-2019 Alcohol intake Ex-drinker (finding) [facility] Start: 02-04-2019 End: 05-23-2023 Tobacco use and exposure Smokeless tobacco non-user [facility] Start: 1985 Sex Assigned At Female [facility] Start: 05-23-2023 End: 2023 Gender identity Not on file [facility] Work Phone: Start: 05-10-2023 End: 06-24-2024 Exposure to SARS-CoV-2 (event) Not sure [facility] Work Phone: Start: 05-23-2023 End: 2023 History of [address] function [facility] Work Phone: Goals Date Patient Goal Desired Activity /State Mental Status Date Assessment Result Facility 04-26-2022 Cognitive function Level Of Consciousness Sedated [facility] Work Phone: 04-26-2022 Cognitive function Patient Ángel cooper Person;Place;Time [facility] Work Phone: Clinical Notes 05-20-2023 to 01-12-2025 Note Date & Type Note Facility 01-12-2025 Progress note [facility] 12-15-2024 Progress note [facility] 11-15-2024 Progress note [facility] 10-18-2024 Evaluation note Diagnosis Onset Date Resolution [...] of miscarriage, currently resolved October 18 10:17am [facility] Work Phone: 1(186) 210-948905-12-2025 Evaluation note* Diagnosis Onset Date Resolution Status [...] < 18.5) acute November 15, 2024 1:28pm [facility] Work Phone: 1(129) 936-503405-12-2025 Evaluation note* Diagnosis Onset Date Resolution Status [...] < 18.5) acute November 15, 2024 1:28pm AMA (advanced maternal age) multigravida 35+ acute December 15, 2024 10:53am Bartholin's gland cyst acute 2024 10:53am History of delivery , currently acute December 15 10:53am History of labor acute December 15, 2024 10:53am acute December 15, 2024 10:53am Supervision of high-risk acute December 15, 2024 1 0:53am Underweight (BMI < 18.5) acute December 15, 2024 10:53am [facility] Work Phone: 1(929) 381-253505-12-2025 Evaluation note* Diagnosis Onset Date Resolution Status [...] < 18.5) acute November 15, 2024 1:28pm AMA (advanced maternal age) multigravida 35+ acute December 15, 2024 10:53am Bartholin's gland cyst acute Ju 2024 10:53am History of delivery , currently acute December 15 10:53am History of labor acute December 15, 2024 10:53am acute December 15, 2024 10:53am Supervision of high-risk acute December 15, 2024 1 0:53am Underweight (BMI < 18.5) acute December 15, 2024 10:53am AMA (advanced maternal age) multigravida 35+ acute January 12 9:21am Bartholin's gland cyst acute 2024 9:21am History of delivery , currently acute January 12, 2 025 9:21am History of labor acute January 12, 2025 9:21am Placenta previa acute January 9:21am acute January 12 9:21am Supervision of high-risk acute January 12, 2025 9:21am Underweight (BMI < 18.5) acute January 12, 2025 9:21am [facility] Work Phone: 1(324) 620-252605-12-2025 Evaluation note* Diagnosis Onset Date Resolution Status [...] < 18.5) acute November 15, 2024 1:28pm AMA (advanced maternal age) multigravida 35+ acute December 15, 2024 10:53am Bartholin's gland cyst acute Ju 2024 10:53am History of delivery , currently acute December 15 10:53am History of labor acute December 15, 2024 10:53am acute December 15, 2024 10:53am Supervision of high-risk acute December 15, 2024 1 0:53am Underweight (BMI < 18.5) acute December 15, 2024 10:53am AMA (advanced maternal age) multigravida 35+ acute January 12 9:21am Bartholin's gland cyst acute 2024 9:21am History of delivery , currently acute January 12, 2 025 9:21am History of labor acute January 12, 2025 9:21am Placenta previa acute January 9:21am acute January 12 9:21am Supervision of high-risk acute January 12, 2025 9:21am Underweight (BMI < 18.5) acute January 12, 2025 9:21am AMA (advanced maternal age) multigravida 35+ acute February 10, 2025 3:18pm Bartholin's gland cyst acute Se pt2024 3:18pm History of delivery , currently acute February 3:18pm History of labor acute February 10, 2025 3:18pm Placenta previa acute February 10, 2025 3:18pm acute February 10, 2025 3:18pm Supervision of high-risk acute February 10, 2 025 3:18pm Underweight (BMI < 18.5) acute February 10, 2025 3:18pm [facility] Work Phone: 1(517) 600-390701-16-2025 History of Present illness Narrative* Thierry Diaz [...] daily, need to check level. Was following COYOTE HUNTER in [place], needs to schedule. Review of Systems Constitutional: [...] year or sooner prn. [facility]: 1(631) 619-366601-15-2024 History of Present illness Narrative* Thierry Diaz [...] Vit D levels then. [facility] Work Phone: 1(945) 215-323612-12-2023 Emergency department Note* Markus Mendoza, DO - 05/20/2023 7:46 AM EST HPI [...] or vomiting. Denies coughor shortness of breath. [place] Coma Scale Score: 15 Patient History No [...] I did speak to the hospitalist at [place], Dr. Mccullough, who stated that he would [...] the nurse practitioner for trauma services at [facility] and she agreed to accept the patient to the service of her attending physician, Dr. Bermudez. The patient will be transported by local [facility] in stabilized condition to [facility] emergency room to the service of Dr. Bermudez Critical care time for this patient excluding billable procedures is 48 minutes secondary to multiple repeat physical examinations, expert consultation, and interpretation of radiographic studies. Procedure Procedures Markus Mendoza DO 05/20/23 1249 documented in this [facility] Work Phone: 1(497) 982-813212-12-2023 Physician Emergency department Note* Markus Mendoza DO - 05/20/2023 7:46 AM EST HPI Chief Complaint Patient presents with Syncope Brought to ED per SUNNY bragg from home after syncopal episode. She reports that she passed out when she stood up from the toilet. started with N/V around 0300, but she denies any N/V/D. EKG done at Patient presents by [facility] after a syncopal event at home. States [...] or vomiting. Denies coughor shortness of breath. [place] Coma Scale Score: 15 Patient History No [...] ED Course & MDM Diagnoses as of 12/12/23 1245 Subdural hemorrhage (CMS/[facility]) Syncope and collapse Medical Decision Making Twelve-lead [...] I did speak to the hospitalist at [place], Dr. Mccullough, who stated that he would [...] the nurse practitioner for trauma services at [facility] and she agreed to accept the patient to the service of her attending physician, Dr. Bermudez. The patient will be transported by local squad in stabilized condition to [facility] emergency room to the service of Dr. Bermudez Critical care time for this patient excluding billable procedures is 48 minutes secondary to multiple repeat physical examinations, expert consultation, and interpretation of radiographic studies. Procedure Procedures Markus Mendoza DO 05/20/231244 [facility] Work Phone: Evaluation note* Diagnosis Onset Date Resolution Status Missed acute Missed acute [facility] Work Phone: Evaluation noteNo assessment information available [facility] Work Phone: Evaluation note* Diagnosis Subdural hemorrhage (CMS/HCC)- Primary Subdural hemorrhage Syncope and collapse documented in this encounter [facility] Work Phone: Evaluation note* Diagnosis Traumatic subdural hemorrhage with loss of consciousness, subsequent encounter- Primary documented in this encounter [facility] Work Phone: Evaluation note* Diagnosis Vitamin D deficiency- Primary Screening for thyroid disorder Fatigue, unspecified type BMI < 18.5 Seasonal allergies Allergic rhinitis, cause unspecified documented in this encounter [facility] Work Phone: Progress note Author Manuela Olea [facility] Note Date/Time November 15, 2024 1:52p m [facility] [address], [address] [place] [address] OFFICE VISIT Date of Service: 11/15/24 MR#: [id number] Acct: [id number] Name: ALYSSIA ROBERSON Rep #: [id number] : 1985 Provider: BLANCHE Olea Age/Sex: 39/F [place] [facility]: Signed Intake Vital Signs 05/10/22 16:08 10/18/24 10:21 11/15/24 13:36 Height 5 ft 4 in 5 ft 4 in 5 ft 4 in Weight: 106 lb 4 oz BMI 18.2 BP 103/70 Intake Visit Reasons: 14wk ob Chief Complaint: 14 Week OB Shingle Packer Required: No Is patient in pain?: No [...] 2 current occupational status: employed current occupation: [employer] current occupational exposures/hazards: No pets and animals: [...] physical activity do you participate in: none champ/yazidi: Cheondoism seatbelt use: always do you feel safe [...] Urine Glucose Negative Last Edit by Renée Mendoza on 11/15/24 13 :38 Office Urine Protein Negative Last Edit by Renée Mendoza on 11/15/24 13 :38 Coding Level of [...] 11/15/24 1352 <Electronically signed by Manuela ferrell HEAD OF DIGITAL HEAD OF DIGITAL-C> Date _ Manuela Olea HEAD OF DIGITAL HEAD OF DIGITAL-C Cosigner Signature: Date (if applicable) CC: ~ [facility] Work Phone: Progress note Author Ghislaine Dietz [facility] Note Date/Time December 15, 2024 11:25 [facility] [address] [place] [address], [address] [place] [address] OFFICE VISIT Date of Service: 12/15/24 MR#: [id number] Acct: [id number] Name: ALYSSIA ROBERSON Rep #: [id number] : 1985 Provider: Dr. Denisse Holliday DO Age/Sex: 39/F [place] [facility] [place]: Signed Intake Vital Signs 10/18/24 10:21 11/15/24 13:36 12/15/24 11:00 Height 5 ft 4 in 5 ft 4 in 5 ft 4 in Weight: 109 lb 2 oz BMI 18.7 BP 110/75 Intake Visit Reasons: 18wk ob Shingle Packer Required: No Is patient in pain?: No Allergies No Known Allergies Allergy (Verified 12/15/24 11:02) Medications ?Medication ?Instructions ?Recorded ?Confirmed ?Type PNV 153-FA 400 mcg-om3 35 mg-dha tab PO 04/23/2212/15 History 25 mg-epa 5 mg-fish oil chew [...] 2 current occupational status: employed current occupation: [employer] current occupational exposures/hazards: No pets and [...] physical activity do you participate in: none champ/yazidi: Cheondoism seatbelt use: always do you feel safe [...] Delivery Date: 04/09/22 Last Updated by: Lety Mejia, RN D&C HPI 18wk ob Details: ALYSSIA ROBERSON is a 39 year old who presents for routine OB visit. OB Visit KIMBERLEE Calculator Estimated Delivery Date Method Current WG Current Estimate 05/18/25 LMP (Certain) 18w 0d Expected Delivery Route/Plan plan RLTCS Specific Issue/Plans [...] NIPT today. Br US to confirm FHT 12/15/24 -?-?-?-?-?-?-?-?-?-?-?-?- 18w 0d 109 lb 2 oz 110/75 Nega tive -?-?-?-?-?-?-?-?-?-?-?-?- Negative 150 -?-?-?-?-?-?-?-?-?-?-?-?- JV- no lof, vagi nal bleeding, or cramping. did have some side pains that lasted 45 min a couple of times a week. ACOG First Trimester First Trimester: Desire for , Alcohol, Tobacco Cessation, Illicit/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 Drug/Substance Use, Intimate Partner Violence, Barriers to care, Unstable Housing, Communication Barriers, Environmental/Work Hazards, Anticipated Course of Care, Toxoplasmosis Precations, Use of Any medications, Sexual activity, Exercise, Dental Care, Sauna/Hot tub use, Seat Belt use, Childbirth classes/Hospital facilities, Travel, Indications for Ultrasound and Screening for Aneuploidy; Discussed Results POC Urinalysis 2 Dip (Clinic) Office Urine Glucose Negative Last Edit by Manuela Tolbert on 12/15/24 11:05 Office Urine Protein Negative Last Edit by Manuela Tolbert on 12/15/24 11:05 Coding Level of Care Code OB Routine Diagnoses Bartholin's gland cyst N75.0 History of labor Z87.51 Underweight (BMI < 18.5) R63.6; Z68.1 Multigravida of advanced maternal age in second trimester O09.522 Trimester: second trimester History of delivery, currently O34.219 Supervision of high risk in second trimester O09.92 Trimester: second trimester 18 weeks gestation of Z3A.18 Weeks of gestation: 18 weeks Assessment and Plan Assessment and Plan (1) Bartholin's gland cyst: Status: Acute Comment: left side asymptomatic reviewed precautions (2) History of labor: Status: Acute Comment: Last - 37weeks (3) Underweight (BMI < 18.5): Status: Acute Comment: BMI 18; B12, Thiamine & iron studies ordered w/NOB (4) AMA (advanced maternal age) multigravida 35+: Status: Acute Qualifiers: Trimester: second trimester Qualified Code(s): O09.522 - Supervision of elderly multigravida, second trimester (5) History of delivery, currently : Status: Acute Comment: x2 - desires repeat csec (6) Supervision of high-risk : Status: Acute Qualifiers: Trimester: second trimester Qualified Code(s): O09.92 - Supervision of high risk , unspecified, second trimester Comment: , KIMBERLEE 05/18/25, PC: Tay, : Palomo (7) : Status: Acute Qualifiers: Weeks of gestation: 18 weeks Qualified Code(s): Z3A.18 - 18 weeks gestation of Comment: Discussed genetic/carrier testing plan NIPT Orders: Orders POC Urinalysis 2 Dip (Clinic) Today 12/15/24 1125 <Electronically signed by Ghislaine Ibrahim DO> Date _ Ghislaine Holliday DO Cosigner Signature: Date (if applicable) CC: ~ [facility] Work Phone: Progress note Author Bianca Perez [facility] Note Date/Time January 12, 2025 9:4 2am [facility] [address] [place] [address], [place] [address] OFFICE VISIT Date of Service: 01/12/25 MR#: [id number] Acct: [id number] Name: ALYSSIA ROBERSON Rep #: [id number] : 1985 Provider: NEVAEH Perez Age/Sex: 39/F [place] [facility] [place]: Signed Intake Vital Signs 10/18/24 10:21 12/15/24 11:00 01/12/25 09:22 Height 5 ft 4 in 5 ft 4 in 5 ft 4 in Weight: 115 lb 5 oz BMI 19.8 BP 103/72 Intake Visit Reasons: 22wk ob Shingle Packer Required: No Is patient in pain?: No Feel stressed/tense/nervous/anxious/difficulty sleeping: not at all Allergies No Known Allergies Allergy (Verified 01/12/25 09:31) Medications ?Medication ?Instructions ?Recorded ?Confirmed ?Type PNV 153-FA 400 mcg-om3 35 mg-dha tab PO 04/23/2201/12 History 25 mg-epa 5 mg-fish oil chew [...] 2 current occupational status: employed current occupation: [employer] current occupational exposures/hazards: No pets and animals: [...] physical activity do you participate in: none champ/yazidi: Cheondoism seatbelt use: always do you feel safe at home: Yes additional social history: : Palomo- Principal History 4 Elective abortions Hx Para 2 Spontaneous abortions 1 Hx # Term Pregnancies Ectopic pregnancies Hx # Pregnancies Multiple births # of living children 2 Past Pregnancies Del. Date Name GA/Weeks Outcome Route Bth Weight Gen Labor Lgth Anes thesia Del Locatn Provider FOB 02/11/16 Rubén 41 [...] Updated by: Lety Mejia RN D&C HPI 22wk ob Details: ALYSSIA ROBERSON is a 39 year old who presents for routine OB visit. OB Visit KIMBERLEE Calculator Estimated Delivery Date Method Current WG Current Estimate 05/18/25 LMP (Certain) 22w 0d Expected Delivery Route/Plan plan RLTCS Specific Issue/Plans [...] NIPT today. Br US to confirm FHT 12/15/24 -?-?-?-?-?-?-?-?-?-?-?-?- 18w 0d 109 lb 2 oz 110/75 Nega tive -?-?-?-?-?-?-?-?-?-?-?-?- Negative 150 -?-?-?-?-?-?-?-?-?-?-?-?- JV- no lof, vagi nal bleeding, or cramping. did have some side pains that lasted 45 min a couple of times a week. 01/12/25 -?-?-?-?-?-?-?-?-?-?-?-?- 22w 0d 115 lb 5 oz 103/72 Nega tive -?-?-?-?-?-?-?-?-?-?-?-?- Negative 145 -?-?-?-?-?-?-?-?-?-?-?-?- kw- no vb/crampi ng. saida toro. reviewed US and previa. has follow up US scheduled. ACOG First Trimester First Trimester: Desire for [...] and no additional complaints, except as documented Eyes Reports system reviewed and no additional complaints, except as documented ENT Reports system reviewed and no additional complaints, except as documented Card Reports system reviewed and no additional complaints, except as documented Resp Reports system reviewed and no additional complaints, except as documented GI Reports system reviewed and no additional complaints, except as documented, Denies nausea and Denies vomiting Reports system reviewed and no additional complaints, except as documented Musc Reports system reviewed and no additional complaints, except as documented Skin/Breast Reports system reviewed and no additional complaints, except as documented Neuro Yes system reviewed and no additional complaints, except as documented Psych Reports system reviewed and no additional complaints, except as documented Endo Reports system reviewed and no additional complaints, except as documented Rob/Lymph Reports system reviewed and no additional complaints, except as documented Aller/Immun Reports system reviewed and no additional complaints, except as documented Exam Const General: cooperative, healthy appearing and no acute distress Orientation: alert, awake and oriented x3 Neck Neck: normal visual inspection and full ROM Resp Effort & Inspection: normal respiratory effort, able to speak in complete sentences and symmetric chest movement GI Inspection: normal to inspection Palpation: soft and other Other: gravid Skin General: no rashes or lesions noted Neuro General: patient alert, patient awake and patient oriented x3 Cognition: normal cognition Speech: speech normal Gait: normal gait Motor: muscle tone normal throughout Extrem General: normal to inspection and full ROM Psych Appearance: grossly normal Mental Status: mental status grossly normal Mood: congruent mood Affect: normal affect Speech and Movement: speech and movement normal Attitude: cooperative Thought Process: normal Thought Content: normal Judgment: judgment good Results POC Urinalysis 2 Dip (Clinic) Office Urine Glucose Negative Last Edit by Manuela Tolbert on 01/12/25 09:33 Office Urine Protein Negative Last Edit by Manuela Tolbert on 01/12/25 09:33 Coding Level of Care Code OB Routine Diagnoses Placenta previa O44.00 Bartholin's gland cyst N75.0 History of labor Z87.51 Underweight (BMI < 18.5) R63.6; Z68.1 Multigravida of advanced maternal age in second trimester O09.522 Trimester: second trimester History of delivery, currently O34.219 Supervision of high risk in second trimester O09.92 Trimester: second trimester 22 weeks gestation of Z3A.22 Weeks of gestation: 22 weeks Assessment and Plan Assessment and Plan (1) Placenta previa: Status: Acute Comment: repeat scan at 28 weeks. pelvic rest . (2) Bartholin's gland cyst: Status: Acute Comment: left side asymptomatic reviewed precautions (3) History of labor: Status: Acute Comment: Last - 37weeks (4) Underweight (BMI < 18.5): Status: Acute Comment: BMI 18; B12, Thiamine & iron studies ordered w/NOB (5) AMA (advanced maternal age) multigravida 35+: Status: Acute Qualifiers: Trimester: second trimester Qualified Code(s): O09.522 - Supervision of elderly multigravida, second trimester (6) History of delivery, currently : Status: Acute Comment: x2 - desires repeat csec (7) Supervision of high-risk : Status: Acute Qualifiers: Trimester: second trimester Qualified Code(s): O09.92 - Supervision of high risk , unspecified, second trimester Comment: , KIMBERLEE 05/18/25, PC: Tay, : Palomo (8) : Status: Acute Qualifiers: Weeks of gestation: 22 weeks Qualified Code(s): Z3A.22 - 22 weeks gestation of Comment: Discussed genetic/carrier testing plan NIPT Orders: Orders POC Urinalysis 2 Dip (Clinic) Today CBC W/Diff, Automated Today O09.92 - Supervision of high risk , unspecified, second trimester Glucose Challenge Gest 1H 50g Today O09.92 - Supervision of high risk , unspecified, second trimester, Z13.1 - Encounter for screening for diabetes mellitus HIV Today O09.92 - Supervision of high risk , unspecified, second trimester Syphilis Antibodies Today O09.92 - Supervision of high risk , unspecified, second trimester Plan Details Additional Comments: ACOG trimester education reviewed and updated. see problem list details for updated plan management information and see below for orders placed at this visit. GA appropriate handout given. 01/12/25 5971 <Electronically signed by Bianca ferrell CNM> Date _ Bianca Perez CNM Cosigner Signature: Date (if applicable) CC: ~ [facility] [employer] [facility] Work Phone: reason for referral (narrative)* Consultation (Routine) - Authorized Specialty Diagnoses / Procedures Referred By Jack parkinson Referred To Contact Primary Care Procedures Follow Up In Primary Care - Established Thierry Diaz PA-C [address] [facility], [place] [phone] Referral ID Status Reason Start Date Expiration Date V isits Requested Visits Authorized [id number] Authorized 2023 06/22/2024 1 1 [facility] Work Phone: reason for referral (narrative)* Consultation (Routine) - Authorized Specialty Diagnoses / Procedures Referred By Contoleg t Referred To Contact Primary Care Procedures Follow Up In Primary Care - Established Thierry Diaz PA-C [address] [facility], [facility] [address] [place] [phone] Phone: tel: fax: Referral ID Status Reason Start Date Expiration Date V isits Requested Visits Authorized [id number] Authorized 06/24/2024 06/24/2025 1 1 [facility] Work Phone: Recpwb for referral (narrative)No reason for referral information [facility] Work Phone: Summary Purpose Family History Relationship [...] Documents on File Type Date Recorded Patient Chief Ii Dispatcher Expl anation Advance Directives and Livin g Will 02/03/2019 9:10 PM Latest Code Status on File Code Status Date Activated Date Inactivated Comments Full Code 02/03/2019 11:02 PM Full Code 02/03/2019 9:19 PM 02/03/2019 11:02 PM Advance Directive Response Recorded Date/ Time Living Will No April 25, 8:11pm Power of Digital Sales Representative No April 25, 2022 8:11pm Hospital Course * Laxmi Bee, DO - 02/06/2019 10:30 AM EDT DISCHARGE SUMMARY Patient: Alyssia Roberson Date of : 1985 Site: [facility] Family Provider: Physician No Admit Date: 02/03/2019 [...] Family Provider: Physician No, Phone: None Address: [facility] Follow Up: No follow-up provider specified. Additional [...] AM EDT Thank you for delivery at [facility], it was a pleasure taking care of you. If you have anyquestions regarding your care please call the [facility] Maternity unit [phone]. * Additional Instructions* Janice Krishnan RN - [...] your doctor if you can take an nwqb-ncw-pmecnmg medicine. If you think your pain medicine [...] Log into your personal health record on [email or web address] and enter M806 in the Education box to learn more about Section: What to Expect at Home. Current as of: February 11, 2018 Content Version: 12.20055595-5707 [employer]. Care instructions adapted under license by your healthcare professional. If you have questions about a medical condition or this instruction, always ask your healthcare professional. [employer] disclaims any warranty or liability for your [...] eating high-fiber foods. Ask your doctor about hijc-pav-nzmtjza stool softeners. Cleanse yourself with a gentle [...] a few days after delivery. Plan for child care lead teacher if you have other children. Stay flexible [...] Log into your personal health record on [email or web address] and enter A461 in the Education box to learn more about After Your Delivery (the Period): Care Instructions. Current as of: February 11, 2018 Content Version: 12.20052017-2351 [employer]. Care instructions adapted under license by your healthcare professional. If you have questions about a medical condition or this instruction, always ask your healthcare professional. [employer] disclaims any warranty or liability for your use of this information. * Attachments The following attachments cannot be sent through Care Everywhere. * Baby-Friendly : General Info (Israeli) * Section: Post-op (Israeli) * (Israeli) documented in this encounter History of Present [...] NOB LMP 08/11October 18, 2024 10:17 am 14wk ob November [...] (BMI < 18.5) November 15, 2024 1:28pm Chief Complaint Admit Date Amb Documentation October 08, 2024 11:36a m Amb Documentation October 08, 2024 12:15p m NOB LMP 3/October 18, 2024 10:17 am 14wk ob November 15, 2024 1:28p m 18wk ob December 15, 2024 10:53 am Reason for Visit Admit Date AMA [...] (BMI < 18.5) November 15, 2024 1:28pm AMA (advanced maternal age) multigravida 35+ December 15, 2024 10:53am Bartholin's gland cyst December 15, 2024 10 :53am History of delivery, currently December 15, 2024 10:53am History of labor December 15, 2024 10:53am December 15, 2024 10:53 am Supervision of high-risk December 15, 2024 10:53am Underweight (BMI < 18.5) December 15, 2024 10:53am Chief Complaint Admit Date Amb Documentation October 08, 2024 11:36a m Amb Documentation October 08, 2024 12:15p m NOB LMP 08/11October 18, 2024 10:17 am 14wk ob November 15, 2024 1:28p m 18wk ob December 15, 2024 10:53 am 22wk ob January 12, 2025 9:2 1am Reason for Visit Admit Date AMA (advanced [...] (BMI < 18.5) November 15, 2024 1:28pm AMA (advanced maternal age) multigravida 35+ December 15, 2024 10:53am Bartholin's gland cyst December 15, 2024 10 :53am History of delivery, currently December 15, 2024 10:53am History of labor December 15, 2024 10:53am December 15, 2024 10:53 am Supervision of high-risk December 15, 2024 10:53am Underweight (BMI < 18.5) December 15, 2024 10:53am AMA (advanced maternal age) multigravida 35+ January 12, 2025 9:21am Bartholin's gland cyst January 12, 2025 9:21am History of delivery, currently January 12, 2025 9:21am History of labor January 12 9:21am Placenta previa January 12, 2025 9:2 1am January 12, 2025 9:2 1am Supervision of high-risk Augus 2024 9:21am Underweight (BMI < 18.5) January 12 9:21am Chief Complaint Admit Date NOB LMP 08/11October 18, 2024 10:17 am 14wk ob November 15, 2024 1:28p m 18wk ob December 15, 2024 10:53 am 22wk ob January 12, 2025 9:2 1am 26wk ob/glucose February 10, 2025 3:18pm Reason for Visit Admit Date AMA (advanced [...] (BMI < 18.5) November 15, 2024 1:28pm AMA (advanced maternal age) multigravida 35+ December 15, 2024 10:53am Bartholin's gland cyst December 15, 2024 10 :53am History of delivery, currently December 15, 2024 10:53am History of labor December 15, 2024 10:53am December 15, 2024 10:53 am Supervision of high-risk December 15, 2024 10:53am Underweight (BMI < 18.5) December 15, 2024 10:53am AMA (advanced maternal age) multigravida 35+ January 12, 2025 9:21am Bartholin's gland cyst January 12, 2025 9:21am History of delivery, currently January 12, 2025 9:21am History of labor January 12 9:21am Placenta previa January 12, 2025 9:2 1am January 12, 2025 9:2 1am Supervision of high-risk Augus t 2024 9:21am Underweight (BMI < 18.5) January 12 9:21am AMA (advanced maternal age) multigravida 35+ February 10, 2025 3:18pm Bartholin's gland cyst February 10 3:18pm History of delivery, currently February 10, 2025 3:18pm History of labor February 10, 2025 3:18pm Placenta previa February 10, 2025 3:18pm February 10, 2025 3:18pm Supervision of high-risk Septe 2024 3:18pm Underweight (BMI < 18.5) February 10, 2025 3:18pm Additional Source Comments INFORMATION SOURCE (unrecogn ized section and content) DATE CREATED AUTHOR 12/02/2017 [facility] DATE CREATED AUTHOR AUTHOR'S ORGANIZ ATION 02/04/2019 [facility] DATE CREATED AUTHOR AUTHOR'S ORGANIZ ATION 03/26/2019 [facility] DATE CREATED AUTHOR AUTHOR'S ORGANIZ ATION [facility]/03[facility]2021 [facility] DATE CREATED AUTHOR AUTHOR'S ORGANIZ ATION 04/26/2022 [facility] DATE CREATED AUTHOR AUTHOR'S ORGANIZ ATION 05/31/2022 [facility] DATE CREATED AUTHOR AUTHOR'S ORGANIZ ATION 09/01/2022 [facility] DATE CREATED AUTHOR AUTHOR'S ORGANIZ ATION 05/25/2023 [facility] DATE CREATED AUTHOR AUTHOR'S ORGANIZ ATION 02/25/2024 [facility] DATE CREATED AUTHOR AUTHOR'S ORGANIZ ATION 06/27/2024 [facility] DATE CREATED AUTHOR AUTHOR'S ORGANIZ ATION 06/29/2024 [facility] DATE CREATED AUTHOR AUTHOR'S ORGANIZ ATION 12/29/2024 [facility] DATE CREATED AUTHOR AUTHOR'S ORGANIZ ATION 02/06/2025 [facility] Reason for Visit (unrecogniz ed [...] Specialty Diagnoses / Procedures Referred By Jack t Referred To Contact Primary Care Procedures Follow Up In Primary Care - Established Thierry Diaz PA-C [address] [place] [address] Referral ID Status Reason Start Date Expiration Date V isits Requested Visits Authorized [id number] Authorized 05/23/2023 05/22/2024 1 1 Reason Comments pt here for 1 yr follow up Pt c/o freque nt bloody nose and allergy sx Specialty Diagnoses / Procedures Referred By Contoleg t Referred To Contact Primary Care Procedures Follow Up In Primary Care - Established Thierry Diaz PA-C [address] [facility], [place] [address] Phone: tel: fax: Referral ID Status Reason Start Date Expiration Date V isits Requested Visits Authorized [id number] Authorized 2023 06/22/2024 1 1 Mirian Ford [...] in this encounter Plan of Care - Jnaice Krishnan RN - 02/06/2019 1:21 PM EDTPlan [...] Problems: Delivery of by section Maude Roberson [[id number]] Delivery Anesthesia Method: Spinal Operative Delivery Forceps attempted?: No Vacuum extractor attempted?: Yes Number of pop offs: 1 Presentation Presentation: Vertex Information date/time: 8/28/19 2222 Gender: Female Delivery type: , Low Transverse Delivery location: OB Unit Initial disposition: Routine NB Care Details: Trial of labor?: No categorization: Repeat priority: Unscheduled Indications for : Prior , Low Transverse Skin incision type: Pfannenstiel Delivery Providers Delivering clinician: Mirian Ford MD Other personnel: Provider Role Covering Attending Resident Bed Placement Coordinator Delivery Nurse Registered Nurse Delivery Assist Nurse Practitioner Cord Vessels: 3 vessels Complications: None Delayed cord clamping?: No Cord blood obtained?: Refrigerator Cord segment obtained?: No Gases sent?: No Stem cell collection (by Provider)?: No Placenta Date/time: 02/03/20192222 Removal: Manual removal Appearance: Intact Disposition: Refrigerator Apgars Living status: Living Scoring Morocho: 0 [...] Minute: Apgars assigned by: Addis LOMAS RN Bolt Measurements Weight: 6 lb 8 oz (2948 [...] (33 y.o.) Date of Service: 02/03/2019 CSN: [id number] Procedure(s): SECTION Pre-Operative Diagnoses: * PRIOR C/S, labor Post-Operative Diagnoses:same Surgeon(s) and Role: * Mirian Ford MD - Primary Anesthesiologist: Shaheed Kraus MD Asbestos Shingle Inspector: Carole Adams RN Scrub Person: Chantelle Wilde [...] * Wound(s): * No LDAs found * Mriian Ford MD 02/03/2019 10:47 PM documented in this encounter Care Teams (unrecognized sec tion and content) Manager Paper Relationship Specialty Start Date End Date No, Physician [facility] PCP - General 02/03/19 Manager Paper Relationship Specialty Start Date End Date Generic Provider, No Assigned PcpMD [address] [place] [address] PCP - General Family Medicine 05/20/23 Manager Paper Relationship Specialty Start Date End Date Thierry Diaz PA-C [address] [facility], [place] [address] PCP - General Family Medicine 05/23/23 Manager Paper Relationship Specialty Start Date End Date Thierry Diaz PA-C [address] [facility] [place] [address] PCP - General Family Medicine 05/23/23 Thierry Diaz PA-C [address] [facility], [place] [address] [place] [phone] PCP - MMO ACO PCP 06/09/23 Team Status: Active Member Role Status Dates No Primary Care Physician Primary Care Provider Active Team Status: Active Member Role Status Dates No Primary Care Physician Primary Care Provider Active Start: October 08, 2024 Ltey Mejia RN Attending Provider Active St art: October 08, 2024 Team Status: Inactive Member Role Status Dates No Primary Care Physician Primary Care Provider Active Start: October 18, 2024 End: October 18, 2024 No Primary Care Physician Referring Provider Active Start: October 18, 2024 End: October 18, 2024 Dr. Adele Gan MD Attending Provider Active Start: October 18, 2024 End: October 18, 2024 Team Status: Inactive Member Role Status Dates No Primary Care Physician Primary Care Provider Active Start: October 18, 2024 End: October 18, 2024 Dr. Adele Gan MD Attending Provider Active Start: October 18, 2024 End: October 18, 2024 Dr. Adele Gan MD Referring Provider Active Start: October 18, 2024 End: October 18, 2024 Team Status: Inactive Member Role Status Dates No Primary Care Physician Primary Care Provider Active Start: November 15, 2024 End: November 15, 2024 No Primary Care Physician Referring Provider Active Start: November 15, 2024 End: November 15, 2024 Manuela Olea NP, [employer]-C Attending Provider Active Start: November 15, 2024 End: November 15, 2024 Team Status: Active Member Role Status Dates No Primary Care Physician Primary Care Provider Active Start: November 15, 2024 Dr. Adele Gan MD Attending Provider Active Start: November 15, 2024 Dr. Adele Gan MD Referring Provider Active Start: November 15, 2024 Team Status: Inactive Member Role Status Dates No Primary Care Physician Primary Care Provider Active Start: November 15, 2024 End: November 15, 2024 Dr. Adele Gan MD Attending Provider Active Start: November 15, 2024 End: November 15, 2024 Dr. Adele Gan MD Referring Provider Active Start: November 15, 2024 End: November 15, 2024 Team Status: Active Member Role/Relationship Status Dates No Primary Care Physician Primary Care Provider Active Team Status: Active Member Role/Relationship Status Dates No Primary Care Physician Primary Care Provider Active Start: October 08, 2024 Lety Mejia RN Attending Provider Active St art: October 08, 2024 Team Status: Active Member Role/Relationship Status Dates No Primary Care Physician Primary Care Provider Active Start: October 08, 2024 Lety Mejia RN Attending Provider Active St art: October 08, 2024 Team Status: Inactive Member Role/Relationship Status Dates No Primary Care Physician Primary Care Provider Active Start: October 18, 2024 End: October 18, 2024 No Primary Care Physician Referring Provider Active Start: October 18, 2024 End: October 18, 2024 Dr. Adele Gan MD Attending Provider Active Start: October 18, 2024 End: October 18, 2024 Team Status: Inactive Member Role/Relationship Status Dates No Primary Care Physician Primary Care Provider Active Start: October 18, 2024 End: October 18, 2024 Dr. Adele Gan MD Attending Provider Active Start: October 18, 2024 End: October 18, 2024 Dr. Adele Gan MD Referring Provider Active Start: October 18, 2024 End: October 18, 2024 Team Status: Inactive Member Role/Relationship Status Dates No Primary Care Physician Primary Care Provider Active Start: November 15, 2024 End: November 15, 2024 No Primary Care Physician Referring Provider Active Start: November 15, 2024 End: November 15, 2024 Manuela Olea NP, [employer]C Attending Provider Active Start: November 15, 2024 End: November 15, 2024 Team Status: Inactive Member Role/Relationship Status Dates No Primary Care Physician Primary Care Provider Active Start: November 15, 2024 End: November 15, 2024 Dr. Adele Gan MD Attending Provider Active Start: November 15, 2024 End: November 15, 2024 Dr. Adele Gan MD Referring Provider Active Start: November 15, 2024 End: November 15, 2024 Team Status: Inactive Member Role/Relationship Status Dates No Primary Care Physician Primary Care Provider Active Start: December 15, 2024 End: December 15, 2024 No Primary Care Physician Referring Provider Active Start: December 15, 2024 End: December 15, 2024 Dr. Ghislaine Holliday DO Attending Provider Activ e Start: December 15, 2024 End: December 15, 2024 Team Status: Inactive Member Role/Relationship Status Dates No Primary Care Physician Primary Care Provider Active Start: January 12, 2025 End: January 12, 2025 No Primary Care Physician Referring Provider Active Start: January 12, 2025 End: January 12, 2025 Bianca Perez CNM Attending Provider Active S tart: January 12, 2025 End: January 12, 2025 Team Status: Inactive Member Role/Relationship Status Dates No Primary Care Physician Primary Care Provider Active Start: October 18, 2024 End: October 18, 2024 No Primary Care Physician Referring Provider Active Start: October 18, 2024 End: October 18, 2024 Dr. Adele Gan MD Attending Provider Active Start: October 18, 2024 End: October 18, 2024 Team Status: Inactive Member Role/Relationship Status Dates No Primary Care Physician Primary Care Provider Active Start: October 18, 2024 End: October 18, 2024 Dr. Adele Gan MD Attending Provider Active Start: October 18, 2024 End: October 18, 2024 Dr. Adele Gan MD Referring Provider Active Start: October 18, 2024 End: October 18, 2024 Team Status: Inactive Member Role/Relationship Status Dates No Primary Care Physician Primary Care Provider Active Start: November 15, 2024 End: November 15, 2024 No Primary Care Physician Referring Provider Active Start: November 15, 2024 End: November 15, 2024 Manuela Olea NP, [employer]-C Attending Provider Active Start: November 15, 2024 End: November 15, 2024 Team Status: Inactive Member Role/Relationship Status Dates No Primary Care Physician Primary Care Provider Active Start: November 15, 2024 End: November 15, 2024 Dr. Adele Gan MD Attending Provider Active Start: November 15, 2024 End: November 15, 2024 Dr. Adele Gan MD Referring Provider Active Start: November 15, 2024 End: November 15, 2024 Team Status: Inactive Member Role/Relationship Status Dates No Primary Care Physician Primary Care Provider Active Start: December 15, 2024 End: December 15, 2024 No Primary Care Physician Referring Provider Active Start: December 15, 2024 End: December 15, 2024 Dr. Ghislaine Holliday , Attending Provider Activ e Start: December 15, 2024 End: December 15, 2024 Team Status: Inactive Member Role/Relationship Status Dates No Primary Care Physician Primary Care Provider Active Start: January 12, 2025 End: January 12, 2025 No Primary Care Physician Referring Provider Active Start: January 12, 2025 End: January 12, 2025 Bianca Perez CNM Attending Provider Active S tart: January 12, 2025 End: January 12, 2025 Team Status: Active Member Role/Relationship Status Dates No Primary Care Physician Primary Care Provider Active Start: February 10, 2025 Dr. Ghislaine Holliday , DO Attending Provider Activ e Start: February 10, 2025 Team Status: Inactive Member Role/Relationship Status Dates No Primary Care Physician Primary Care Provider Active Start: February 10, 2025 End: February 10, 2025 No Primary Care Physician Referring Provider Active Start: February 10, 2025 End: February 10, 2025 Dr. Ghislaine Holliday , Attending Provider Activ e Start: February 10, 2025 End: February 10, 2025 <item><item><item> Privacy Markings (unrecogniz ed section and [...] sectionGoals may be documented in an alternate sectionGoals may be documented in an alternate sectionGoals may be documented in an alternate sectionGoals may be documented in an alternate sectionGoals may be documented in an [...] BE BASED ON THE PRIMARY CLINICAL RECORDS. [facility] [employer] [facility]. provides no warranty or guarantee of the accuracy or completeness of information in this document.
== END | disposition home or self-care (01) ==
PROVIDERS: Advanced Practice Midwife; Visit Provider Obstetrics & Gynecology
DX: O09.92 Supervision of high risk pregnancy, unspecified, second trimester (principal); Z3A.00 Weeks of gestation of pregnancy not specified; Z13.1 Encounter for screening for diabetes mellitus
CPT/HCPCS: 36415; 82950; 85025; 86703; 86780

== ENCOUNTER → 2025-02-18 | Outpatient (CLI) | payer OTHER, SELFPAY ==
--- OUTSIDE RECORDS SUMMARY | 2025-02-18 06:53 | XMS RPT_ITS | CCD ---
Author Organization [facility] Care Team Providers Care Supervisor Doping Name Role Phone Liliana, Mirian F Unavailable Unavailable Liliana, Mirian F Unavailable Unavailable Liliana, Mirian F Unavailable Unavailable Liliana, Mirian F Unavailable Unavailable Unavailable Unavailable Unavailable LILIANA, MIRIAN F. S. Admitting Unavailabl e LILIANA, MIRIAN F. S. Attending Unavailabl e No, Physician Primary Care Provider Unavailabl e LILIANA, MIRIAN F. S. Attending Unavailabl e LILIANA, MIRIAN F. STiffanie Attending Unavailabl e LILIANA, MIRIAN F. S. Attending Unavailabl e LILIANA, MIRIAN F. S. Attending Unavailabl e LILIANA, MIRIAN F. S. Attending Unavailabl e LILIANA, MIRIAN F. S. Attending Unavailabl e LILIANA, MIRIAN F. S. Attending Unavailabl e NO, PHYSICIAN Primary Care Unavailable No, Physician Primary Care Provider Unavailabl KRISTY Jeter Attending Unavailable NO, PHYSICIAN Primary Care Unavailable Required, No Pcp Unavailable Unavailable Chantelle Robins Unavailable Unavailable Care Physician, No Primary Primary Care Provider Unavailable Care Physician, No Primary Referring Provider Un available Dr. Adele Gan Attending Provider Dr. Adele Gan Referring Provider Dr. Adele Gan Other Provider [phone] NO, PHYSICIAN Primary Care Unavailable DARSHAN PARDO Attending Unavailab Orlin Soriano Unavailable Unavailable Mandie Treviño Unavailable Unavailable Chantelle Robins Attending Unavailable Ms. Orlin Casarez Attending Unavaamanda Treviño, Ms. Mandie Oneil Attending Unavailable Generic Provider MD, No Assigned Pcp Primary Car e Provider Unavailable RITA BERMUDEZ Admitting Unavailable NO, PHYSICIAN Primary Care Unavailable SYSTEM, PROVIDER NOT IN Referring Unavaila ble RITA BERMUDEZ Consulting Unavailable RITA BERMUDEZ Admitting Unavailable NO, [...] available Isidra SANDRA, Dr. Angulo Attending Provider Dr. Adele Gan MD Referring Provider [phone] Manuela Hargrove Attending Provider [phone] Dr. Ghislaine Holliday DO Attending Provider NO PRIMARY CARE, MD Primary Care Unavailable THIERRY VELAZQUEZ Attending Unavailable ADELE GAN Referring Unavailabl e Bianca Perez CNM Attending Provider Care Physician, No Primary Primary Care Provider Unavailable Care Physician, No Primary Primary Care Unava ilable Ghislaine Holliday Attending Unavailabl e Care Physician, No Primary Referring Unava ilable Care Physician, No Primary Primary Care Unava ilable Bianca Perez Attending Unavailable Care Physician, No Primary Referring Unava ilable Care Physician, No Primary Primary Care Unava ilable Ghislaine Holliday Attending Unavailabl e Care Physician, No Primary Referring Unava ilable Care Physician, No Primary Primary Care Unava ilable Manuela Olea NP Attending Unavailable Care Physician, No Primary Referring Unava ilable Care Physician, No Primary Primary Care Unava ilable Adele Gan Attending Unavailable Care Physician, No Primary Referring Unava ilable Lety Mejia Attending Unavailable Care Physician, No Primary Primary Care Unava ilable Adele Gan Referring Unavailable Care Physician, No Primary Primary Care Unava ilable Adele Gan Attending Unavailable Adele Gan Referring Unavailable Care Physician, No Primary Primary Care Unava ilable Adele Gan Attending Unavailable Care Physician, No Primary Primary Care Unava ilable Ghislaine Holliday Attending UnavailBianca Nickerson Attending Unavailable Bianca Perez Referring [facility] Doctor, Out of Primary Care Unavailable Lety Mejia Attending Unavailable Care Physician, No Primary Primary Care Unava ilable Medications Current Medications Medication Drug Class(es) Dates [...] every week ergocalciferol (Vitamin D-2) 1.25 MG (31690 UT) capsule Indications: Vitamin D deficiency Take [...] needed ibuprofen (ADVIL,MOTRIN) tablet 800 mg Pnv No.656-Ui-Fl6-Qja-Luy-Nawh (3 sources) Start: 04-23-2022 Pnv No.587-Dy-Ps2-Acu-Yaa-Ftdd Active TABLET PO April 23, 2022 12:00am Pnv No.378-Jd-Ew4-Vos-Bjn-Ahwe 400 mcg-35 mg- 25 mg-5 mg tablet,chewable (6 sources) Start: 04-23-2022 Pnv No.983-Rv-Hy0-Lnr-Ykr-Uktl 400 mcg-35 mg- 25 mg-5 mg tablet,chewable Active {tbl} PO April 23, 2022 1:00am polymyxin b 21056 unt/ml / trimethoprim 1 mg/ml ophthalmic solution [...] every hour 60 mL/hr, Intravenous, Continuous, Starting [facility] 02/04/19 at 0000, L&D Post-Delivery [...] 02-03-2019 morphine 30 mg/30 mL (1 mg/mL) FINANCE INTERN - ADS Override Pull morphine air deodorizer servicer bolus from syringe 2 mg (1 source) [...] subdural hemorrhage, unspecified] Onset: 05-20-2023 05-20-2023 Chronic Diabetes or abnormal glucose tolerance complicating ; childbirth; or the puerperium (1 source) Abnormal glucose complicating ; Translations: [Abnormal glucose complicating ] Onset: 02-14-2025 Episodic Genitourinary symptoms and ill-defined conditions (9 sources) [...] : Palomo , KIMBERLEE 12/04/22, P C RubénEllen Palomo Other complications of (4 sources) Missed ; Translations: [Missed ] Episodic Other complications of (12 sources) H/O: miscarriage; Translations: [Supervision of with other poor reproductive or obstetric history, unspecified trimester] 10-18-2024 Episodic Comment on above: x1, Apr 2022 Other complications of (20 sources) Multigravida of advanced maternal age; Translations: [Supervision of elderly multigravida, unspecified trimester] 10-08-2024 Episodic Other complications of (2 sources) Supervision of high risk , unspecified, second [...] conditions (not mental disorders or infectious disease) (8 sources) Prothrombin time abnormal; Translations: [Abnormal coagulation [...] weeks gestation of ] Onset: 12-15-2024 Episodic Spontaneous (9 sources) Incomplete miscarriage; Translations: [...] out for unspecified reason] Onset: 03-29-2022 Episodic Residual codes; unclassified (1 source) 13 weeks gestation of ; Translations: [13 weeks gestation of ] Onset: 11-15-2024 Episodic Syncope (5 sources) Syncope and collapse; Translations: [Syncope and collapse] Onset: 05-20-2023 05-20-2023 Episodic Unclassified (1 source) Traumatic subdural hemorrhage with loss of consciousness status unknown, initial encounter; Translations: [Traumatic subdural hemorrhage with loss of consciousness status unknown, initial encounter] Onset: 05-20-2023 Unclassified (2 sources) Onset: 05-23-2023 Resolved: 06-24-2024 05-23-2023 Results Test Name Value Interpretation Reference Range Facility CBC W/Diff, Automatedon 09-0 Absolute Lymph 1.58 X10 3/uL Normal 0.83-4.51 [facility] Comment on above: Performed By: #### L 509.8002, L100.0100, L501.0250, L3890.6006 ####[facility] [address] [place], [address] Absolute Neut 7.9 X10 3/uL High 2.0-7.7 [facility] Comment on above: Performed By: #### L 509.8002, L100.0100, L501.0250, L3890.6006 ####[facility] [address] [place], [address] Basophils/100 WBC (Bld) 0.6 % Normal 0-1 [facility] Comment on above: Performed By: #### L 509.8002, L100.0100, L501.0250, L3890.6006 ####[facility] [address] [place], [address] Eosinophils/100 WBC (Bld) 3.5 % Normal 0-5 [facility] Comment on above: Performed By: #### L 509.8002, L100.0100, L501.0250, L3890.6006 ####[facility] [address] [place], [address] Erythrocyte distribution width (RBC) [Ratio] 13.6 % Normal 11.6-14.6 [facility] Comment on above: Performed By: #### L 509.8002, L100.0100, L501.0250, L3890.6006 ####[facility] [address] [place], [address] Hematocrit (Bld) [Volume fraction] 34.7 % Low 37-47 [facility] Comment on above: Performed By: #### L 509.8002, L100.0100, L501.0250, L3890.6006 ####[facility] [address] [place], [address] Hemoglobin (Bld) [Mass/Vol] 11.3 g/dL Low 12.0-15.0 [facility] Comment on above: Performed By: #### L 509.8002, L100.0100, L501.0250, L3890.6006 ####[facility] [address] [place], [address] IG% 1.800 High 0.0-0.9 [facility] Comment on above: Result Comment: IG% - Immature Granulocytes (promyelocytes, myelocytes and metamyelocytes) > 1% indicates that a LEFT SHIFT is Present. Performed By: #### L 509.8002, L100.0100, L501.0250, L3890.6006 ####[facility] [address] [place], [address] Lymphocytes/100 WBC (Bld) 14.6 % Low 19-41 [facility] Comment on above: Performed By: #### L 509.8002, L100.0100, L501.0250, L3890.6006 ####[facility] [address] [place], [address] MCH (RBC) [Entitic mass] 27.2 pg Normal 27.0-32.0 [facility] Comment on above: Performed By: #### L 509.8002, L100.0100, L501.0250, L3890.6006 ####[facility] [address] [place], [address] MCHC (RBC) [Mass/Vol] 32.6 g/dL Normal 32-36 [facility] Comment on above: Performed By: #### L 509.8002, L100.0100, L501.0250, L3890.6006 ####[facility] [address] [place], [address] MCV (RBC) [Entitic vol] 83.4 fL Normal 81-99 [facility] Comment on above: Performed By: #### L 509.8002, L100.0100, L501.0250, L3890.6006 ####[facility] [address] [place], [address] Monocytes/100 WBC (Bld) 6.1 % Normal 0-10 [facility] Comment on above: Performed By: #### L 509.8002, L100.0100, L501.0250, L3890.6006 ####[facility] [address] [place], [address] Neutrophils/100 WBC (Bld) 73.4 % High 47-70 [facility] Comment on above: Performed By: #### L 509.8002, L100.0100, L501.0250, L3890.6006 ####[facility] [address] [place], [address] Nucleated RBC (Bld) [#/Vol] 0 10*3/uL Normal 0-5 [facility] Comment on above: Performed By: #### L 509.8002, L100.0100, L501.0250, L3890.6006 ####[facility] [address] [place], [address] Platelet mean volume (Bld) [Entitic vol] 10.4 fL Normal 6.2-12.0 [facility] Comment on above: Performed By: #### L 509.8002, L100.0100, L501.0250, L3890.6006 ####[facility] [address] [place], [address] Platelets (Bld) [#/Vol] 242 10*3/uL Normal 150-450 [facility] Comment on above: Performed By: #### L 509.8002, L100.0100, L501.0250, L3890.6006 ####[facility] [address] [place], [address] RBC (Bld) [#/Vol] 4.16 10*6/uL Low 4.2-5.4 [facility] Comment on above: Performed By: #### L 509.8002, L100.0100, L501.0250, L3890.6006 ####[facility] [address] [place], [address] RDW SD 41.1 fl Normal 35.1-43.9 [facility] Comment on above: Performed By: #### L 509.8002, L100.0100, L501.0250, L3890.6006 ####[facility] [address] [place], [address] WBC (Bld) [#/Vol] 10.8 10*3/uL Normal 4.4-11.0 [facility] Comment on above: Performed By: #### L 509.8002, L100.0100, L501.0250, L3890.6006 ####[facility] [address] [place], [address] Glucose Challenge Gest 1H 50 [place]org[place] 02-10-2025 GLU GEST 50g 1H 176 mg/dL High 70-140 [facility] Comment on above: Performed By: #### L 509.8002, L100.0100, L501.0250, L3890.6006 ####[facility] [address] [place], [address] HIVon 02-10-2025 HIV Non-Reactive Normal Nonreactive [facility] Comment on above: Result Comment: Non- Reactive Reactive Repeatedly reactive samples must be confirmed according to CDC recommended confirmatory algorithms. The subresults for either HIVAG or AHIV can be used as an aid in the selection of the confirmation algorithm for reactive samples. Send out specimens with Reactive results to [facility] for confirmation. Order the HIV antibody detection and differentiation: lc#[id number] Performed By: #### L 509.8002, L100.0100, L501.0250, L3890.6006 ####[facility] [address] [place], [address] [employer] Office Visit Reporton 02-10-2025 Commercial [employer] Office Visit Report [facility] [address], [address] [place] [address] OFFICE VISIT Date of Service: 02/10/25 MR#: [id number] Acct: [id number] Name: ALYSSIA ROBERSON Rep #: [id number] : 1985 Provider: Dr. 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 Is patient in pain?: No Allergies No Known Allergies Allergy (Verified 02/10/25 14:56) Medications ???Medication ???Instructions ???Recorded ???Confirmed ???Type PNV 153-FA 400 mcg-om3 35 mg-dha tab PO 04/23/22 02/10/25 History 25 mg-epa 5 mg-fish oil chew [...] 2 current occupational status: employed current occupation: [employer] current occupational exposures/hazards: No pets and animals: [...] physical activity do you participate in: none champ/yarsani: Evangelical seatbelt use: always do you feel safe [...] Last Updated by: ADAN Carmona C HPI 26wk ob/glucose Details: ALYSSIA ROBERSON is a 39 year old who presents for routine OB visit. OB Visit KIMBERLEE Calculator Estimated Delivery Date Method Current WG Current Estimate 05/18/25 LMP (Certain) 26w 6d Expected Delivery Route/Plan plan RLTCS Specific Issue/Plans [...] 0d 109 lb 2 oz 110/75 Negative -?? (more content not included)... Normal [facility] Syphilis Antibodieson 2024 Syphilis Abs Non-Reactive Normal Nonreactive [facility] Comment on above: Performed By: #### L 509.8002, L100.0100, L501.0250, L3890.6006 ####[facility] [address] 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 [facility] [address], [address] [place] [address] OFFICE VISIT Date of Service: 01/12/25 MR#: [id number] Acct: [id number] Name: ALYSSIA ROBERSON Rep #: [id number] : 1985 Provider: NEVAEH Mayes ams Age/Sex: 39/F [place] [facility] [place]: Signed Intake Vital Signs 10/18/24 10:21 12/15/24 11:00 01/12/25 09:22 Height 5 ft 4 in 5 ft 4 in 5 ft 4 in Weight: 115 lb 5 oz BMI 19.8 BP 103/72 Intake Visit Reasons: 22wk ob Motion Picture Set Worker Required: No Is patient in pain?: No [...] 2 current occupational status: employed current occupation: [employer] current occupational exposures/hazards: No pets and [...] physical activity do you participate in: none champ/yarsani: Evangelical seatbelt use: always do you feel safe [...] Negative 160 -???-???-???-???-???-???- ???-???-???-???-???-???- MH-No VB. Fe abel pena. PN labs and NIPT today. Br US to confirm FHT 12/15/24 -???-???-???-???-???-???- ???-???-???-???-???-???- 18w 0d 109 lb 2 oz 110/75 Negative -???-?? (more content not included)... 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 Ghislaine Salinas DO Age/Sex: 39/F [place] [facility] [place]: Signed Intake Vital Signs 10/18/24 10:21 11/15/24 13:36 12/15/24 11:00 Height 5 ft 4 in 5 ft 4 in 5 ft 4 in Weight: 109 lb 2 oz BMI 18.7 BP 110/75 Intake Visit Reasons: 18wk ob Motion Picture Set Worker Required: No Is patient in pain?: No [...] 2 current occupational status: employed current occupation: [employer] current occupational exposures/hazards: No pets and animals: [...] physical activity do you participate in: none champ/yarsani: Evangelical seatbelt use: always do you feel safe [...] Last Updated by: ADAN Carmona C HPI 18wk ob Details: ALYSSIA ROBERSON [...] Negative 150 (more content not included)... Normal [facility] Vitamin B1, Thiamineon 11-24 VIT B1 THIAMINE 176.5 nmol/L Normal 66.5-200.0 [facility] Comment on above: Order Comment: Test( s) 903202-Qcg. B1, Whole Bloodwas developed and its performance characteristicsdetermined by [facility]. It has not been cleared or approvedby the Food and Drug Administration. Result Comment: Perf ormed at: [facility] [id number] County Administrator: Kristen Kothari MD, Phone: [phone] Performed By: #### L 503.6030, L503.0106, L503.6550, L3890.6006, L100.0100, BTS, L509.8002, L3890.6102, L509.4006, L3890.6301, L3300.8000 ####[facility] [address] [place], [place], [id number] Absolute lymphocyte countOrd ered By: Adele Gan on 11-15-2024 Lymphocytes Auto (Unsp spec) [#/Vol] 1.78 10*3/uL 0.83-4.51 [facility] Absolute neutrophil countOrd ered By: Adele Gan on 11-15-2024 Neutrophils (Bld) [#/Vol] 8.5 10*3/uL High 2.0-7.7 [facility] Automated lymphocyte count a s percentage of total leukocytesOrdered By: Adele Gan on 11-15-2024 Lymphocytes/100 WBC Auto (Unsp spec) 15.7 % Low 19-41 [facility] Basophil percentageOrdered B y: Adele Gan on 11-15-2024 Basophils/100 WBC (Bld) 0.4 % 0-1 [facility] CBC W/Diff, Automatedon Absolute Lymph 1.78 X10 3/uL Normal 0.83-4.51 [facility] Comment on above: Performed By: #### L 503.6030, L503.0106, L503.6550, L3890.6006, L100.0100, BTS, L509.8002, L3890.6102, L509.4006, L3890.6301, L3300.8000 #### [facility] [address] [place], [place], [id number] Absolute Neut 8.5 X10 3/uL High 2.0-7.7 [facility] Comment on above: Performed By: #### L 503.6030, L503.0106, L503.6550, L3890.6006, L100.0100, BTS, L509.8002, L3890.6102, L509.4006, L3890.6301, L3300.8000 #### [facility] [address] [place], [place], [address] Basophils/100 WBC (Bld) 0.4 % Normal 0-1 [facility] Comment on above: Performed By: #### L 503.6030, L503.0106, L503.6550, L3890.6006, L100.0100, BTS, L509.8002, L3890.6102, L509.4006, L3890.6301, L3300.8000 #### [facility] [address] [place], [address] Eosinophils/100 WBC (Bld) 2.8 % Normal 0-5 [facility] Comment on above: Performed By: #### L 503.6030, L503.0106, L503.6550, L3890.6006, L100.0100, BTS, L509.8002, L3890.6102, L509.4006, L3890.6301, L3300.8000 #### [facility] [address] [place], [address] Erythrocyte distribution width (RBC) [Ratio] 13.5 % Normal 11.6-14.6 [facility] Comment on above: Performed By: #### L 503.6030, L503.0106, L503.6550, L3890.6006, L100.0100, BTS, L509.8002, L3890.6102, L509.4006, L3890.6301, L3300.8000 #### [facility] [address] [place], [address] Hematocrit (Bld) [Volume fraction] 38.8 % Normal 37-47 [facility] Comment on above: Performed By: #### L 503.6030, L503.0106, L503.6550, L3890.6006, L100.0100, BTS, L509.8002, L3890.6102, L509.4006, L3890.6301, L3300.8000 #### [facility] [address] [place], [address] Hemoglobin (Bld) [Mass/Vol] 12.9 g/dL Normal 12.0-15.0 [facility] Comment on above: Performed By: #### L 503.6030, L503.0106, L503.6550, L3890.6006, L100.0100, BTS, L509.8002, L3890.6102, L509.4006, L3890.6301, L3300.8000 #### [facility] [address] [place], [address] IG% 0.500 Normal 0.0-0.9 [facility] Comment on above: Result Comment: IG% - Immature Granulocytes (promyelocytes, myelocytes and metamyelocytes) > 1% indicates that a LEFT SHIFT is Present. Performed By: #### L 503.6030, L503.0106, L503.6550, L3890.6006, L100.0100, BTS, L509.8002, L3890.6102, L509.4006, L3890.6301, L3300.8000 #### [facility] [address] [facility] [place], [address] Lymphocytes/100 WBC (Bld) 15.7 % Low 19-41 [facility] Comment on above: Performed By: #### L 503.6030, L503.0106, L503.6550, L3890.6006, L100.0100, BTS, L509.8002, L3890.6102, L509.4006, L3890.6301, L3300.8000 #### [facility] [address] [facility] [place], [address] MCH (RBC) [Entitic mass] 27.2 pg Normal 27.0-32.0 [facility] Comment on above: Performed By: #### L 503.6030, L503.0106, L503.6550, L3890.6006, L100.0100, BTS, L509.8002, L3890.6102, L509.4006, L3890.6301, L3300.8000 #### [facility] [address] [place], [address] MCHC (RBC) [Mass/Vol] 33.2 g/dL Normal 32-36 [facility] Comment on above: Performed By: #### L 503.6030, L503.0106, L503.6550, L3890.6006, L100.0100, BTS, L509.8002, L3890.6102, L509.4006, L3890.6301, L3300.8000 #### [facility] [address] [place], [address] MCV (RBC) [Entitic vol] 81.9 fL Normal 81-99 [facility] Comment on above: Performed By: #### L 503.6030, L503.0106, L503.6550, L3890.6006, L100.0100, BTS, L509.8002, L3890.6102, L509.4006, L3890.6301, L3300.8000 #### [facility] [address] [place], [address] Monocytes/100 WBC (Bld) 6.1 % Normal 0-10 [facility] Comment on above: Performed By: #### L 503.6030, L503.0106, L503.6550, L3890.6006, L100.0100, BTS, L509.8002, L3890.6102, L509.4006, L3890.6301, L3300.8000 #### [facility] [address] [place], [address] Neutrophils/100 WBC (Bld) 74.5 % High 47-70 [facility] Comment on above: Performed By: #### L 503.6030, L503.0106, L503.6550, L3890.6006, L100.0100, BTS, L509.8002, L3890.6102, L509.4006, L3890.6301, L3300.8000 #### [facility] [address] [place], [address] Nucleated RBC (Bld) [#/Vol] 0 10*3/uL Normal 0-5 [facility] Comment on above: Performed By: #### L 503.6030, L503.0106, L503.6550, L3890.6006, L100.0100, BTS, L509.8002, L3890.6102, L509.4006, L3890.6301, L3300.8000 #### [facility] [address] [place], [id number] Platelet mean volume (Bld) [Entitic vol] 10.7 fL Normal 6.2-12.0 [facility] Comment on above: Performed By: #### L 503.6030, L503.0106, L503.6550, L3890.6006, L100.0100, BTS, L509.8002, L3890.6102, L509.4006, L3890.6301, L3300.8000 #### [facility] Laboratory [address] [place], [place], [id number] (882) Platelets (Bld) [#/Vol] 256 10*3/uL Normal 150-450 [facility] Comment on above: Performed By: #### L 503.6030, L503.0106, L503.6550, L3890.6006, L100.0100, BTS, L509.8002, L3890.6102, L509.4006, L3890.6301, L3300.8000 #### [facility] [address] [place], [address] RBC (Bld) [#/Vol] 4.74 10*6/uL Normal 4.2-5.4 [facility] Comment on above: Performed By: #### L 503.6030, L503.0106, L503.6550, L3890.6006, L100.0100, BTS, L509.8002, L3890.6102, L509.4006, L3890.6301, L3300.8000 #### [facility] [address] [place], [address] RDW SD 40.1 fl Normal 35.1-43.9 [facility] Comment on above: Performed By: #### L 503.6030, L503.0106, L503.6550, L3890.6006, L100.0100, BTS, L509.8002, L3890.6102, L509.4006, L3890.6301, L3300.8000 #### [facility] [address] [place], [place], [id number] WBC (Bld) [#/Vol] 11.4 10*3/uL High 4.4-11.0 [facility] Comment on above: Performed By: #### L 503.6030, L503.0106, L503.6550, L3890.6006, L100.0100, BTS, L509.8002, L3890.6102, L509.4006, L3890.6301, L3300.8000 #### [facility] [address] [place], [place], [id number] Eosinophil percentageOrdered By: Adele Gan on 11-15-2024 Eosinophils/100 WBC (Bld) 2.8 % 0-5 [facility] Erythrocyte distribution wid th ratioOrdered By: Adele Gan on 11-15-2024 Erythrocyte distribution width (RBC) [Ratio] 13.5 % 11.6-14.6 [facility] Erythrocyte distribution wid th standard deviationOrdered By: Adele Gan on 11-15-2024 Erythrocyte distribution width (RBC) [Ratio] 40.1 fl 35.1-43.9 [facility] Ferritinon 11-15-2024 Ferritin [Mass/Vol] 18 ng/mL Low 22-378 [facility] Comment on above: Performed By: #### L 503.6030, L503.0106, L503.6550, L3890.6006, L100.0100, BTS, L509.8002, L3890.6102, L509.4006, L3890.6301, L3300.8000 #### [facility] [address] [place], [place], [id number] HIVon 11-15-2024 HIV Non-Reactive Normal Nonreactive [facility] Comment on above: Result Comment: Non- Reactive Reactive Repeatedly reactive samples must be confirmed according to CDC recommended confirmatory algorithms. The subresults for either HIVAG or AHIV can be used as an aid in the selection of the confirmation algorithm for reactive samples. Send out specimens with Reactive results to [facility] for confirmation. Order the HIV antibody detection and differentiation: lc#[id number] Performed By: #### L 503.6030, L503.0106, L503.6550, L3890.6006, L100.0100, BTS, L509.8002, L3890.6102, L509.4006, L3890.6301, L3300.8000 #### [facility] [address] [place], [place], [address] Hematocrit Auto (Bld) [Volum e fraction]Ordered By: Adele Gan on 11-15-2024 Hematocrit (Bld) [Volume fraction] 38.8 % 37-47 [facility] Hemoglobin measurementOrdere d By: Adele Gan on 11-15-2024 Hemoglobin (Bld) [Mass/Vol] 12.9 g/dL 12.0-15.0 [facility] Hepatitis C Antibodyon 11-15 Hepatitis C Ab Non-Reactive Normal Nonreactive [facility] Comment on above: Result Comment: Reac tive: Presumptive evidence of antibodies to HCV. Follow CDC recommendations for supplemental testing. Non-Reactive: Antibodies to HCV were not detected; does not exclude the possibility of exposure to HCV Reactive Results are presumptive evidence of antibodies to HCV. Follow CDC recommendations for supplemental testing. Order confirmation testing: HCV Quant by PCR testing - HCVPCR lc#[id number] Non Reactive: < 0.8 Equivocal: >/= 0.8 to < 1.0 Reactive: >/= 1.0 The CDC requires that a reactive/equivocal HCV antibody result be sent out for confirmation. HCV Quant by PCR testing. Performed By: #### L 503.6030, L503.0106, L503.6550, L3890.6006, L100.0100, BTS, L509.8002, L3890.6102, L509.4006, L3890.6301, L3300.8000 ####[facility] [address] [place], [place], [id number] Immature granulocytes/100 WB C Auto (Bld)Ordered By: Adele Gan on 11-15-2024 Immature granulocytes/100 WBC (Bld) 0.500 % 0.0-0.9 [facility] Comment on above: IG% - Immature Granu locytes (promyelocytes, myelocytes and metamyelocytes) > 1% indicates that a LEFT SHIFT is Present. Iron measurement (mass/mass) Ordered By: Adele Gan on 11-15-2024 Iron (Unsp spec) [Mass/Mass] 61 ug/dL 50-170 [facility] Iron+Iron Binding Capacityon 11-15-2024 Iron [Mass/Vol] 61 ug/dL Normal 50-170 [facility] Comment on above: Performed By: #### L 503.6030, L503.0106, L503.6550, L3890.6006, L100.0100, BTS, L509.8002, L3890.6102, L509.4006, L3890.6301, L3300.8000 #### [facility] [address] [place], [address] IRON SATURATION 14.0 Normal 13-59 [facility] Comment on above: Performed By: #### L 503.6030, L503.0106, L503.6550, L3890.6006, L100.0100, BTS, L509.8002, L3890.6102, L509.4006, L3890.6301, L3300.8000 #### [facility] [address] [place], [address] (340 TIBC 442 ug/dL Normal 250-450 [facility] Comment on above: Performed By: #### L 503.6030, L503.0106, L503.6550, L3890.6006, L100.0100, BTS, L509.8002, L3890.6102, L509.4006, L3890.6301, L3300.8000 #### [facility] [address] [place], [place], [id number] UIBC 381 ug/dL Normal 228-428 [facility] Comment on above: Performed By: #### L 503.6030, L503.0106, L503.6550, L3890.6006, L100.0100, BTS, L509.8002, L3890.6102, L509.4006, L3890.6301, L3300.8000 #### [facility] [address] [facility] [place], [address] L3890.6102on 11-15-2024 HEP B Surf Ag Non-Reactive Normal Nonreactive [facility] Comment on above: Result Comment: Reac tive: Presumptive evidence of HBV. Repeatedly reactive samples must be confirmed using a neutralization test ([employer] HBsAg Confirmatory Test) Non-Reactive: HBsAg not detected; does not exclude the possibility of exposure to HBV Performed By: #### L 503.6030, L503.0106, L503.6550, L3890.6006, L100.0100, BTS, L509.8002, L3890.6102, L509.4006, L3890.6301, L3300.8000 ####[facility] [address] [facility] [place], [address] L509.4006on 11-15-2024 Rubella IgG REAC Normal Nonreactive [facility] Comment on above: Result Comment: Anti body Result: Interpretation Non-Reactive: Non-Immune Reactive: Immune The following results were obtained with the [employer] Rubella IgG assay. Results from assays of other manufacturers cannot be used interchangeably. Performed By: #### L 503.6030, L503.0106, L503.6550, L3890.6006, L100.0100, BTS, L509.8002, L3890.6102, L509.4006, L3890.6301, L3300.8000 #### [facility] [address] [place], [place], [phone] Laboratory - Chemistry and C hemistry - challengeOrdered By: Manuela Olea on 11-15-2024 Glucose Ql (U) Negative [facility] Laboratory - Microbiology an d Antimicrobial susceptibilityOrdered By: Adele Gan on 11-15-2024 HBV surface Ag Ql (S) Non-Reactive Nonreactive [facility] Comment on above: Reactive: Presumptiv e evidence of HBV. Repeatedly reactive samples must be confirmed using a neutralization test ([employer] HBsAg Confirmatory Test)Non-Reactive: HBsAg not detected; does not exclude the possibility of exposure to HBV Laboratory - UrinalysisOrder ed By: Manuela Olea on 11-15-2024 Protein Ql (U) Negative [facility] MCV (mean corpuscular volume ) determinationOrdered By: Adele Gan on 11-15-2024 MCV (RBC) [Entitic vol] 81.9 fL 81-99 [facility] Mean corpuscular hemoglobin (MCH) determinationOrdered By: Adele Gan on 11-15-2024 MCH (RBC) [Entitic mass] 27.2 pg 27.0-32.0 [facility] Mean corpuscular hemoglobin concentration (MCHC) determinationOrdered By: Adele Gan on 11-15-2024 MCHC (RBC) [Mass/Vol] 33.2 g/dL 32-36 [facility] Mean platelet volume determi nationOrdered By: Adele Gan on 11-15-2024 Platelet mean volume (Bld) [Entitic vol] 10.7 fL 6.2-12.0 [facility] Monocyte percentageOrdered B y: Adele Gan on 11-15-2024 Monocytes/100 WBC (Bld) 6.1 % 0-10 [facility] NATERAon 11-15-2024 NATURA SEE SCANNED REPORT Normal [facility] Comment on above: Performed By: #### L 900.0098 ####[facility] [address] [place], [address] Neutrophil percentageOrdered By: Adele Nickersonriri on 11-15-2024 Neutrophils/100 WBC (Bld) 74.5 % High 47-70 [facility] No Panel InformationOrdered By: Adele Alcalahilda on 11-15-2024 HIV (1&2) Antibody Non-Reactive Nonreactive [facility] Comment on above: Non-ReactiveReactive Repeatedly reactive samples must be confirmed according to CDC recommended confirmatory algorithms. The subresults for either HIVAG or AHIV can be used as an aid in the selection of the confirmation algorithm for reactive samples.Send out specimens with Reactive results to [facility] for confirmation.Order the HIV antibody detection and differentiation: #[id number] Unsaturated Iron Binding Capacity 381 ug/dL 228-428 [facility] Nucleated red blood cell per centageOrdered By: Adele Gan on 11-15-2024 Nucleated RBC/100 WBC (Bld) [Ratio] 0 % 0-5 [facility] [employer] Office Visit Reporton 11-15-2024 Commercial Hel[employer] Office Visit Report [facility] [address], [address] [place] [address] OFFICE VISIT Date of Service: 11/15/24 MR#: [id number] Acct: [id number] Name: ALYSSIA ROBERSON Rep #: [id number] : 1985 Provider: BLANCHE hendricks Age/Sex: 39/F Location: [facility] [place] Status: Signed Intake Vital Signs 05/10/22 16:08 10/18/24 10:21 11/15/24 13:36 Height 5 ft 4 in 5 ft 4 in 5 ft 4 in Weight: 106 lb 4 oz BMI 18.2 BP 103/70 Intake Visit Reasons: 14wk ob Chief Complaint: 14 Week OB Motion Picture Set Worker Required: No Is patient in pain?: No [...] 2 current occupational status: employed current occupation: [employer] current occupational exposures/hazards: No pets and [...] physical activity do you participate in: none champ/yarsani: Evangelical seatbelt use: always do you feel safe [...] Drug/Substance Us (more content not included)... Normal [facility] Platelet countOrdered By: Maddie Gan on 11-15-2024 Platelets (Bld) [#/Vol] 256 10*3/uL 150-450 [facility] RBC Auto (Bld) [#/Vol]Ordere d By: Adele Gan on 11-15-2024 RBC (Bld) [#/Vol] 4.74 10*6/uL 4.2-5.4 [facility] Serum or plasma ferritin kamari surement (mass/volume)Ordered By: Adele Gan on 11-15-2024 Ferritin [Mass/Vol] 18 ng/mL Low 22-378 [facility] Serum or plasma iron saturat ion measurement (mass fraction)Ordered By: Adele Gan on 11-15-2024 Iron saturation [Mass fraction] 14.0 % 13-59 [facility] Serum or plasma thiamine kamari surement (mass/volume)Ordered By: Adele Gan on 11-15-2024 Thiamine [Mass/Vol] 176.5 nmol/L 66.5-200.0 [facility] Comment on above: Performed at: [address] [id number] Director: Kristen Kothari MD, Phone: [phone] Syphilis Antibodieson 2024 Syphilis Abs Non-Reactive Normal Nonreactive [facility] Comment on above: Performed By: #### L 503.6030, L503.0106, L503.6550, L3890.6006, L100.0100, BTS, L509.8002, L3890.6102, L509.4006, L3890.6301, L3300.8000 #### [facility] [address] [place], [place], [id number] Type AND Screenon 11-15-2024 ABO and Rh group Nom (Bld) Blood group A Rh(D) positive Normal [facility] Comment on above: Order Comment: PN Performed By: #### L 503.6030, L503.0106, L503.6550, L3890.6006, L100.0100, BTS, L509.8002, L3890.6102, L509.4006, L3890.6301, L3300.8000 ####[facility] [address] [place], [place], [address] Vitamin B12on 11-15-2024 Cobalamin (Vitamin B12) [Mass/Vol] 524 pg/mL Normal 180-4 [facility] Comment on above: Performed By: #### L 503.6030, L503.0106, L503.6550, L3890.6006, L100.0100, BTS, L509.8002, L3890.6102, L509.4006, L3890.6301, L3300.8000 #### [facility] [address] [place], [place], [address] Vitamin B12 ser/plasOrdered By: Adele Gan on 11-15-2024 Cobalamin (Vitamin B12) [Mass/Vol] 524 pg/mL 180-4 [facility] White blood cell (WBC) count Ordered By: Adele Gan on 11-15-2024 WBC (Bld) [#/Vol] 11.4 10*3/uL High 4.4-11.0 [facility] Chlamydia/GC LASHON aptimaon CHLAMY,NUC ACID Negative Normal Negative [facility] Comment on above: Performed By: #### M 100.2200, L7000.1800, L7400.0280 ####[facility] [address] [place], [address] GC BY NUC ACID Negative Normal Negative [facility] Comment on above: Result Comment: Perf ormed at: =G - [facility] [address] [place] [id number] County Administrator: Kelsie Hartman MD, Phone: [phone] Performed By: #### M 100.2200, L7000.1800, L7400.0280 ####[facility] [address] [place], [address] PAP IG HPV APTIMA 16/18,45on 10-21-2024 ADEQ Comment Normal . [facility] Comment on above: Order Comment: Speci men Comment: [id number] Comment: No. of containers..01 ThinPrep Vial Result Comment: Sati sfactory for evaluation. No endocervical component is identified. Performed By: #### M 100.2200, L7000.1800, L7400.0280 ####[facility] [address] [place], [address] COMM . Normal . [facility] Comment on above: Order Comment: Speci men Comment: [id number] Comment: No. of containers..01 ThinPrep Vial Performed By: #### M 100.2200, L7000.1800, L7400.0280 ####[facility] [address] [place], [address] COMMENT Comment Normal . [facility] Comment on above: Order Comment: Speci men Comment: [id number] Comment: No. of containers..01 ThinPrep Vial Result Comment: This liquid based ThinPrep(R) pap test was screened with the use of an image guided system. Performed By: #### M 100.2200, L7000.1800, L7400.0280 ####[facility] [address] [place], [address] DIAG Comment Normal . [facility] Comment on above: Order Comment: Speci men Comment: [id number] Comment: No. of containers..01 ThinPrep Vial Result Comment: NEGA TIVE FOR INTRAEPITHELIAL LESION OR MALIGNANCY. Performed By: #### M 100.2200, L7000.1800, L7400.0280 ####[facility] [address] [place], [address] HPV APTIMA, HR Negative Normal Negative [facility] Comment on above: Order Comment: Speci men Comment: [id number] Comment: No. of containers..01 ThinPrep Vial Result Comment: This nucleic acid amplification test detects fourteen high- risk HPV types (16,18,31,33,35,39,45,51,52,56,58,59,66,68) without differentiation. Performed By: #### M 100.2200, L7000.1800, L7400.0280 ####[facility] [address] [place], [address] HPV [place] Rfx Comment Normal . [facility] Comment on above: Order Comment: Speci men Comment: [id number] Comment: No. of containers..01 ThinPrep Vial Result Comment: Crit eria not met, HPV Genotype not performed. Performed at: - [address] [id number] County Administrator: Kelsie Hartman MD, Phone: [phone] Performed at: = - [facility] [id number] County Administrator: Kelsie Hartman MD, Phone: [phone] Performed By: #### M 100.2200, L7000.1800, L7400.0280 ####[facility] [address] [place], [place], [address] PAPSMR Comment Normal . [facility] Comment on above: Order Comment: Speci men Comment: [id number] Comment: No. of containers..01 ThinPrep Vial Result Comment: The Pap smear is a screening test designed to aid in the detection of premalignant and malignant conditions of the uterine cervix. It is not a diagnostic procedure and should not be used as the sole means of detecting cervical cancer. Both false-positive and false-negative reports do occur. Performed By: #### M 100.2200, L7000.1800, L7400.0280 ####[facility] [address] [place], [place], [address] PERFORM Comment Normal . [facility] Comment on above: Order Comment: Speci men Comment: [id number] Comment: No. of containers..01 ThinPrep Vial Result Comment: Ada Hatch, Ultrasonic Seaming Machine Operator (ASCP) Performed By: #### M 100.2200, L7000.1800, L7400.0280 ####[facility] [address] [place], [address] Urine Cultureon 10-21-2024 URC Mixed Gram Positive Organisms Bradley Count 25,000-50,000 MIXC Mixed contaminants. Submit a new specimen if indicated. Normal [facility] Comment on above: Performed By: #### M 100.2200, L7000.1800, L7400.0280 ####[facility] [address] [place], [address] Cervical or vaginal specimen microscopic examination by liquid based cytology (reportOrdered By: Adele Gan on 10-18-2024 Cytology report Cyto stain.thin prep Doc (Cvx/Vag) Comment . [facility] Comment on above: Criteria not met, HP V Genotype not performed.Performed at: WB - [facility] [place], [place] [id number] Director: Kelsie Hartman MD, Phone: [phone] at: = - [facility] [address], [place] [id number] Director: Kelsie Hartman MD, Phone: [phone] Cervical or vagninal specime n microscopic examination by cytology stain (reported asOrdered By: Adele Gan on 10-18-2024 Cytology report Cyto stain Doc (Cvx/Vag) Comment . [facility] Comment on above: The Pap smear is [...] rRNA LASHON+probe Ql (Unsp spec) Negative Negative [facility] Detection in cervical specim en of any of human papilloma virus (HPV) 16, 18, 31, 33,Ordered By: Adele Gan on 10-18-2024 HPV 16+18+31+33+35+39+45+5 1+52+56+58+59+66+68 DNA Probe+sig amp Ql (Cvx) Negative Negative [facility] Comment on above: This nucleic acid am plification test detects fourteen high- risk HPV types (16,18,31,33,35,39,45,51,52,56,58,59,66,68)without differentiation. Laboratory - CytologyOrdered By: Adele Gan on 10-18-2024 Ultrasonic Seaming Machine Operator Cyto stain Nom (Cvx/Vag) [ID] Comment . [facility] Comment on above: Elvia Hatch, Ultrasonic Seaming Machine Operator (ASCP) Laboratory - Miscellaneous t estsOrdered By: Adele Gan on 10-18-2024 Service comment (Unsp spec) [Interp] . . [facility] Neisseria gonorrhoeae nuclei c acid detection by amplified probe techniqueOrdered By: Adele Gan on 10-18-2024 N. gonorrhoeae DNA LASHON+probe Ql (Unsp spec) Negative Negative [facility] Comment on above: Performed at: =Lien [facility] ely [address] [place] [id number] Director: Kelsie Hartman MD, Phone: [phone] No Panel InformationOrdered By: Adele Gan on 10-18-2024 Pap Smear Specimen Adequacy Comment . [facility] Comment on above: Satisfactory for jose luation. No endocervical component is identified. Commercial Helicopter Pilot Office Visit Reporton 10-18-2024 Commercial Helicopter Pilot Office Visit Report [facility] [address], [address] [place] [address] OFFICE VISIT Date of Service: 10/18/24 MR#: [id number] Acct: [id number] Name: ALYSSIA ROBERSON Rep #: [id number] : 1985 Provider: Dr. Adele mackey MD Age/Sex: 39/F Location[place] [facility] [place] Status: Signed with Addenda ADDENDUM by Dr. Adele Gan MD on 10/18/24 at 1321 Assessment [...] BP 112/71 Intake Visit Reasons: NOB LMP 3/5 Motion Picture Set Worker Required: No Is patient in pain?: No [...] 2 current occupational status: employed current occupation: [employer] current occupational exposures/hazards: No pets and animals: [...] physical activity do you participate in: none champ/yarsani: Evangelical seatbelt use: always do you feel safe [...] age provide (more content not included)... Normal [facility] Urine cultureOrdered By: Coy Gan on 10-18-2024 Bacteria identified Cx Nom (U) Positive Abnormal [facility] CBC panel Auto (Bld)on 06-24 Erythrocyte distribution width (RBC) [Ratio] 12.6 % Normal 11.5-14.5 [facility] Comment on above: Performed By: #### 5 8410-2 #### ORTIZ JESSE ([id number]) [facility] ([facility]) [address] [place] [address] Hematocrit (Bld) [Volume fraction] 46.1 % High 36.0-46.0 [facility] Comment on above: Performed By: #### 5 8410-2 #### ANGEL MOLINA ([id number]) [facility] ([facility]) [address] [place] [address] Hemoglobin (Bld) [Mass/Vol] 14.8 g/dL Normal 12.0-16.0 [facility] Comment on above: Performed By: #### 5 8410-2 #### ANGEL MOLINA ([id number]) [facility] ([facility]) [address] [place] [address] MCH (RBC) [Entitic mass] 26.9 pg Normal 26.0-34.0 [facility] Comment on above: Performed By: #### 5 8410-2 #### ANGEL MOLINA ([id number]) [facility] ([facility]) [address] [place] [address] MCHC (RBC) [Mass/Vol] 32.1 g/dL Normal 32.0-36.0 [facility] Comment on above: Performed By: #### 5 8410-2 #### ANGEL MOLINA ([id number]) [facility] ([facility]) [address] [place] [address] MCV (RBC) [Entitic vol] 84 fL Normal 80-100 [facility] Comment on above: Performed By: #### 5 8410-2 #### ANGEL MOLINA ([id number]) [facility] ([facility]) [address] [place] [address] Nucleated RBC/100 WBC (Bld) [Ratio] 0.0 /100 WBCs Normal 0.0-0.0 [facility] Comment on above: Performed By: #### 5 8410-2 #### ANGEL MOLINA ([id number]) [facility] ([facility]) [address] [place] [address] Platelets (Bld) [#/Vol] 310 x10*3/uL Normal 150-450 [facility] Comment on above: Performed By: #### 5 8410-2 #### ANGEL MOLINA ([id number]) [facility] ([facility]) [address] [place], [place] [address] RBC (Bld) [#/Vol] 5.50 x10*6/uL High 4.00-5.20 [facility] Comment on above: Performed By: #### 5 8410-2 #### ANGEL MOLINA ([id number]) [facility] ([facility]) [address] [place] [address] 56901 WBC (Bld) [#/Vol] 9.5 x10*3/uL Normal 4.4-11.3 [facility] Comment on above: Performed By: #### 5 8410-2 #### ANGEL MOLINA ([id number]) [facility] ([facility]) [address] [place] [address] Calcidiolon 06-24-2024 25-hydroxyvitamin D3 [Mass/Vol] 33 ng/mL Normal 30-100 [facility] Comment on above: Order Comment: Defic iency: < 20 ng/ml Insufficiency: 20-29 ng/ml Sufficiency: 30-100 ng/ml This assay accurately quantifies the sum of Vitamin D3, 25-Hydroxy and Vitamin D2,25-Hydroxy. Performed By: #### 1 989-3 #### ANGEL MOLINA ([id number]) [facility] ([facility]) [address] [place] [address] Cobalaminson 06-24-2024 Cobalamin (Vitamin B12) [Mass/Vol] 431 pg/mL Normal 211-911 [facility] Comment on above: Performed By: #### 2 132-9 #### ANGEL MOLINA ([id number]) [facility] ([facility]) [address] [place] [address] 47118 Comprehensive metabolic 2000 panelon 06-24-2024 Albumin BCP dye [Mass/Vol] 4.7 g/dL Normal 3.4-5.0 [facility] Comment on above: Performed By: #### 2 4323-8 #### ANGEL MOLINA ([id number]) [facility] ([facility]) [address] [place] [address] 37625 ALP [Catalytic activity/Vol] 42 U/L Normal 33-110 [facility] Comment on above: Performed By: #### 2 4323-8 #### ANGEL MOLINA ([id number]) [facility] ([facility]) [address] [place] [address] ALT With P-5'-P [Catalytic activity/Vol] 9 U/L Normal 7-45 [facility] Comment on above: Result Comment: Jocy ents treated with Sulfasalazine may generate falsely decreased results for ALT. Performed By: #### 2 4323-8 #### ANGEL MOLINA ([id number]) [facility] ([facility]) [address] [place] [address] Anion gap [Moles/Vol] 10 mmol/L Normal 10-20 [facility] Comment on above: Performed By: #### 2 432-8 #### ANGEL MOLINA ([id number]) [facility] ([facility]) [address] [place] [address] AST With P-5'-P [Catalytic activity/Vol] 17 U/L Normal 9-39 [facility] Comment on above: Performed By: #### 2 4322-8 #### ANGEL MOLINA ([id number]) [facility] ([facility]) [address] [place] [address]0616 Bilirubin [Mass/Vol] 0.8 mg/dL Normal 0.0-1.2 [facility] Comment on above: Performed By: #### 2 432-8 #### ANGEL MOLINA ([id number]) [facility] ([facility]) [address] [place] [address] 38557 Calcium [Mass/Vol] 9.7 mg/dL Normal 8.6-10.[address] [facility] Comment on above: Performed By: #### 2 4323-8 #### ANGEL MOLINA ([id number]) [facility] ([facility]) [address] [place] [address] 32217 Chloride [Moles/Vol] 102 mmol/L Normal 98-107 [facility] Comment on above: Performed By: #### 2 4323-8 #### ANGEL MOLINA ([id number]) [facility] ([facility]) [address] [place] [address] CO2 [Moles/Vol] 30 mmol/L Normal 21-32 [facility] Comment on above: Performed By: #### 2 4323-8 #### ANGEL MOLINA ([id number]) [facility] ([facility]) [address] [place] [address] Creatinine [Mass/Vol] 0.71 mg/dL Normal 0.50-1.05 [facility] Comment on above: Performed By: #### 2 4323-8 #### ANGEL MOLINA ([id number]) [facility] ([facility]) [address] [place] [address] 82793 GFR/1.73 sq M.predicted MDRD (S/P/Bld) [Vol rate/Area] mL/min/{1.73_m2} Normal >60 [facility] Comment on above: Result Comment: Calc ulations of estimated GFR are performed using the 2020 CKD-EPI Study Refit equation without the race variable for the IDMS-Traceable creatinine methods. https://jasn.asnjournals.org/content/early/ASN.74916 99672 Performed By: #### 2 4323-8 #### ANGEL MOLINA ([id number]) [facility] ([facility]) [address] [place] [address] 34672 Glucose [Mass/Vol] 76 mg/dL Normal 74-[address] [facility] Comment on above: Performed By: #### 2 4323-8 #### ANGEL MOLINA ([id number]) [facility] ([facility]) [address] [place] [address] 46635 Potassium [Moles/Vol] 3.7 mmol/L Normal 3.5-5.3 [facility] Comment on above: Performed By: #### 2 4323-8 #### ANGEL MOLINA ([id number]) [facility] ([facility]) [address] [place] [address] 75005 Protein [Mass/Vol] 7.3 g/dL Normal 6.4-8.[address] [facility] Comment on above: Performed By: #### 2 4323-8 #### ANGEL MOLINA ([id number]) [facility] ([facility]) [address] [place] [address] Sodium [Moles/Vol] 138 mmol/L Normal 136-[address] [facility] Comment on above: Performed By: #### 2 4323-8 #### ANGEL MOLINA ([id number]) [facility] ([facility]) [address] [place] [address] Urea nitrogen [Mass/Vol] 15 mg/dL Normal 6-23 [facility] Comment on above: Performed By: #### 2 4323-8 #### ANGEL MOLINA ([id number]) [facility] ([facility]) [address] [place] [address] TSH WITH REFLEX TO FREE T4 I F ABNORMALon 06-24-2024 TSH Qn 1.46 m[IU]/L Normal 0.44-3.98 [facility] Comment on above: Order Comment: TSH t esting is performed using different testing methodology at [facility] than at [facility]. Direct result comparisons should only be made within the same method. Performed By: #### T HYDS #### ANGEL MOLINA ([id number]) [facility] ([facility]) [address] [place] [address] ECHOCARDIOGRAM COMPLETE W CO NTRASTon 05-21-2023 ECHOCARDIOGRAM COMPLETE W CONTRAST Patient Info Name: ALYSSIA ROBERSON Age: 37 years : 1985 Gender: Female Ht: 163 cm Wt: 46 kg BSA: 1.44 m2 HR: 86 bpm BP: 94 / 57 mmHg Heart Rhythm: Sinus Rhythm Technical Quality: Technically difficult Exam Date: 05/21/2023 10:00 AM Patient Status: Inpatient Torch Heater: Bessie Jaffe RCDS Exam Type: ECHOCARDIOGRAM COMPLETE W CONTRAST Study Info Indications R55 - Syncope and collapse Referring Physician: ODELL Owens; [id number] BMI: 17.51 kg/m2 Summary 1. Normal LV [...] mmHg MV VTI 21 cm MV Decel Sanders 489 cm/s2 MV PHT 53 ms MV [...] Aorta ------- (more content not included)... Normal [facility] US DOPPLER CAROTIDon 05-21-2 023 US DOPPLER CAROTID Patient Info Name: ALYSSIA ROBERSON Age: 37 years : 1985 Gender: Female Exam Date: 05/21/2023 7:58 AM Patient Status: Inpatient Biller: Elvia Jarvis, SILAST, RVS Referring Physician: EROS Rueda; Indications - syncopal work up R55 - Syncope and collapse Procedure Description 93527 Duplex examination using B-mode, color and spectral [...] Barba DO on 05/21/2023 09:14 AM Normal [facility] Basic metabolic 2000 panelon 05-20-2023 Anion gap [Moles/Vol] 9 mmol/L Low 10 - 2 0 mmol/L [facility] Calcium [Mass/Vol] 7.7 mg/dL Low 8.6 - 10. 3 mg/dL [facility] Chloride [Moles/Vol] 111 mmol/L High 98 - 10 7 mmol/L [facility] CO2 [Moles/Vol] 22 mmol/L 21 - 32 mmol/L [facility] Creatinine [Mass/Vol] 0.76 mg/dL 0.50 - 1.05 mg/dL [facility] GFR/1.73 sq M.predicted MDRD (S/P/Bld) [Vol rate/Area] - PINF [facility] Comment on above: Calculations of gricelda mated GFR are performed using the 2020 CKD-EPI Study Refit equation without the race variable for the IDMS-Traceable creatinine methods. https://jasn.asnjournals.org/content///ASN.56599 40010 Glucose [Mass/Vol] 98 mg/dL 74 - 99 mg/dL [facility] Interpretation and review of laboratory results Abnormal [facility] Potassium [Moles/Vol] 3.8 mmol/L 3.5 - 5.3 mmol/L [facility] Sodium [Moles/Vol] 138 mmol/L 136 - 145 mmol/L [facility] Urea nitrogen [Mass/Vol] 13 mg/dL 6 - 23 mg/dL [facility] [place] Anion gap [Moles/Vol] 9 mmol/L Low 10-20 [facility] Comment on above: Performed By: #### 2 4321-2 #### ORTIZ JESSE ([id number]) [facility] ([facility]) [address] [place] [address] Calcium [Mass/Vol] 7.7 mg/dL Low 8.6-10.3 [facility] Comment on above: Performed By: #### 2 4321-2 #### ANGEL MOLINA ([id number]) [facility] ([facility]) [facility] [place] [address] Chloride [Moles/Vol] 111 mmol/L High 98-107 [facility] Comment on above: Performed By: #### 2 4321-2 #### ANGEL MOLINA ([id number]) [facility] ([facility]) [facility] [place] [address] CO2 [Moles/Vol] 22 mmol/L Normal 21-32 [facility] Comment on above: Performed By: #### 2 4321-2 #### ANGEL MOLINA ([id number]) [facility] ([facility]) [address] [place] [address] 43098 Creatinine [Mass/Vol] 0.76 mg/dL Normal 0.50-1.05 [facility] Comment on above: Performed By: #### 2 4321-2 #### ANGEL MOLINA ([id number]) [facility] ([facility]) [address] [place] [address] 59703 GFR/1.73 sq M.predicted MDRD (S/P/Bld) [Vol rate/Area] mL/min/{1.73_m2} Normal >60 [facility] Comment on above: Result Comment: Calc ulations of estimated GFR are performed using the 2020 CKD-EPI Study Refit equation without the race variable for the IDMS-Traceable creatinine methods. https://jasn.asnjournals.org/content/early//ASN.46604 13373 Performed By: #### 2 4321-2 #### ANGEL MOLINA ([id number]) [facility] ([facility]) [address] [place] [address] 30253 Glucose [Mass/Vol] 98 mg/dL Normal 74-99 [facility] Comment on above: Performed By: #### 2 4321-2 #### ANGEL MOLINA ([id number]) [facility] ([facility]) [address] [place] [address] Potassium [Moles/Vol] 3.8 mmol/L Normal 3.5-5.3 [facility] Comment on above: Performed By: #### 2 4321-2 #### ANGEL MOLINA ([id number]) [facility] ([facility]) [address] [place] [address] Sodium [Moles/Vol] 138 mmol/L Normal 136-145 [facility] Comment on above: Performed By: #### 2 4321-2 #### ANGEL MOLINA ([id number]) [facility] ([facility]) [address] [place] [address] 13911 Urea nitrogen [Mass/Vol] 13 mg/dL Normal 6-23 [facility] Comment on above: Performed By: #### 2 4321-2 #### ANGEL MOLINA ([id number]) [facility] ([facility]) [address] [place], [place] [address] CBC W Auto Differential pane l (Bld)on 05-20-2023 Basophils (Bld) [#/Vol] 0.05 10*3/uL [facility] Basophils/100 WBC (Bld) 0.7 % 0.0 - 2.0 % [facility] Eosinophils (Bld) [#/Vol] 0.30 10*3/uL [facility] Eosinophils/100 WBC (Bld) 4.1 % 0.0 - 6.0 % [facility] Erythrocyte distribution width (RBC) [Ratio] 12.9 % 11.5 - 14.5 % [facility] Hematocrit (Bld) [Volume fraction] 41.4 % 36.0 - 46.0 % [facility] Hemoglobin (Bld) [Mass/Vol] 13.7 g/dL 12.0 - 16.0 g/dL [facility] Immature granulocytes (Bld) [#/Vol] 0.03 10*3/uL [facility] Immature granulocytes/100 WBC (Bld) 0.4 % 0.0 - 0.9 % [facility] Comment on above: Immature Granulocyte Count (IG) includes promyelocytes, myelocytes and metamyelocytes but does not include bands. Percent differential counts (%) should be interpreted in the context of the absolute cell counts (cells/UL). Lymphocytes (Bld) [#/Vol] 1.65 10*3/uL [facility] Lymphocytes/100 WBC (Bld) 22.5 % 13.0 - 44.0 % [facility] MCH (RBC) [Entitic mass] 27.1 pg 26.0 - 34.0 pg [facility] MCHC (RBC) [Mass/Vol] 33.1 g/dL 32.0 - 36.0 g/dL [facility] MCV (RBC) [Entitic vol] 82 fL 80 - 100 fL [facility] Monocytes (Bld) [#/Vol] 0.48 10*3/uL [facility] Monocytes/100 WBC (Bld) 6.5 % 2.0 - 10.0 % [facility] Neutrophils (Bld) [#/Vol] 4.82 10*3/uL [facility] Comment on above: Percent differential counts (%) should be interpreted in the context of the absolute cell counts (cells/uL). Neutrophils/100 WBC (Bld) 65.8 % 40.0 - 80.0 % [facility] Nucleated RBC/100 WBC (Bld) [Ratio] 0.0 % [facility] Platelets (Bld) [#/Vol] 191 10*3/uL [facility] RBC (Bld) [#/Vol] 5.06 10*6/uL [facility] WBC (Bld) [#/Vol] 7.3 10*3/uL [facility] Basophils (Bld) [#/Vol] 0.05 x10*3/uL Normal 0.00-0.10 [facility] Comment on above: Performed By: #### 5 7021-8 #### ANGEL MOLINA ([id number]) [facility] ([facility]) [address] [place] [address] Basophils/100 WBC (Bld) 0.7 % Normal 0.0-2.0 [facility] Comment on above: Performed By: #### 5 7021-8 #### ANGEL MOLINA ([id number]) [facility] ([facility]) [address] [place] [address] 83270 Eosinophils (Bld) [#/Vol] 0.30 x10*3/uL Normal 0.00-0.70 [facility] Comment on above: Performed By: #### 5 7021-8 #### ANGEL MOLINA ([id number]) [facility] ([facility]) [address] [place] [address] 84354 Eosinophils/100 WBC (Bld) 4.1 % Normal 0.0-6.0 [facility] Comment on above: Performed By: #### 5 7021-8 #### ANGEL MOLINA ([id number]) [facility] ([facility]) [address] [place] [address] 86583 Erythrocyte distribution width (RBC) [Ratio] 12.9 % Normal 11.5-14.5 [facility] Comment on above: Performed By: #### 5 7021-8 #### ANGEL MOLINA ([id number]) [facility] ([facility]) [address] [place] [address] 61922 Hematocrit (Bld) [Volume fraction] 41.4 % Normal 36.0-46.0 [facility] Comment on above: Performed By: #### 5 7021-8 #### ANGEL MOLINA ([id number]) [facility] ([facility]) [address] [place] [address] 88359 Hemoglobin (Bld) [Mass/Vol] 13.7 g/dL Normal 12.0-16.0 [facility] Comment on above: Performed By: #### 5 7021-8 #### ANGEL MOLINA ([id number]) [facility] ([facility]) [address] [place] [address] 37474 Immature granulocytes (Bld) [#/Vol] 0.03 x10*3/uL Normal 0.00-0.70 [facility] Comment on above: Performed By: #### 5 7021-8 #### ANGEL MOLINA ([id number]) [facility] ([facility]) [address] [place] [address] 87076 Immature granulocytes/100 WBC (Bld) 0.4 % Normal 0.0-0.9 [facility] Comment on above: Result Comment: Christine ture Granulocyte Count (IG) includes promyelocytes, myelocytes and metamyelocytes but does not include bands. Percent differential counts (%) should be interpreted in the context of the absolute cell counts (cells/UL). Performed By: #### 5 7021-8 #### ANGEL MOLINA ([id number]) [facility] ([facility]) [address] [place] [address] Lymphocytes (Bld) [#/Vol] 1.65 x10*3/uL Normal 1.20-4.80 [facility] Comment on above: Performed By: #### 5 7021-8 #### ANGEL MOLINA ([id number]) [facility] ([facility]) [address] [place] [address] 69099 Lymphocytes/100 WBC (Bld) 22.5 % Normal 13.0-44.0 [facility] Comment on above: Performed By: #### 5 7021-8 #### ANGEL MOLINA ([id number]) [facility] ([facility]) [address] [place] [address] 72409 MCH (RBC) [Entitic mass] 27.1 pg Normal 26.0-34.0 [facility] Comment on above: Performed By: #### 5 7021-8 #### ANGEL MOLINA ([id number]) [facility] ([facility]) [address] [place] [address] 57364 MCHC (RBC) [Mass/Vol] 33.1 g/dL Normal 32.0-36.0 [facility] Comment on above: Performed By: #### 5 7021-8 #### ANGEL MOLINA ([id number]) [facility] ([facility]) [address] [place] [address] 48399 MCV (RBC) [Entitic vol] 82 fL Normal 80-100 [facility] Comment on above: Performed By: #### 5 7021-8 #### ANGEL MOLINA ([id number]) [facility] ([facility]) [address] [place] [address] Monocytes (Bld) [#/Vol] 0.48 x10*3/uL Normal 0.10-1.00 [facility] Comment on above: Performed By: #### 5 7021-8 #### ANGEL MOLINA ([id number]) [facility] ([facility]) [address] [place] [address] 83919 Monocytes/100 WBC (Bld) 6.5 % Normal 2.0-10.0 [facility] Comment on above: Performed By: #### 5 7021-8 #### ANGEL MOLINA ([id number]) [facility] ([facility]) [address] [place] [address] 23332 Neutrophils (Bld) [#/Vol] 4.82 x10*3/uL Normal 1.20-7.70 [facility] Comment on above: Result Comment: Perc ent differential counts (%) should be interpreted in the context of the absolute cell counts (cells/uL). Performed By: #### 5 7021-8 #### ANGEL MOLINA ([id number]) [facility] ([facility]) [address] [place] [address] 73465 Neutrophils/100 WBC (Bld) 65.8 % Normal 40.0-80.0 [facility] Comment on above: Performed By: #### 5 7021-8 #### ANGEL MOLINA ([id number]) [facility] ([facility]) [address] [place] [address] 69358 Nucleated RBC/100 WBC (Bld) [Ratio] 0.0 /100 WBCs Normal 0.0-0.0 [facility] Comment on above: Performed By: #### 5 7021-8 #### ANGEL MOLINA ([id number]) [facility] ([facility]) [address] [place] [address] 30778 Platelets (Bld) [#/Vol] 191 x10*3/uL Normal 150-450 [facility] Comment on above: Performed By: #### 5 7021-8 #### ANGEL MOLINA ([id number]) [facility] ([facility]) [address] [place] [address] RBC (Bld) [#/Vol] 5.06 x10*6/uL Normal 4.00-5.20 [facility] Comment on above: Performed By: #### 5 7021-8 #### ORTIZ TRAMSHAD ([id number]) [facility] ([facility]) [address] [place] [address] WBC (Bld) [#/Vol] 7.3 x10*3/uL Normal 4.4-11.3 [facility] Comment on above: Performed By: #### 5 7021-8 #### ORTIZ ROCIOJOSE LUIS ([id number]) [facility] ([facility]) [address] [place], [place] [address] COVID-19, MOLECULARon 2022 SARS-CoV-2 (COVID-19) RNA LASHON+probe Ql (Unsp spec) Not detected Normal Not Detected [facility] Comment on above: Order Comment: This test [...] at the following links: For Healthcare Providers: https://www.fda.gov/media/218329/download For Patients: https://www.fda.gov/media/349948/download Performed By: #### L [id number] #### [facility] [address] [place], [place] [address] Malvin Weller M.D. [id number] CT ANGIO CHEST FOR PULMONARY EMBOLISMon 05-20-2023 CT ANGIO CHEST FOR PULMONARY EMBOLISM Interpreted By: Lesley Talbot, STUDY: CT ANGIO CHEST FOR PULMONARY EMBOLISM; 05/20/2023 10:29 am INDICATION: Signs/Symptoms:tachycardi a/syncope. COMPARISON: None. ACCESSION NUMBER(S): [id number] ORDERING CLINICIAN: MARKUS ARCE TECHNIQUE: Helical data [...] Lesley Talbot 05/20/2023 10:35 AM Dictation workstation: [id number] [facility] CT CERVICAL SPINE WO IV CONT [facility] 05-20-2023 CT CERVICAL SPINE WO IV CONTRAST Interpreted By: Liz Cavazos, STUDY: CT CERVICAL SPINE WO IV CONTRAST; 05/20/2023 12:16 pm INDICATION: Signs/Symptoms:trauma. COMPARISON: None. ACCESSION NUMBER(S): [id number] ORDERING CLINICIAN: MARKUS ARCE TECHNIQUE: Axial CT [...] Liz Cavazos 05/20/2023 12:29 PM Dictation workstation: [id number] [facility] CT Cervical spine WO contras ton 05-20-2023 No evidence for an a cute fracture or subluxation of the cervical spine. Straightening of the cervical spine may be seen with strain or sprain. Signed by: Liz Cavazos 05/20/2023 12:29 PM Dictation workstation: [id number] Interpreted By: Liz Hurley, STUDY: CT CERVICAL SPINE WO IV CONTRAST; 05/20/2023 12:16 pm INDICATION: Signs/Symptoms:trauma. COMPARISON: None. ACCESSION NUMBER(S): [id number] ORDERING CLINICIAN: MARKUS ARCE TECHNIQUE: Axial CT [...] pm INDICATION: Signs/Symptoms:trauma. COMPARISON: None. ACCESSION NUMBER(S): [id number] ORDERING CLINICIAN: MARKUS ARCE TECHNIQUE: Axial CT [...] Liz Cavazos 05/20/2023 12:29 PM Dictation workstation: [id number] [facility] Work Phone: Radiology Study observation (narrative) [facility] Work Phone: CT Cervical spine WO contras tOrdered By: Liz Cavazos on 05-20-2023 [facility] Work Phone: CT Chest W contrast IV and C T angiogram Pulmonary arteries for pulmonary embolus W contrast Axel 05-20-[address] scan of the chest. No pulmonary embolism. MACRO: None Signed by: Lesley Talbot 05/20/2023 10:35 AM Dictation workstation: [id number] Interpreted By: Lesley Hicks, STUDY: CT ANGIO CHEST FOR PULMONARY EMBOLISM; 05/20/2023 10:29 am INDICATION: Signs/Symptoms:tachycardi a/syncope. COMPARISON: None. ACCESSION NUMBER(S): [id number] ORDERING CLINICIAN: MARKUS ARCE TECHNIQUE: Helical data [...] INDICATION: Signs/Symptoms:tachycardi a/syncope. COMPARISON: None. ACCESSION NUMBER(S): [id number] ORDERING CLINICIAN: MARKUS ARCE TECHNIQUE: Helical data [...] Lesley Talbot 05/20/2023 10:35 AM Dictation workstation: [id number] [facility] Work Phone: CT Chest W contrast IV and C T angiogram Pulmonary arteries for pulmonary embolus W contrast IVOrdered By: Lesley Talbot on 05-20-2023 [facility] Work Phone: CT HEAD OR BRAIN WITHOUT [...] BANEGAS on FriMay 20, 2023 6:03:10 PM [facility] Comment on above: Order Comment: Injur y/Trauma or Illness?:Illness/Other How long have you had these symptoms (acute/chronic)?:Acute Reason for exam?:follow up SDH Type of Exam?:Subsequent/Follow-up Additional signs and symptoms?:n/a CT HEAD WO IV CONTRASTon CT HEAD WO IV CONTRAST Interpreted By: Garfield Colon, STUDY: CT HEAD WO IV CONTRAST; 05/20/2023 10:29 am INDICATION: Signs/Symptoms:syncope/fa ll. COMPARISON: None. ACCESSION NUMBER(S): [id number] ORDERING CLINICIAN: MARKUS ARCE TECHNIQUE: Noncontrast axial [...] Garfield Oshea 05/20/2023 11:22 AM Dictation workstation: [id number] [facility] CT Head WO contraston 2022 Trace acute subdural hematoma along the anterior interhemispheric fissure measuring up to 0.3 cm in thickness. No midline shift. I discussed the findings by phone with Dr. Arce at 11:20 a.m. on 05/20/2020 Signed by: Garfield Oshea 05/20/2023 11:22 AM Dictation workstation: [id number] Interpreted By: Garfield Billy, STUDY: CT HEAD WO IV CONTRAST; 05/20/2023 10:29 am INDICATION: Signs/Symptoms:syncope/fa ll. COMPARISON: None. ACCESSION NUMBER(S): [id number] ORDERING CLINICIAN: MARKUS ARCE TECHNIQUE: Noncontrast axial [...] INDICATION: Signs/Symptoms:syncope/fa ll. COMPARISON: None. ACCESSION NUMBER(S): [id number] ORDERING CLINICIAN: MARKUS ARCE TECHNIQUE: Noncontrast axial [...] Garfield Oshea 05/20/2023 11:22 AM Dictation workstation: [id number] [facility] Work Phone: CT Head WO contrastOrdered B y: Garfield Oshea on 05-20-2023 [facility] Work Phone: HCG ( test) IA.anna blount Ql (U)Ordered By: Taylor Metcalf on 05-20-2023 HCG ( test) Ql (U) Negative NEGATIVE [facility] Interpretation and review of laboratory results Normal [facility] HCG ( test) Jennifer blount Ql (U)on 05-20-2023 HCG ( test) Ql (U) Negative Normal NEGATIVE [facility] Comment on above: Performed By: #### 8 0384-1 #### ORTIZ JESSE ([id number]) [facility] ([facility]) [address] [place] [address] No Panel Informationon 05-20 Radiology Study observation (narrative) [facility] Work Phone: Tropinin I.cardiac panel Hig h sensitivity methodon 05-20-2023 Interpretation and review of laboratory results Normal [facility] Less than 99th perce ntile of normal [...] performed using a different testing methodology at [facility] than at other [facility]. Direct result comparisons should only be made within the same method. [facility] Interpretation and review of laboratory results Normal [facility] Less than 99th perce ntile of normal [...] performed using a different testing methodology at [facility] than at other [facility]. Direct result comparisons should only be made within the same method. [facility] Troponin I, High Sensitivity , Initialon 05-20-2023 Tropinin I.cardiac panel High sensitivity method ng/L 0 - 13 ng/L [facility] Troponin I.cardiac panelon 1 07-21-2022 Tropinin I.cardiac panel High sensitivity method <3 Normal 0-13 [facility] Comment on above: Order Comment: Less [...] performed using a different testing methodology at [facility] than at other [facility]. Direct result comparisons should only be made within the same method. Performed By: #### 8 [id number] #### ORTIZ JESSE ([id number]) [facility] ([facility]) [address] [place] [address] Tropinin I.cardiac panel High sensitivity method <3 Normal 0-13 [facility] Comment on above: Order Comment: Less [...] performed using a different testing methodology at [facility] than at other [facility]. Direct result comparisons should only be made within the same method. Performed By: #### 8 [id number] #### ORTIZ JESSE ([id number]) [facility] ([facility]) [address] [place], [place] [id number] Troponin, High Sensitivity, 1 Houron 05-20-2023 Tropinin I.cardiac panel High sensitivity method ng/L 0 - 13 ng/L [facility] Urinalysis complete panel (U )on 05-20-2023 Appearance (U) Clear Clear [facility] Bilirubin (U) [Mass/Vol] Negative NEGATIVE [facility] Color (U) Straw Straw, Yellow [facility] Glucose Auto test strip (U) [Mass/Vol] Negative NEGATIVE mg/dL [facility] Interpretation and review of laboratory results Normal [facility] Ketones (U) [Mass/Vol] Negative NEGAT PIPE mg/dL [facility] Leukocyte esterase Auto test strip Ql (U) Negative NEGATIVE [facility] Nitrite Auto test strip Ql (U) Negative NEGATIVE [facility] pH (U) 7.0 [pH] 5.0, 5.5, 6.0, 6.5, 7.0, 7.5, 8.0 [facility] Protein (U) [Mass/Vol] Negative NEGAT PIPE mg/dL [facility] RBC (U) [#/Vol] Negative NEGATIVE [facility] Specific gravity (U) [Rel density] 1.009 1.005 - 1.035 [facility] Urobilinogen (U) [Mass/Vol] mg/dL NINF - 2.0 mg/dL [facility] Appearance (U) Clear Normal Clear [facility] Comment on above: Performed By: #### 2 4356-8 #### ORTIZ JESSE ([id number]) [facility] ([facility]) [address] [place] [address] Bilirubin (U) [Mass/Vol] Negative Normal NEGATIVE [facility] Comment on above: Performed By: #### 2 4356-8 #### ANGEL MOLINA ([id number]) [facility] ([facility]) [address] [place] [address] Color (U) Straw Normal Straw, Yellow [facility] Comment on above: Performed By: #### 2 4356-8 #### ANGEL MOLINA ([id number]) [facility] ([facility]) [address] [place] [address] Glucose Auto test strip (U) [Mass/Vol] Negative Normal NEGATIVE [facility] Comment on above: Performed By: #### 2 4356-8 #### ANGEL MOLINA ([id number]) [facility] ([facility]) [address] [place], [place] [id number] Ketones (U) [Mass/Vol] Negative Normal NEGATIVE [facility] Comment on above: Performed By: #### 2 4356-8 #### ANGEL MOLINA ([id number]) [facility] ([facility]) [address] [place] [address] Leukocyte esterase Auto test strip Ql (U) Negative Normal NEGATIVE [facility] Comment on above: Performed By: #### 2 435-8 #### ANGEL MOLINA ([id number]) [facility] ([facility]) [address] [place] [address] Nitrite Auto test strip Ql (U) Negative Normal NEGATIVE [facility] Comment on above: Performed By: #### 2 4356-8 #### ANGEL MOLINA ([id number]) [facility] ([facility]) [address] [place] [address] pH (U) 7.0 [pH] Normal 5.0, 5.5, 6.0, 6.5, 7.0, 7.5, 8.0 [facility] Comment on above: Performed By: #### 2 4356-8 #### ANGEL MOLINA ([id number]) [facility] ([facility]) [address] [place] [address] Protein (U) [Mass/Vol] Negative Normal NEGATIVE [facility] Comment on above: Performed By: #### 2 4356-8 #### ANGEL MOLINA ([id number]) [facility] ([facility]) [address] [place] [address] RBC (U) [#/Vol] Negative Normal NEGATIVE [facility] Comment on above: Performed By: #### 2 4356-8 #### ANGEL MOLINA ([id number]) [facility] ([facility]) [address] [place] [address] Specific gravity (U) [Rel density] 1.009 Normal 1.005-1.035 [facility] Comment on above: Performed By: #### 2 4356-8 #### ANGEL MOLINA ([id number]) [facility] ([facility]) [address] [place] [address] Urobilinogen (U) [Mass/Vol] mg/dL Normal <2.0 [facility] Comment on above: Performed By: #### 2 4356-8 #### ANGEL MOLINA ([id number]) [facility] ([facility]) [address] [place], [place] [address] Provider Note - ED v3on 08-08 Provider [...] SIGNS: T PRBP SpO2O2(LPM) %FiO2 Method 27-Aug-2022 09:14:[id number] 98 MDM MDM/ED COURSE: Alyssia is a [...] ill patient: no Electronic Signatures: Mandie Treviño (COMMERCIAL HELICOPTER PILOT-MACHINE INSPECTOR) (Signed 27-Aug-2022 20:03) Authored: ED Notes, HPI, PMH, PE, Results/Vital Signs, MDM/ED Course, Clinical Impression, Attestation, Chart Review, Scores Last Updated: 27-Aug-2022 20:03 by Mandie Treviño (COMMERCIAL HELICOPTER PILOT-MACHINE INSPECTOR) [facility] Covid 19 Resultson 2 SARS-CoV-2 (COVID-19) [...] You may also be contacted by the [facility] to see if any of [...] or Naproxen (Aleve) can also be used. Kenj-qwz-locrxqm cough and cold medicines can be used according to the instructions on the package. Some joqy-sup-meuvsim medicines also contain acetaminophen. Make sure you [...] water are not available, use alcohol-based hand vascular technician. Avoid touching your eyes, nose, and mouth [...] 24 emma (more content not included)... Normal [facility] INFLUENZA A/B, COVID 2019 PC R,SYMPTOMATICon 05-26-2022 INFLUENZA A, PCR Detected Abnormal Not Detected [facility] Comment on above: Result Comment: Resp iratory virus testing is performed routinely by PCR for Influenza A/B and RSV. If Influenza and RSV PCR are negative, testing for parainfluenza 1,2,3 viruses and adenovirus is routinely performed for oncology inpatients and intensive care unit patients at [facility] and is available on request on other patients by calling Laboratory Client Services at [phone]. Not Detected results do not preclude Influenza A/B or RSV infections since the adequacy of sample collection or low viral burden may impact the clinical sensitivity of this test method. Performed By: #### C OINP #### [facility] [address] [place] [address] INFLUENZA B, PCR Not detected Normal Not Detected [facility] Comment on above: Result Comment: Resp iratory virus testing is performed routinely by PCR for Influenza A/B and RSV. If Influenza and RSV PCR are negative, testing for parainfluenza 1,2,3 viruses and adenovirus is routinely performed for oncology inpatients and intensive care unit patients at [facility] and is available on request on other patients by calling Laboratory Client Services at [phone] Not Detected results do not preclude Influenza A/B or RSV infections since the adequacy of sample collection or low viral burden may impact the clinical sensitivity of this test method. Performed By: #### C OINP #### [facility] [address] [place] [address] SARS-CoV-2 (COVID-19) RNA LASHON+probe Ql (Unsp spec) Not detected Normal Not Detected [facility] Comment on above: Result Comment: . This assay is designed to detect the ORF1a/b and E genes of SARS-CoV-2 via nucleic acid amplification. A Not Detected result does not preclude 2019-nCoV infection since the adequacy of sample collection and/or low viral burden may result in presence of viral nucleic acids below the clinical sensitivity of this test method. Fact sheet for providers: https://www.fda.gov/media/958814/download Fact sheet for patients: https://www.fda.gov/media/664524/download This test has received FDA Emergency Use Authorization (EUA) and has been verified for use by [facility] ([facility]). This test is only authorized for the duration of time that circumstances exist to justify the authorization of the emergency use of in vitro diagnostic tests for the detection of SARS-CoV-2 virus and/or diagnosis of COVID-19 infection under section 564(b)(1) of the Act, 21 U.S.C. 360bbb-3(b)(1), unless the authorization is terminated or revoked sooner. [facility] is certified under CLIA-88 as qualified to perform high complexity testing. Testing is performed in the [facility] laboratories located at [address] [place] [address]. Performed By: #### C OINP #### [address] [place] [address] GROUP A STREP,PCRon 05-25-20 22 GROUP A STREP,PCR Not detected Normal Not Detected [facility] Comment on above: Result Comment: This test was performed utilizing an FDA-cleared rapid nucleic acid amplification by PCR to qualitatively detect Group A Streptococci from throat swab specimens without the need for culture confirmation of negative results. Performed By: #### G APC1 #### [place] [address] Lab Specimen Source Throat Normal [facility] Comment on above: Performed By: #### G APC1 #### [place] [address] INFLUENZA A/B, COVID 2019 PC R,SYMPTOMATICon 05-25-2022 Lab Specimen Source Nasal, Nasopharyngeal Normal [facility] Comment on above: Performed By: #### C OINP #### [address] 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 HISTORY OF PRESENTING ILLNESS ALYSSIA is a 36 year old Female and was seen by me at 25-May-2022 08:26. Triage Information: Most recent Vital Sign Value Date PAST MEDICAL HISTORY ALLERGIES/INTOLERANCES: No Known Allergies HEALTH HISTORY: No documented data. OUTPATIENT MEDICATIONS: Home Medications Review Status for Reconciliation: Complete Med Status: No Current Medications SIGNIFICANT EVENTS: Social/Behavioral Description:pt denies WOOL CLASSER: Is : no Is : no REVIEW [...] SIGNS: T PRBP SpO2O2(LPM) %FiO2 Method 25-May-2022 08:22:[id number] 99RA [facility] MDM/ED COURSE: Discussed Findings with: patient Data [...] Electronic Signatures for Addendum Section: Orlin Casarez (COMMERCIAL HELICOPTER PILOT-MACHINE INSPECTOR) (Signed Addendum 26-May-2022 12:23) Pt notified of covid/flu/strep test results. Electronic Signatures: Orlin Casarez (COMMERCIAL HELICOPTER PILOT-MACHINE INSPECTOR) (Signed 26-May-2022 12:23) Authored: ED Notes, HPI, PMH, ROS, PE, Results/Vital Signs, MDM/ED Course, Clinical Impression, Attestation, Chart Review, Scores Last Updated: 26-May-2022 12:23 by Orlin Casarez (COMMERCIAL HELICOPTER PILOT-MACHINE INSPECTOR) [facility] Absolute lymphocyte counton 04-25-2022 Lymphocytes Auto (Unsp spec) [#/Vol] 1.94 10*3/uL 0.83-4.51 [facility] Work Phone: Basophil percentageon 2021 Basophil percentage 0-5 SEEN /hpf 0-5 [facility] Work Phone: [phone] Basophils/100 WBC (Bld) 0.4 % 0-1 [facility] Work Phone: Bilirubin [Mass/Vol] 0.80 mg/dL 0.20-1.00 [facility] Work Phone: Comment on above: For patients on eltr ombopag therapy, use of Dimension [place] TBIL is not recommended. Chloride [Moles/Vol] 105 mmol/L 98-107 [facility] Work Phone: Eosinophils/100 WBC (Bld) 1.7 % 0-5 [facility] Work Phone: Glucose [Mass/Vol] 94 mg/dL 74-106 [facility] Work Phone: Neutrophils (Bld) [#/Vol] 6.2 10*3/uL 2.0-7.7 [facility] Work Phone: Neutrophils/100 WBC (Bld) 69.0 % 47-70 [facility] Work Phone: Potassium [Moles/Vol] 3.8 mmol/L 3.5-5.1 [facility] Work Phone: Protein [Mass/Vol] 7.7 g/dL 6.4-8.2 [facility] Work Phone: Sodium [Moles/Vol] 139 mmol/L 136-145 [facility] Work Phone: WBC (Bld) [#/Vol] 9.0 10*3/uL 4.4-11.0 [facility] Work Phone: Bilirubin Test strip Ql (U)o n 04-25-2022 Bilirubin Ql (U) Negative Negative [facility] Work Phone: Blood erythrocytes count (nu mber/volume)on 04-25-2022 RBC (Bld) [#/Vol] 5.19 10*6/uL 4.2-5.4 [facility] Work Phone: Blood hemoglobin measurement (mass/volume)on 04-25-2022 Hemoglobin (Bld) [Mass/Vol] 13.9 g/dL 12.0-15.0 [facility] Work Phone: Blood lymphocytes/100 leukoc yteson 04-25-2022 Lymphocytes/100 WBC (Bld) 21.6 % 19-41 [facility] Work Phone: Blood monocytes/100 leukocyt eson 04-25-2022 Monocytes/100 WBC (Bld) 7.0 % 0-10 [facility] Work Phone: Blood platelet mean volumeon 04-25-2022 Platelet mean volume (Bld) [Entitic vol] 10.3 fL 6.2-12.0 [facility] Work Phone: Determination of erythrocyte mean corpuscular volume (MCV)on 04-25-2022 MCV (RBC) [Entitic vol] 82.3 fL 81-99 [facility] Work Phone: Hematocrit Auto (Bld) [Volum e fraction]on 04-25-2022 Hematocrit (Bld) [Volume fraction] 42.7 % 37-47 [facility] Work Phone: Ketones Test strip Ql (U)on 04-25-2022 Ketones Ql (U) 15 mg/dl Negative [facility] Work Phone: Laboratory - Chemistry and C hemistry - challengeon 04-25-2022 ALP [Catalytic activity/Vol] 46 U/L 45-117 [facility] Work Phone: ALT [Catalytic activity/Vol] 17 U/L 13-56 [facility] Work Phone: CO2 [Moles/Vol] 28.0 mmol/L 21.0-32.0 [facility] Work Phone: Globulin (S) [Mass/Vol] 3.5 g/dL 2.2-4.2 [facility] Work Phone: Urea nitrogen/Creatinine [Mass ratio] 16.5 mg/mg 10-20 [facility] Work Phone: Laboratory - Hematology and Cell countson 04-25-2022 Erythrocyte distribution width (RBC) [Entitic vol] 39.8 fL 35.1-43.9 [facility] Work Phone: Erythrocyte distribution width (RBC) [Ratio] 13.2 % 11.6-14.6 [facility] Work Phone: Immature granulocytes/100 WBC (Bld) 0.300 % 0.0-0.9 [facility] Work Phone: Comment on above: IG% - Immature Granu locytes (promyelocytes, myelocytes and metamyelocytes) > 1% indicates that a LEFT SHIFT is Present. MCH (RBC) [Entitic mass] 26.8 pg 27.0-32.0 [facility] Work Phone: Nucleated RBC/100 WBC (Bld) [Ratio] 0 % 0-5 [facility] Work Phone: MCHC Auto (RBC) [Mass/Vol]on 04-25-2022 MCHC (RBC) [Mass/Vol] 32.6 g/dL 32-36 [facility] Work Phone: Mucus LM Ql (Urine sed)on Mucus Ql (Urine sed) 0 SEEN /hpf [facility] Work Phone: Nitrite Test strip Ql (U)on 04-25-2022 Nitrite Ql (U) Negative Negative [facility] Work Phone: No Panel Informationon 04-25 Estimated Creatinine Clearance Calc 92.17 ml/min [facility] Work Phone: Estimated GFR (MDRD) Amer 144 mL/min >60 [facility] Work Phone: Comment on above: GFR Calc Estimated GFR (MDRD) Non-Af Amer 119 mL/min >60 [facility] Work Phone: Comment on above: Non- GFR Calc Platelets bldon 04-25-2022 Platelets (Bld) [#/Vol] 250 10*3/uL 150-450 [facility] Work Phone: Protein Test strip Ql (U)on 04-25-2022 Protein Ql (U) Negative Negative [facility] Work Phone: Serum or plasma albumin sugar urement (mass/volume)on 04-25-2022 Albumin [Mass/Vol] 4.2 g/dL 3.2-5.0 [facility] Work Phone: Serum or plasma albumin/glob ulin mass ratioon 04-25-2022 Albumin/Globulin [Mass ratio] 1.2 {ratio} 0.9-2.4 [facility] Work Phone: Serum or plasma calcium sugar urement (mass/volume)on 04-25-2022 Calcium [Mass/Vol] 9.5 mg/dL 8.5-10.1 [facility] Work Phone: Serum or plasma choriogonado tropin detectionon 04-25-2022 HCG ( test) Ql 9644 mIU/mL <4 [facility] Work Phone: Comment on above: hCG levels with Gest ational AgeGestational Age hCG mIU/mL (IU/L)0.2 - 1 week 5 - 501-2 weeks 50 - 5002-3 weeks 100 - 50857-2 weeks 500 - 106323-9 weeks 1000 - 172414-9 weeks 78111 - 100,0006-8 weeks 73767 - 200,0002-3 months 77665 - 100,000 Serum or plasma creatinine m easurement (mass/volume)on 04-25-2022 Creatinine [Mass/Vol] 0.61 mg/dL 0.55-1.02 [facility] Work Phone: Comment on above: The validity of the calculated GFR & GFRAA in patients over 70 years has not been determined. Clinical correlation is essential. Serum or plasma urea nitroge n measurement (mass/volume)on 04-25-2022 Urea nitrogen [Mass/Vol] 10 mg/dL 7-18 [facility] Work Phone: Squamous epithelial cells de tection in urine sediment by light microscopyon 04-25-2022 Epithelial cells.squamous LM Ql (Urine sed) 0-5 SEEN /hpf 5-10 [facility] Work Phone: Thin prep Papanicolaou smear with manual screeningon 04-25-2022 Thin prep Papanicolaou smear with manual screening 13 U/L 15-37 [facility] Work Phone: Thin prep Papanicolaou smear with manual screening 6 5-15 [facility] Work Phone: Urine blood detectionon RBC Ql (U) 250 /ul Negative [facility] Work Phone: RBC Ql (U) 10-25 SEEN /hpf 0-5 [facility] Work Phone: Urine clarityon 04-25-2022 Clarity (U) Sl. Cloudy Clear [facility] Work Phone: Urine color determinationon 04-25-2022 Color (U) Yellow Yellow [facility] Work Phone: Urine glucose detectionon Glucose Ql (U) Normal mg/dl Normal [facility] Work Phone: Urine leukocyte esterase det ection by dipstickon 04-25-2022 Leukocyte esterase Test strip Ql (U) 25 /ul Negative [facility] Work Phone: Urine pHon 04-25-2022 pH (U) 7.0 [pH] 5.0 - 8.0 [facility] Work Phone: Urine sediment bacteria coun t by microscopy (number/high power field)on 04-25-2022 Bacteria LM.HPF (Urine sed) [#/Area] 0 /[HPF] None Seen [facility] Work Phone: Urine specific gravity measu rementon 04-25-2022 Specific gravity (U) [Rel density] 1.010 1.002-1.030 [facility] Work Phone: Urobilinogen Auto test strip Ql (U)on 04-25-2022 Urobilinogen Ql (U) Normal mg/dl Normal [facility] Work Phone: Serum or plasma choriogonado tropin detectionon 04-24-2022 HCG ( test) Ql 8251 mIU/mL <4 [facility] Work Phone: Comment on above: hCG levels with Gest ational AgeGestational Age hCG mIU/mL (IU/L)0.2 - 1 week 5 - 501-2 weeks 50 - 5002-3 weeks 100 - 62840-6 weeks 500 - 426891-3 weeks 1000 - 787332-1 weeks 09927 - 100,0006-8 weeks 13490 - 200,0002-3 months 08464 - 100,000 Serum or plasma choriogonado tropin detectionon 04-22-2022 HCG ( test) Ql 5852 mIU/mL <4 [facility] Work Phone: Comment on above: hCG levels with Gest ational AgeGestational Age hCG mIU/mL (IU/L)0.2 - 1 week 5 - 501-2 weeks 50 - 5002-3 weeks 100 - 48475-4 weeks 500 - 367636-8 weeks 1000 - 820258-3 weeks 48738 - 100,0006-8 weeks 88483 - 200,0002-3 months 43234 - 100,000 Provider Note - ED v3on [...] of the COVID-19 vaccine, and received the 4520-2148 influenza vaccine. CRITICAL CARE RESULTS: Recent Lab Results: Urine Hcg test today was positive. VITAL SIGNS: T PRBP SpO2O2(LPM) %FiO2 Method 29-Mar-2022 17:03:[id number]/90 98 MDM MDM/ED COURSE: This note was [...] and Tylenol with some relief; no other zvkv-zsy-opodvuk medications or home remedies for symptom management. [...] Musculoskeletal: Grossly normal; appropriate for age. Integumentary: [employer], warm, dry, and intact. No rashes or [...] to u (more content not included)... Normal [facility] 02-04-2019 Erythrocyte distribution width (RBC) [Entitic vol] 13.3 % 11.6 - 14.8 % [facility] Hematocrit (Bld) [Volume fraction] 29.7 % Low 36 - 46 % [facility] Hemoglobin (Bld) [Mass/Vol] 9.8 g/dL Low 12 - 16 g/dL [facility] Interpretation and review of laboratory results Abnormal [facility] MCH (RBC) [Entitic mass] 25.5 pg Low 26 - 34 pg [facility] MCHC (RBC) [Mass/Vol] 33.0 g/dL 31 - 37 g/dL [facility] MCV (RBC) [Entitic vol] 77.1 fL Low 80 - 100 fL [facility] Platelet mean volume (Bld) [Entitic vol] 11.8 fL 9 - 15.5 fL [facility] Platelets (Bld) [#/Vol] 163 10*3/uL [facility] RBC (Bld) [#/Vol] 3.85 10*6/uL Low [facility] WBC (Bld) [#/Vol] 15.05 10*3/uL [facility] CBC WITH AUTO DIFFERENTIALon 02-03-2019 Basophils (Bld) [#/Vol] 0.03 10*3/uL [facility] Basophils/100 WBC (Bld) 0.3 % [facility] Eosinophils (Bld) [#/Vol] 0.11 10*3/uL [facility] Eosinophils/100 WBC (Bld) 1.0 % [facility] Erythrocyte distribution width (RBC) [Entitic vol] 13.3 % 11.6 - 14.8 % [facility] Hematocrit (Bld) [Volume fraction] 36.9 % 36 - 46 % [facility] Hemoglobin (Bld) [Mass/Vol] 12.3 g/dL 12 - 16 g/dL [facility] Immature granulocytes (Bld) [#/Vol] 0.06 10*3/uL [facility] Immature granulocytes/100 WBC (Bld) 0.50 % [facility] Comment on above: The IG parameter is the percentage of metamyelocytes, myelocytes, and promyelocytes. Interpretation and review of laboratory results Abnormal [facility] Lymphocytes (Bld) [#/Vol] 2.17 10*3/uL [facility] Lymphocytes/100 WBC (Bld) 19.9 % [facility] MCH (RBC) [Entitic mass] 25.3 pg Low 26 - 34 pg [facility] MCHC (RBC) [Mass/Vol] 33.3 g/dL 31 - 37 g/dL [facility] MCV (RBC) [Entitic vol] 75.9 fL Low 80 - 100 fL [facility] Monocytes (Bld) [#/Vol] 0.83 10*3/uL [facility] Monocytes/100 WBC (Bld) 7.6 % [facility] Neutrophils (Bld) [#/Vol] 7.71 10*3/uL High [facility] Neutrophils/100 WBC (Bld) 70.7 % [facility] Platelet mean volume (Bld) [Entitic vol] 11.4 fL 9 - 15.5 fL [facility] Platelets (Bld) [#/Vol] 211 10*3/uL [facility] RBC (Bld) [#/Vol] 4.86 10*6/uL [facility] WBC (Bld) [#/Vol] 10.91 10*3/uL [facility] Metabolic Pane cosme 02-03-2019 Albumin [Mass/Vol] 3.0 g/dL Low 3.2 - 5.2 g/dL [facility] ALP [Catalytic activity/Vol] 139 U/L 40 - 140 U/L [facility] ALT [Catalytic activity/Vol] 11 U/L Low 14 - 65 U/L [facility] Anion gap [Moles/Vol] 15 mmol/L 10 - 2 0 mmol/L [facility] AST [Catalytic activity/Vol] 17 U/L 0 - 45 U/L [facility] Bilirubin [Mass/Vol] 0.3 mg/dL 0 - 1.3 mg/dL [facility] Calcium [Mass/Vol] 8.9 mg/dL 8.4 - 10. 2 mg/dL [facility] Chloride [Moles/Vol] 107 mmol/L 98 - 10 8 mmol/L [facility] Creatinine [Mass/Vol] 0.76 mg/dL 0.4 - 1.1 mg/dL [facility] GFR/1.73 sq M predicted among non-blacks MDRD (S/P/Bld) [Vol rate/Area] The eGFR should be used for monitoring renal function only and not for medication dosing. [facility] GFR/1.73 sq M.predicted CKD-EPI (S/P/Bld) [Vol rate/Area] 104 >=60 mL/min/1.73 m2 [facility] Glucose [Mass/Vol] 80 mg/dL 65 - 99 mg/dL [facility] HCO3 [Moles/Vol] 22 mmol/L 21 - 32 mmol/L [facility] Interpretation and review of laboratory results Abnormal [facility] Potassium [Moles/Vol] 3.6 mmol/L 3.5 - 5.1 mmol/L [facility] Protein [Mass/Vol] 6.9 g/dL 6 - 8 g/dL [facility] Sodium [Moles/Vol] 140 mmol/L 135 - 145 mmol/L [facility] Urea nitrogen [Mass/Vol] 8 mg/dL 8 - 25 mg/dL [facility] Urea nitrogen/Creatinine [Mass ratio] 10.5 mg/mg [facility] Type and Screenon 02-03-2019 ABO and Rh group Nom (Bld) A Positive [facility] Blood group antibody screen Ql Negative [facility] Specimen Expires 02/06/2019 23:59 EST [facility] GYNon 03-25-2017 ALUMINUM SIDING APPLICATOR Name: ALYSSIA ROBERSON LResubmission due to incomplete transmission of the original reportSource Thin Prep Cervical/Endocervical-Pap Smear Clinical History None given Specimen Adequacy Satisfactory No transformation zone component identified. Diagnosis Negative for Intraepithelial Lesion or Malignancy. HPV Results HPV 16/18/Other HPV16: Negative HPV18: Negative HPVOTHER: Negative Assay performed using [employer] Avel[employer] 4800 system utilizing Real-Time PCR toamplify target HPV DNA. This system specifically identifies HPV16 [id number] while concurrently detecting the other twelve high risk types(31,33,35,39,45,51,5 2,56,58,59,66,68). Completed by on 2017-04-03 Electronically Signed By Harpreet MESA (ASCP) , Sink Maker (Case signed 04/01/2017) The Papanicolaou smear is a screening tool, and like any screen, has an inherent false negative rate. Interpretation of results should be made in the context of patient history and clinical findings. Normal [facility] Human Papillomavirus,High Ri skon 03-25-2017 HPV 16 Negative Normal Negative [facility] Comment on above: Performed By: #### H PV ####Unless otherwise noted, all testing performed by [facility] [place], [place] [id number]: [id number] Director: Malvin Weller M.D. HPV 18 Negative Normal Negative [facility] Comment on above: Performed By: #### H PV ####Unless otherwise noted, all testing performed by [address] [id number]: [id number] Director: Malvin Weller M.D. HPV, Other Negative Normal Negative [facility] Comment on above: Result Comment: Assa y performed using [employer] Avel[employer] 4800 system utilizing Real-Time PCR toamplify target HPV DNA. This system specifically identifies HPV16 [id number] while concurrently detecting the other twelve high risk types(31,33,35,39,45,51,52,56,58,59,66,68).Test Performed by [facility] [place] [address] Performed By: #### H PV ####Unless otherwise noted, all testing performed by [address] [id number]: [id number] Director: Malvin Weller M.D. Vital Signs Date Time Vital Sign Value Performing Clinician Facility 02-10-2025 14:52-0400 Body mass index (BMI) [Ratio] 21.3 kg/m2 No Primary Care Physician [facility] 02-10-2025 14:52-0400 Body weight 56.35 kg No Primary Care Physician [facility] 02-10-2025 14:52-0400 Diastolic blood pressure 73 mm[Hg] No Primary Care Physician [facility] 02-10-2025 14:52-0400 Systolic blood pressure 111 mm[Hg] No Primary Care Physician [facility] 01-12-2025 09:22-0400 Body height 162.56 cm No Primary Care Physician [facility] 01-12-2025 09:22-0400 Body mass index (BMI) [Ratio] 19.8 kg/m2 No Primary Care Physician [facility] 01-12-2025 09:22-0400 Body weight 52.3 kg No Primary Care Physician [facility] 01-12-2025 09:22-0400 Diastolic blood pressure 72 mm[Hg] No Primary Care Physician [facility] 01-12-2025 09:22-0400 Systolic blood pressure 103 mm[Hg] No Primary Care Physician [facility] 12-15-2024 11:00-0400 Body height 162.56 cm No Primary Care Physician [facility] 12-15-2024 11:00-0400 Body mass index (BMI) [Ratio] 18.7 kg/m2 No Primary Care Physician [facility] 12-15-2024 11:00-0400 Body weight 49.49 kg No Primary Care Physician [facility] 12-15-2024 11:00-0400 Diastolic blood pressure 75 mm[Hg] No Primary Care Physician [facility] 12-15-2024 11:00-0400 Systolic blood pressure 110 mm[Hg] No Primary Care Physician [facility] 11-15-2024 13:36-0400 Body height 162.56 cm No Primary Care Physician [facility] 11-15-2024 13:36-0400 Body mass index (BMI) [Ratio] 18.2 kg/m2 No Primary Care Physician [facility] 11-15-2024 13:36-0400 Body weight 48.19 kg No Primary Care Physician [facility] 11-15-2024 13:36-0400 Diastolic blood pressure 70 mm[Hg] No Primary Care Physician [facility] 11-15-2024 13:36-0400 Systolic blood pressure 103 mm[Hg] No Primary Care Physician [facility] 10-18-2024 10:21-0400 Body height 162.56 cm No Primary Care Physician [facility] 10-18-2024 10:21-0400 Body mass index (BMI) [Ratio] 18.5 kg/m2 No Primary Care Physician [facility] 10-18-2024 10:21-0400 Body weight 49.04 kg No Primary Care Physician [facility] 10-18-2024 10:21-0400 Diastolic blood pressure 71 mm[Hg] No Primary Care Physician [facility] 10-18-2024 10:21-0400 Systolic blood pressure 112 mm[Hg] No Primary Care Physician [facility] 06-24-2024 13:10-0500 Body height 167.6 cm Thierry Stentz PA-C Work Phone: [facility] 06-24-2024 13:10-0500 Body mass index (BMI) [Ratio] 17.27 kg/m2 Thierry Stentz PA-C Work Phone: [facility] 06-24-2024 13:10-0500 Body weight 48.53 kg Thierry Stentz PA-C Work Phone: [facility] 06-24-2024 13:10-0500 Diastolic blood pressure 70 mm[Hg] Thierry Stentz PA-C Work Phone: [facility] 06-24-2024 13:10-0500 Heart rate 105 /min Thierry Stentz PA-C Work Phone: [facility] 06-24-2024 13:10-0500 SaO2% (BldA) [Mass fraction] 96 % Thierry Stentz PA-C Work Phone: [facility] 06-24-2024 13:10-0500 Systolic blood pressure 100 mm[Hg] Thierry Stentz PA-C Work Phone: [facility] 2023 10:06-0500 Body height 168.9 cm Thierry Stentz PA-C Work Phone: [facility] 2023 10:06-0500 Body mass index (BMI) [Ratio] 16.22 kg/m2 Thierry Stentz PA-C Work Phone: [facility] 2023 10:06-0500 Body weight 46.27 kg Thierry Stentz PA-C Work Phone: [facility] 2023 10:06-0500 Diastolic blood pressure 70 mm[Hg] Thierry Stentz PA-C Work Phone: [facility] 2023 10:06-0500 Heart rate 74 /min Thierry Stentz PA-C Work Phone: [facility] 2023 10:06-0500 Systolic blood pressure 98 mm[Hg] Thierry Stentz PA-C Work Phone: [facility] 05-20-2023 13:41-0500 Diastolic blood pressure 75 mm[Hg] Markus Arce DO Work Phone: [facility] 05-20-2023 13:41-0500 Heart rate 101 /min Markus Arce DO Work Phone: [facility] 05-20-2023 13:41-0500 Respiratory rate 17 /min Markus Arce DO Work Phone: [facility] 05-20-2023 13:41-0500 SaO2% (BldA) [Mass fraction] 99 % Markus Arce DO Work Phone: [facility] 05-20-2023 13:41-0500 Systolic blood pressure 99 mm[Hg] Markus Arce DO Work Phone: [facility] 05-20-2023 07:53-0500 Body height 162.6 cm Markus Arce DO Work Phone: [facility] 05-20-2023 07:53-0500 Body mass index (BMI) [Ratio] 17.16 kg/m2 Markus Arce DO Work Phone: [facility] 05-20-2023 07:53-0500 Body temperature 98.91 [degF] Markus Arce DO Work Phone: [facility] 05-20-2023 07:53-0500 Body weight 45.36 kg Markus Arce DO Work Phone: [facility] 08-27-2022 11:14-0400 Body height 162.5 cm No Pcp Required [facility] 08-27-2022 11:14-0400 Body temperature 98.06 [degF] No Pcp Required [facility] 08-27-2022 11:14-0400 Diastolic blood pressure 87 mm[Hg] No Pcp Required [facility] 08-27-2022 11:14-0400 Heart rate 93 /min No Pcp Required [facility] 08-27-2022 11:14-0400 Respiratory rate 18 /min No Pcp Required [facility] 08-27-2022 11:14-0400 SaO2% (BldA) [Mass fraction] 98 % No Pcp Required [facility] 08-27-2022 11:14-0400 Systolic blood pressure 132 mm[Hg] No Pcp Required [facility] 05-25-2022 10:22-0500 Body height 163 cm No Pcp Required [facility] 05-25-2022 10:22-0500 Body temperature 97.88 [degF] No Pcp Required [facility] 05-25-2022 10:22-0500 Diastolic blood pressure 86 mm[Hg] No Pcp Required [facility] 05-25-2022 10:22-0500 Heart rate 62 /min No Pcp Required [facility] 05-25-2022 10:22-0500 SaO2% (BldA) [Mass fraction] 99 % No Pcp Required [facility] 05-25-2022 10:22-0500 Systolic blood pressure 119 mm[Hg] No Pcp Required [facility] 04-26-2022 13:55-0500 Body temperature 98.6 [degF] No Primary Care Physician [facility] Work Phone: 04-26-2022 13:55-0500 Diastolic blood pressure 67 mm[Hg] No Primary Care Physician [facility] Work Phone: 04-26-2022 13:55-0500 Heart rate 77 /min No Primary Care Physician [facility] Work Phone: 04-26-2022 13:55-0500 Respiratory rate 14 /min No Primary Care Physician [facility] Work Phone: 04-26-2022 13:55-0500 SaO2% (BldA) [Mass fraction] 100 % No Primary Care Physician [facility] Work Phone: 04-26-2022 13:55-0500 Systolic blood pressure 95 mm[Hg] No Primary Care Physician [facility] Work Phone: 04-26-2022 11:23-0500 Body height 162.56 cm No Primary Care Physician [facility] Work Phone: 04-26-2022 11:23-0500 Body mass index (BMI) [Ratio] 16.2 kg/m2 No Primary Care Physician [facility] Work Phone: 04-26-2022 11:23-0500 Body weight 43 kg No Primary Care Physician [facility] Work Phone: 04-26-2022 08:54-0500 Body mass index (BMI) [Ratio] 16.5 kg/m2 No Primary Care Physician [facility] Work Phone: 04-26-2022 08:54-0500 Body weight 43.65 kg No Primary Care Physician [facility] Work Phone: 04-26-2022 08:54-0500 Diastolic blood pressure 88 mm[Hg] No Primary Care Physician [facility] Work Phone: 04-26-2022 08:54-0500 Systolic blood pressure 125 mm[Hg] No Primary Care Physician [facility] Work Phone: 04-25-2022 20:31-0500 Respiratory rate 16 /min No Primary Care Physician [facility] Work Phone: 04-25-2022 18:08-0500 Body mass index (BMI) [Ratio] 17.2 kg/m2 No Primary Care Physician [facility] Work Phone: 04-25-2022 18:08-0500 Body temperature 98.6 [degF] No Primary Care Physician [facility] Work Phone: 04-25-2022 18:08-0500 Body weight 45.35 kg No Primary Care Physician [facility] Work Phone: 04-25-2022 18:08-0500 Diastolic blood pressure 77 mm[Hg] No Primary Care Physician [facility] Work Phone: 04-25-2022 18:08-0500 Heart rate 123 /min No Primary Care Physician [facility] Work Phone: 04-25-2022 18:08-0500 SaO2% (BldA) [Mass fraction] 100 % No Primary Care Physician [facility] Work Phone: 04-25-2022 18:08-0500 Systolic blood pressure 114 mm[Hg] No Primary Care Physician [facility] Work Phone: 03-29-2022 19:03-0400 Body height 162 cm No Pcp Required [facility] 03-29-2022 19:03-0400 Body temperature 98.24 [degF] No Pcp Required [facility] 03-29-2022 19:03-0400 Diastolic blood pressure 90 mm[Hg] No Pcp Required [facility] 03-29-2022 19:03-0400 Heart rate 88 /min No Pcp Required [facility] 03-29-2022 19:03-0400 Respiratory rate 14 /min No Pcp Required [facility] 03-29-2022 19:03-0400 SaO2% (BldA) [Mass fraction] 98 % No Pcp Required [facility] 03-29-2022 19:03-0400 Systolic blood pressure 125 mm[Hg] No Pcp Required [facility] 03-19-2019 15:46-0400 Body weight 52.16 kg Sophia Ford RN [facility] 03-19-2019 15:46-0400 Diastolic blood pressure 75 mm[Hg] Sophia Ford RN [facility] 03-19-2019 15:46-0400 Systolic blood pressure 98 mm[Hg] Sophia Ford RN [facility] 02-06-2019 07:35-0400 Body Temperature 98.1 [degF] Mirian Ford [facility] 02-06-2019 07:35-0400 BP Diastolic 67 mm[Hg] [facility] 02-06-2019 07:35-0400 BP Systolic 101 mm[Hg] [facility] 02-06-2019 07:35-0400 Pulse (Heart Rate) 85 /min Mirian Ford [facility] 02-06-2019 07:35-0400 Pulse Oximetry 96 % Mirian Ford [facility] 02-06-2019 07:35-0400 Respiratory Rate 16 /min Mirian Ford [facility] 02-03-2019 20:50-0400 Body weight 58.33 kg Mirianshan Ford [facility] Encounters Encounter Date Encounter Type Care Provider Facility Start: 02-18-2025 ambulatory Bianca Perez Facility :[facility] Start: 02-10-2025 End: 02-10-[address] Ghislaine Holliday DO -[facility] Work Phone: Start: 02-10-2025 End: 02-10-2025 ambulatory No Primary Care Physician -[facility] Start: 01-12-2025 End: 01-12-2025 Patient encounter procedure Bianca Perez [facility] -[facility] Work Phone: Start: 01-12-2025 End: 01-12-2025 ambulatory No Primary Care Physician [facility] Start: 12-28-2024 End: 12-28-2024 ambulatory MD NO PRIMARY CARE [facility] Start: 12-15-2024 End: 12-15-[address] Ghislaine Holliday DO -[facility] Work Phone: Start: 12-15-2024 End: 12-15-2024 ambulatory No Primary Care Physician -[facility] Start: 11-15-2024 End: 11-15-2024 Patient encounter procedure Manuela MANCIA -[facility] Work Phone: Start: 11-15-2024 End: 11-15-2024 ambulatory No Primary Care Physician [facility] Work Phone: Start: 11-15-2024 End: 11-15-2024 ambulatory Adele Gan Facility:[facility] Start: 10-18-2024 End: 10-18-2024 ambulatory No Primary Care Physician [facility] Work Phone: Start: 10-18-2024 End: 10-18-[address] Adele Gan MD -Laboratory Specimen Work Phone: Start: 10-18-2024 End: 10-18-[address] Adele Gan MD -[facility] Work Phone: Start: 10-18-2024 End: 10-18-2024 ambulatory No Primary Care Physician Facility:[facility] Start: 10-18-2024 End: 10-18-2024 ambulatory Adele Gan Facility:[facility] Start: 10-08-2024 Non-patient / Non-visit Lety gill RN -[facility] Work Phone: Start: 10-08-2024 ambulatory Lety Mejia Facility :[facility] Start: 06-24-2024 End: 06-24-2024 Office outpatient visit 15 minutes Thierry DELACRUZ-C Work Phone: [facility] Comment on above: Vitamin D deficiency (Primary Dx); Screening for thyroid disorder; Fatigue, unspecified type; BMI < 18.5; Seasonal allergies Start: 06-24-2024 End: 06-24-2024 ambulatory [facility] Start: 2023 End: 2023 Office outpatient visit 15 minutes Thierry Diaz PA-C Work Phone: [facility] Comment on above: Traumatic subdural h emorrhage with loss of consciousness, subsequent encounter (Primary Dx) Start: 05-20-2023 End: 05-21-2023 ambulatory [facility] Start: 05-20-2023 End: 05-20-2023 Emergency department patient visit Markus Arce DO Work Phone: [facility] Comment on above: Subdural hemorrhage (CMS/HCC) (Primary Dx); Syncope and collapse Start: 08-27-2022 End: 08-27-2022 Emergency department patient visit Mandie Hudson [facility] [place] [id number] Start: 05-25-2022 End: 05-25-2022 Emergency department patient visit Orlin Casarez [facility] Start: 04-26-2022 Non-patient / Non-visit No Valarie bessie Care Physician [facility] Start: 04-26-2022 End: 04-26-2022 Admission to same day surgery center No Primary Care Physician [facility] [facility] Start: 04-26-2022 End: 04-26-2022 ambulatory No Primary Care Physician [facility] Work Phone: Start: 04-26-2022 End: 04-26-2022 Patient encounter procedure No Primary Care Physician [facility] Start: 04-25-2022 End: 04-25-2022 Emergency department patient visit No Primary Care Physician [facility]-Emergency Department Start: 04-24-2022 End: 04-24-2022 ambulatory No Primary Care Physician [facility] Work Phone: Start: 04-24-2022 End: 04-24-2022 Patient encounter procedure No Primary Care Physician [facility]-Laboratory Start: 04-22-2022 End: 04-22-2022 ambulatory No Primary Care Physician [facility] Work Phone: Start: 04-22-2022 End: 04-22-2022 Patient encounter procedure No Primary Care Physician [facility]-Laboratory Start: 04-20-2022 End: 04-20-2022 Emergency department patient visit PHYSICIAN ALISA [facility] Start: 03-29-2022 End: 03-29-2022 Emergency department patient visit Chantelle Robins [facility] Start: 10-01-2021 ambulatory KRITSY [facility] Ambulatory Start: 10-01-2021 Chart abstracting Sophia Ford RN [facility]ne[facility] Start: 03-22-2019 End: 03-24-2019 Patient encounter procedure MIRIAN FORD [facility] Start: 02-03-2019 [facility] Start: 02-03-2019 End: 02-06-2019 Evaluation and management of inpatient Mirian Ford Work Phone: [facility] Labor [facility] Delivery Comment on above: Delivery of pregnanc y by section (Primary Dx) Start: 01-18-2019 End: 01-18-2019 Patient encounter procedure MIRIAN FORD [facility] Start: 11-24-2018 End: 11-25-2018 Patient encounter procedure MIIRAN Gibson LILIANA [facility] Start: 08-17-2018 End: 08-18-2018 Patient encounter procedure MIRIAN Gibson LILIANA [facility] Start: 08-07-2018 End: 08-07-2018 Patient encounter procedure MIRIAN Gibson [facility] Start: 06-30-2018 End: 06-30-2018 Patient encounter procedure MIRIAN Gibson [facility] Start: 03-25-2017 Ambulatory Mirian Ford Facili ty:[place] Start: 03-25-2017 End: 03-25-2017 Patient encounter procedure Mirian Ford Work Phone: [facility] Procedures Date Procedure Procedure Detail Performing Clinician [...] HCV Quant by PCR testing - HCVPCR #[id number] Non Reactive: < 0.8 Equivocal: >/= 0.8 [...] Phone: Start: 05-20-2023 HCG, URINE, QUALITATIVE MARKUS ARCE Start: 05-20-2023 URINALYSIS WITH REFL EX MICROSCOPIC [...] Work Phone: Start: 05-20-2023 ECG 12-LEAD MARKUS COELLO LLER Start: 05-20-[address] [facility] Start: 05-20-2023 ORTHOSTATIC BLOOD PRESSURE MARKUS [...] panel - Blood by Automated count Mirian FerrellTiffanie Liliana Work Phone: Start: 02-04-2019 Blood type and Indir ect antibody screen panel - Blood Mirian BullTiffanie WilliamTiffanie Liliana Work Phone: Start: 02-04-2019 Comprehensive metabo lic 2000 panel - Serum or Plasma Mirian FerrellTiffanie Liliana Work Phone: Start: 02-04-2019 Complete blood count with white cell differential, automated Mirian FerrellTiffanie Liliana Work Phone: Start: 02-04-2019 Complete blood count with white cell differential, manual Mirian BullTiffanie WilliamTiffanie Liliana Work Phone: section Mirian BullTiffanie WilliamTiffanie Liliana Work Phone: H/O: section Hx of cesa rean section No Primary Care Physician Comment on above: X 2 H/O: section History of delivery, currently No Primary Care Physician Comment on above: x2 - desires repeat csec H/O: section History of delivery, currently Dr. Adele Gan MD H/O: section History of delivery, currently Manuela Olea [employer]C H/O: section History of delivery, currently Dr. [...] 2) Zoste r Vaccines (1 of 2) [facility] Start: 02-06-2029 DTaP/Tdap/Td Vaccine s (2 - Td or Tdap) DTaP/Tdap/Td Vaccines (2 - Td or Tdap) [facility] Start: 06-24-2025 End: 06-24-2025 Patient encounter procedure 06/24/2025 1:15 PM EST Office Visit [facility] [address] [place] [id number] Thierry Diaz PA-C [address] [facility] [address] [place] [address] [facility] Start: 02-10-2025 CBC W Auto Different ial panel - Blood [facility] Start: 02-10-2025 Measurement of gluco se 2 hours after glucose challenge for glucose tolerance test [facility] Start: 02-10-2025 Serologic test for syphilis [facility] Start: 02-10-2025 [facility] Start: 11-15-2024 Procedure [facility] Start: 11-15-2024 CBC W Auto Different ial panel - Blood [facility] Start: 11-15-2024 Cobalamin (Vitamin B 12) [Mass/volume] in Serum or Plasma [facility] Start: 11-15-2024 Ferritin [Mass/volum e] in Serum or Plasma [facility] Start: 11-15-2024 Hepatitis C antibody measurement [facility] Start: 11-15-2024 Iron and Iron bindin g capacity panel - Serum or Plasma [facility] Start: 11-15-2024 Rubella IgG measurement [facility] Start: 11-15-2024 Serologic test for syphilis [facility] Start: 11-15-2024 Thiamine measurement [facility] Start: 11-15-2024 [facility] Start: 06-24-2024 End: 06-24-2025 25-hydroxyvitamin D3 [Mass/volume] in Serum or Plasma Vitamin D 25-Hydroxy,Total (for eval of Vitamin D levels) Lab Routine Vitamin D deficiency Expected: 06/24/2024 (Approximate), Expires: 06/24/2025 [facility] Work Phone: Comment on above: Expected: 06/24/2024 (Approximate), Expires: 06/24/2025 Start: 06-24-2024 End: 06-24-2025 CBC panel - Blood by Automated count CBC Lab Routine BMI < 18.5 Expected: 06/24/2024 (Approximate), Expires: 06/24/2025 [facility] Work Phone: Comment on above: Expected: 06/24/2024 (Approximate), Expires: 06/24/2025 Start: 06-24-2024 End: 06-24-2025 Cobalamin (Vitamin B12) [Mass/volume] in Serum or Plasma Vitamin B12 Lab Routine Fatigue, unspecified type Expected: 06/24/2024 (Approximate), Expires: 06/24/2025 [facility] Work Phone: Comment on above: Expected: 06/24/2024 (Approximate), Expires: 06/24/2025 Start: 06-24-2024 End: 06-24-2025 Comprehensive metabolic 2000 panel - Serum or Plasma Comprehensive Metabolic Panel Lab Routine BMI < 18.5 Expected: 06/24/2024 (Approximate), Expires: 06/24/2025 [facility] Work Phone: Comment on above: Expected: 06/24/2024 (Approximate), Expires: 06/24/2025 Start: 06-24-2024 End: 06-24-2025 TSH with reflex to Free T4 if abnormal TSH with reflex to Free T4 if abnormal Lab Routine Screening for thyroid disorder Expected: 06/24/2024 (Approximate), Expires: 06/24/2025 [facility] Work Phone: Comment on above: Expected: 06/24/2024 (Approximate), Expires: 06/24/2025 Start: 06-24-2024 End: 06-24-2024 Patient encounter procedure 06/24/2024 1:15 PM EST Office Visit [facility] [address] [place] [id number] Thierry Diaz PA-C [address] [facility], [address] [place] [address] [facility] Start: 02-08-2024 COVID-19 Vaccine ( season) COVID-19 Vaccine ( season) [facility] Start: 02-08-2024 Influenza vaccination Influenza Vacc ine (#1) [facility] Start: 02-07-2023 Influenza vaccination Influenza Vacc ine (#1) [facility] Start: 04-26-2022 Ambulation without limitation [facility] Work Phone: Start: 04-26-2022 Medical regimen orde rs management [facility] Work Phone: Start: 04-26-2022 Medication education [facility] Work Phone: Start: 04-26-2022 Patient discharge [facility] Work Phone: Start: 04-26-2022 Procedure discontinued [facility] Work Phone: Start: 04-26-2022 Taking patient vital signs [facility] Work Phone: Start: 04-26-2022 Vital signs measurements [facility] Work Phone: Start: 04-26-2022 [facility] Work Phone: Start: 04-29-2021 COVID-19 Vaccine (3 - Pfizer series) COVID-19 Vaccine (3 - Pfizer series) [facility] Start: 02-03-2019 End: 02-03-2019 Anesthesia Event 02/03/2019 Anesthesia Event Obstetrics Shaheed Kraus MD [address] [place] [address] [phone] [facility] Delivery Start: 2007 Screening for malign ant neoplasm of cervix [facility] Start: 2005 Hepatitis B Vaccines (1 of 3 - 19+ 3-dose series) Hepatitis B Vaccines (1 of 3 - 19+ 3-dose series) [facility] Start: 2004 Hepatitis C screening Hepatitis C Sc reening [facility] Start: 1999 Varicella vaccination Varicell a Vaccines (1 of 2 - 13+ 2-dose series) [facility] Start: 1987 MMR Vaccines (1 of 1 - Standard series) MMR Vaccines (1 of 1 - Standard series) [facility] Start: 1987 Varicella vaccination Varicell a Vaccines (1 of 2 - 2-dose childhood series) [facility] Start: 1986 Hepatitis B Vaccines (1 of 3 - 3-dose series) Hepatitis B Vaccines (1 of 3 - 3-dose series) [facility] Start: 1986 HIV screening HIV Screening [facility] Start: 1986 Lipid panel Lipid Panel [facility] Start: 1986 Yearly Adult Physical Yearly Adult P hysical [facility] CBC W Auto Different ial panel - Blood [facility] CBC W Auto Different ial panel - Blood [facility] Cobalamin (Vitamin B 12) [Mass/volume] in Serum or Plasma [facility] End: 05-20-2023 ECG 12 lead ECG 12 lead ECG STAT Once for 1 Occurrences starting 05/20/2023 until 05/20/2023 [facility] Service Area Work Phone: Comment on above: Once for 1 Occurrenc es starting 05/20/2023 until 05/20/2023 Erythrocyte mean corpuscular volume determination [facility] Erythrocyte mean corpuscular volume determination [facility] Ferritin [Mass/volum e] in Serum or Plasma [facility] Hematocrit [Volume Fraction] of Blood [facility] Hematocrit [Volume Fraction] of Blood [facility] Hemoglobin [Mass/vol ume] in Blood [facility] Hemoglobin [Mass/vol ume] in Blood [facility] Hepatitis B virus surface Ag [Presence] in Serum [facility] Hepatitis C antibody measurement [facility] Iron [Mass/mass] in Unspecified specimen [facility] Iron and Iron bindin g capacity panel - Serum or Plasma [facility] Iron saturation [Mas s Fraction] in Serum or Plasma [facility] Leukocytes [#/volume ] in Blood [facility] Leukocytes [#/volume ] in Blood [facility] Mean corpuscular hemoglobin concentration determination [facility] Mean corpuscular hemoglobin concentration determination [facility] Mean corpuscular hemoglobin determination [facility] Mean corpuscular hemoglobin determination [facility] Measurement of gluco se 2 hours after glucose challenge for glucose tolerance test [facility] Neutrophil count [facility] Neutrophil count [facility] Neutrophil percent differential count [facility] Neutrophil percent differential count [facility] Patient Education Loss Grieving ED MISCARRIAGE Incomplete ED Hematuria [facility] Work Phone: Patient referral [facility] Work Phone: Platelets [#/volume] in Blood [facility] Platelets [#/volume] in Blood [facility] Red blood cell count [facility] Red blood cell count [facility] Red cell distributio n width determination [facility] Red cell distributio n width determination [facility] Rubella IgG measurement [facility] Serologic test for syphilis [facility] Serologic test for syphilis [facility] Thiamine measurement [facility] Total iron binding capacity measurement [facility] Immunizations Immunization Date Immunization Notes Care Provider Saumya taveras 02-06-2019 tetanus toxoid, reduced diphtheria toxoid, and acellular pertussis vaccine, adsorbed formerly [facility] 02-03-2019 diphtheria, tetanus toxoids and acellular pertussis vaccine, unspecified formulation formerly [facility] 02-03-2019 measles, mumps and rubella virus vaccine formerly [facility] 02-03-2019 varicella zoster immune globulin formerly [facility] 02-13-2016 influenza, seasonal, injectable Thierry Diaz PA-C Work Phone: [facility] 02-13-2016 influenza virus vaccine, unspecified formulation Markus Arce DO Work Phone: [facility] Work Phone: Payers Date Payer Category Payer Self-pay 2021 Managed Care (Private) MEDICAL M MOUAL SUPER MED [id number] 2018 Unknown [id number] 2018 Unknown MMO MED MUTUAL S UPERMED PPO xxxxxxxxxxxx 2018-Present [id number] 2018 Unknown [id number]. 1.13.385.2. [id number] 1986 Unknown [id number] 2.16.840.1.048460.3.579.2. 903 1986 Unknown [id number] 2.16.840.1.957172.3.579.2. 900 1986 Unknown [id number] 2.16.840.1.621453.3.579.2. 900 1986 Unknown [id number] 2.16.840.1.017566.3.579.2. 900 1986 Unknown [id number] 2.16.840.1.048158.3.579.2. 900 1986 Unknown [id number] 2.16.840.1.162044.3.579.2. 900 1986 Unknown [id number] 2.16.840.1.835382.3.579.2. 900 1986 Unknown [id number] 2.16.840.1.036032.3.579.2. 900 1986 Unknown [id number] 2.16.840.1.190947.3.579.2. 903 1986 Unknown [id number] 2.16.840.1.809034.3.579.2. 902 1986 Unknown [id number] 2.16.840.1.631708.3.579.2. 1069 1986 Unknown [id number] 2.16.840.1.851903.3.579.2. 1069 1986 Unknown [id number] 2.16.840.1.812600.3.579.2. 1069 1986 Unknown [id number] 2.16.840.1.933183.3.579.2. 903 1986 Unknown [id number] 2.16.840.1.305201.3.579.2. 903 1986 Unknown [id number] 2.16.840.1.745989.3.579.2. 1243 1986 Unknown [id number] 2.16.840.1.095377.3.579.2. 1244 1986 Unknown [id number] 2.16.840.1.278663.3.579.2. 1245 1986 Unknown [id number] 2.16.840.1.353763.3.579.2. 479 Unknown [id number] Unknown [id number] 2.16.840.1.218406.3.579.2. 462 Unknown [id number] 2.16.840.1.026552.3.579.2. 462 Unknown [id number] 2.16.840.1.796857.3.579.2. 462 Unknown [id number] 2.16.840.1.220379.3.579.2. 462 Unknown [id number] 2.16.840.1.705769.3.579.2. 462 Unknown [id number] 2.16.840.1.396038.3.579.2. 462 Unknown [id number] 2.16.840.1.243880.3.579.2. 462 Unknown [id number] 2.16.840.1.599739.3.579.2. 462 Unknown [id number] 2.16.840.1.059671.3.579.2. 462 Unknown [id number] 2.16.840.1.912329.3.579.2. 462 Unknown [id number] 2.16.840.1.724819.3.579.2. 462 Social History Date Type Detail Facility Start: 03-29-2017 End: 04-26-2022 Tobacco smoking status MDIS Unknown if ever smoked [facility] Work Phone: Start: 1985 Sex Assigned At Not on file [facility] Work Phone: Start: 02-06-2019 End: 10-08-2024 Tobacco smoking status NHIS Never smoker [facility] Start: 02-06-2019 Alcohol intake Ex-drinker (finding) [facility] Start: 02-04-2019 End: 05-23-2023 Tobacco use and exposure Smokeless tobacco non-user [facility] Start: 1985 Sex Assigned At Female [facility] Start: 05-23-2023 End: 2023 Gender identity Not on file [facility] Work Phone: Start: 05-10-2023 End: 06-24-2024 Exposure to SARS-CoV-2 (event) Not sure [facility] Work Phone: Start: 05-23-2023 End: 2023 History of Social function [facility] Work Phone: Goals Date Patient Goal Desired Activity /State Mental Status Date Assessment Result Facility 04-26-2022 Cognitive function Level Of Consciousness Sedated [facility] Work Phone: 04-26-2022 Cognitive function Patient Ángel cooper Person;Place;Time [facility] Work Phone: Clinical Notes 05-20-2023 to 01-12-2025 Note Date & Type Note Facility 01-12-2025 Progress note [facility] 12-15-2024 Progress note [facility] 11-15-2024 Progress note [facility] 10-18-2024 Evaluation note Diagnosis Onset Date [...] of miscarriage, currently resolved October 18 10:17am [facility] Work Phone: 1(863) 774-113505-12-2025 Evaluation note* Diagnosis Onset Date Resolution Status [...] < 18.5) acute November 15, 2024 1:28pm [facility] Work Phone: 1([phone]) 904-786805-12-2025 Evaluation note* Diagnosis Onset Date Resolution Status [...] < 18.5) acute December 15, 2024 10:53am [facility] Work Phone: 1(198) 577-631005-12-2025 Evaluation note* Diagnosis Onset Date Resolution Status [...] January 12 9:21am Bartholin's gland cyst acute Au 2024 9:21am History of delivery , currently acute January 12, 2 025 9:21am History of labor acute January 12, 2025 9:21am Placenta previa acute January 9:21am acute January 12 9:21am Supervision of high-risk acute January 12, 2025 9:21am Underweight (BMI < 18.5) acute January 12, 2025 9:21am [facility] Work Phone: 1(630) 812-351905-12-2025 Evaluation note* Diagnosis Onset Date Resolution Status [...] January 12 9:21am Bartholin's gland cyst acute Au 2024 9:21am History of delivery , currently [...] 3:18pm History of delivery , currently acute Vanessa 4th , 2025 3:18pm History of labor acute February 10, 2025 3:18pm Placenta previa acute February 10, 2025 3:18pm acute February 10, 2025 3:18pm Supervision of high-risk acute February 10, 2 025 3:18pm Underweight (BMI < 18.5) acute February 10, 2025 3:18pm [facility] Work Phone: 1(856) 370-478301-16-2025 History of Present illness Narrative* Thierry Diaz [...] daily, need to check level. 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 Review of Systems Constitutional: [...] year or sooner [facility]n. [facility] 1(664) 227-441801-15-2024 History of Present illness Narrative* Thierry Diaz [...] Vit D levels then. [facility] Work Phone: 1(515) 674-526112-12-2023 Emergency department Note* Markus Arce, - 05/20/2023 7:46 AM EST HPI Chief [...] I did speak to the hospitalist at [facility], Dr. Mccullough, who stated that he would [...] the nurse practitioner for trauma services at [facility] and she agreed to accept the patient to the service of her attending physician, Dr. Bermudez. The patient will be transported by local squ in stabilized condition to [facility] emergency room to the service of Dr. Bermudez Critical care time for this patient excluding billable procedures is 48 minutes secondary to multiple repeat physical examinations, expert consultation, and interpretation of radiographic studies. Procedure Procedures Markus Arce DO 05/20/23 1245 documented in this [facility] Work Phone: 1([phone]) 150-893012-12-2023 Physician Emergency department Note* Markus Arce DO [...] I did speak to the hospitalist at [facility], Dr. Mccullough, who stated that he would [...] the nurse practitioner for trauma services at [facility] and she agreed to accept the patient to the service of her attending physician, Dr. Bermudez. The patient will be transported by local squad in stabilized condition to [facility] emergency room to the service of Dr. Bermudez Critical care time for this patient excluding billable procedures is 48 minutes secondary to multiple repeat physical examinations, expert consultation, and interpretation of radiographic studies. Procedure Procedures Markus Arce DO 05/20/23 1245 [facility] Work Phone: Evaluation note* Diagnosis Onset Date Resolution Status Missed acute Missed acute [facility] Work Phone: Evaluation noteNo assessment information available [facility] Work Phone: Evaluation note* Diagnosis Subdural hemorrhage (CMS/HCC)- Primary Subdural hemorrhage Syncope and collapse documented in this encounter [facility] Work Phone: Evaluation note* Diagnosis Traumatic subdural hemorrhage with loss of consciousness, subsequent encounter- Primary documented in this encounter [facility] Work Phone: Evaluation note* Diagnosis Vitamin D deficiency- Primary Screening for thyroid disorder Fatigue, unspecified type BMI < 18.5 Seasonal allergies Allergic rhinitis, cause unspecified documented in this encounter [facility] Work Phone: Progress note Author Manuela Olea [facility] Note Date/Time November 15, 2024 1:52p [facility] [address], [address] [place] [address] OFFICE VISIT Date of Service: 11/15/24 MR#: [id number] Acct: [id number] Name: ALYSSIA ROBERSON Rep #: [id number] : 1985 Provider: BLANCHE Olea Age/Sex: 39/F [place] [facility] Status: Signed Intake Vital Signs 05/10/22 16:08 10/18/24 10:21 11/15/24 13:36 Height 5 ft 4 in 5 ft 4 in 5 ft 4 in Weight: 106 lb 4 oz BMI 18.2 BP 103/70 Intake Visit Reasons: 14wk ob Chief Complaint: 14 Week OB Motion Picture Set Worker Required: No Is patient in pain?: No [...] 2 current occupational status: employed current occupation: [employer] current occupational exposures/hazards: No pets and animals: [...] physical activity do you participate in: none champ/yarsani: Evangelical seatbelt use: always do you feel safe [...] risk , unspecified, second trimester Comment: , IKMBERLEE 05/18/25, PC: Tay, : Palomo (2) : [...] 11/15/24 1352 <Electronically signed by Manuela ferrell PRIVATE HOUSEHOLD WORKER PRIVATE HOUSEHOLD WORKER-C> Date _ Manuela Olea PRIVATE HOUSEHOLD WORKER PRIVATE HOUSEHOLD WORKER-C Cosigner Signature: Date (if applicable) CC: ~ [facility] Work Phone: Progress note Author Ghislaine Dietz [facility] Note Date/Time December 15, 2024 11:25 am [facility] [address], [address] [place] [address] OFFICE VISIT Date of Service: 12/15/24 MR#: [id number] Acct: [id number] Name: ALYSSIA ROBERSON Rep #: [id number] : 1985 Provider: Dr. Denisse Holliday DO Age/Sex: 39/F [place] [facility] Status: Signed Intake Vital Signs 10/18/24 10:21 11/15/24 13:36 12/15/24 11:00 Height 5 ft 4 in 5 ft 4 in 5 ft 4 in Weight: 109 lb 2 oz BMI 18.7 BP 110/75 Intake Visit Reasons: 18wk ob Motion Picture Set Worker Required: No Is patient in pain?: No [...] 2 current occupational status: employed current occupation: [employer] current occupational exposures/hazards: No pets and animals: [...] physical activity do you participate in: none champ/yarsani: Evangelical seatbelt use: always do you feel safe [...] Updated by: Lety Mejia RN D&C HPI 18wk ob Details: ALYSSIA [...] Cosigner Signature: Date (if applicable) CC: ~ [facility] Work Phone: Progress note Author Bianca Perez [facility] Note Date/Time January 12, 2025 9:4 2am [facility] [address] [place] [address], [address] [place] [address] OFFICE VISIT Date of Service: 01/12/25 MR#: [id number] Acct: [id number] Name: ALYSSIA ROBERSON Rep #: [id number] : 1985 Provider: NEVAEH Perez Age/Sex: 39/F [place] [facility] Status: Signed Intake Vital Signs 10/18/24 10:21 12/15/24 11:00 01/12/25 09:22 Height 5 ft 4 in 5 ft 4 in 5 ft 4 in Weight: 115 lb 5 oz BMI 19.8 BP 103/72 Intake Visit Reasons: 22wk ob Motion Picture Set Worker Required: No Is patient in pain?: No [...] 2 current occupational status: employed current occupation: [employer] current occupational exposures/hazards: No pets and [...] physical activity do you participate in: none champ/yarsani: Evangelical seatbelt use: always do you feel safe [...] 145 -?-?-?-?-?-?-?-?-?-?-?-?- kw- no vb/crampi ng. saida fm. reviewed US and previa. has follow up [...] this visit. [place] appropriate handout given. 01/12/25 4837 <Electronically signed by Bianca ferrell CNM> Date _ Bianca Perez CNM Cosigner Signature: Date (if applicable) CC: ~ [facility] Work Phone: Reason for referral (narrative)* Consultation (Routine) - Authorized Specialty Diagnoses / Procedures Referred By Jack parkinson Referred To Contact Primary Care Procedures Follow Up In Primary Care - Established Thierry Diaz PA-C [address] [facility], [address] [address] Referral ID Status Reason Start Date Expiration Date V isits Requested Visits Authorized [id number] Authorized 2023 06/22/2024 1 1 [facility] Work Phone: Rehckn for referral (narrative)* Consultation (Routine) - Authorized Specialty Diagnoses / Procedures Referred By Contac t Referred To Contact Primary Care Procedures Follow Up In Primary Care - Established Thierry Diaz PA-C [address] [facility], [place] [address] Phone: tel: fax: Referral ID Status Reason Start Date Expiration Date V isits Requested Visits Authorized [id number] Authorized 06/24/2024 06/24/2025 1 1 [facility] Work Phone: Revvta for referral (narrative)No reason for [facility] Work [facility]: Summary Purpose Family History No Family History Records Found Relationship Condition Age at Onset Recorded Date/T barron grandmother Malignant neoplasm of colon Unknown Malignant neoplasm of brain 70 grandfather Cardiac disease Unknown Relationship Condition Age at Onset Recorded Date/T barron grandmother Malignant neoplasm of brain 70 grandfather Cardiac disease Unknown mother Cardiac disease Unknown grandmother Malignant neoplasm of colon Unknown Advance Directives No Advanced Directives Records FoundDocuments on File Type Date Recorded 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 Advance Directives and Livin g Will 02/03/2019 9:10 PM Latest Code Status on File Code Status Date Activated Date Inactivated Comments Full Code 02/03/2019 11:02 PM Full Code 02/03/2019 9:19 PM 02/03/2019 11:02 PM Advance Directive Response Recorded Date/ Time Living Will No April 25, 2 022 8:11pm Power of Vallez Filter Operator No April 25, 2022 8:11pm Hospital Course * Laxmi Bee, - 02/06/2019 10:30 AM EDT DISCHARGE SUMMARY Patient: Alyssia Roberson Date of : 1985 Site: [facility] Family Provider: Physician Alisa Admit Date: 02/03/2019 Discharge Date/Time: 02/06/19 Midday [...] Family Provider: Physician No, Phone: None Address: [facility] Follow Up: No follow-up provider specified. Additional [...] AM EDT Thank you for delivery at [facility], it was a pleasure taking care of you. If you have anyquestions regarding your care please call the [facility] Maternity unit [phone]. * Additional Instructions* Janice Krishnan RN - [...] your doctor if you can take an vjge-vga-btqfcgl medicine. If you think your pain medicine [...] Log into your personal health record on [email or web address] and enter M806 in the Education box to learn more about Section: What to Expect at Home. Current as of: February 11, 2018 Content Version: .[id number] [employer]. Care instructions adapted under license by your healthcare professional. If you have questions about a medical condition or this instruction, always ask your healthcare professional. [employer] disclaims any warranty or liability for your [...] eating high-fiber foods. Ask your doctor about qrlk-iyh-sduhlbu stool softeners. Cleanse yourself with a gentle [...] days after delivery. Plan for child care sitter if you have other children. Stay flexible [...] Log into your personal health record on [email or web address] enter [email or web address] in the Education box to learn more about After Your Delivery (the Period): Care Instructions. Current as of: February 11, 2018 Content Version: [id number] [employer]. Care instructions adapted under license by your healthcare professional. If you have questions about a medical condition or this instruction, always ask your healthcare professional. [employer] disclaims any warranty or liability for your use of this information. * Attachments The following attachments cannot be sent through Care Everywhere. * Baby-Friendly : General Info (American) * Section: Post-op (American) * (American) documented in this encounter History of Present [...] 10, 2025 3:18pm Supervision of high-risk Septe [id number] 3:18pm Underweight (BMI < 18.5) February 10, 2025 3:18pm Additional Source Comments INFORMATION SOURCE (unrecogn ized section and content) DATE CREATED AUTHOR 12/02/2017 [facility] DATE CREATED AUTHOR AUTHOR'S ORGANIZ ATION 02/04/2019 [facility] DATE CREATED AUTHOR AUTHOR'S ORGANIZ ATION 03/26/2019 [facility] DATE CREATED AUTHOR AUTHOR'S ORGANIZ ATION [facility] DATE CREATED AUTHOR AUTHOR'S ORGANIZ ATION 04/26/2022 [facility] DATE CREATED AUTHOR AUTHOR'S ORGANIZ ATION 05/31/2022 [facility] DATE CREATED AUTHOR AUTHOR'S ORGANIZ ATION 09/01/2022 [facility] DATE CREATED AUTHOR AUTHOR'S ORGANIZ ATION 05/25/2023 [facility] DATE CREATED AUTHOR AUTHOR'S ORGANIZ ATION 02/25/2024 [facility] DATE CREATED AUTHOR AUTHOR'S ORGANIZ ATION 06/27/2024 [facility] DATE CREATED AUTHOR AUTHOR'S ORGANIZ ATION 06/29/2024 [facility] DATE CREATED AUTHOR AUTHOR'S ORGANIZ ATION 12/29/2024 [facility] DATE CREATED AUTHOR AUTHOR'S ORGANIZ ATION 02/16/2025 [facility] Reason for Visit (unrecogniz ed section [...] Established Thierry Diaz PA-C [address] [facility], [place] [address] Referral ID Status Reason Start Date Expiration Date V isits Requested Visits Authorized [id number] Authorized 05/23/2023 05/22/2024 1 1 Reason Comments pt here for 1 yr follow up Pt c/o freque nt bloody nose and allergy sx Specialty Diagnoses / Procedures Referred By Jack parkinson Referred To Contact Primary Care Procedures Follow Up In Primary Care - Established Thierry Diaz PA-C [address] [facility], [place] [address] Phone: tel: fax: Referral ID Status Reason Start Date Expiration Date V isits Requested Visits Authorized [id number] Authorized 2023 06/22/2024 1 1 Mirian Ford [...] 7 pound 5 ounce male back in 2016. 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 section in 2016, for cephalopelvic disproportion after laboring for 24 [...] consent. documented in this encounter Plan of [place] - Janice Krishnan RN - 02/06/2019 1:21 PM EDTPlan of Asya Jaquez RN - 02/05/2019 11:46 PM ED[facility] of [facility] Ailin Crockett RN - 02/05/2019 1:16 [...] Diagnosis: Active Problems: Delivery of by section Karol Baby Girl Alyssia [[id number]] Delivery Anesthesia Method: Spinal Operative Delivery Forceps attempted?: No Vacuum extractor attempted?: Yes Number of pop offs: 1 [place] Presentation Presentation: Vertex [place] Information date/time: 02/03/192221 Gender: Female Delivery type: , Low Transverse Delivery location: OB Unit Initial disposition: Routine NB Care Details: Trial of labor?: No categorization: Repeat priority: Unscheduled Indications for : Prior , Low Transverse Skin incision type: Pfannenstiel Delivery Providers Delivering clinician: Mirian Ford MD Other personnel: Provider Role Covering Attending Resident Emergency Vehicle Operations Instructor Delivery Nurse Registered Nurse Delivery Assist Nurse [...] Minute: Apgars assigned by: Addis LOMAS RN [place] Measurements Weight: 6 lb 8 oz (2948 [...] (33 y.o.) Date of Service: 02/03/2019 CSN: [id number] Procedure(s): SECTION Pre-Operative Diagnoses: * PRIOR C/S, labor Post-Operative Diagnoses:same Surgeon(s) and Role: * Mirianshan Ford MD - Primary Anesthesiologist: Shaheed Kraus MD Environmental Monitoring Specialist: Carole Adams RN Scrub Person: Chantelle Wilde [...] Care Teams (unrecognized sec tion and content) Supervisor Doping Relationship Specialty Start Date End Date No, Physician [facility] PCP - General 02/03/19 Supervisor Doping Relationship Specialty Start Date End Date Generic Provider, No Assigned Pcp[facility] [address] [place] [address] PCP - General Family Medicine 05/20/23 Supervisor Doping Relationship Specialty Start Date End Date Thierry Diaz PA-C [address] [facility] [place] [address] PCP - General Family Medicine 05/23/23 Supervisor Doping Relationship Specialty Start Date End Date Thierry Diaz PA-C [address] [facility] [place], [place] [phone] PCP - General Family Medicine 05/23/23 Thierry Diaz PA-C [address] [facility] [place] [address] PCP - MMO ACO PCP 06/09/23 Team [...] 2024 End: November 15, 2024 Manuela Olea PRIVATE HOUSEHOLD WORKER, PRIVATE HOUSEHOLD WORKER-C Attending Provider Active Start: November 15, 2024 [...] End: November 15, 2024 Manuela Olea NP, NP-C Attending Provider Active Start: November 15, 2024 [...] End: November 15, 2024 Manuela Olea NP, JHONY-C Attending Provider Active Start: November 15, 2024 [...] BE BASED ON THE PRIMARY CLINICAL RECORDS. [facility]. provides no warranty or guarantee of the accuracy or completeness of information in this document.
[2025-02-18 07:21] LABS: Glucose GTT- Fasting 76 mg/dL (70-99)
[2025-02-18 09:14] LABS: Glucose GTT-30 minutes 148 mg/dL (110-170)
[2025-02-18 10:47] LABS: Glucose GTT- 1 Hour 154 mg/dL (120-170)
[2025-02-18 10:56] LABS: Glucose GTT- 2 Hour 173 mg/dL (70-120)
[2025-02-18 11:43] LABS: Glucose GTT- 3 Hour 156 mg/dL (70-110)
== END | disposition home or self-care (01) ==
LOC: LAB 06:51
PROVIDERS: PCP Physician Assistant; Referring Provider Advanced Practice Midwife; Visit Provider Advanced Practice Midwife
DX: O99.810 Abnormal glucose complicating pregnancy (principal); Z3A.00 Weeks of gestation of pregnancy not specified
CPT/HCPCS: 36415; 82951; 82952

== ENCOUNTER 2025-03-08 14:30 | Outpatient (RCR) | payer OTHER, SELFPAY | END 2025-03-08 23:59 | LOC: NS 14:30 | PROVIDERS: PCP Physician Assistant; Referring Provider Obstetrics & Gynecology; Visit Provider Obstetrics & Gynecology | DX: Z71.3 Dietary counseling and surveillance (principal); O24.419 Gestational diabetes mellitus in pregnancy, unspecified control | CPT/HCPCS: 97802; 97803 ==

== ENCOUNTER → 2025-04-26 | Outpatient (CLI) | payer OTHER, SELFPAY | END | disposition home or self-care (01) | LOC: LABSPEC 16:09 | PROVIDERS: PCP Physician Assistant; Visit Provider Obstetrics & Gynecology | DX: O09.92 Supervision of high risk pregnancy, unspecified, second trimester (principal); Z3A.00 Weeks of gestation of pregnancy not specified | CPT/HCPCS: 87081 ==

== ENCOUNTER 2025-05-12 05:05 | Inpatient (IN) | payer OTHER, SELFPAY ==
[2025-05-12] VITALS (20 sets, daily range): BP systolic 84–116; BP diastolic 55–74; PULSE 74–112; RESP 14–17; TEMP 36.1–36.9; O2SAT 97–100; BMI 22.9
--- OUTSIDE RECORDS SUMMARY | 2025-05-12 05:18 | XMS RPT_ITS | CCD ---
Author Organization [facility] Care Team Providers Care Gse Mechanic Name Role Phone Liliana, Mirian F Unavailable [...] Referring Provider Dr. Adele Gan Other Provider [phone] NO, PHYSICIAN Primary Care Unavailable DARSHAN PARDO Attending Unavailab Orlin Soriano Unavailable Unavailable Mandie Treviño Unavailable Unavailable Chantelle Robins Attending Unavailable Ms. Orlin Casarez Attending Unacara Treviño, Ms. Mandie Oneil Attending Unavailable Generic [...] Thierry Unavailable STENTZ, THIERRY Attending Unavailable STENTZ, TIHERRY Referring Unavailable STENTZ, THIERRY Primary Care Unavailable STENTZ, THIERRY Primary Care Unavailable Care Physician, No Primary Primary Care Provider Unavailable Lety Mejia RN Attending Provider Unavailabl e Care Physician, No Primary Referring Provider Un available Isidra SANDRA, Dr. Angulo Attending Provider Dr. Adele Gan MD Referring Provider Emmie BOOKER-Manuela Callahan Attending Provider [phone] Dr. Ghislaine Holliday DO Attending Provider Bianca Perez CNM Attending Provider [phone] Care Physician, No Primary Primary Care Provider Unavailable Care Physician, No Primary Primary Care Physicia n Unavailable Care Physician, No Primary Referring Provider Un available Emmie BOOKER-CManuela Attending Physician [phone] Dr. Adele Gan MD Attending Physician Dr. Adele Gan MD Referring Provider Dr. Ghislaine Holliday DO Attending Physician Bianca Perez CNM Attending Physician [phone] Bianca Perez CNM Referring Provider [phone] Stentz PA, Thierry Primary Care Physician ADELE GAN Referring Unavailabl e THIERRY VELAZQUEZ Attending Unavailable NO PRIMARY CARE, MD Primary Care Unavailable STENTJose, THIERRY Primary Care Unavailable ADELE GAN Referring Unavailabl e TEODORA JIN Attending Unavailable ADELE GAN Referring Unavailabl e DAVID COLÓN Attending Unavailable STENTZ, THIERRY Primary Care Unavailable Care Physician, No Primary Primary Care Physicia n Unavailable Care Physician, No Primary Referring Provider Un available Isidra SANDRA, Dr. Angulo Attending Physician Dr. Adele Gan MD Referring Provider Adele Gan Attending Unavailable Adele Gan Admitting Unavailable Stentz, Thierry Primary Care Unavailable Stentz, Thierry Primary Care Unavailable Adele Gan Attending Unavailable Adele Gan Referring Unavailable Stentz, Thierry Referring Unavailable Stentz, Thierry Primary Care Unavailable Bianca Perez Attending Unavailable VandGhislaine Huizar Attending Unavailabl e Care Physician, No Primary Primary Care Unava ilable Care Physician, No Primary Referring Unava ilable Care Physician, No Primary Primary Care Unava ilable Care Physician, No Primary Referring Unava ilable Bianca Perez Attending Unavailable Care Physician, No Primary Primary Care Unava ilable Care Physician, No Primary Referring Unava ilable Adele Gan Attending Unavailable Care Physician, No Primary Primary Care Unava ilable Care Physician, No Primary Referring Unava ilable Emmie SENIOR GOVERNMENT PROGRAM ANALYST, Manuela Attending Unavailable VandGhislaine Huizar Attending Unavailabl e Care Physician, No Primary Primary Care Unava ilable Care Physician, No Primary Referring Unava ilable Stentz, Thierry Primary Care Unavailable Care Physician, No Primary Referring Unava ilable Bianca Perez Attending Unavailable Adele Gan Attending Unavailable Care Physician, No Primary Referring Unava ilable Stentz, Thierry Primary Care Unavailable Stentz, Thierry Primary Care Unavailable Care Physician, No Primary Referring Unava ilable Adele Gan Attending Unavailable Lety Mejia Attending Unavailable Care Physician, No Primary Primary Care Unava ilable Lety Mejia Attending Unavailable Care Physician, No Primary Primary Care Unava ilable Stentz, Thierry Primary Care Unavailable Adele Gan Attending Unavailable Adele Gan Referring Unavailable Care Physician, No Primary Primary Care Unava ilable Adele Gan Attending Unavailable Adele Gan Referring Unavailable Ghislaine Holliday Attending Unavailabl e Care Physician, No Primary Primary Care Unava ilable Care Physician, No Primary Primary Care Unava ilable Adele Gan Referring Unavailable Adele Gan Attending Unavailable Thierry Diaz Primary Care Unavailable Bianca Perez Referring Unavailable Bianca Perez Attending Unavailable Medications Current Medications Medication Drug Class(es) [...] this medication unless otherwise directed by prescriber. Blood-Glucose Meter misc (5 sources) Start: 02-18-2025 Blood-Glucose Meter misc Active 0 .MEDSUPPLY 1 0 February 18, 2025 12:00am As directed- Test fasting and 2 hours after meals cetirizine hydrochloride 10 mg oral tablet (1 [...] every week ergocalciferol (Vitamin D-2) 1.25 MG (27227 UT) capsule Indications: Vitamin D deficiency Take [...] needed ibuprofen (ADVIL,MOTRIN) tablet 800 mg Pnv No.215-Pt-Bf0-Dha-Epa-Fi sh (3 sources) Start: 04-23-2022 Pnv No.145-Zk-Bq0-Dha-Epa-Fi sh Active TABLET PO April 23, 2022 12:00am Pnv No.958-Hm-Uk3-Dha-Epa-Fi sh 400 mcg-35 mg- 25 mg-5 mg tablet,chewable (11 sources) Start: 04-23-2022 Pnv No.667-Pd-Si8-Dha-Epa-Fi sh 400 mcg-35 mg- 25 mg-5 mg tablet,chewable Active {tbl} PO April 23, 2022 1:00am Complies with drug therapy Start: 04-23-2022 Start: 04-23-2022 Pnv No.153-Fa- Cj7-Ths-Ghv-Fish 400 mcg-35 mg- 25 mg-5 mg tablet,chewable Active {tbl} PO April 23, 2022 1:00am polymyxin b 59035 unt/ml / trimethoprim 1 mg/ml ophthalmic solution (1 source) Dihydrofolate Reductase Inhibitor Antibacterial, Polymyxin-class Antibacterial Start: 08-27-2022 End: 09-02-2022 take 1 [...] every hour 60 mL/hr, Intravenous, Continuous, Starting Juliana 8/29/19 at 0000, L&D Post-Delivery Start when oxyTOCIN [...] Oral, 2 times daily PRN, constipation, Starting 02/03/19 at 2302, Use [...] directed. Quantity: 1 Refills: 0 Ordered: 25-May-2022 DerrickOrlin mcfarland Start: 25-May-2022 Generic Substitution Allowed Comments: It [...] 02-03-2019 morphine 30 mg/30 mL (1 mg/mL) TITRATOR - ADS Override Pull morphine security screener bolus from syringe 2 mg (1 source) [...] tolerance complicating ; childbirth; or the puerperium (11 sources) Gestational diabetes mellitus complicating ; Translations: [Gestational diabetes mellitus in , unspecified control] Onset: 02-26-2025 02-18-2025 Episodic Comment on above: testing qid and nutr ition consult testing QID. Seeing [facility] extrusion die coordinator. testing QID. Seeing [facility] extrusion die coordinator. Growth US Q4 w and NST 2X/wk per [facility] Genitourinary symptoms and ill-defined conditions (14 sources) Blood in urine; Translations: [Hematuria, unspecified] 05-03-2022 Episodic Headache; including migraine (1 source) Headache; including migraine; Translations: [Headache, unspecified] Onset: 05-25-2022 Hemorrhage during ; abruptio placenta; placenta previa (20 sources) Threatened ; Translations: [Placenta previa] Onset: 04-20-2022 Episodic Comment on above: repeat scan at 28 we eks. pelvic rest . Immunizations and screening for infectious disease (1 source) Encounter for immunization; Translations: [Encounter for immunization] Onset: 03-22-2025 Episodic Inflammation; infection of eye (except that caused by tuberculosis or sexually transmitteddisease) (2 sources) Acute infectious conjunctivitis; Translations: [Other mucopurulent conjunctivitis] Onset: 08-27-2022 08-27-2022 Episodic Inflammatory diseases of female pelvic organs (20 sources) Cyst of Bartholin's gland duct; Translations: [Cyst of Bartholin's gland] Onset: 03-22-2025 10-18-2024 Episodic Comment on above: left side asymptomat ic reviewed precautions Malaise and fatigue (5 sources) Fatigue; Translations: [Other fatigue] Onset: 06-24-2024 06-24-2024 Episodic Menstrual disorders (17 sources) Amenorrhea; Translations: [Absence of menstruation] Onset: 10-21-2022 10-21-2022 Chronic Comment on above: hcg x2 Nutritional deficiencies (7 sources) Vitamin D deficiency; Translations: [Vitamin D deficiency, unspecified] Onset: 05-23-2023 05-23-2023 Chronic Other complications of (14 sources) Miscarriage; Translations: [ demise, less than 22 weeks] 05-03-2022 Episodic Other complications of (14 sources) Missed miscarriage; Translations: [Missed ] 04-30-2022 Episodic Comment on above: proceed with d and c Other complications of (20 sources) High risk ; Translations: [Supervision of high risk , unspecified, unspecified trimester] 10-08-2024 Episodic Comment on above: , KIMBERLEE 05/18/25, PC: Tay, : Palomo , KIMBERLEE 12/04/22, P C RubénEllen drake Palomo PRR , KIMBERLEE , girl (name surprise) PC: Tay, : Palomo Other complications of (4 sources) Missed ; Translations: [Missed ] Episodic Other complications of (17 sources) H/O: miscarriage; Translations: [Supervision of with other poor reproductive or obstetric history, unspecified trimester] 10-18-2024 Episodic Comment on above: x1, Apr 2022 Other complications of (20 sources) Multigravida of advanced maternal age; Translations: [Supervision of elderly multigravida, unspecified trimester] 10-08-2024 Episodic Other complications of (1 source) Supervision of elderly multigravida, second trimester; Translations: [Supervision of elderly multigravida, second trimester] Onset: 03-22-2025 Episodic Other complications of (1 source) Supervision of high risk , unspecified, second trimester; Translations: [Supervision of high risk , unspecified, second trimester] Onset: 03-22-2025 Episodic Other eye disorders (1 source) Other [...] Translations: [Personal history of pre-term labor] Onset: 03-22-2025 Episodic Other lower respiratory disease (2 sources) [...] disorders (1 source) Underweight; Translations: [Underweight] Onset: 03-22-2025 Episodic Other and delivery including normal (20 [...] 05-23-2023 05-23-2023 Episodic Other upper respiratory disease (15 sources) Seasonal allergy; Translations: [Other seasonal allergic [...] unspecified type scar from previous delivery] Onset: 03-22-2025 Episodic Residual codes; unclassified (1 source) 31 weeks gestation of ; Translations: [31 weeks gestation of ] Onset: 03-22-2025 Episodic Residual codes; unclassified (1 source) 30 weeks gestation of ; Translations: [30 weeks gestation of ] Onset: 03-10-2025 Episodic Spontaneous (14 sources) Incomplete miscarriage; Translations: [Incomplete spontaneous without [...] multigravida, first trimester] Onset: 11-19-2024 Episodic Other complications of (1 source) Supervision [...] 03-29-2022 Episodic Residual codes; unclassified (1 source) 22 [...] Test Name Value Interpretation Reference Range Facility Money Examiner Office Visit Reporton 04-18-2025 Money Examiner Office Visit Report [facility] [address], [address] [place] [address] OFFICE VISIT Date of Service: 04/18/25 MR#: [id number] Acct: [id number] Name: ALYSSIA ROBERSON Rep #: [id number] : 1985 Provider: NEVAEH Mayes ams Age/Sex: 39/F [place] [facility] Status: Signed Intake Vital Signs 03/10/25 14:58 04/05/25 14:46 04/18/25 14:57 Height 5 ft 4 in 5 ft 4 in 5 ft 4 in Weight: 130 lb BMI 22.3 BP 111/64 Intake Visit Reasons: 35w 5d ob *csection Middleware Engineer Required: No Is patient in pain?: No Allergies No Known Allergies Allergy (Verified 04/18/25 14:59) Medications ???Medication ???Instructions ???Recorded ???Confirmed ???Type PNV 153-FA 400 mcg-om3 35 mg-dha tab PO 04/23/22 04/18/25 History 25 mg-epa 5 mg-fish oil chew tablet blood sugar diagnostic (Blood #120 ea 02/18/25 04/18/25 Rx Glucose Test strips) blood-glucose meter #1 ea 02/18/25 04/18/25 Rx lancets #200 ea 02/18/25 04/18/25 Rx Last Menstrual Period: 08/11/24 Zika: Zika virus screening: Negative : No Have you fallen in the past year?: No PFSH PFSH Medical History Seasonal allergies [...] occupational status: employed 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 OB Visit KIMBERLEE Calculator Estimated Delivery Date Method Current WG Current Estimate 05/18/25 LMP (Certain) 35w 5d Expected Delivery Route/Plan plan RLTCS with Specific Issue/Plans Covid status: [] Flu vaccine: declined Tdap vaccine: given Rhogam: na LARC form signed: declined movement and labor precautions reviewed. Problem list reviewed and updated with the [...] oz 103/70 Negative -???-???-???-???-???-???- ???-???-???-???-???-???- Negative 160 -? (more content not included)... Normal [facility] Money Examiner Office Visit Reporton 04-05-2025 Money Examiner Office Visit Report [facility] [address], [address] [place] [address] OFFICE VISIT Date of Service: 04/05/25 MR#: [id number] Acct: [id number] Name: ALYSSIA ROBERSON Rep #: [id number] : 1985 Provider: Dr. Adele mackey MD Age/Sex: 39/F [place] [facility] [place]: Signed Intake Vital Signs 02/10/25 14:52 03/22/25 14:13 04/05/25 14:46 04/05/25 14:46 Height 5 ft 4 in 5 ft 4 in 5 ft 4 in 5 ft 4 in Weight: 129 lb 5 oz BMI 22.1 BP 119/78 Intake Visit Reasons: 33w 6d ob *csection Middleware Engineer Required: No Is patient in pain?: No Allergies No Known Allergies Allergy (Verified 04/05/25 14:43) Medications ???Medication ???Instructions ???Recorded ???Confirmed ???Type PNV 153-FA 400 mcg-om3 35 mg-dha tab PO 04/23/22 04/05/25 History 25 mg-epa 5 mg-fish oil chew tablet blood sugar diagnostic (Blood #120 ea 02/18/25 04/05/25 Rx Glucose Test strips) blood-glucose meter #1 ea 02/18/25 04/05/25 Rx lancets #200 ea 02/18/25 04/05/25 Rx Last Menstrual Period: 08/11/24 Zika: Zika virus [...] occupational status: employed 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 OB Visit KIMBERLEE Calculator Estimated Delivery Date Method Current WG Current Estimate 05/18/25 LMP (Certain) 33w 6d Expected Delivery Route/Plan plan RLTCS with Specific Issue/Plans Covid status: [] Flu vaccine: declined Tdap vaccine: given Rhogam: na LARC form signed: declined movement and labor precautions reviewed. Problem list reviewed and updated with the [...] 4 oz 103/70 Negative -???-???-???-???-???-???- ???-???-???-???-???-???- Negative (more content not included)... Normal [facility] Money Examiner Office Visit Reporton 03-22-2025 Money Examiner Office Visit Report [facility] [address], [address] [place] [address] OFFICE VISIT Date of Service: 03/22/25 MR#: [id number] Acct: [id number] Name: ALYSSIA ROBERSON Rep #: [id number] : 1985 Provider: Dr. Adele mackey MD Age/Sex: 39/F [place] [facility] [place]: Signed Intake Vital Signs 02/10/25 14:52 03/10/25 14:58 03/22/25 14:09 03/22/25 14:13 Height 5 ft 4 in 5 ft 4 in 5 ft 4 in 5 ft 4 in Weight: 127 lb 1 oz BMI 21.8 BP 129/76 H Intake Visit Reasons: 31w 6d ob *csection Middleware Engineer Required: No Is patient in pain?: No Allergies No Known Allergies Allergy (Verified 03/22/25 14:08) Medications ???Medication ???Instructions ???Recorded ???Confirmed ???Type PNV 153-FA 400 mcg-om3 35 mg-dha tab PO 04/23/22 03/22/25 History 25 mg-epa 5 mg-fish oil chew tablet blood sugar diagnostic (Blood #120 ea 02/18/25 03/22/25 Rx Glucose Test strips) blood-glucose meter #1 ea 02/18/25 03/22/25 Rx lancets #200 ea 02/18/25 03/22/25 Rx Last Menstrual Period: 08/11/24 Zika: Zika virus [...] occupational status: employed 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 OB Visit KIMBERLEE Calculator Estimated Delivery Date Method Current WG Current Estimate 05/18/25 LMP (Certain) 31w 6d Expected Delivery Route/Plan plan RLTCS with Specific Issue/Plans Covid status: [] Flu vaccine: declined Tdap vaccine: given Rhogam: na LARC form signed: declined movement and labor precautions reviewed. Problem list reviewed and updated with the [...] lb 4 oz 103/70 Negative -???-???-???-???-???-???- ???-???-???-???-???-???- Negativ (more content not included)... Normal [facility] - Chemistry and C hemistry - challengeOrdered By: Bianca Perez on 03-10-2025 Glucose Ql (U) Negative [facility] - UrinalysisOrder ed By: Bianca Perez on 03-10-2025 Protein Ql (U) Negative [facility] Money Examiner Office Visit Reporton 03-10-2025 Money Examiner Office Visit Report [address], [address] [place] [address] OFFICE VISIT Date of Service: 03/10/25 MR#: [id number] Acct: [id number] Name: ALYSSIA ROBERSON Rep #: [id number] : 1985 Provider: NEVAEH Mayes ams Age/Sex: 39/F [place] [facility] [place]: Signed Intake Vital Signs 12/15/24 11:00 03/08/25 16:22 03/10/25 14:58 Height 5 ft 4 in 5 ft 4 in 5 ft 4 in Weight: 126 lb 4 oz BMI 21.7 BP 117/76 Intake Visit Reasons: 30wk ob Chief Complaint: 30wk OB Middleware Engineer Required: No Is patient in pain?: No Allergies No Known Allergies Allergy (Verified 03/10/25 14:55) Medications ???Medication ???Instructions ???Recorded ???Confirmed ???Type PNV 153-FA 400 mcg-om3 35 mg-dha tab PO 04/23/22 03/10/25 History 25 mg-epa 5 mg-fish oil chew tablet blood sugar diagnostic (Blood #120 ea 02/18/25 03/10/25 Rx Glucose Test strips) blood-glucose meter #1 ea 02/18/25 03/10/25 Rx lancets #200 ea 02/18/25 03/10/25 Rx Last Menstrual Period: 08/11/24 : No Have you fallen in the past year?: No PFSH PFSH Medical History Seasonal allergies [...] 2 current occupational status: employed current occupation: [employer] current occupational exposures/hazards: No pets and [...] physical activity do you participate in: none champ/spiritism: Mandaen seatbelt use: always do you feel safe [...] by: Lety Mejia RN D C HPI 30wk ob Details: ALYSSIA ROBERSON is a 39 year old who presents for routine OB visit. OB Visit KIMBERLEE Calculator Estimated Delivery Date Method Current WG Current Estimate 05/18/25 LMP (Certain) 30w 1d Expected Delivery Route/Plan plan RLTCS Specific Issue/Plans [...] labs and NIPT today. Br US to (more content not included)... Normal [facility] 3 HR Glucose Tolerance Testo n 02-18-2025 3HR GTT High [facility] Comment on above: Order Comment: Y Result Comment: FAST ING 76 Col: 02/18/25 0655 GLU 1/2 HR 148 Col: 02/18/25 0757 GLU 1 HR 154 Col: 02/18/25 0828 GLU 2 HR 173 H Col: 02/18/25 0923 GLU 3 HR 156 H Col: 02/18/25 1023 Performed By: #### L 500.4700 #### [facility] [address] [place], [address] Absolute lymphocyte countOrd ered By: Bianca Perez on 02-10-2025 Lymphocytes Auto (Unsp spec) [#/Vol] 1.58 10*3/uL 0.83-4.51 [facility] Absolute neutrophil countOrd ered By: Bianca Perez on 02-10-2025 Neutrophils (Bld) [#/Vol] 7.9 10*3/uL High 2.0-7.7 [facility] Automated lymphocyte count a s percentage of total leukocytesOrdered By: Bianca Perez on 02-10-2025 Lymphocytes/100 WBC Auto (Unsp spec) 14.6 % Low 19-41 [facility] Basophil percentageOrdered B y: Bianca Perez on 02-10-2025 Basophils/100 WBC (Bld) 0.6 % 0-1 [facility] CBC W/Diff, Automatedon Absolute Lymph 1.58 X10 3/uL Normal 0.83-4.51 [facility] Comment on above: Performed By: #### M 100.2200, L7000.1800, [id number] #### [facility] [address] [place], [address] Absolute Neut 7.9 X10 3/uL High 2.0-7.7 [facility] Comment on above: Performed By: #### M 100.2200, L7000.1800, [id number] #### [facility] [address] [place], [address] Basophils/100 WBC (Bld) 0.6 % Normal 0-1 [facility] Comment on above: Performed By: #### M 100.2200, L7000.1800, [id number] #### [facility] [address] [place], [address] Eosinophils/100 WBC (Bld) 3.5 % Normal 0-5 [facility] Comment on above: Performed By: #### M 100.2200, L7000.1800, [id number] #### [facility] [address] [place], [address] Erythrocyte distribution width (RBC) [Ratio] 13.6 % Normal 11.6-14.6 [facility] Comment on above: Performed By: #### M 100.2200, L7000.1800, [id number] #### [facility] [address] [place], [address] Hematocrit (Bld) [Volume fraction] 34.7 % Low 37-47 [facility] Comment on above: Performed By: #### M 100.2200, L7000.1800, [id number] #### [facility] [address] [place], [address] Hemoglobin (Bld) [Mass/Vol] 11.3 g/dL Low 12.0-15.0 [facility] Comment on above: Performed By: #### M 100.2200, L7000.1800, [id number] #### [facility] [address] [place], [address] IG% 1.800 High 0.0-0.9 [facility] Comment on above: Result Comment: IG% - Immature Granulocytes (promyelocytes, myelocytes and metamyelocytes) > 1% indicates that a LEFT SHIFT is Present. Performed By: #### M 100.2200, L7000.1800, [id number] #### [facility] [address] [place], [address] Lymphocytes/100 WBC (Bld) 14.6 % Low 19-41 [facility] Comment on above: Performed By: #### M 100.2200, L7000.1800, [id number] #### [facility] [address] [place], [address] MCH (RBC) [Entitic mass] 27.2 pg Normal 27.0-32.0 [facility] Comment on above: Performed By: #### M 100.2200, L7000.1800, [id number] #### [facility] [address] [place], [address] MCHC (RBC) [Mass/Vol] 32.6 g/dL Normal 32-36 [facility] Comment on above: Performed By: #### M 100.2200, L7000.1800, [id number] #### [facility] [address] [place], [address] MCV (RBC) [Entitic vol] 83.4 fL Normal 81-99 [facility] Comment on above: Performed By: #### M 100.2200, L7000.1800, [id number] #### [facility] [address] [place], [address] Monocytes/100 WBC (Bld) 6.1 % Normal 0-10 [facility] Comment on above: Performed By: #### M 100.2200, L7000.1800, [id number] #### [facility] [address] [place], [address] Neutrophils/100 WBC (Bld) 73.4 % High 47-70 [facility] Comment on above: Performed By: #### M 100.2200, L7000.1800, [id number] #### [facility] [address] [place], [address] Nucleated RBC (Bld) [#/Vol] 0 10*3/uL Normal 0-5 [facility] Comment on above: Performed By: #### M 100.2200, L7000.1800, [id number] #### [facility] [address] [place], [address] Platelet mean volume (Bld) [Entitic vol] 10.4 fL Normal 6.2-12.0 [facility] Comment on above: Performed By: #### M 100.2200, L7000.1800, [id number] #### [facility] [address] [place], [address] Platelets (Bld) [#/Vol] 242 10*3/uL Normal 150-450 [facility] Comment on above: Performed By: #### M 100.2200, L7000.1800, [id number] #### [facility] [address] [place], [address] RBC (Bld) [#/Vol] 4.16 10*6/uL Low 4.2-5.4 [facility] Comment on above: Performed By: #### M 100.2200, L7000.1800, [id number] #### [facility] [address] [place], [address] RDW SD 41.1 fl Normal 35.1-43.9 [facility] Comment on above: Performed By: #### M 100.2200, L7000.1800, [id number] #### [facility] [address] [place], [address] WBC (Bld) [#/Vol] 10.8 10*3/uL Normal 4.4-11.0 [facility] Comment on above: Performed By: #### M 100.2200, L7000.1800, L7400.0280 #### [facility] [address] [place], [address] Eosinophil percentageOrdered By: Bianca Perez on 02-10-2025 Eosinophils/100 WBC (Bld) 3.5 % 0-5 [facility] Erythrocyte distribution wid th ratioOrdered By: Bianca Perez on 02-10-2025 Erythrocyte distribution width (RBC) [Ratio] 13.6 % 11.6-14.6 [facility] Erythrocyte distribution wid th standard deviationOrdered By: Bianca Perez on 02-10-2025 Erythrocyte distribution width (RBC) [Ratio] 41.1 fl 35.1-43.9 [facility] Glucose Challenge Gest 1H 50 [place] 02-10-2025 GLU GEST 50g 1H 176 mg/dL High 70-140 [facility] Comment on above: Performed By: #### M 100.2200, L7000.1800, L7400.0280 #### [facility] [address] [facility] [facility] [place], [place], [id number] Glucose measurement at 2 emma rs post-dose gestational glucose tolerance testOrdered By: Bianca Perez on 02-10-2025 Glucose [Mass/Vol] 176 mg/dL High 70-140 [facility] HIVon 02-10-2025 HIV Non-Reactive Normal Nonreactive [facility] Comment on above: Result Comment: Non- Reactive Reactive Repeatedly reactive samples must be confirmed according to CDC recommended confirmatory algorithms. The subresults for either HIVAG or AHIV can be used as an aid in the selection of the confirmation algorithm for reactive samples. Send out specimens with Reactive results to [facility] for confirmation. Order the HIV antibody detection and differentiation: lc#[id number] Performed By: #### M 100.2200, L7000.1800, L7400.0280 #### [facility] [address] [place], [place], [id number] Hematocrit Auto (Bld) [Volum e fraction]Ordered By: Bianca Perez on 02-10-2025 Hematocrit (Bld) [Volume fraction] 34.7 % Low 37-47 [facility] Hemoglobin measurementOrdere d By: Bianca Perez on 02-10-2025 Hemoglobin (Bld) [Mass/Vol] 11.3 g/dL Low 12.0-15.0 [facility] Immature granulocytes/100 WB C Auto (Bld)Ordered By: Bianca Perez on 02-10-2025 Immature granulocytes/100 WBC (Bld) 1.800 % High 0.0-0.9 [facility] Comment on above: IG% - Immature Granu locytes (promyelocytes, myelocytes and metamyelocytes) > 1% indicates that a LEFT SHIFT is Present. Laboratory - Chemistry and C hemistry - challengeOrdered By: Ghislaine Dietz on 02-10-2025 Glucose Ql (U) Negative [facility] - UrinalysisOrder ed By: Ghislaine Dietz on 02-10-2025 Protein Ql (U) Negative [facility] MCV (mean corpuscular volume ) determinationOrdered By: Bianca Perez on 02-10-2025 MCV (RBC) [Entitic vol] 83.4 fL 81-99 [facility] Mean corpuscular hemoglobin (MCH) determinationOrdered By: Bianca Perez on 02-10-2025 MCH (RBC) [Entitic mass] 27.2 pg 27.0-32.0 [facility] Mean corpuscular hemoglobin concentration (MCHC) determinationOrdered By: Bianca Perez on 02-10-2025 MCHC (RBC) [Mass/Vol] 32.6 g/dL 32-36 [facility] Mean platelet volume determi nationOrdered By: Bianca Perez on 02-10-2025 Platelet mean volume (Bld) [Entitic vol] 10.4 fL 6.2-12.0 [facility] Monocyte percentageOrdered B y: Bianca Perez on 02-10-2025 Monocytes/100 WBC (Bld) 6.1 % 0-10 [facility] Neutrophil percentageOrdered By: Bianca Perez on 02-10-2025 Neutrophils/100 WBC (Bld) 73.4 % High 47-70 [facility] No Panel InformationOrdered By: Bianca Perez on 02-10-2025 HIV (1&2) Antibody Non-Reactive Nonreactive [facility] Comment on above: Non-ReactiveReactive Repeatedly reactive samples must be confirmed according to CDC recommended confirmatory algorithms. The subresults for either HIVAG or AHIV can be used as an aid in the selection of the confirmation algorithm for reactive samples.Send out specimens with Reactive results to [facility] for confirmation.Order the HIV antibody detection and differentiation: #[id number] Nucleated red blood cell per centageOrdered By: Bianca Perez on 02-10-2025 Nucleated RBC/100 WBC (Bld) [Ratio] 0 % 0-5 [facility] Money Examiner Office Visit Reporton 02-10-2025 Money Examiner Office Visit Report [facility] [address], [address] [place] [address] OFFICE VISIT Date of Service: 02/10/25 MR#: [id number] Acct: [id number] Name: ALYSSIA ROBERSON Rep #: [id number] : 1985 Provider: Dr. 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 (more content not included)... Normal [facility] Platelet countOrdered By: Carlos Perez on 02-10-2025 Platelets (Bld) [#/Vol] 242 10*3/uL 150-450 [facility] RBC Auto (Bld) [#/Vol]Ordere d By: Bianca Perez on 02-10-2025 RBC (Bld) [#/Vol] 4.16 10*6/uL Low 4.2-5.4 [facility] Syphilis Antibodieson 2024 Syphilis Abs Non-Reactive Normal Nonreactive [facility] Comment on above: Performed By: #### M 100.2200, L7000.1800, L7400.0280 #### [facility] [address] [place], [address] White blood cell (WBC) count Ordered By: Bianca Perez on 02-10-2025 WBC (Bld) [#/Vol] 10.8 10*3/uL 4.4-11.0 [facility] - Chemistry and C hemistry - challengeOrdered By: Bianca Perez on 01-12-2025 Glucose Ql (U) Negative [facility] - UrinalysisOrder ed By: Bianca Perez on 01-12-2025 Protein Ql (U) Negative [facility] Money Examiner Office Visit Reporton 01-12-2025 Money Examiner Office Visit Report [facility] [address], [address] [place] [address] OFFICE VISIT Date of Service: 01/12/25 MR#: [id number] Acct: [id number] Name: ALYSSIA ROBERSON Rep #: [id number] : 1985 Provider: NEVAEH Mayes ams Age/Sex: 39/F [place] [facility] [place]: Signed Intake Vital Signs 10/18/24 10:21 12/15/24 11:00 01/12/25 09:22 Height 5 ft 4 in 5 ft 4 in 5 ft 4 in Weight: 115 lb 5 oz BMI 19.8 BP 103/72 Intake Visit Reasons: 22wk 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 Fe els well. PN labs and NIPT today. Br US to confirm FHT 12/15/24 -???-???-???-???-???-???- ???-???-???-???-???-???- 18w 0d 109 lb 2 oz 110/75 Negative -???-?? (more content not included)... Normal [facility] - Chemistry and C hemistry - challengeOrdered By: Ghislaine Dietz on 12-15-2024 Glucose Ql (U) Negative [facility] - UrinalysisOrder ed By: Ghislaine Dietz on 12-15-2024 Protein Ql (U) Negative [facility] Money Examiner Office Visit Reporton 12-15-2024 Money Examiner Office Visit Report [facility] [address], [address] [place] [address] OFFICE VISIT Date of Service: 12/15/24 MR#: [id number] Acct: [id number] Name: ALYSSIA ROBERSON Rep #: [id number] : 1985 Provider: Dr. 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 Fe els well. PN labs and NIPT today. Br US to confirm FHT 12/15/24 -???-???-???-???-???-???- ???-???-???-???-???-???- 18w 0d 109 lb 2 oz 110/75 Negative -???-???-???-???-???-???- ???-???-???-???-???-???- Negative 150 (more content not included)... Normal [facility] Vitamin B1, Thiamineon 11-24 VIT B1 THIAMINE 176.5 nmol/L Normal 66.5-200.0 [facility] Comment on above: Order Comment: Test( s) 101431-Png. B1, Whole Bloodwas developed and its performance characteristicsdetermined by [facility] - It's what's in store. It has not been cleared or approvedby the Food and Drug Administration. Result Comment: Perf ormed at: - [facility] [id number] Director Of Distribution: Kristen Kothari MD, Phone: [phone] Performed By: #### M 1002200, L2800.8523, L9949.2562 #### [facility] [address] [place], [place], [phone] Absolute lymphocyte countOrd ered By: Adele Gan on 11-15-2024 Lymphocytes Auto (Unsp spec) [#/Vol] 1.78 10*3/uL 0.83-4.51 [facility] Absolute neutrophil countOrd ered By: Adele Gan on 11-15-2024 Neutrophils (Bld) [#/Vol] 8.5 10*3/uL High 2.0-7.7 [facility] Automated lymphocyte count a s percentage of total leukocytesOrdered By: Adele Gan on 11-15-2024 Lymphocytes/100 WBC Auto (Unsp spec) 15.7 % Low 19-41 [facility] Basophil percentageOrdered B y: Adele Gan on 11-15-2024 Basophils/100 WBC (Bld) 0.4 % 0-1 [facility] CBC W/Diff, Automatedon 06-0 9-2024 Absolute Lymph 1.78 X10 3/uL Normal 0.83-4.51 [facility] Comment on above: Performed By: #### L 503.6030, L503.0106, L503.6550, L3890.6006, L100.0100, BTS, L509.8002, L3890.6102, L509.4006, L3890.6301, L3300.8000 #### [facility] [address] [place], [address] Absolute Neut 8.5 X10 3/uL High 2.0-7.7 [facility] Comment on above: Performed By: #### L 503.6030, L503.0106, L503.6550, L3890.6006, L100.0100, BTS, L509.8002, L3890.6102, L509.4006, L3890.6301, L3300.8000 #### [facility] [address] [place], [address] Basophils/100 WBC (Bld) 0.4 % Normal 0-1 [facility] Comment on above: Performed By: #### L 503.6030, L503.0106, L503.6550, L3890.6006, L100.0100, BTS, L509.8002, L3890.6102, L509.4006, L3890.6301, L3300.8000 #### [facility] [address] [place], [address] Eosinophils/100 WBC (Bld) 2.8 % Normal 0-5 [facility] Comment on above: Performed By: #### L 503.6030, L503.0106, L503.6550, L3890.6006, L100.0100, BTS, L509.8002, L3890.6102, L509.4006, L3890.6301, L3300.8000 #### [facility] [address] [place], [place], [phone] Erythrocyte distribution width (RBC) [Ratio] 13.5 % Normal 11.6-14.6 [facility] Comment on above: Performed By: #### L 503.6030, L503.0106, L503.6550, L3890.6006, L100.0100, BTS, L509.8002, L3890.6102, L509.4006, L3890.6301, L3300.8000 #### [facility] [address] [place], [place], [phone] (332) Hematocrit (Bld) [Volume fraction] 38.8 % Normal 37-47 [facility] Comment on above: Performed By: #### L 503.6030, L503.0106, L503.6550, L3890.6006, L100.0100, BTS, L509.8002, L3890.6102, L509.4006, L3890.6301, L3300.8000 #### [facility] [address] [place], [place], [id number] Hemoglobin (Bld) [Mass/Vol] 12.9 g/dL Normal 12.0-15.0 [facility] Comment on above: Performed By: #### L 503.6030, L503.0106, L503.6550, L3890.6006, L100.0100, BTS, L509.8002, L3890.6102, L509.4006, L3890.6301, L3300.8000 #### [facility] [address] [place], [place], [phone] IG% 0.500 Normal 0.0-0.9 [facility] Comment on above: Result Comment: IG% - Immature Granulocytes (promyelocytes, myelocytes and metamyelocytes) > 1% indicates that a LEFT SHIFT is Present. Performed By: #### L 503.6030, L503.0106, L503.6550, L3890.6006, L100.0100, BTS, L509.8002, L3890.6102, L509.4006, L3890.6301, L3300.8000 #### [facility] [address] [place], [address] Lymphocytes/100 WBC (Bld) 15.7 % Low 19-41 [facility] Comment on above: Performed By: #### L 503.6030, L503.0106, L503.6550, L3890.6006, L100.0100, BTS, L509.8002, L3890.6102, L509.4006, L3890.6301, L3300.8000 #### [facility] [address] [place], [address] MCH (RBC) [Entitic mass] 27.2 pg Normal 27.0-32.0 [facility] Comment on above: Performed By: #### L 503.6030, L503.0106, L503.6550, L3890.6006, L100.0100, BTS, L509.8002, L3890.6102, L509.4006, L3890.6301, L3300.8000 #### [facility] [address] [place], [address] MCHC (RBC) [Mass/Vol] 33.2 g/dL Normal 32-36 [facility] Comment on above: Performed By: #### L 503.6030, L503.0106, L503.6550, L3890.6006, L100.0100, BTS, L509.8002, L3890.6102, L509.4006, L3890.6301, L3300.8000 #### [facility] [address] [place], [address] MCV (RBC) [Entitic vol] 81.9 fL Normal 81-99 [facility] Comment on above: Performed By: #### L 503.6030, L503.0106, L503.6550, L3890.6006, L100.0100, BTS, L509.8002, L3890.6102, L509.4006, L3890.6301, L3300.8000 #### [facility] [address] [place], [address] Monocytes/100 WBC (Bld) 6.1 % Normal 0-10 [facility] Comment on above: Performed By: #### L 503.6030, L503.0106, L503.6550, L3890.6006, L100.0100, BTS, L509.8002, L3890.6102, L509.4006, L3890.6301, L3300.8000 #### [facility] [address] [place], [address] Neutrophils/100 WBC (Bld) 74.5 % High 47-70 [facility] Comment on above: Performed By: #### L 503.6030, L503.0106, L503.6550, L3890.6006, L100.0100, BTS, L509.8002, L3890.6102, L509.4006, L3890.6301, L3300.8000 #### [facility] [address] [place], [address] Nucleated RBC (Bld) [#/Vol] 0 10*3/uL Normal 0-5 [facility] Comment on above: Performed By: #### L 503.6030, L503.0106, L503.6550, L3890.6006, L100.0100, BTS, L509.8002, L3890.6102, L509.4006, L3890.6301, L3300.8000 #### [facility] [address] [place], [address] Platelet mean volume (Bld) [Entitic vol] 10.7 fL Normal 6.2-12.0 [facility] Comment on above: Performed By: #### L 503.6030, L503.0106, L503.6550, L3890.6006, L100.0100, BTS, L509.8002, L3890.6102, L509.4006, L3890.6301, L3300.8000 #### [facility] [address] [place], [address] Platelets (Bld) [#/Vol] 256 10*3/uL Normal 150-450 [facility] Comment on above: Performed By: #### L 503.6030, L503.0106, L503.6550, L3890.6006, L100.0100, BTS, L509.8002, L3890.6102, L509.4006, L3890.6301, L3300.8000 #### [facility] [address] [place], [place], [phone] (939) RBC (Bld) [#/Vol] 4.74 10*6/uL Normal 4.2-5.4 [facility] Comment on above: Performed By: #### L 503.6030, L503.0106, L503.6550, L3890.6006, L100.0100, BTS, L509.8002, L3890.6102, L509.4006, L3890.6301, L3300.8000 #### [facility] [address] [place], [address] RDW SD 40.1 fl Normal 35.1-43.9 [facility] Comment on above: Performed By: #### L 503.6030, L503.0106, L503.6550, L3890.6006, L100.0100, BTS, L509.8002, L3890.6102, L509.4006, L3890.6301, L3300.8000 #### [facility] [address] [place], [address] WBC (Bld) [#/Vol] 11.4 10*3/uL High 4.4-11.0 [facility] Comment on above: Performed By: #### L 503.6030, L503.0106, L503.6550, L3890.6006, L100.0100, BTS, L509.8002, L3890.6102, L509.4006, L3890.6301, L3300.8000 #### [facility] [address] [facility] [facility] [place], [place], [id number] Eosinophil percentageOrdered By: Adelekellee Gan on 11-15-2024 Eosinophils/100 WBC (Bld) 2.8 % 0-5 [facility] Erythrocyte distribution wid th ratioOrdered By: Adele Gan on 11-15-2024 Erythrocyte distribution width (RBC) [Ratio] 13.5 % 11.6-14.6 [facility] Erythrocyte distribution wid th standard deviationOrdered By: Adele Gan on 11-15-2024 Erythrocyte distribution width (RBC) [Ratio] 40.1 fl 35.1-43.9 [facility] Ferritinon 11-15-2024 Ferritin [Mass/Vol] 18 ng/mL Low 22-378 [facility] Comment on above: Performed By: #### L 503.6030, L503.0106, L503.6550, L3890.6006, L100.0100, BTS, L509.8002, L3890.6102, L509.4006, L3890.6301, L3300.8000 #### [facility] [address] [place], [place], [phone] HIVon 11-15-2024 HIV Non-Reactive Normal Nonreactive [facility] Comment on above: Result Comment: Non- Reactive Reactive Repeatedly reactive samples must be confirmed according to CDC recommended confirmatory algorithms. The subresults for either HIVAG or AHIV can be used as an aid in the selection of the confirmation algorithm for reactive samples. Send out specimens with Reactive results to [facility] for confirmation. Order the HIV antibody detection and differentiation: lc#[id number] Performed By: #### M 100.2200, L7000.1800, L7400.0280 #### [facility] [address] [place], [place], [address] Hematocrit Auto (Bld) [Volum e fraction]Ordered By: Adele Gan on 11-15-2024 Hematocrit (Bld) [Volume fraction] 38.8 % 37-47 [facility] Hemoglobin measurementOrdere d By: Adele Gan on 11-15-2024 Hemoglobin (Bld) [Mass/Vol] 12.9 g/dL 12.0-15.0 [facility] Hepatitis C Antibodyon 11-15 Hepatitis C Ab Non-Reactive Normal Nonreactive [facility] Comment on above: Result Comment: Reac tive: Presumptive evidence of antibodies to HCV. Follow CDC recommendations for supplemental testing. Non-Reactive: Antibodies to HCV were not detected; does not exclude the possibility of exposure to HCV Reactive Results are presumptive evidence of antibodies to HCV. Follow CDC recommendations for supplemental testing. Order confirmation testing: HCV Quant by PCR testing - HCVPCR #[id number] Non Reactive: < 0.8 Equivocal: >/= 0.8 to < 1.0 Reactive: >/= 1.0 The CDC requires that a reactive/equivocal HCV antibody result be sent out for confirmation. HCV Quant by PCR testing. Performed By: #### M 100.2200, L7000.1800, L7400.0280 #### [facility] [address] [place], [address] Immature granulocytes/100 WB C Auto (Bld)Ordered By: Adele Gan on 11-15-2024 Immature granulocytes/100 WBC (Bld) 0.500 % 0.0-0.9 [facility] Comment on above: IG% - Immature Granu locytes (promyelocytes, myelocytes and metamyelocytes) > 1% indicates that a LEFT SHIFT is Present. Iron measurement (mass/mass) Ordered By: Adele aGn on 11-15-2024 Iron (Unsp spec) [Mass/Mass] 61 ug/dL 50-170 [facility] Iron+Iron Binding Capacityon 11-15-2024 Iron [Mass/Vol] 61 ug/dL Normal 50-170 [facility] Comment on above: Performed By: #### L 503.6030, L503.0106, L503.6550, L3890.6006, L100.0100, BTS, L509.8002, L3890.6102, L509.4006, L3890.6301, L3300.8000 #### [facility] [address] [place], [address] IRON SATURATION 14.0 Normal 13-59 [facility] Comment on above: Performed By: #### L 503.6030, L503.0106, L503.6550, L3890.6006, L100.0100, BTS, L509.8002, L3890.6102, L509.4006, L3890.6301, L3300.8000 #### [facility] [address] [place], [address] TIBC 442 ug/dL Normal 250-450 [facility] Comment on above: Performed By: #### L 503.6030, L503.0106, L503.6550, L3890.6006, L100.0100, BTS, L509.8002, L3890.6102, L509.4006, L3890.6301, L3300.8000 #### [facility] [address] [place], [address] UIBC 381 ug/dL Normal 228-428 [facility] Comment on above: Performed By: #### L 503.6030, L503.0106, L503.6550, L3890.6006, L100.0100, BTS, L509.8002, L3890.6102, L509.4006, L3890.6301, L3300.8000 #### [facility] [address] [place], [address] L3890.6102on 11-15-2024 HEP B Surf Ag Non-Reactive Normal Nonreactive [facility] Comment on above: Result Comment: Reac tive: Presumptive evidence of HBV. Repeatedly reactive samples must be confirmed using a neutralization test ([employer] HBsAg Confirmatory Test) Non-Reactive: HBsAg not detected; does not exclude the possibility of exposure to HBV Performed By: #### M 100.2200, L7000.1800, L7400.0280 #### [facility] [address] [place], [address] L509.4006on 11-15-2024 Rubella IgG REAC Normal Nonreactive [facility] Comment on above: Result Comment: Anti body Result: Interpretation Non-Reactive: Non-Immune Reactive: Immune The following results were obtained with the [employer] Rubella IgG assay. Results from assays of other manufacturers cannot be used interchangeably. Performed By: #### L 503.6030, L503.0106, L503.6550, L3890.6006, L100.0100, BTS, L509.8002, L3890.6102, L509.4006, L3890.6301, L3300.8000 #### [facility] [address] [place], [address] Laboratory - Chemistry and C hemistry - challengeOrdered By: Manuela Olea on 11-15-2024 Glucose Ql (U) Negative [facility] - Microbiology an d Antimicrobial susceptibilityOrdered By: Adele Gan on 11-15-2024 HBV surface Ag Ql (S) Non-Reactive Nonreactive [facility] Comment on above: Reactive: Presumptiv e evidence of HBV. Repeatedly reactive samples must be confirmed using a neutralization test ([employer] HBsAg Confirmatory Test)Non-Reactive: HBsAg not detected; does not exclude the possibility of exposure to HBV Laboratory - UrinalysisOrder ed By: Manuela Olea on 11-15-2024 Protein Ql (U) Negative [facility] MCV (mean corpuscular volume ) determinationOrdered By: Adele Gan on 11-15-2024 MCV (RBC) [Entitic vol] 81.9 fL 81-99 [facility] Mean corpuscular hemoglobin (MCH) determinationOrdered By: Adele Gan on 11-15-2024 MCH (RBC) [Entitic mass] 27.2 pg 27.0-32.0 [facility] Mean corpuscular hemoglobin concentration (MCHC) determinationOrdered By: Adele Gan on 11-15-2024 MCHC (RBC) [Mass/Vol] 33.2 g/dL 32-36 [facility] Mean platelet volume determi nationOrdered By: Adele Gan on 11-15-2024 Platelet mean volume (Bld) [Entitic vol] 10.7 fL 6.2-12.0 [facility] Monocyte percentageOrdered B y: Adele Gan on 11-15-2024 Monocytes/100 WBC (Bld) 6.1 % 0-10 [facility] NATERAon 11-15-2024 NATURA SEE SCANNED REPORT Normal [facility] Comment on above: Performed By: #### L 900.0098 #### [facility] [address] [place], [place], [id number] Neutrophil percentageOrdered By: Adele Gan on 11-15-2024 Neutrophils/100 WBC (Bld) 74.5 % High 47-70 [facility] No Panel InformationOrdered By: Adele Gan on 11-15-2024 HIV (1&2) Antibody Non-Reactive Nonreactive [facility] Comment on above: Non-ReactiveReactive Repeatedly reactive samples must be confirmed according to CDC recommended confirmatory algorithms. The subresults for either HIVAG or AHIV can be used as an aid in the selection of the confirmation algorithm for reactive samples.Send out specimens with Reactive results to [facility] for confirmation.Order the HIV antibody detection and differentiation: #[id number] Unsaturated Iron Binding Capacity 381 ug/dL 228-428 [facility] Nucleated red blood cell per centageOrdered By: Adele Gan on 11-15-2024 Nucleated RBC/100 WBC (Bld) [Ratio] 0 % 0-5 [facility] Money Examiner Office Visit Reporton 11-15-2024 Money Examiner Office Visit Report [facility]'[address], [address] [place] [address] OFFICE VISIT Date of Service: 11/15/24 MR#: [id number] Acct: [id number] Name: ALYSSIA ROBERSON Rep #: [id number] : 1985 Provider: BLANCHE hendricks Age/Sex: 39/F [place] 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 Normal [facility] Platelet countOrdered By: Maddie Gan on 11-15-2024 Platelets (Bld) [#/Vol] 256 10*3/uL 150-450 [facility] RBC Auto (Bld) [#/Vol]Ordere d By: Adele Gan on 11-15-2024 RBC (Bld) [#/Vol] 4.74 10*6/uL 4.2-5.4 [facility] Serum or plasma ferritin kamari surement (mass/volume)Ordered By: Adele Gan on 11-15-2024 Ferritin [Mass/Vol] 18 ng/mL Low 22-378 [facility] Serum or plasma iron saturat ion measurement (mass fraction)Ordered By: Adele Gan on 11-15-2024 Iron saturation [Mass fraction] 14.0 % 13-59 [facility] Serum or plasma thiamine kamari surement (mass/volume)Ordered By: Adele Gan on 11-15-2024 Thiamine [Mass/Vol] 176.5 nmol/L 66.5-200.0 [facility] Comment on above: Performed at: [address] [id number] Director: Kristen Kothari MD, Phone: [phone] Syphilis Antibodieson 2024 Syphilis Abs Non-Reactive Normal Nonreactive [facility] Comment on above: Performed By: #### M 100.2200, L7000.1800, L7400.0280 #### [facility] [address] [place], [place], [id number] Type AND Screenon 11-15-2024 ABO and Rh group Nom (Bld) Blood group A Rh(D) positive Normal [facility] Comment on above: Order Comment: PN Performed By: #### M 100.2200, L7000.1800, L7400.0280 #### [facility] [address] [place], [address] Vitamin B12on 11-15-2024 Cobalamin (Vitamin B12) [Mass/Vol] 524 pg/mL Normal 180-914 [facility] Comment on above: Performed By: #### L 503.6030, L503.0106, L503.6550, L3890.6006, L100.0100, BTS, L509.8002, L3890.6102, L509.4006, L3890.6301, L3300.8000 #### [facility] [address] [place], [address] Vitamin B12 ser/plasOrdered By: Adele Alcalahlida on 11-15-2024 Cobalamin (Vitamin B12) [Mass/Vol] 524 pg/mL 180-914 [facility] White blood cell (WBC) count Ordered By: Adele Gan on 11-15-2024 WBC (Bld) [#/Vol] 11.4 10*3/uL High 4.4-11.0 [facility] Chlamydia/GC LASHON aptimaon CHLAMY,NUC ACID Negative Normal Negative [facility] Comment on above: Performed By: #### M 100.2200, L7000.1800, L7400.0280 #### [facility] [address] [place], [address] GC BY NUC ACID Negative Normal Negative [facility] Comment on above: Result Comment: Perf ormed at: =G - [facility] [address] [id number] Director Of Distribution: Kelsie Hartman MD, Phone: [phone] Performed By: #### M 100.2200, L7000.1800, L7400.0280 #### [facility] [address] [place], [address] PAP IG HPV APTIMA 16/18,45on 10-21-2024 ADEQ Comment Normal . [facility] Comment on above: Order Comment: Speci men Comment: [id number] Specimen Comment: No. of containers..01 ThinPrep Vial Result Comment: Sati sfactory for evaluation. No endocervical component is identified. Performed By: #### M 100.2200, L7000.1800, L7400.0280 #### [facility] [address] [place], [address] COMM . Normal . [facility] Comment on above: Order Comment: Speci men Comment: [id number] Specimen Comment: No. of containers..01 ThinPrep Vial Performed By: #### M 100.2200, L7000.1800, L7400.0280 #### [facility] [address] [place], [place], [address] COMMENT Comment Normal . [facility] Comment on above: Order Comment: Speci men Comment: [id number] Specimen Comment: No. of containers..01 ThinPrep Vial Result Comment: This liquid based ThinPrep(R) pap test was screened with the use of an image guided system. Performed By: #### M 100.2200, L7000.1800, L7400.0280 #### [facility] [address] [place], [place], [address] DIAG Comment Normal . [facility] Comment on above: Order Comment: Speci men Comment: [id number] Specimen Comment: No. of containers..01 ThinPrep Vial Result Comment: NEGA TIVE FOR INTRAEPITHELIAL LESION OR MALIGNANCY. Performed By: #### M 100.2200, L7000.1800, L7400.0280 #### [facility] [address] [place], [place], [address] HPV APTIMA, HR Negative Normal Negative [facility] Comment on above: Order Comment: Speci men Comment: [id number] Specimen Comment: No. of containers..01 ThinPrep Vial Result Comment: This nucleic acid amplification test detects fourteen high- risk HPV types (16,18,31,33,35,39,45,51,52,56,58,59,66,68) without differentiation. Performed By: #### M 100.2200, L7000.1800, L7400.0280 #### [facility] [address] [place], [address] HPV Madison Rfx Comment Normal . [facility] Comment on above: Order Comment: Speci men Comment: [id number] Specimen Comment: No. of containers..01 ThinPrep Vial Result Comment: Crit eria not met, HPV Genotype not performed. Performed at: - [facility] [id number] Director Of Distribution: Kelsie Hartman MD, Phone: [phone] Performed at: = - [facility] [address] [id number] Director Of Distribution: Kelsie Hartman MD, Phone: [phone] Performed By: #### M 100.2200, L7000.1800, L7400.0280 #### [facility] [address] [place], [place], [address] PAPSMR Comment Normal . [facility] Comment on above: Order Comment: Speci men Comment: [id number] Specimen Comment: No. of containers..01 ThinPrep Vial [...] Performed By: #### M 100.2200, L7000.1800, L7400.0280 #### [facility] [address] [place], [place], [address] PERFORM Comment Normal . [facility] Comment on above: Order Comment: Speci men Comment: [id number] Specimen Comment: No. of containers..01 ThinPrep Vial Result Comment: Ada Hatch [address] (ASCP) Performed By: #### M 100.2200, L7000.1800, L7400.0280 #### [facility] [address] [place], [place], [address] Urine Cultureon 10-21-2024 [facility] Mixed Gram Positive Organisms [place] Count 25,000-50,000 MIXC Mixed contaminants. Submit a new specimen if indicated. Normal [facility] Comment on above: Performed By: #### M 100.2200, L7000.1800, L7400.0280 #### [facility] [address] [place], [address] Cervical or vaginal specimen microscopic examination by liquid based cytology (reportOrdered By: Adele Gan on 10-18-2024 Cytology report Cyto stain.thin prep Doc (Cvx/Vag) Comment . [facility] Comment on above: Criteria not met, HP V Genotype not performed.Performed at: - [address] [id number] Director: Kelsie Hartman MD, Phone: [phone] at: =[facility] [id number] Director: Kelsie Hartman MD, Phone: [phone] Cervical or vagninal specime n microscopic examination by cytology stain (reported asOrdered By: Adele Gan on 10-18-2024 Cytology report Cyto stain Doc (Cvx/Vag) Comment . [facility] Comment on above: The Pap smear [...] rRNA LASHON+probe Ql (Unsp spec) Negative Negative [facility] Detection in cervical specim en of any of human papilloma virus (HPV) 16, 18, 31, 33,Ordered By: Adele Gan on 10-18-2024 HPV 16+18+31+33+35+39+45+5 1+52+56+58+59+66+68 DNA Probe+sig amp Ql (Cvx) Negative Negative [facility] Comment on above: This nucleic acid am plification test detects fourteen high- risk HPV types (16,18,31,33,35,39,45,51,52,56,58,59,66,68)without differentiation. Laboratory - CytologyOrdered By: Adele Gan on 10-18-[address] Cyto stain Nom (Cvx/Vag) [ID] Comment . [facility] Comment on above: Elvia Hatch, [address] (ASCP) Laboratory - Miscellaneous t estsOrdered By: Adele Gan on 10-18-2024 Service comment (Unsp spec) [Interp] . . [facility] Neisseria gonorrhoeae nuclei c acid detection by amplified probe techniqueOrdered By: Adele Gan on 10-18-2024 N. gonorrhoeae DNA LASHON+probe Ql (Unsp spec) Negative Negative [facility] Comment on above: Performed at: =[address] [id number] Director: Kelsie Hartman MD, Phone: [phone] No Panel InformationOrdered By: Adele Gan on 10-18-2024 Pap Smear Specimen Adequacy Comment . [facility] Comment on above: Satisfactory for jose luation. No endocervical component is identified. Money Examiner Office Visit Reporton 10-18-2024 Money Examiner Office Visit Report [facility] [address], [address] [place] [address] OFFICE VISIT Date of Service: 10/18/24 MR#: [id number] Acct: [id number] Name: ALYSSIA ROBERSON Rep #: [id number] : 1985 Provider: Dr. Adele mackey MD Age/Sex: 39/F Location[place] [facility] [place] Status: Signed with Addenda ADDENDUM by Dr. 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 Normal [facility] Urine cultureOrdered By: Coy Gan on 10-18-2024 Bacteria identified Cx Nom (U) Positive Abnormal [facility] CBC panel Auto (Bld)on 06-24 Erythrocyte distribution width (RBC) [Ratio] 12.6 % Normal 11.5-14.5 [facility] Comment on above: Performed By: #### 5 8410-2 #### ANGEL MOLINA ([id number]) [facility] ([facility]) [address] [place] [address] Hematocrit (Bld) [Volume fraction] 46.1 % High 36.0-46.0 [facility] Comment on above: Performed By: #### 5 8410-2 #### ANGEL MOLINA ([id number]) [facility] ([facility]) [address] [place] [address] Hemoglobin (Bld) [Mass/Vol] 14.8 g/dL Normal 12.0-16.0 [facility] Comment on above: Performed By: #### 5 8410-2 #### ANGEL MOLINA (78047) [facility] ([facility]) [address] [place] [address] MCH (RBC) [Entitic mass] 26.9 pg Normal 26.0-34.0 [facility] Comment on above: Performed By: #### 5 8410-2 #### ANGEL MOLINA ([id number]) [facility] ([facility]) [address] [place] [address] MCHC (RBC) [Mass/Vol] 32.1 g/dL Normal 32.0-36.0 [facility] Comment on above: Performed By: #### 5 8410-2 #### ANGEL MOLINA ([id number]) [facility] ([facility]) [address] [place] [address] MCV (RBC) [Entitic vol] 84 fL Normal 80-100 [facility] Comment on above: Performed By: #### 5 8410-2 #### ANGEL MOLINA ([id number]) [facility] ([facility]) [address] [place] [address] Nucleated RBC/100 WBC (Bld) [Ratio] 0.0 /100 WBCs Normal 0.0-0.0 [facility] Comment on above: Performed By: #### 5 8410-2 #### ANGEL MOLINA ([id number]) [facility] ([facility]) [address] [place] [address] Platelets (Bld) [#/Vol] 310 x10*3/uL Normal 150-450 [facility] Comment on above: Performed By: #### 5 8410-2 #### ANGEL MOLINA (21602) [facility] ([facility]) [address] [place] [address] RBC (Bld) [#/Vol] 5.50 x10*6/uL High 4.00-5.20 [facility] Comment on above: Performed By: #### 5 8410-2 #### ANGEL MOLINA ([id number]) [facility] ([facility]) [address] [place] [address]22 WBC (Bld) [#/Vol] 9.5 x10*3/uL Normal 4.4-11.3 [facility] Comment on above: Performed By: #### 5 8410-2 #### ANGEL MOLINA (72604) [facility] ([facility]) [address] [place] [address] 13091 Calcidiolon 06-24-2024 25-hydroxyvitamin D3 [Mass/Vol] 33 ng/mL Normal 30-100 [facility] Comment on above: Order Comment: Defic iency: < 20 ng/ml Insufficiency: 20-29 ng/ml Sufficiency: 30-100 ng/ml This assay accurately quantifies the sum of Vitamin D3, 25-Hydroxy and Vitamin D2,25-Hydroxy. Performed By: #### 1 989-3 #### ANGEL MOLINA ([id number]) [facility] ([facility]) [address] [place] [address] Cobalaminson 06-24-2024 Cobalamin (Vitamin B12) [Mass/Vol] 431 pg/mL Normal 211-911 [facility] Comment on above: Performed By: #### 2 132-9 #### ANGEL MOLINA (55043) [facility] ([facility]) [address] [place] [address] Comprehensive metabolic 2000 panelon 06-24-2024 Albumin BCP dye [Mass/Vol] 4.7 g/dL Normal 3.4-5.0 [facility] Comment on above: Performed By: #### 2 4323-8 #### ANGEL MOLINA ([id number]) [facility] ([facility]) [address] [place] [address] ALP [Catalytic activity/Vol] 42 U/L Normal 33-110 [facility] Comment on above: Performed By: #### 2 4323-8 #### ANGEL MOLINA (85046) [facility] ([facility]) [address] [place] [address] 89294 ALT With P-5'-P [Catalytic activity/Vol] 9 U/L Normal 7-45 [facility] Comment on above: Result Comment: Jocy ents treated with Sulfasalazine may generate falsely decreased results for ALT. Performed By: #### 2 4323-8 #### ANGEL MOLINA ([id number]) [facility] ([facility]) [address] [place] [address] Anion gap [Moles/Vol] 10 mmol/L Normal 10-20 [facility] Comment on above: Performed By: #### 2 4323-8 #### ANGEL MOLINA ([id number]) [facility]) [facility] [place] [address] AST With P-5'-P [Catalytic activity/Vol] 17 U/L Normal 9-39 [facility] Comment on above: Performed By: #### 2 4323-8 #### ANGEL MOLINA ([id number]) [facility] ([facility]) [facility] [place] [address] Bilirubin [Mass/Vol] 0.8 mg/dL Normal 0.0-1.2 [facility] Comment on above: Performed By: #### 2 4323-8 #### ANGEL MOLINA ([id number]) [facility] ([facility]) [address] [place] [address] Calcium [Mass/Vol] 9.7 mg/dL Normal 8.6-10.3 [facility] Comment on above: Performed By: #### 2 4323-8 #### ANGEL MOLINA ([id number]) [facility] ([facility]) [facility] [place] [address] Chloride [Moles/Vol] 102 mmol/L Normal 98-107 [facility] Comment on above: Performed By: #### 2 4323-8 #### ANGEL MOLINA ([id number]) [facility] ([facility]) [address] [place] [address] CO2 [Moles/Vol] 30 mmol/L Normal 21-32 [facility] Comment on above: Performed By: #### 2 4323-8 #### ANGEL MOLINA ([id number]) [facility] ([facility]) [address] [place] [address] Creatinine [Mass/Vol] 0.71 mg/dL Normal 0.50-1.05 [facility] Comment on above: Performed By: #### 2 4323-8 #### ANGEL MOLINA (05125) [facility] ([facility]) [address] [place] [address] 16081 GFR/1.73 sq M.predicted MDRD (S/P/Bld) [Vol rate/Area] mL/min/{1.73_m2} Normal >60 [facility] Comment on above: Result Comment: Calc ulations of estimated GFR are performed using the 2020 CKD-EPI Study Refit equation without the race variable for the IDMS-Traceable creatinine methods. https://jasn.asnjournals.org/content/early//ASN.82541 10069 Performed By: #### 2 4323-8 #### ANGEL MOLINA ([id number]) [facility] ([facility]) [address] [place] [address] 19817 Glucose [Mass/Vol] 76 mg/dL Normal 74-99 [facility] Comment on above: Performed By: #### 2 4323-8 #### ANGEL MOLINA ([id number]) [facility] ([facility]) [address] [place] [address] Potassium [Moles/Vol] 3.7 mmol/L Normal 3.5-5.3 [facility] Comment on above: Performed By: #### 2 4323-8 #### ANGEL MOLINA ([id number]) [facility] ([facility]) [address] [place] [address] Protein [Mass/Vol] 7.3 g/dL Normal 6.4-8.2 [facility] Comment on above: Performed By: #### 2 4323-8 #### ANGEL MOLINA ([id number]) [facility] ([facility]) [address] [place] [address] Sodium [Moles/Vol] 138 mmol/L Normal 136-145 [facility] Comment on above: Performed By: #### 2 4323-8 #### ANGEL MOLINA (18136) [facility] ([facility]) [address] [place] [address] Urea nitrogen [Mass/Vol] 15 mg/dL Normal 6-23 [facility] Comment on above: Performed By: #### 2 4323-8 #### ANGEL MOLINA ([id number]) [facility] ([facility]) [address] [place] [address] TSH WITH REFLEX TO FREE T4 I F ABNORMALon 06-24-2024 TSH Qn 1.46 m[IU]/L Normal 0.44-3.98 [facility] Comment on above: Order Comment: TSH t esting is performed using different testing methodology at [facility] than at other [facility]. Direct result comparisons should only be made within the same method. Performed By: #### T HYDS #### ANGEL MOLINA ([id number]) [facility] ([facility]) [address] [place], [place] [address] ECHOCARDIOGRAM COMPLETE W CO NTRASTon 05-21-2023 ECHOCARDIOGRAM COMPLETE W CONTRAST Patient Info Name: ALYSSIA ROBERSON Age: 37 years : 1985 Gender: Female Ht: 163 cm Wt: 46 kg BSA: 1.44 m2 HR: 86 bpm BP: 94 / 57 mmHg Heart Rhythm: Sinus Rhythm Technical Quality: Technically difficult Exam Date: 05/21/2023 10:00 AM Patient Status: Inpatient Nail Galvanizer: Perlita Jaffe RCDS Exam Type: ECHOCARDIOGRAM COMPLETE W CONTRAST Study Info Indications R55 - Syncope and collapse Referring Physician: ODELL Owens; [id number] BMI: 17.51 kg/m2 Summary 1. Normal LV [...] mmHg MV VTI 21 cm MV Decel Trego 489 cm/s2 MV PHT 53 ms MV [...] Aorta ------- (more content not included)... Normal [facility] US DOPPLER CAROTIDon 023 US DOPPLER CAROTID Patient Info Name: ALYSSIA ROBERSON Age: 37 years : 1985 Gender: Female Exam Date: 05/21/2023 7:58 AM Patient Status: Inpatient Chemical Dependency Therapist: Elvia Jarvis, BEVERLY MORRISON Referring Physician: EROS Rueda; Indications - syncopal work up R55 - Syncope and collapse Procedure Description 20946 Duplex examination using B-mode, color and spectral [...] Barba DO on 05/21/2023 09:14 AM Normal [facility] Basic metabolic 2000 panelon 05-20-2023 Anion gap [Moles/Vol] 9 mmol/L Low 10 - 2 0 mmol/L [facility] Calcium [Mass/Vol] 7.7 mg/dL Low 8.6 - 10. 3 mg/dL [facility] Chloride [Moles/Vol] 111 mmol/L High 98 - 10 7 mmol/L [facility] CO2 [Moles/Vol] 22 mmol/L 21 - 32 mmol/L [facility] Creatinine [Mass/Vol] 0.76 mg/dL 0.50 - 1.05 mg/dL [facility] GFR/1.73 sq M.predicted MDRD (S/P/Bld) [Vol rate/Area] - PINF [facility] Comment on above: Calculations of gricelda mated GFR are performed using the 2020 CKD-EPI Study Refit equation without the race variable for the IDMS-Traceable creatinine methods. https://jasn.asnjournals.org/content///ASN.36890 47422 Glucose [Mass/Vol] 98 mg/dL 74 - 99 mg/dL [facility] Interpretation and review of laboratory results Abnormal [facility] Potassium [Moles/Vol] 3.8 mmol/L 3.5 - 5.3 mmol/L [facility] Sodium [Moles/Vol] 138 mmol/L 136 - 145 mmol/L [facility] Urea nitrogen [Mass/Vol] 13 mg/dL 6 - 23 mg/dL [facility] Anion gap [Moles/Vol] 9 mmol/L Low 10-20 [facility] Comment on above: Performed By: #### 2 4321-2 #### ANGEL MOLINA ([id number]) [facility]) [address] [place] [address] Calcium [Mass/Vol] 7.7 mg/dL Low 8.6-10.3 [facility] Comment on above: Performed By: #### 2 4321-2 #### ANGEL MOLINA ([id number]) [facility] ([facility]) [facility] [place] [address] Chloride [Moles/Vol] 111 mmol/L High 98-107 [facility] Comment on above: Performed By: #### 2 4321-2 #### ANGEL MOLINA (37119) [facility] ([facility]) [address] [place] [address] CO2 [Moles/Vol] 22 mmol/L Normal 21-32 [facility] Comment on above: Performed By: #### 2 4321-2 #### ANGEL MOLINA (04238) [facility]) [address] [place] [address] Creatinine [Mass/Vol] 0.76 mg/dL Normal 0.50-1.05 [facility] Comment on above: Performed By: #### 2 4321-2 #### ANGEL MOLINA ([id number]) [facility]) [facility] [place] [address] GFR/1.73 sq M.predicted MDRD (S/P/Bld) [Vol rate/Area] mL/min/{1.73_m2} Normal >60 [facility] Comment on above: Result Comment: Calc ulations of estimated GFR are performed using the 2020 CKD-EPI Study Refit equation without the race variable for the IDMS-Traceable creatinine methods. https://jasn.asnjournals.org/content/early/ASN.62287 64910 Performed By: #### 2 4321-2 #### ANGEL MOLINA (74508) [facility] ([facility]) [address] [place] [address]5047 Glucose [Mass/Vol] 98 mg/dL Normal 74-99 [facility] Comment on above: Performed By: #### 2 4321-2 #### ANGEL MOLINA ([id number]) [facility] ([facility]) [address] [place] [address] Potassium [Moles/Vol] 3.8 mmol/L Normal 3.5-5.3 [facility] Comment on above: Performed By: #### 2 4321-2 #### ANGEL MOLINA (74844) [facility] ([facility]) [address] [place] [address]698 Sodium [Moles/Vol] 138 mmol/L Normal 136-145 [facility] Comment on above: Performed By: #### 2 4321-2 #### ANGEL MOLINA (61556) [facility] ([facility]) [address] [place] [address]20 Urea nitrogen [Mass/Vol] 13 mg/dL Normal 6-23 [facility] Comment on above: Performed By: #### 2 4321-2 #### ANGEL MOLINA (27021) [facility] ([facility]) [address] [place] [address] 74569 CBC W Auto Differential pane l (Bld)on 05-20-2023 Basophils (Bld) [#/Vol] 0.05 10*3/uL [facility] Basophils/100 WBC (Bld) 0.7 % 0.0 - 2.0 % [facility] Eosinophils (Bld) [#/Vol] 0.30 10*3/uL [facility] Eosinophils/100 WBC (Bld) 4.1 % 0.0 - 6.0 % [facility] Erythrocyte distribution width (RBC) [Ratio] 12.9 % 11.5 - 14.5 % [facility] Hematocrit (Bld) [Volume fraction] 41.4 % 36.0 - 46.0 % [facility] Hemoglobin (Bld) [Mass/Vol] 13.7 g/dL 12.0 - 16.0 g/dL [facility] Immature granulocytes (Bld) [#/Vol] 0.03 10*3/uL [facility] Immature granulocytes/100 WBC (Bld) 0.4 % 0.0 - 0.9 % [facility] Comment on above: Immature Granulocyte Count (IG) includes promyelocytes, myelocytes and metamyelocytes but does not include bands. Percent differential counts (%) should be interpreted in the context of the absolute cell counts (cells/UL). Lymphocytes (Bld) [#/Vol] 1.65 10*3/uL [facility] Lymphocytes/100 WBC (Bld) 22.5 % 13.0 - 44.0 % [facility] MCH (RBC) [Entitic mass] 27.1 pg 26.0 - 34.0 pg [facility] MCHC (RBC) [Mass/Vol] 33.1 g/dL 32.0 - 36.0 g/dL [facility] MCV (RBC) [Entitic vol] 82 fL 80 - 100 fL [facility] Monocytes (Bld) [#/Vol] 0.48 10*3/uL [facility] Monocytes/100 WBC (Bld) 6.5 % 2.0 - 10.0 % [facility] Neutrophils (Bld) [#/Vol] 4.82 10*3/uL [facility] Comment on above: Percent differential counts (%) should be interpreted in the context of the absolute cell counts (cells/uL). Neutrophils/100 WBC (Bld) 65.8 % 40.0 - 80.0 % [facility] Nucleated RBC/100 WBC (Bld) [Ratio] 0.0 % [facility] Platelets (Bld) [#/Vol] 191 10*3/uL [facility] RBC (Bld) [#/Vol] 5.06 10*6/uL [facility] WBC (Bld) [#/Vol] 7.3 10*3/uL [facility] [place] [facility] Basophils (Bld) [#/Vol] 0.05 x10*3/uL Normal 0.00-0.10 [facility] Comment on above: Performed By: #### 5 7021-8 #### ANGEL MOLINA ([id number]) [facility] ([facility]) [address] [place] [address] 94765 Basophils/100 WBC (Bld) 0.7 % Normal 0.0-2.0 [facility] Comment on above: Performed By: #### 5 7021-8 #### ANGEL MOLINA ([id number]) [facility] ([facility]) [address] [place] [address] 21955 Eosinophils (Bld) [#/Vol] 0.30 x10*3/uL Normal 0.00-0.70 [facility] Comment on above: Performed By: #### 5 7021-8 #### ANGEL MOLINA ([id number]) [facility] ([facility]) [address] [place] [address] 74043 Eosinophils/100 WBC (Bld) 4.1 % Normal 0.0-6.0 [facility] Comment on above: Performed By: #### 5 7021-8 #### ANGEL MOLINA ([id number]) [facility] ([facility]) [address] [place] [address] 04332 Erythrocyte distribution width (RBC) [Ratio] 12.9 % Normal 11.5-14.5 [facility] Comment on above: Performed By: #### 5 7021-8 #### ANGEL MOLINA ([id number]) [facility] ([facility]) [address] [place] [address] 67541 Hematocrit (Bld) [Volume fraction] 41.4 % Normal 36.0-46.0 [facility] Comment on above: Performed By: #### 5 7021-8 #### ANGEL MOLINA ([id number]) [facility] ([facility]) [address] [place] [address] 81331 Hemoglobin (Bld) [Mass/Vol] 13.7 g/dL Normal 12.0-16.0 [facility] Comment on above: Performed By: #### 5 7021-8 #### ANGEL MOLINA ([id number]) [facility] ([facility]) [address] [place] [address] 26824 Immature granulocytes (Bld) [#/Vol] 0.03 x10*3/uL Normal 0.00-0.70 [facility] Comment on above: Performed By: #### 5 7021-8 #### ANGEL MOLINA ([id number]) [facility] ([facility]) [address] [place] [address] 63319 Immature granulocytes/100 WBC (Bld) 0.4 % Normal 0.0-0.9 [facility] Comment on above: Result Comment: Christine ture Granulocyte Count (IG) includes promyelocytes, myelocytes and metamyelocytes but does not include bands. Percent differential counts (%) should be interpreted in the context of the absolute cell counts (cells/UL). Performed By: #### 5 7021-8 #### ANGEL MOLINA ([id number]) [facility] ([facility]) [address] [place] [address] 71444 Lymphocytes (Bld) [#/Vol] 1.65 x10*3/uL Normal 1.20-4.80 [facility] Comment on above: Performed By: #### 5 7021-8 #### ANGEL MOLINA ([id number]) [facility] ([facility]) [address] [place] [address] 69999 Lymphocytes/100 WBC (Bld) 22.5 % Normal 13.0-44.0 [facility] Comment on above: Performed By: #### 5 7021-8 #### ANGEL MOLINA ([id number]) [facility] ([facility]) [address] [place] [address] 72856 MCH (RBC) [Entitic mass] 27.1 pg Normal 26.0-34.0 [facility] Comment on above: Performed By: #### 5 7021-8 #### ANGEL MOLINA ([id number]) [facility] ([facility]) [address] [place] [address] 41033 MCHC (RBC) [Mass/Vol] 33.1 g/dL Normal 32.0-36.0 [facility] Comment on above: Performed By: #### 5 7021-8 #### ANGEL MOLINA ([id number]) [facility] ([facility]) [address] [place] [address] 91229 MCV (RBC) [Entitic vol] 82 fL Normal 80-100 [facility] Comment on above: Performed By: #### 5 7021-8 #### ANGEL MOLINA ([id number]) [facility] ([facility]) [address] [place] [address] 10330 Monocytes (Bld) [#/Vol] 0.48 x10*3/uL Normal 0.10-1.00 [facility] Comment on above: Performed By: #### 5 7021-8 #### ANGEL MOLINA ([id number]) [facility] ([facility]) [address] [place] [address] 15231 Monocytes/100 WBC (Bld) 6.5 % Normal 2.0-10.0 [facility] Comment on above: Performed By: #### 5 7021-8 #### ANGEL MOLINA ([id number]) [facility] ([facility]) [address] [place] [address] 43676 Neutrophils (Bld) [#/Vol] 4.82 x10*3/uL Normal 1.20-7.70 [facility] Comment on above: Result Comment: Perc ent differential counts (%) should be interpreted in the context of the absolute cell counts (cells/uL). Performed By: #### 5 7021-8 #### ANGEL MOLINA ([id number]) [facility] ([facility]) [address] [place] [address] 71451 Neutrophils/100 WBC (Bld) 65.8 % Normal 40.0-80.0 [facility] Comment on above: Performed By: #### 5 7021-8 #### ANGEL MOLINA ([id number]) [facility] ([facility]) [address] [place] [address] 62857 Nucleated RBC/100 WBC (Bld) [Ratio] 0.0 /100 WBCs Normal 0.0-0.0 [facility] Comment on above: Performed By: #### 5 7021-8 #### ANGEL MOLINA ([id number]) [facility] ([facility]) [address] [place] [address] 29797 Platelets (Bld) [#/Vol] 191 x10*3/uL Normal 150-450 [facility] Comment on above: Performed By: #### 5 7021-8 #### ANGEL MOLINA ([id number]) [facility] ([facility]) [address] [place] [address] 73224 RBC (Bld) [#/Vol] 5.06 x10*6/uL Normal 4.00-5.20 [facility] Comment on above: Performed By: #### 5 7021-8 #### ANGEL MOLINA ([id number]) [facility] ([facility]) [address] [place] [address] 54118 WBC (Bld) [#/Vol] 7.3 x10*3/uL Normal 4.4-11.3 [facility] Comment on above: Performed By: #### 5 7021-8 #### ANGEL MOLINA ([id number]) [facility] ([facility]) [address] [place], [place] [address] COVID-19, MOLECULARon 2022 SARS-CoV-2 (COVID-19) RNA LASHON+probe Ql (Unsp spec) Not detected Normal Not Detected [facility] Comment on above: Order Comment: This [...] at the following links: For Healthcare Providers: https://www.fda.gov/media/585551/download For Patients: https://www.fda.gov/media/148409/download Performed By: #### L [id number] #### [facility] [address] [place], [place] [address] Malvin Weller M.D. [id number] CT ANGIO CHEST FOR PULMONARY EMBOLISMon 05-20-2023 CT ANGIO CHEST FOR PULMONARY EMBOLISM Interpreted By: Lesley Talbot, STUDY: CT ANGIO CHEST FOR PULMONARY EMBOLISM; 05/20/2023 10:29 am INDICATION: Signs/Symptoms:tachycardi a/syncope. COMPARISON: None. ACCESSION NUMBER(S): [id number] ORDERING CLINICIAN: MARKUS ARCE TECHNIQUE: Helical data [...] Lesley Talbot 05/20/2023 10:35 AM Dictation workstation: [id number] [facility] CT CERVICAL SPINE WO IV CONT [facility] 05-20-2023 CT CERVICAL SPINE WO IV CONTRAST Interpreted By: Liz Cavazos, STUDY: CT CERVICAL SPINE WO IV CONTRAST; 05/20/2023 12:16 pm INDICATION: Signs/Symptoms:trauma. COMPARISON: None. ACCESSION NUMBER(S): [id number] ORDERING CLINICIAN: MARKUS ARCE TECHNIQUE: Axial CT [...] Liz Cavazos 05/20/2023 12:29 PM Dictation workstation: [id number] [facility] CT Cervical spine WO contras ton 05-20-2023 No evidence for an a cute fracture or subluxation of the cervical spine. Straightening of the cervical spine may be seen with strain or sprain. Signed by: Liz Cavazos 05/20/2023 12:29 PM Dictation workstation: [id number] [facility] Interpreted By: Liz Hurley, STUDY: CT CERVICAL SPINE WO IV CONTRAST; 05/20/2023 12:16 pm INDICATION: Signs/Symptoms:trauma. COMPARISON: None. ACCESSION NUMBER(S): [id number] ORDERING CLINICIAN: MARKUS ARCE TECHNIQUE: Axial CT [...] hematoma. Minimal bilateral maxillary sinus mucosal thickening. [facility] Liz Cavazos MD - 05/20/2023 Interpreted By: Liz Cavazos, STUDY: CT CERVICAL SPINE WO IV CONTRAST; 05/20/2023 12:16 pm INDICATION: Signs/Symptoms:trauma. COMPARISON: None. ACCESSION NUMBER(S): [id number] ORDERING CLINICIAN: MARKUS ARCE TECHNIQUE: Axial CT [...] Liz Cavazos 05/20/2023 12:29 PM Dictation workstation: [id number] [facility] Work Phone: Radiology Study observation (narrative) [facility] Work Phone: CT Cervical spine WO contras tOrdered By: Liz Cavazos on 05-20-2023 [facility] Work Phone: CT Chest W contrast IV and C T angiogram Pulmonary arteries for pulmonary embolus W contrast Axel 05-20-[address] scan of the chest. No pulmonary embolism. MACRO: None Signed by: Lesley Talbot 05/20/2023 10:35 AM Dictation workstation: [id number] [facility] Interpreted By: Lesley Hicks, STUDY: CT ANGIO CHEST FOR PULMONARY EMBOLISM; 05/20/2023 10:29 am INDICATION: Signs/Symptoms:tachycardi a/syncope. COMPARISON: None. ACCESSION NUMBER(S): [id number] ORDERING CLINICIAN: MARKUS ARCE TECHNIQUE: Helical data [...] INDICATION: Signs/Symptoms:tachycardi a/syncope. COMPARISON: None. ACCESSION NUMBER(S): [id number] ORDERING CLINICIAN: MARKUS ARCE TECHNIQUE: Helical data [...] Lesley Talbot 05/20/2023 10:35 AM Dictation workstation: [id number] [facility] Work Phone: CT Chest W contrast IV and C T angiogram Pulmonary arteries for pulmonary embolus W contrast IVOrdered By: Lesley Talbot on 05-20-2023 [facility] Work Phone: CT HEAD OR BRAIN [...] FriMay 20, 2023 6:03:10 PM EST Normal [facility] Comment on above: Order Comment: Injur y/Trauma or Illness?:Illness/Other How long have you had these symptoms (acute/chronic)?:Acute Reason for exam?:follow up SDH Type of Exam?:Subsequent/Follow-up Additional signs and symptoms?:n/a CT HEAD WO IV CONTRASTon CT HEAD WO IV CONTRAST Interpreted By: Garfield Colon, STUDY: CT HEAD WO IV CONTRAST; 05/20/2023 10:29 am INDICATION: Signs/Symptoms:syncope/fa ll. COMPARISON: None. ACCESSION NUMBER(S): [id number] ORDERING CLINICIAN: MARKUS ARCE TECHNIQUE: Noncontrast axial [...] Garfield Oshea 05/20/2023 11:22 AM Dictation workstation: [id number] [facility] CT Head WO contraston 2022 Trace acute subdural hematoma along the anterior interhemispheric fissure measuring up to 0.3 cm in thickness. No midline shift. I discussed the findings by phone with Dr. Arce at 11:20 a.m. on 05/20/2020 Signed by: Garfield Oshea 05/20/2023 11:22 AM Dictation workstation: [id number] Interpreted By: Garfield Billy, STUDY: CT HEAD WO IV CONTRAST; 05/20/2023 10:29 am INDICATION: Signs/Symptoms:syncope/fa ll. COMPARISON: None. ACCESSION NUMBER(S): [id number] ORDERING CLINICIAN: MARKUS ARCE TECHNIQUE: Noncontrast axial [...] INDICATION: Signs/Symptoms:syncope/fa ll. COMPARISON: None. ACCESSION NUMBER(S): [id number] ORDERING CLINICIAN: MARKUS ARCE TECHNIQUE: Noncontrast axial [...] Garfield Oshea 05/20/2023 11:22 AM Dictation workstation: [id number] [facility] Work Phone: CT Head WO contrastOrdered B y: Garfield Oshea on 05-20-2023 [facility] Work Phone: HCG ( test) IA.rapi d Ql (U)Ordered By: Taylor Metcalf on 05-20-2023 HCG ( test) Ql (U) Negative NEGATIVE [facility] Interpretation and review of laboratory results Normal [facility] HCG ( test) IA.rapi d Ql (U)on 05-20-2023 HCG ( test) Ql (U) Negative Normal NEGATIVE [facility] Comment on above: Performed By: #### 8 0384-1 #### ORTIZ JESSE ([id number]) [facility] ([facility]) [address] [place] [address] No Panel Informationon 05-20 Radiology Study observation (narrative) [facility] Work Phone: Tropinin I.cardiac panel Hig h sensitivity methodon 05-20-2023 Interpretation and review of laboratory results Normal [facility] Less than 99th perce ntile of [...] performed using a different testing methodology at [facility] than at other [facility]. Direct result comparisons should only be made within the same method. [facility] Interpretation and review of laboratory results Normal [facility] Less than 99th perce ntile of [...] performed using a different testing methodology at [facility] than at [facility]. Direct result comparisons should only be made within the same method. [facility] Troponin I, High Sensitivity , Initialon 05-20-2023 Tropinin I.cardiac panel High sensitivity method ng/L 0 - 13 ng/L [facility] Troponin I.cardiac panelon 1 07-21-2022 Tropinin I.cardiac panel High sensitivity method <3 Normal 0-13 [facility] Comment on above: Order Comment: Less than [...] performed using a different testing methodology at [facility] than at [facility]. Direct result comparisons should only be made within the same method. Performed By: #### 8 9577-1 #### ORTIZ JESSE ([id number]) [facility] ([facility]) [address] [place] [address] Tropinin I.cardiac panel High sensitivity method <3 Normal 0-13 [facility] Comment on above: Order Comment: Less than [...] performed using a different testing methodology at [facility] than at other [facility]. Direct result comparisons should only be made within the same method. Performed By: #### 8 9577-1 #### ORTIZ JESSE ([id number]) [facility] ([facility]) [address] [place] [address] Troponin, High Sensitivity, 1 Houron 05-20-2023 Tropinin I.cardiac panel High sensitivity method ng/L 0 - 13 ng/L [facility] Urinalysis complete panel (U )on 05-20-2023 Appearance (U) Clear Clear [facility] Bilirubin (U) [Mass/Vol] Negative NEGATIVE [facility] Color (U) Straw Straw, Yellow [facility] Glucose Auto test strip (U) [Mass/Vol] Negative NEGATIVE mg/dL [facility] Interpretation and review of laboratory results Normal [facility] Ketones (U) [Mass/Vol] Negative NEGAT PIPE mg/dL [facility] Leukocyte esterase Auto test strip Ql (U) Negative NEGATIVE [facility] Nitrite Auto test strip Ql (U) Negative NEGATIVE [facility] pH (U) 7.0 [pH] 5.0, 5.5, 6.0, 6.5, 7.0, 7.5, 8.0 [facility] Protein (U) [Mass/Vol] Negative NEGAT PIPE mg/dL [facility] RBC (U) [#/Vol] Negative NEGATIVE [facility] Specific gravity (U) [Rel density] 1.009 1.005 - 1.035 [facility] Urobilinogen (U) [Mass/Vol] mg/dL NINF - 2.0 mg/dL [facility] Appearance (U) Clear Normal Clear [facility] Comment on above: Performed By: #### 2 4356-8 #### ANGEL MOLINA ([id number]) [facility] ([facility]) [address] [place], [place] [address] Bilirubin (U) [Mass/Vol] Negative Normal NEGATIVE [facility] Comment on above: Performed By: #### 2 4356-8 #### ANGEL MOLINA ([id number]) [facility] ([facility]) [address] [place], [place] [address] Color (U) Straw Normal Straw, Yellow [facility] Comment on above: Performed By: #### 2 4356-8 #### ANGEL MOLINA ([id number]) [facility] ([facility]) [address] [place], [place] [address] Glucose Auto test strip (U) [Mass/Vol] Negative Normal NEGATIVE [facility] Comment on above: Performed By: #### 2 4356-8 #### ANGEL MOLINA ([id number]) [facility] ([facility]) [address] [place] [address] 74441 Ketones (U) [Mass/Vol] Negative Normal NEGATIVE [facility] Comment on above: Performed By: #### 2 4356-8 #### ANGEL MOLINA ([id number]) [facility] ([facility]) [address] [place] [address] 86643 Leukocyte esterase Auto test strip Ql (U) Negative Normal NEGATIVE [facility] Comment on above: Performed By: #### 2 4356-8 #### ANGEL MOLINA ([id number]) [facility] ([facility]) [address] [place] [address] 69898 Nitrite Auto test strip Ql (U) Negative Normal NEGATIVE [facility] Comment on above: Performed By: #### 2 4356-8 #### ANGEL MOLINA ([id number]) [facility] ([facility]) [address] [place] [address] 27961 pH (U) 7.0 [pH] Normal 5.0, 5.5, 6.0, 6.5, 7.0, 7.5, 8.0 [facility] Comment on above: Performed By: #### 2 4356-8 #### ANGEL MOLINA ([id number]) [facility] ([facility]) [address] [place], [place] [address] Protein (U) [Mass/Vol] Negative Normal NEGATIVE [facility] Comment on above: Performed By: #### 2 4356-8 #### ANGEL MOLINA ([id number]) [facility] ([facility]) [address] [place] [address] RBC (U) [#/Vol] Negative Normal NEGATIVE [facility] Comment on above: Performed By: #### 2 4356-8 #### ANGEL MOLINA ([id number]) [facility] ([facility]) [address] [place] [address] Specific gravity (U) [Rel density] 1.009 Normal 1.005-1.035 [facility] Comment on above: Performed By: #### 2 4356-8 #### ANGEL MOLINA ([id number]) [facility] ([facility]) [address] [place] [address] 97120 Urobilinogen (U) [Mass/Vol] mg/dL Normal <2.0 [facility] Comment on above: Performed By: #### 2 4356-8 #### ANGEL MOLINA ([id number]) [facility] ([facility]) [address] [place], [place] [address] Provider Note - ED v3on 08-08 Provider [...] SIGNS: T PRBP SpO2O2(LPM) %FiO2 Method 27-Aug-2022 09:14:[id number] 98 MDM MDM/ED COURSE: Alyssia is a [...] ill patient: no Electronic Signatures: Mandie Treviño (SAFETY AIDE-ASSEMBLER PING PONG TABLE) (Signed 27-Aug-2022 20:03) Authored: ED Notes, HPI, PMH, PE, Results/Vital Signs, MDM/ED Course, Clinical Impression, Attestation, Chart Review, Scores Last Updated: 27-Aug-2022 20:03 by Mandie Treviño (SAFETY AIDE-ASSEMBLER PING PONG TABLE) [facility] Covid 19 Resultson 2 SARS-CoV-2 (COVID-19) [...] You may also be contacted by the [facility] to see if any of your [...] or Naproxen (Aleve) can also be used. Zhjv-gkx-irhvrxm cough and cold medicines can be used according to the instructions on the package. Some nhsf-ste-hndnwpf medicines also contain acetaminophen. Make sure you [...] water are not available, use alcohol-based hand firmware software verification engineer. Avoid touching your eyes, nose, and mouth [...] 24 emma (more content not included)... Normal [facility] INFLUENZA A/B, COVID 2019 PC R,SYMPTOMATICon 05-26-2022 INFLUENZA A, PCR Detected Abnormal Not Detected [facility] Comment on above: Result Comment: Resp iratory virus testing is performed routinely by PCR for Influenza A/B and RSV. If Influenza and RSV PCR are negative, testing for parainfluenza 1,2,3 viruses and adenovirus is routinely performed for oncology inpatients and intensive care unit patients at [facility] and is available on request on other patients by calling Laboratory Client Services at [phone]. Not Detected results do not preclude Influenza A/B or RSV infections since the adequacy of sample collection or low viral burden may impact the clinical sensitivity of this test method. Performed By: #### C OINP #### [facility] [address] [place] [address] INFLUENZA B, PCR Not detected Normal Not Detected [facility] Comment on above: Result Comment: Resp iratory virus testing is performed routinely by PCR for Influenza A/B and RSV. If Influenza and RSV PCR are negative, testing for parainfluenza 1,2,3 viruses and adenovirus is routinely performed for oncology inpatients and intensive care unit patients at [facility] and is available on request on other patients by calling Laboratory Client Services at [phone] Not Detected results do not preclude Influenza A/B or RSV infections since the adequacy of sample collection or low viral burden may impact the clinical sensitivity of this test method. Performed By: #### C OINP #### [facility] [address] [place] [address] SARS-CoV-2 (COVID-19) RNA LASHON+probe Ql (Unsp spec) Not detected Normal Not Detected [facility] Comment on above: Result Comment: . This assay is designed to detect the ORF1a/b and E genes of SARS-CoV-2 via nucleic acid amplification. A Not Detected result does not preclude 2019-nCoV infection since the adequacy of sample collection and/or low viral burden may result in presence of viral nucleic acids below the clinical sensitivity of this test method. Fact sheet for providers: https://www.fda.gov/media/273025/download Fact sheet for patients: https://www.fda.gov/media/332423/download This test has received FDA Emergency Use Authorization (EUA) and has been verified for use by [facility] [place] ([facility]). This test is only authorized for the duration of time that circumstances exist to justify the authorization of the emergency use of in vitro diagnostic tests for the detection of SARS-CoV-2 virus and/or diagnosis of COVID-19 infection under section 564(b)(1) of the Act, 21 U.S.C. 360bbb-3(b)(1), unless the authorization is terminated or revoked sooner. [facility] is certified under CLIA-88 as qualified to perform high complexity testing. Testing is performed in the [facility] laboratories located at [address] [place] [address]. Performed By: #### C OINP #### [place] [address] GROUP A STREP,PCRon 05-25-20 22 GROUP A STREP,PCR Not detected Normal Not Detected [facility] Comment on above: Result Comment: This test was performed utilizing an FDA-cleared rapid nucleic acid amplification by PCR to qualitatively detect Group A Streptococci from throat swab specimens without the need for culture confirmation of negative results. 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 HISTORY OF PRESENTING ILLNESS ALYSSIA is a 36 year old Female and was seen by me at 25-May-2022 08:26. Triage Information: Most recent Vital Sign Value Date PAST MEDICAL HISTORY ALLERGIES/INTOLERANCES: No Known Allergies HEALTH HISTORY: No documented data. OUTPATIENT MEDICATIONS: Home Medications Review Status for Reconciliation: Complete Med Status: No Current Medications SIGNIFICANT EVENTS: Social/Behavioral Description:pt denies PLANT WRAPPER: Is : no Is : no REVIEW [...] SIGNS: T PRBP SpO2O2(LPM) %FiO2 Method 25-May-2022 08:22:[id number] 99RA [facility] MDM/ED COURSE: Discussed Findings with: [...] Electronic Signatures for Addendum Section: Orlin Casarez ([facility]) (Signed Addendum 26-May-2022 12:23) Pt notified of covid/flu/strep test results. Electronic Signatures: Orlin Casarez ([facility]) (Signed 26-May-2022 12:23) Authored: ED Notes, HPI, PMH, ROS, PE, Results/Vital Signs, MDM/ED Course, Clinical Impression, Attestation, Chart Review, Scores Last Updated: 26-May-2022 12:23 by Orlin Casarez ([facility]) [facility] Absolute lymphocyte counton 04-25-2022 Lymphocytes Auto (Unsp spec) [#/Vol] 1.94 10*3/uL 0.83-4.51 [facility] Work Phone: Basophil percentageon 2021 Basophil percentage 0-5 SEEN /hpf 0-5 [facility] Work Phone: Basophils/100 WBC (Bld) 0.4 % 0-1 [facility] Work Phone: Bilirubin [Mass/Vol] 0.80 mg/dL 0.20-1.00 [facility] Work Phone: Comment on above: For patients on eltr ombopag therapy, use of Dimension [place] TBIL is not recommended. Chloride [Moles/Vol] 105 mmol/L 98-107 [facility] Work Phone: Eosinophils/100 WBC (Bld) 1.7 % 0-5 [facility] Work Phone: Glucose [Mass/Vol] 94 mg/dL 74-106 [facility] Work Phone: Neutrophils (Bld) [#/Vol] 6.2 10*3/uL 2.0-7.7 [facility] Work Phone: Neutrophils/100 WBC (Bld) 69.0 % 47-70 [facility] Work Phone: Potassium [Moles/Vol] 3.8 mmol/L 3.5-5.1 [facility] Work Phone: Protein [Mass/Vol] 7.7 g/dL 6.4-8.2 [facility] Work Phone: Sodium [Moles/Vol] 139 mmol/L 136-145 [facility] Work Phone: WBC (Bld) [#/Vol] 9.0 10*3/uL 4.4-11.0 [facility] Work Phone: Bilirubin Test strip Ql (U)o n 04-25-2022 Bilirubin Ql (U) Negative Negative [facility] Work Phone: Blood erythrocytes count (nu mber/volume)on 04-25-2022 RBC (Bld) [#/Vol] 5.19 10*6/uL 4.2-5.4 [place] [facility] Work Phone: Blood hemoglobin measurement (mass/volume)on 04-25-2022 Hemoglobin (Bld) [Mass/Vol] 13.9 g/dL 12.0-15.0 [facility] Work Phone: Blood lymphocytes/100 leukoc yteson 04-25-2022 Lymphocytes/100 WBC (Bld) 21.6 % 19-41 [facility] Work Phone: Blood monocytes/100 leukocyt eson 04-25-2022 Monocytes/100 WBC (Bld) 7.0 % 0-10 [facility] Work Phone: Blood platelet mean volumeon 04-25-2022 Platelet mean volume (Bld) [Entitic vol] 10.3 fL 6.2-12.0 [facility] Work Phone: Determination of erythrocyte mean corpuscular volume (MCV)on 04-25-2022 MCV (RBC) [Entitic vol] 82.3 fL 81-99 [facility] Work Phone: Hematocrit Auto (Bld) [Volum e fraction]on 04-25-2022 Hematocrit (Bld) [Volume fraction] 42.7 % 37-47 [facility] Work Phone: Ketones Test strip Ql (U)on 04-25-2022 Ketones Ql (U) 15 mg/dl Negative [facility] Work Phone: Laboratory - Chemistry and C hemistry - challengeon 04-25-2022 ALP [Catalytic activity/Vol] 46 U/L 45-117 [facility] Work Phone: ALT [Catalytic activity/Vol] 17 U/L 13-56 [facility] Work Phone: CO2 [Moles/Vol] 28.0 mmol/L 21.0-32.0 [facility] Work Phone: Globulin (S) [Mass/Vol] 3.5 g/dL 2.2-4.2 [facility] Work Phone: Urea nitrogen/Creatinine [Mass ratio] 16.5 mg/mg 10-20 [facility] Work Phone: Laboratory - Hematology and Cell countson 04-25-2022 Erythrocyte distribution width (RBC) [Entitic vol] 39.8 fL 35.1-43.9 [facility] Work Phone: Erythrocyte distribution width (RBC) [Ratio] 13.2 % 11.6-14.6 [facility] Work Phone: Immature granulocytes/100 WBC (Bld) 0.300 % 0.0-0.9 [facility] Work Phone: Comment on above: IG% - Immature Granu locytes (promyelocytes, myelocytes and metamyelocytes) > 1% indicates that a LEFT SHIFT is Present. MCH (RBC) [Entitic mass] 26.8 pg 27.0-32.0 [facility] Work Phone: Nucleated RBC/100 WBC (Bld) [Ratio] 0 % 0-5 [facility] Work Phone: MCHC Auto (RBC) [Mass/Vol]on 04-25-2022 MCHC (RBC) [Mass/Vol] 32.6 g/dL 32-36 [facility] Work Phone: Mucus LM Ql (Urine sed)on Mucus Ql (Urine sed) 0 SEEN /hpf [facility] Work Phone: Nitrite Test strip Ql (U)on 04-25-2022 Nitrite Ql (U) Negative Negative [facility] Work Phone: No Panel Informationon 04-25 Estimated Creatinine Clearance Calc 92.17 ml/min [facility] Work Phone: Estimated GFR (MDRD) Amer 144 mL/min >60 [facility] Work Phone: Comment on above: GFR Calc Estimated GFR (MDRD) Non-Af Amer 119 mL/min >60 [facility] Work Phone: Comment on above: Non- GFR Calc Platelets bldon 04-25-2022 Platelets (Bld) [#/Vol] 250 10*3/uL 150-450 [facility] Work Phone: Protein Test strip Ql (U)on 04-25-2022 Protein Ql (U) Negative Negative [facility] Work Phone: Serum or plasma albumin sugar urement (mass/volume)on 04-25-2022 Albumin [Mass/Vol] 4.2 g/dL 3.2-5.0 [facility] Work Phone: Serum or plasma albumin/glob ulin mass ratioon 04-25-2022 Albumin/Globulin [Mass ratio] 1.2 {ratio} 0.9-2.4 [facility] Work Phone: Serum or plasma calcium sugar urement (mass/volume)on 04-25-2022 Calcium [Mass/Vol] 9.5 mg/dL 8.5-10.1 [facility] Work Phone: Serum or plasma choriogonado tropin detectionon 04-25-2022 HCG ( test) Ql 9644 mIU/mL <4 [facility] Work Phone: Comment on above: hCG levels with Gest ational AgeGestational Age hCG mIU/mL (IU/L)0.2 - 1 week 5 - 501-2 weeks 50 - 5002-3 weeks 100 - 33858-2 weeks 500 - 598604-1 weeks 1000 - 912586-2 weeks 42338 - 100,0006-8 weeks 35513 - 200,0002-3 months 54708 - 100,000 Serum or plasma creatinine m easurement (mass/volume)on 04-25-2022 Creatinine [Mass/Vol] 0.61 mg/dL 0.55-1.02 [facility] Work Phone: Comment on above: The validity of the calculated GFR & GFRAA in patients over 70 years has not been determined. Clinical correlation is essential. Serum or plasma urea nitroge n measurement (mass/volume)on 04-25-2022 Urea nitrogen [Mass/Vol] 10 mg/dL 7-18 [facility] Work Phone: Squamous epithelial cells de tection in urine sediment by light microscopyon 04-25-2022 Epithelial cells.squamous LM Ql (Urine sed) 0-5 SEEN /hpf 5-10 [facility] Work Phone: Thin prep Papanicolaou smear with manual screeningon 04-25-2022 Thin prep Papanicolaou smear with manual screening 13 U/L 15-37 [facility] Work Phone: Thin prep Papanicolaou smear with manual screening 6 5-15 [facility] Work Phone: Urine blood detectionon 04-09 RBC Ql (U) 250 /ul Negative [facility] Work Phone: RBC Ql (U) 10-25 SEEN /hpf 0-5 [facility] Work Phone: Urine clarityon 04-25-2022 Clarity (U) Sl. Cloudy Clear [facility] Work Phone: Urine color determinationon 04-25-2022 Color (U) Yellow Yellow [facility] Work Phone: Urine glucose detectionon Glucose Ql (U) Normal mg/dl Normal [facility] Work Phone: Urine leukocyte esterase det ection by dipstickon 04-25-2022 Leukocyte esterase Test strip Ql (U) 25 /ul Negative [facility] Work Phone: Urine pHon 04-25-2022 pH (U) 7.0 [pH] 5.0 - 8.0 [facility] Work Phone: Urine sediment bacteria coun t by microscopy (number/high power field)on 04-25-2022 Bacteria LM.HPF (Urine sed) [#/Area] 0 /[HPF] None Seen [facility] Work Phone: Urine specific gravity measu rementon 04-25-2022 Specific gravity (U) [Rel density] 1.010 1.002-1.030 [facility] Work Phone: Urobilinogen Auto test strip Ql (U)on 04-25-2022 Urobilinogen Ql (U) Normal mg/dl Normal [facility] Work Phone: Serum or plasma choriogonado tropin detectionon 04-24-2022 HCG ( test) Ql 8251 mIU/mL <4 [facility] Work Phone: Comment on above: hCG levels with Gest ational AgeGestational Age hCG mIU/mL (IU/L)0.2 - 1 week 5 - 501-2 weeks 50 - 5002-3 weeks 100 - 46579-4 weeks 500 - 450798-0 weeks 1000 - 637778-7 weeks 79820 - 100,0006-8 weeks 30179 - 200,0002-3 months 90045 - 100,000 Serum or plasma choriogonado tropin detectionon 04-22-2022 HCG ( test) Ql 5852 mIU/mL <4 [facility] Work Phone: Comment on above: hCG levels with Gest ational AgeGestational Age hCG mIU/mL (IU/L)0.2 - 1 week 5 - 501-2 weeks 50 - 5002-3 weeks 100 - 03004-6 weeks 500 - 175914-3 weeks 1000 - 310978-8 weeks 25045 - 100,0006-8 weeks 20047 - 200,0002-3 months 72010 - 100,000 Provider Note - ED v3on [...] of the COVID-19 vaccine, and received the 1861-0147 influenza vaccine. CRITICAL CARE RESULTS: Recent Lab Results: Urine Hcg test today was positive. VITAL SIGNS: T PRBP SpO2O2(LPM) %FiO2 Method 29-Mar-2022 17:03:[id number] 98 MDM MDM/ED COURSE: This note was [...] and Tylenol with some relief; no other jflo-wua-keyyzhs medications or home remedies for symptom management. [...] Musculoskeletal: Grossly normal; appropriate for age. Integumentary: [place], warm, dry, and intact. No rashes or [...] to u (more content not included)... Normal [facility] CBCon 02-04-2019 Erythrocyte distribution width (RBC) [Entitic vol] 13.3 % 11.6 - 14.8 % [facility] Hematocrit (Bld) [Volume fraction] 29.7 % Low 36 - 46 % [facility] Hemoglobin (Bld) [Mass/Vol] 9.8 g/dL Low 12 - 16 g/dL [facility] Interpretation and review of laboratory results Abnormal [facility] MCH (RBC) [Entitic mass] 25.5 pg Low 26 - 34 pg [facility] MCHC (RBC) [Mass/Vol] 33.0 g/dL 31 - 37 g/dL [facility] MCV (RBC) [Entitic vol] 77.1 fL Low 80 - 100 fL [facility] Platelet mean volume (Bld) [Entitic vol] 11.8 fL 9 - 15.5 fL [facility] Platelets (Bld) [#/Vol] 163 10*3/uL [facility] RBC (Bld) [#/Vol] 3.85 10*6/uL Low [facility] WBC (Bld) [#/Vol] 15.05 10*3/uL [facility] CBC WITH AUTO DIFFERENTIALon 02-03-2019 Basophils (Bld) [#/Vol] 0.03 10*3/uL [facility] Basophils/100 WBC (Bld) 0.3 % [facility] Eosinophils (Bld) [#/Vol] 0.11 10*3/uL [facility] Eosinophils/100 WBC (Bld) 1.0 % [facility] Erythrocyte distribution width (RBC) [Entitic vol] 13.3 % 11.6 - 14.8 % [facility] Hematocrit (Bld) [Volume fraction] 36.9 % 36 - 46 % [facility] Hemoglobin (Bld) [Mass/Vol] 12.3 g/dL 12 - 16 g/dL [facility] Immature granulocytes (Bld) [#/Vol] 0.06 10*3/uL [facility] Immature granulocytes/100 WBC (Bld) 0.50 % [facility] Comment on above: The IG parameter is the percentage of metamyelocytes, myelocytes, and promyelocytes. Interpretation and review of laboratory results Abnormal [facility] Lymphocytes (Bld) [#/Vol] 2.17 10*3/uL [facility] Lymphocytes/100 WBC (Bld) 19.9 % [facility] MCH (RBC) [Entitic mass] 25.3 pg Low 26 - 34 pg [facility] MCHC (RBC) [Mass/Vol] 33.3 g/dL 31 - 37 g/dL [facility] MCV (RBC) [Entitic vol] 75.9 fL Low 80 - 100 fL [facility] Monocytes (Bld) [#/Vol] 0.83 10*3/uL [facility] Monocytes/100 WBC (Bld) 7.6 % [facility] Neutrophils (Bld) [#/Vol] 7.71 10*3/uL High [facility] Neutrophils/100 WBC (Bld) 70.7 % [facility] Platelet mean volume (Bld) [Entitic vol] 11.4 fL 9 - 15.5 fL [facility] Platelets (Bld) [#/Vol] 211 10*3/uL [facility] RBC (Bld) [#/Vol] 4.86 10*6/uL [facility] WBC (Bld) [#/Vol] 10.91 10*3/uL [facility] Metabolic Pane cosme 02-03-2019 Albumin [Mass/Vol] 3.0 g/dL Low 3.2 - 5.2 g/dL [facility] ALP [Catalytic activity/Vol] 139 U/L 40 - 140 U/L [facility] ALT [Catalytic activity/Vol] 11 U/L Low 14 - 65 U/L [facility] Anion gap [Moles/Vol] 15 mmol/L 10 - 2 0 mmol/L [facility] AST [Catalytic activity/Vol] 17 U/L 0 - 45 U/L [facility] Bilirubin [Mass/Vol] 0.3 mg/dL 0 - 1.3 mg/dL [facility] Calcium [Mass/Vol] 8.9 mg/dL 8.4 - 10. 2 mg/dL [facility] Chloride [Moles/Vol] 107 mmol/L 98 - 10 8 mmol/L [facility] Creatinine [Mass/Vol] 0.76 mg/dL 0.4 - 1.1 mg/dL [facility] GFR/1.73 sq M predicted among non-blacks MDRD (S/P/Bld) [Vol rate/Area] The eGFR should be used for monitoring renal function only and not for medication dosing. [facility] GFR/1.73 sq M.predicted CKD-EPI (S/P/Bld) [Vol rate/Area] 104 >=60 mL/min/1.73 m2 [facility] Glucose [Mass/Vol] 80 mg/dL 65 - 99 mg/dL [facility] HCO3 [Moles/Vol] 22 mmol/L 21 - 32 mmol/L [facility] Interpretation and review of laboratory results Abnormal [facility] Potassium [Moles/Vol] 3.6 mmol/L 3.5 - 5.1 mmol/L [facility] Protein [Mass/Vol] 6.9 g/dL 6 - 8 g/dL [facility] Sodium [Moles/Vol] 140 mmol/L 135 - 145 mmol/L [facility] Urea nitrogen [Mass/Vol] 8 mg/dL 8 - 25 mg/dL [facility] Urea nitrogen/Creatinine [Mass ratio] 10.5 mg/mg [facility] Type and Screenon 02-03-2019 ABO and Rh group Nom (Bld) A Positive [facility] Blood group antibody screen Ql Negative [facility] Specimen Expires 02/06/2019 23:59 EST [facility] GYNon 03-25-2017 WEL[employer] Name: ALYSSIA ROBERSON LResubmission due to incomplete [...] HPV DNA. This system specifically identifies HPV16 [id number] while concurrently detecting the other twelve high risk types(31,33,35,39,45,51,5 2,56,58,59,66,68). Completed by on 2017-04-03 Electronically Signed By Harpreet MESA (ASCP) , Merchandise Flow Team Leader (Case signed 04/01/2017) The Papanicolaou smear is a screening tool, and like any screen, has an inherent false negative rate. Interpretation of results should be made in the context of patient history and clinical findings. Normal [facility] Human Papillomavirus,High Ri skon 03-25-2017 HPV 16 Negative Normal Negative [facility] Comment on above: Performed By: #### H PV ####Unless otherwise noted, all testing performed by [address] [id number]: [id number] Director: Malvin Weller M.D. HPV 18 Negative Normal Negative [facility] Comment on above: Performed By: #### H PV ####Unless otherwise noted, all testing performed by [address] [id number]: [id number] Director: Malvin Weller M.D. HPV, Other Negative Normal Negative [facility] Comment on above: Result Comment: Assa y performed using [employer] 4800 system utilizing Real-Time PCR toamplify target HPV DNA. This system specifically identifies HPV16 [id number] while concurrently detecting the other twelve high risk types(31,33,35,39,45,51,52,56,58,59,66,68).Test Performed by [facility] [id number] [place] [address] Performed By: #### H PV ####Unless otherwise noted, all testing performed by [address] [id number]: [id number] Director: Malvin Weller M.D. Vital Signs Date Time Vital Sign Value Performing Clinician Facility 03-22-2025 14: Body height 162.56 cm No Primary Care Physician [facility] 03-22-2025 14:0400 Body mass index (BMI) [Ratio] 21.8 kg/m2 No Primary Care Physician [facility] 03-22-2025 14:09-0400 Body weight 57.63 kg No Primary Care Physician [facility] 03-22-2025 14:09-0400 Diastolic blood pressure 76 mm[Hg] No Primary Care Physician [facility] 03-22-2025 14:09-0400 Systolic blood pressure 129 mm[Hg] No Primary Care Physician [facility] 03-10-2025 14:58-0400 Body height 162.56 cm No Primary Care Physician [facility] 03-10-2025 14:58-0400 Body mass index (BMI) [Ratio] 21.7 kg/m2 No Primary Care Physician [facility] 03-10-2025 14:58-0400 Body weight 57.26 kg No Primary Care Physician [facility] 03-10-2025 14:58-0400 Diastolic blood pressure 76 mm[Hg] No Primary Care Physician [facility] 03-10-2025 14:58-0400 Systolic blood pressure 117 mm[Hg] No Primary Care Physician [facility] 03-08-2025 16:22-0400 Body height 162.56 cm No Primary Care Physician [facility] 03-08-2025 16:22-0400 Body weight 56.88 kg No Primary Care Physician [facility] 02-10-2025 14:52-0400 Body mass index (BMI) [Ratio] 21.3 kg/m2 No Primary Care Physician [facility] 02-10-2025 14:52-0400 Body weight 56.35 kg No Primary Care Physician [facility] 02-10-2025 14:52-0400 Diastolic blood pressure 73 mm[Hg] No Primary Care Physician [facility] 02-10-2025 14:52-0400 Systolic blood pressure 111 mm[Hg] No Primary Care Physician [facility] 01-12-2025 09:22-0400 Body height 162.56 cm No Primary Care Physician [facility] 01-12-2025 09:22-0400 Body mass index (BMI) [Ratio] 19.8 kg/m2 No Primary Care Physician [facility] 01-12-2025 09:22-0400 Body weight 52.3 kg No Primary Care Physician [facility] 01-12-2025 09:22-0400 Diastolic blood pressure 72 mm[Hg] No Primary Care Physician [facility] 01-12-2025 09:22-0400 Systolic blood pressure 103 mm[Hg] No Primary Care Physician [facility] 12-15-2024 11:00-0400 Body height 162.56 cm No Primary Care Physician [facility] 12-15-2024 11:00-0400 Body mass index (BMI) [Ratio] 18.7 kg/m2 No Primary Care Physician [facility] 12-15-2024 11:00-0400 Body weight 49.49 kg No Primary Care Physician [facility] 12-15-2024 11:00-0400 Diastolic blood pressure 75 mm[Hg] No Primary Care Physician [facility] 12-15-2024 11:00-0400 Systolic blood pressure 110 mm[Hg] No Primary Care Physician [facility] 11-15-2024 13:36-0400 Body height 162.56 cm No Primary Care Physician [facility] 11-15-2024 13:36-0400 Body mass index (BMI) [Ratio] 18.2 kg/m2 No Primary Care Physician [facility] 11-15-2024 13:36-0400 Body weight 48.19 kg No Primary Care Physician [facility] 11-15-2024 13:36-0400 Diastolic blood pressure 70 mm[Hg] No Primary Care Physician [facility] 11-15-2024 13:36-0400 Systolic blood pressure 103 mm[Hg] No Primary Care Physician [facility] 10-18-2024 10:21-0400 Body height 162.56 cm No Primary Care Physician [facility] 10-18-2024 10:21-0400 Body mass index (BMI) [Ratio] 18.5 kg/m2 No Primary Care Physician [facility] 10-18-2024 10:21-0400 Body weight 49.04 kg No Primary Care Physician [facility] 10-18-2024 10:21-0400 Diastolic blood pressure 71 mm[Hg] No Primary Care Physician [facility] 10-18-2024 10:21-0400 Systolic blood pressure 112 mm[Hg] No Primary Care Physician [facility] 06-24-2024 13:10-0500 Body height 167.6 cm Thierry Diaz PA-C Work Phone: [facility] 06-24-2024 13:10-0500 Body mass index (BMI) [Ratio] 17.27 kg/m2 Thierry Stentz PA-C Work Phone: [facility] 06-24-2024 13:10-0500 Body weight 48.53 kg Thierry Stentz PA-C Work Phone: [facility] 06-24-2024 13:10-0500 Diastolic blood pressure 70 mm[Hg] Thierry Stentz PA-C Work Phone: [facility] 06-24-2024 13:10-0500 Heart rate 105 /min Thierry Stentz PA-C Work Phone: [facility] 06-24-2024 13:10-0500 SaO2% (BldA) [Mass fraction] 96 % Thierry Stentz PA-C Work Phone: [facility] 06-24-2024 13:10-0500 Systolic blood pressure 100 mm[Hg] Thierry Stentz PA-C Work Phone: [facility] 2023 10:06-0500 Body height 168.9 cm Thierry Stentz PA-C Work Phone: [facility] 2023 10:06-0500 Body mass index (BMI) [Ratio] 16.22 kg/m2 Thierry Stentz PA-C Work Phone: [facility] 2023 10:06-0500 Body weight 46.27 kg Thierry Stentz PA-C Work Phone: [facility] 2023 10:06-0500 Diastolic blood pressure 70 mm[Hg] Thierry Stentz PA-C Work Phone: [facility] 2023 10:06-0500 Heart rate 74 /min Thierry Stentz PA-C Work Phone: [facility] 2023 10:06-0500 Systolic blood pressure 98 mm[Hg] Thierry Stentz PA-C Work Phone: [facility] 05-20-2023 13:41-0500 Diastolic blood pressure 75 mm[Hg] Markus Arce DO Work Phone: [facility] 05-20-2023 13:41-0500 Heart rate 101 /min Markus Arce DO Work Phone: [facility] 05-20-2023 13:41-0500 Respiratory rate 17 /min Markus Arce DO Work Phone: [facility] 05-20-2023 13:41-0500 SaO2% (BldA) [Mass fraction] 99 % Markus Arce DO Work Phone: [facility] 05-20-2023 13:41-0500 Systolic blood pressure 99 mm[Hg] Markus Arce DO Work Phone: [facility] 05-20-2023 07:53-0500 Body height 162.6 cm Markus Arce DO Work Phone: [facility] 05-20-2023 07:53-0500 Body mass index (BMI) [Ratio] 17.16 kg/m2 Markus Arce DO Work Phone: [facility] 05-20-2023 07:53-0500 Body temperature 98.91 [degF] Markus Arce DO Work Phone: [facility] 05-20-2023 07:53-0500 Body weight 45.36 kg Markus Arce DO Work Phone: [facility] 08-27-2022 11:14-0400 Body height 162.5 cm No Pcp Required [facility] 08-27-2022 11:14-0400 Body temperature 98.06 [degF] No Pcp Required [facility] 08-27-2022 11:14-0400 Diastolic blood pressure 87 mm[Hg] No Pcp Required [facility] 08-27-2022 11:14-0400 Heart rate 93 /min No Pcp Required [facility] 08-27-2022 11:14-0400 Respiratory rate 18 /min No Pcp Required [facility] 08-27-2022 11:14-0400 SaO2% (BldA) [Mass fraction] 98 % No Pcp Required [facility] 08-27-2022 11:14-0400 Systolic blood pressure 132 mm[Hg] No Pcp Required [facility] 05-25-2022 10:22-0500 Body height 163 cm No Pcp Required [facility] 05-25-2022 10:22-0500 Body temperature 97.88 [degF] No Pcp Required [facility] 05-25-2022 10:22-0500 Diastolic blood pressure 86 mm[Hg] No Pcp Required [facility] 05-25-2022 10:22-0500 Heart rate 62 /min No Pcp Required [facility] 05-25-2022 10:22-0500 SaO2% (BldA) [Mass fraction] 99 % No Pcp Required [facility] 05-25-2022 10:22-0500 Systolic blood pressure 119 mm[Hg] No Pcp Required [facility] 04-26-2022 13:55-0500 Body temperature 98.6 [degF] No Primary Care Physician [facility] Work Phone: 04-26-2022 13:55-0500 Diastolic blood pressure 67 mm[Hg] No Primary Care Physician [facility] Work Phone: 04-26-2022 13:55-0500 Heart rate 77 /min No Primary Care Physician [facility] Work Phone: 04-26-2022 13:55-0500 Respiratory rate 14 /min No Primary Care Physician [facility] Work Phone: 04-26-2022 13:55-0500 SaO2% (BldA) [Mass fraction] 100 % No Primary Care Physician [facility] Work Phone: 04-26-2022 13:55-0500 Systolic blood pressure 95 mm[Hg] No Primary Care Physician [facility] Work Phone: 04-26-2022 11:23-0500 Body height 162.56 cm No Primary Care Physician [facility] Work Phone: 04-26-2022 11:23-0500 Body mass index (BMI) [Ratio] 16.2 kg/m2 No Primary Care Physician [facility] Work Phone: 04-26-2022 11:23-0500 Body weight 43 kg No Primary Care Physician [facility] Work Phone: 04-26-2022 08:54-0500 Body mass index (BMI) [Ratio] 16.5 kg/m2 No Primary Care Physician [facility] Work Phone: 04-26-2022 08:54-0500 Body weight 43.65 kg No Primary Care Physician [facility] Work Phone: 04-26-2022 08:54-0500 Diastolic blood pressure 88 mm[Hg] No Primary Care Physician [facility] Work Phone: 04-26-2022 08:54-0500 Systolic blood pressure 125 mm[Hg] No Primary Care Physician [facility] Work Phone: 04-25-2022 20:31-0500 Respiratory rate 16 /min No Primary Care Physician [facility] Work Phone: 04-25-2022 18:08-0500 Body mass index (BMI) [Ratio] 17.2 kg/m2 No Primary Care Physician [facility] Work Phone: 04-25-2022 18:08-0500 Body temperature 98.6 [degF] No Primary Care Physician [facility] Work Phone: 04-25-2022 18:08-0500 Body weight 45.35 kg No Primary Care Physician [facility] Work Phone: 04-25-2022 18:08-0500 Diastolic blood pressure 77 mm[Hg] No Primary Care Physician [facility] Work Phone: 04-25-2022 18:08-0500 Heart rate 123 /min No Primary Care Physician [facility] Work Phone: 04-25-2022 18:08-0500 SaO2% (BldA) [Mass fraction] 100 % No Primary Care Physician [facility] Work Phone: 04-25-2022 18:08-0500 Systolic blood pressure 114 mm[Hg] No Primary Care Physician [facility] Work Phone: 03-29-2022 19:03-0400 Body height 162 cm No Pcp Required [facility] 03-29-2022 19:03-0400 Body temperature 98.24 [degF] No Pcp Required [facility] 03-29-2022 19:03-0400 Diastolic blood pressure 90 mm[Hg] No Pcp Required [facility] 03-29-2022 19:03-0400 Heart rate 88 /min No Pcp Required [facility] 03-29-2022 19:03-0400 Respiratory rate 14 /min No Pcp Required [facility] 03-29-2022 19:03-0400 SaO2% (BldA) [Mass fraction] 98 % No Pcp Required [facility] 03-29-2022 19:03-0400 Systolic blood pressure 125 mm[Hg] No Pcp Required [facility] 03-19-2019 15:46-0400 Body weight 52.16 kg Sophia Ford RN [facility] 03-19-2019 15:46-0400 Diastolic blood pressure 75 mm[Hg] Sophia Ford RN [facility] 03-19-2019 15:46-0400 Systolic blood pressure 98 mm[Hg] Sophia Ford RN [facility] 02-06-2019 07:35-0400 Body Temperature 98.1 [degF] Mirian Ford [facility] 02-06-2019 07:35-0400 BP Diastolic 67 mm[Hg] Mirian Ford [facility] 02-06-2019 07:35-0400 BP Systolic 101 mm[Hg] Mirian Ford [facility] 02-06-2019 07:35-0400 Pulse (Heart Rate) 85 /min Mirian Ford [facility] 02-06-2019 07:35-0400 Pulse Oximetry 96 % Mirian Ford [facility] 02-06-2019 07:35-0400 Respiratory Rate 16 /min Mirian Ford [facility] 02-03-2019 20:50-0400 Body weight 58.33 kg Mirian Ford [facility] Encounters Encounter Date Encounter Type Care Provider Facility Start: 04-18-2025 End: 04-18-2025 ambulatory Thierry Stentz Facility:[facility] Start: 04-05-2025 End: 04-05-2025 ambulatory Thierry Stentz Facility:[facility] Start: 03-31-2025 End: 03-31-2025 ambulatory ADELE GAN [facility] Start: 03-22-2025 End: 03-22-[address] Adele Gan MD -[facility] Work Phone: Start: 03-22-2025 End: 03-22-2025 ambulatory No Primary Care Physician -[facility] Start: 03-19-2025 ambulatory Thierry Stentz Facility: [facility] Start: 03-10-2025 End: 03-10-2025 Patient encounter procedure Bianca Perez CNM -[facility] Work Phone: Start: 03-10-2025 End: 03-10-2025 ambulatory No Primary Care Physician -[facility] Start: 03-08-2025 End: 03-08-2025 ambulatory No Primary Care Physician -[facility] Start: 03-08-2025 End: 03-08-[address] Adele Gan MD -[facility] Work Phone: Start: 03-01-2025 End: 03-01-2025 ambulatory THIERRY STENTZ [facility] Start: 02-18-2025 End: 02-18-2025 ambulatory No Primary Care Physician -Laboratory Start: 02-18-2025 End: 02-18-2025 Patient encounter procedure Bianca Perez CNM -Laboratory Work Phone: Start: 02-18-2025 End: 02-18-2025 ambulatory Thierry Stentz Facility:[facility] Start: 02-10-2025 End: 02-10-2025 ambulatory No Primary Care Physician -[facility] Start: 02-10-2025 End: 02-10-[address] Ghislaine Holliday DO -[facility] Work Phone: Start: 02-10-2025 End: 02-10-2025 ambulatory Ghislaine Holliday Facility:[facility] Start: 01-12-2025 End: 01-12-2025 Patient encounter procedure Bianca Perez CNM -[facility] Work Phone: Start: 01-12-2025 End: 01-12-2025 ambulatory No Primary Care Physician -[facility] Start: 12-28-2024 End: 12-28-2024 ambulatory ADELE GAN [facility] Start: 12-15-2024 End: 12-15-[address] Ghislaine Holliday DO -[facility] Work Phone: Start: 12-15-2024 End: 12-15-2024 ambulatory No Primary Care Physician -[facility] Start: 11-15-2024 End: 11-15-2024 Patient encounter procedure Manuela MANCIA -[facility] Work Phone: Start: 11-15-2024 End: 11-15-2024 ambulatory No Primary Care Physician [facility] Work Phone: Start: 11-15-2024 End: 11-15-2024 ambulatory No Primary Care Physician Facility:[facility] Start: 10-18-2024 End: 10-18-2024 ambulatory No Primary Care Physician [facility] Work Phone: Start: 10-18-2024 End: 10-18-[address] Adele Gan MD -Laboratory Specimen Work Phone: Start: 10-18-2024 End: 10-18-[address] Adele Gan MD -[facility] Work Phone: Start: 10-18-2024 End: 10-18-2024 ambulatory No Primary Care Physician [facility] Start: 10-18-2024 End: 10-18-2024 ambulatory No Primary Care Physician Facility:[facility] Start: 10-08-2024 Non-patient / Non-visit Lety gill RN -[facility] Work Phone: Start: 10-08-2024 ambulatory Lety Mejia [facility] Start: 06-24-2024 End: 06-24-2024 Office outpatient visit 15 minutes Thierry Diaz PA-C Work Phone: [facility] Comment on above: Vitamin D deficiency (Primary Dx); Screening for thyroid disorder; Fatigue, unspecified type; BMI < 18.5; Seasonal allergies Start: 06-24-2024 End: 06-24-2024 ambulatory [facility] Start: 2023 End: 2023 Office outpatient visit 15 minutes Thierry Diaz PA-C Work Phone: [facility] Comment on above: Traumatic subdural h emorrhage with loss of consciousness, subsequent encounter (Primary Dx) Start: 05-20-2023 End: 05-21-2023 ambulatory [facility] Start: 05-20-2023 End: 05-20-2023 Emergency department patient visit Markus Arce DO Work Phone: [facility] Comment on above: Subdural hemorrhage (CMS/HCC) (Primary Dx); Syncope and collapse Start: 08-27-2022 End: 08-27-2022 Emergency department patient visit Mandie Hudson [facility] Start: 05-25-2022 End: 05-25-2022 Emergency department patient visit Orlin Casarez [facility] Start: 04-26-2022 Non-patient / Non-visit No [facility] Physician [facility] Start: 04-26-2022 End: 04-26-2022 Admission to same day surgery center No Primary Care Physician [facility]ist Start: 04-26-2022 End: 04-26-2022 ambulatory No Primary Care Physician [facility] Work Phone: Start: 04-26-2022 End: 04-26-2022 Patient encounter procedure No Primary Care Physician [facility] Start: 04-25-2022 End: 04-25-2022 Emergency department patient visit No Primary Care Physician [facility]-Emergency Department Start: 04-24-2022 End: 04-24-2022 ambulatory No Primary Care Physician [facility] Work Phone: Start: 04-24-2022 End: 04-24-2022 Patient encounter procedure No Primary Care Physician [facility]-Laboratory Start: 04-22-2022 End: 04-22-2022 ambulatory No Primary Care Physician [facility] Work Phone: Start: 04-22-2022 End: 04-22-2022 Patient encounter procedure No Primary Care Physician [facility]-Laboratory Start: 04-20-2022 End: 04-20-2022 Emergency department patient visit PHYSICIAN DEREK [facility] Start: 03-29-2022 End: 03-29-2022 Emergency department patient visit Chantelle Shimon [facility] Start: 10-01-2021 ambulatory [facility] Start: 10-01-2021 Chart abstracting Sophia Ford RN [facility] Obstetric[facility]necology Start: 03-22-2019 End: 03-24-2019 Patient encounter procedure MIRIAN Gibson [facility] Start: 02-03-2019 Evaluation and management of inpatient MIRIAN Gibson [facility] Start: 02-03-2019 End: 02-06-2019 Evaluation and management of inpatient Mirianshan Simmonsimaraes Work Phone: [facility] Comment on above: Delivery of pregnanc y by section (Primary Dx) Start: 01-18-2019 End: 01-18-2019 Patient encounter procedure MIRIAN Gibson [facility] Start: 11-24-2018 End: 11-25-2018 Patient encounter procedure MIRIANSHAN Gibson [facility] Start: 08-17-2018 End: 08-18-2018 Patient encounter procedure MIRIAN SIMMONSIMARAES [facility] Start: 08-07-2018 End: 08-07-2018 Patient encounter procedure MIRIAN SIMMONSIMARAES [facility] Start: 06-30-2018 End: 06-30-2018 Patient encounter procedure MIRIAN FORD [facility] Start: 03-25-2017 Ambulatory Mirian Ford Facili ty:[place] Start: 03-25-2017 End: 03-25-2017 Patient encounter procedure Mirian Ford Work Phone: [facility] Procedures Date Procedure Procedure Detail Performing Clinician Start: 02-18-2025 Measurement of gluco se 3 hours after glucose challenge for glucose tolerance test No Primary Care Physician Comment on above: FASTING 76 Col: 02/07 08/03 0655 GLU 1/2 HR 148 Col: 02/18/25 0757 GLU 1 HR 154 Col: 02/18/25 0828 GLU 2 HR 173 H Col: 02/18/25 0923 GLU 3 HR 156 H Col: 02/18/25 1023 Start: 02-10-2025 Serologic test for syphilis No Primary Care Physician Start: 11-15-2024 Procedure No Primary Care Physician [...] HCV Quant by PCR testing - HCVPCR #[id number] Non Reactive: < 0.8 Equivocal: >/= 0.8 [...] or Plasma by High sensitivity method Markus Lien Arce DO Work Phone: Start: 04-26-2022 Dilation and curetta ge of uterus No Primary Care Physician Start: 04-25-2022 Transvaginal obstetr ic ultrasonography No Primary Care Physician Start: 02-04-2019 Complete blood count (hemogram) panel - Blood by Automated count Mirian FerrellTiffanie Liliana Work Phone: Start: 02-04-2019 Blood type and Indir ect antibody screen panel - Blood Mirian FerrellTiffanie Liliana Work Phone: Start: 02-04-2019 Comprehensive metabo lic 2000 panel - Serum or Plasma Mirian FerrellTiffanie Liliana Work Phone: Start: 02-04-2019 Complete blood count with white cell differential, automated Mirian FerrellTiffanie Lilaina Work Phone: Start: 02-04-2019 Complete blood count with white cell differential, manual Mirian BullTiffanie WilliamTiffanie Liliana Work Phone: section Mirian Ford Work Phone: H/O: section Hx of cesa rean section No Primary Care Physician Comment on above: X 2 H/O: section History of delivery, currently No Primary Care Physician Comment on above: x2 - desires repeat csec x2 - desires repeat csec. c/s 05/12 SM. H/O: section History of delivery, currently Dr. Adele Gan MD H/O: section History of delivery, currently Manuela Olea [employer]-C H/O: section History of delivery, currently Dr. Ghislaine Holliday DO H/O: section History of delivery, currently Bianca Perez CNM H/O: section History of delivery, currently Dr. Ghislaine Holliday DO H/O: section History of delivery, currently Bianca Perez CNM H/O: section History of delivery, currently Dr. Adele Gan MD H/O: surgery S/P dilatation a nd curettage No Primary Care Physician End: 06-09-2021 H/O: surgery S/P dilatation and curettage No Primary Care Physician Plan of Treatment Date Care Activity Detail Author Start: 2036 Zoster Vaccines (1 of 2) Zoste r Vaccines (1 of 2) [facility] Start: 02-06-2029 DTaP/Tdap/Td Vaccine s (2 - Td or Tdap) DTaP/Tdap/Td Vaccines (2 - Td or Tdap) [facility] Start: 06-24-2025 End: 06-24-2025 Patient encounter procedure 06/24/2025 1:15 PM EST Office Visit [facility] [address] [place] [address] Thierry Diaz PA-C [address] [facility] [address] [place] [address] [facility] Start: 05-12-2025 ambulatory Ambulatory Facility:[facility] Start: 03-22-2025 [facility] Start: 03-08-2025 Registered Recurring Registered Recu rring -N[facility]al Services Work Phone: Start: 02-10-2025 CBC W Auto Different ial panel - Blood [facility] Start: 02-10-2025 Measurement of gluco se 2 hours after glucose challenge for glucose tolerance test [facility] Start: 02-10-2025 Serologic test for syphilis [facility] Start: 02-10-2025 [facility] Start: 11-15-2024 Procedure [facility] Start: 11-15-2024 CBC W Auto Different ial panel - Blood [facility] Start: 11-15-2024 Cobalamin (Vitamin B 12) [Mass/volume] in Serum or Plasma [facility] Start: 11-15-2024 Ferritin [Mass/volum e] in Serum or Plasma [facility] Start: 11-15-2024 Hepatitis C antibody measurement [facility] Start: 11-15-2024 Iron and Iron bindin g capacity panel - Serum or Plasma [facility] Start: 11-15-2024 Rubella IgG measurement [facility] Start: 11-15-2024 Serologic test for syphilis [facility] Start: 11-15-2024 Thiamine measurement [facility] Start: 11-15-2024 [facility] Start: 06-24-2024 End: 06-24-2025 25-hydroxyvitamin D3 [Mass/volume] in Serum or Plasma Vitamin D 25-Hydroxy,Total (for eval of Vitamin D levels) Lab Routine Vitamin D deficiency Expected: 06/24/2024 (Approximate), Expires: 06/24/2025 [facility] Work Phone: Comment on above: Expected: 06/24/2024 (Approximate), Expires: 06/24/2025 Start: 06-24-2024 End: 06-24-2025 CBC panel - Blood by Automated count CBC Lab Routine BMI < 18.5 Expected: 06/24/2024 (Approximate), Expires: 06/24/2025 [facility] Work Phone: Comment on above: Expected: 06/24/2024 (Approximate), Expires: 06/24/2025 Start: 06-24-2024 End: 06-24-2025 Cobalamin (Vitamin B12) [Mass/volume] in Serum or Plasma Vitamin B12 Lab Routine Fatigue, unspecified type Expected: 06/24/2024 (Approximate), Expires: 06/24/2025 [facility] Work Phone: Comment on above: Expected: 06/24/2024 (Approximate), Expires: 06/24/2025 Start: 06-24-2024 End: 06-24-2025 Comprehensive metabolic 2000 panel - Serum or Plasma Comprehensive Metabolic Panel Lab Routine BMI < 18.5 Expected: 06/24/2024 (Approximate), Expires: 06/24/2025 [facility] Service Area Work Phone: Comment on above: Expected: 06/24/2024 (Approximate), Expires: 06/24/2025 Start: 06-24-2024 End: 06-24-2025 TSH with reflex to Free T4 if abnormal TSH with reflex to Free T4 if abnormal Lab Routine Screening for thyroid disorder Expected: 06/24/2024 (Approximate), Expires: 06/24/2025 [facility] Work Phone: Comment on above: Expected: 06/24/2024 (Approximate), Expires: 06/24/2025 Start: 06-24-2024 End: 06-24-2024 Patient encounter procedure 06/24/2024 1:15 PM EST Office Visit [facility] [address] [place] [id number] Thierry Diaz PA-C [address] [facility] [address] [place] [id number] [facility] Start: 02-08-2024 COVID-19 Vaccine ( season) COVID-19 Vaccine ( season) [facility] Start: 02-08-2024 Influenza vaccination Influenza Vacc ine (#1) [facility] Start: 02-07-2023 Influenza vaccination Influenza Vacc ine (#1) [facility] Start: 04-26-2022 Ambulation without limitation [facility] Work Phone: Start: 04-26-2022 Medical regimen orde rs management [facility] Work Phone: Start: 04-26-2022 Medication education [facility] Work Phone: Start: 04-26-[facility]22 [facility] Start: 04-26-2022 Procedure discontinued [facility] Work Phone: Start: 04-26-2022 Taking patient vital signs [facility] Work Phone: Start: 04-26-2022 Vital signs measurements [facility] Work Phone: Start: 04-26-2022 [facility] Work Phone: Start: 04-29-2021 COVID-19 Vaccine (3 - Pfizer series) COVID-19 Vaccine (3 - Pfizer series) [facility] Start: 02-03-2019 End: 02-03-2019 Anesthesia Event 02/03/2019 Anesthesia Event Obstetrics Shaheed Kraus MD [address] [place] [address] [phone] [facility] Start: 2007 Screening for malign ant neoplasm of cervix [facility] Start: 2005 Hepatitis B Vaccines (1 of 3 - 19+ 3-dose series) Hepatitis B Vaccines (1 of 3 - 19+ 3-dose series) [facility] Start: 2004 Hepatitis C screening Hepatitis C Sc reening [facility] Start: 1999 Varicella vaccination Varicell a Vaccines (1 of 2 - 13+ 2-dose series) [facility] Start: 1987 MMR Vaccines (1 of 1 - Standard series) MMR Vaccines (1 of 1 - Standard series) [facility] Start: 1987 Varicella vaccination Varicell a Vaccines (1 of 2 - 2-dose childhood series) [facility] Start: 1986 Hepatitis B Vaccines (1 of 3 - 3-dose series) Hepatitis B Vaccines (1 of 3 - 3-dose series) [facility] Start: 1986 HIV screening HIV Screening [facility] Start: 1986 Lipid panel Lipid Panel [facility] Start: 1986 Yearly Adult Physical Yearly Adult P hysical [facility] CBC W Auto Different ial panel - Blood [facility] CBC W Auto Different ial panel - Blood [facility] Cobalamin (Vitamin B 12) [Mass/volume] in Serum or Plasma [facility] End: 05-20-2023 ECG 12 lead ECG 12 lead ECG STAT Once for 1 Occurrences starting 05/20/2023 until 05/20/2023 [facility] Service Area Work Phone: Comment on above: Once for 1 Occurrenc es starting 05/20/2023 until 05/20/2023 Erythrocyte mean corpuscular volume determination [facility] Erythrocyte mean corpuscular volume determination [facility] Ferritin [Mass/volum e] in Serum or Plasma [facility] Hematocrit [Volume Fraction] of Blood [facility] Hematocrit [Volume Fraction] of Blood [facility] Hemoglobin [Mass/vol ume] in Blood [facility] Hemoglobin [Mass/vol ume] in Blood [facility] Hepatitis B virus surface Ag [Presence] in Serum [facility] Hepatitis C antibody measurement [facility] Iron [Mass/mass] in Unspecified specimen [facility] Iron and Iron bindin g capacity panel - Serum or Plasma [facility] Iron saturation [Mas s Fraction] in Serum or Plasma [facility] Leukocytes [#/volume ] in Blood [facility] Leukocytes [#/volume ] in Blood [facility] Mean corpuscular hemoglobin concentration determination [facility] Mean corpuscular hemoglobin concentration determination [facility] Mean corpuscular hemoglobin determination [facility] Mean corpuscular hemoglobin determination [facility] Measurement of gluco se 2 hours after glucose challenge for glucose tolerance test [facility] Neutrophil count [facility] Neutrophil count [facility] Neutrophil percent differential count [facility] Neutrophil percent differential count [facility] Patient Education Loss Grieving ED MISCARRIAGE Incomplete ED Hematuria [facility] Work Phone: Patient referral [facility] Work Phone: Platelets [#/volume] in Blood [facility] Platelets [#/volume] in Blood [facility] Red blood cell count [facility] Red blood cell count [facility] Red cell distributio n width determination [facility] Red cell distributio n width determination [facility] Rubella IgG measurement [facility] Serologic test for syphilis [facility] Serologic test for syphilis [facility] Thiamine measurement [facility] Total iron binding capacity measurement [facility] Immunizations Immunization Date Immunization Notes Care Provider Saumya taveras 03-22-2025 tetanus toxoid, reduced diphtheria toxoid, and acellular pertussis vaccine, adsorbed No Primary Care Physician [facility] 02-06-2019 tetanus toxoid, reduced diphtheria toxoid, and acellular pertussis vaccine, adsorbed [facility] 02-03-2019 diphtheria, tetanus toxoids and acellular pertussis vaccine, unspecified formulation [facility] 02-03-2019 measles, mumps and rubella virus vaccine [facility] 02-03-2019 varicella zoster immune globulin [facility] 02-13-2016 influenza, seasonal, injectable Thierry Diaz PA-C Work Phone: [facility] 02-13-2016 influenza virus vaccine, unspecified formulation Markus Arce DO Work Phone: [facility] Work Phone: Payers Date Payer Category Payer Self-pay 2021 Managed Care (Private) MEDICAL M V[facility] MED [id number] 2018 Unknown [id number] 2018 Unknown MMO MED M[employer] S UPERMED PPO xxxxxxxxxxxx 2018-Present [id number]. [id number] 2018 Unknown [id number]. 1.13.385.2. 7.3.315348.315 1986 Unknown [id number] 2.16.840.1.250443.3.579.2. 903 1986 Unknown [id number] 2.16.840.1.751427.3.579.2. 900 1986 Unknown [id number] 2.16.840.1.486119.3.579.2. 900 1986 Unknown [id number] 2.16.840.1.537576.3.579.2. 900 1986 Unknown [id number] 2.16.840.1.622304.3.579.2. 900 1986 Unknown [id number] 2.16.840.1.169788.3.579.2. 900 1986 Unknown [id number] 2.16.840.1.972216.3.579.2. 900 1986 Unknown [id number] 2.16.840.1.676209.3.579.2. 900 1986 Unknown [id number] 2.16.840.1.940853.3.579.2. 903 1986 Unknown [id number] 2.16.840.1.121263.3.579.2. 902 1986 Unknown [id number] 2.16.840.1.576336.3.579.2. 1069 1986 Unknown [id number] 2.16.840.1.824431.3.579.2. 1069 1986 Unknown [id number] 2.16.840.1.185117.3.579.2. 1069 1986 Unknown [id number] 2.16.840.1.621339.3.579.2. 903 1986 Unknown [id number] 2.16.840.1.072762.3.579.2. 903 1986 Unknown [id number] 2.16.840.1.830250.3.579.2. 1243 1986 Unknown [id number] 2.16.840.1.006567.3.579.2. 1244 1986 Unknown [id number] 2.16.840.1.246165.3.579.2. 1245 1986 Unknown [id number] 2.16.840.1.474370.3.579.2. 479 1986 Unknown [id number] 2.16.840.1.409136.3.579.2. 479 1986 Unknown [id number] 2.16.840.1.345558.3.579.2. 479 Unknown [id number] Unknown [id number] 2..840.1.813694.3.579.2. 462 Unknown [id number] ..840.1.128435.3.579.2. 462 Unknown [id number] ..840.1.198707.3.579.2. 462 Unknown [id number] 2..840.1.024882.3.579.2. 462 Unknown [id number] 2.840.1.593031.3.579.2. 462 Unknown [id number] .840.1.612780.3.579.2. 462 Unknown [id number] ..840.1.028211.3.579.2. 462 Unknown [id number] ..840.1.983279.3.579.2. 462 Unknown [id number] 2..840.1.637077.3.579.2. 462 Unknown [id number] ..840.1.065668.3.579.2. 462 Unknown [id number] .840.1.463380.3.579.2. 462 Unknown [id number] 2..840.1.607636.3.579.2. 462 Unknown [id number] 2.16.840.1.979873.3.579.2. 462 Unknown [id number] 2.16.840.1.449346.3.579.2. 462 Unknown [id number] 2.840.1.858769.3.579.2. 462 Unknown [id number] 2.16.840.1.321319.3.579.2. 462 Unknown [id number] 2.16.840.1.403680.3.579.2. 462 Unknown [id number] 2.16.840.1.156285.3.579.2. 462 Social History Date Type Detail Facility Start: 03-29-2017 End: 04-26-2022 Tobacco smoking status VTIS Unknown if ever smoked [facility] Work Phone: Start: 1985 Sex Assigned At Not on file O [facility] Work Phone: Start: 02-06-2019 End: 10-08-2024 Tobacco smoking status NHIS Never smoker [facility] Start: 02-06-2019 Alcohol intake Ex-drinker (finding) [facility] Start: 02-04-2019 End: 05-23-2023 Tobacco use and exposure Smokeless tobacco non-user [facility] Start: 1985 Sex Assigned At Female W [facility] Start: 05-23-2023 End: 2023 Gender identity Not on file [facility] Work Phone: Start: 05-10-2023 End: 06-24-2024 Exposure to SARS-CoV-2 (event) Not sure [facility] Work Phone: Start: 05-23-2023 End: 2023 History of Social function [facility] Work Phone: Medical Equipment Procedure Code Equipment Code Equipment Origin al Text Equipment Identifier Dates Blood Sugar Diagnostic (Blood Glucose Test) strip Start: 02-18-2025 Lancets misc Start: 02-18-2025 Blood Sugar Diagnostic (Blood Glucose Test) strip Start: 02-18-2025 Lancets misc Start: 02-18-2025 Blood Sugar Diagnostic (Blood Glucose Test) strip Start: 02-18-2025 Lancets misc Start: 02-18-2025 Blood Sugar Diagnostic (Blood Glucose Test) strip Start: 02-18-2025 Lancets misc Start: 02-18-2025 Blood Sugar Diagnostic (Blood Glucose Test) strip Start: 02-18-2025 Lancets misc Start: 02-18-2025 Goals Date Patient Goal Desired Activity /State Mental Status Date Assessment Result Facility 04-26-2022 Cognitive function Level Of Consciousness Sedated [facility] Work Phone: 04-26-2022 Cognitive function Patient Ángel cooper Person;Place;Time [facility] Work Phone: Clinical Notes 05-20-2023 to 03-22-2025 Note Date & Type Note Facility 03-22-2025 Progress note [facility] 03-22-2025 Progress note Note Date/Time March 22, 2025 2:51pm [facility] [address], [address] [place] [address] OFFICE VISIT Date of Service: 03/22/25 MR#: [id number] Acct: [id number] Name: ALYSSIA ROBERSON Rep #: [id number] : 1985 Provider: Dr. 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.] physical activity do you participate in: none champ/spiritism: Mandaen seatbelt use: always do you feel safe [...] Updated by: Lety Mejia RN D&C HPI 31w 6d ob *csection Details: ALYSSIA ROBERSON is a 39 year old who presents for routine OB visit. OB Visit KIMBERLEE Calculator Estimated Delivery Date Method Current WG Current Estimate 05/18/25 LMP (Certain) 31w 6d Expected Delivery Route/Plan plan RLTCS with SM Specific Issue/Plans Covid status: [] Flu vaccine: declined Tdap vaccine: given Rhogam: na LARC form signed: declined movement and labor precautions reviewed. Problem list reviewed and updated with the most current plan of care details and appropriate orders placed. Relevant counseling for the gestational age provided. Continue routine care and follow up unless otherwise noted in visit notes/problem list details Initial Weight: Not Recorded Date -?-?-?-?-?-?-?-?-?-?-?-?- EGA Weight BP Urine Prot -?-?-?-?-?-?-?-?-?-?-?-?- Glucose FHR FuHt Pres Dilation -?-?-?-?-?-?-?-?-?-?-?-?- Effaced St Visit Note 10/18/24 -?-?-?-?-?-?-?-?--?-?-?-?- 9w 5d 108 lb 2 oz 112/71 [...] Negative 145 -?-?-?-?-?-?-?-?-?-?-?-?- kw- no vb/crampi ng. good fm. reviewed US and previa. has follow up US scheduled. 02/10/25 -?-?-?-?-?-?-?-?-?-?-?-?- 26w 1d 124 lb 4 oz 111/73 Nega tive -?-?-?-?-?--?-?-?-?-?-?-?- Negative 165 26 -?-?-?-?-?-?-?-?-?-?-?-?- JV- no lof, vagi nal bleeding, or cramping. had gct today. blood type is RH pos 03/10/25 -?-?-?-?-?-?-?-?-?-?-?-?- 30w 1d 126 lb 4 oz 117/76 Nega tive -?-?-?-?-?-?-?-?-?-?-?-?- Negative 155 29 -?-?-?-?-?-?-?-?-?-?-?-?- KW- no vb/lof/ct x. good fm. BS well controlled. considering tdap. LARC today. has growth US with MFM scheduled. 03/22/25 -?-?-?-?-?-?-?-?-?-?-?-?- 31w 6d 127 lb 1 oz 129/76 -?-?-?-?-?-?-?-?-?-?-?-?- 145 32 -?-?-?-?-?-?-?-?-?-?-?-?- SM- no vb lof go od fm no regular ctx. previa resolved. BFS controlled, a few BS elevated after dinner- discussed dietary changes. ACOG First Trimester First Trimester: Desire for , Alcohol, Tobacco Cessation, Illicit/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 Drug/Substance Use, Intimate Partner Violence, Barriers to care, Unstable Housing, Communication Barriers, Environmental/Work Hazards, Anticipated Course of Care, Toxoplasmosis Precations, Use of Any medications, Sexual activity, Exercise, Dental Care, Sauna/Hot tub use, Seat Belt use, Childbirth classes/Hospital facilities, Travel, Indications for Ultrasound and Screening for Aneuploidy; Discussed Immunizations Boostrix Tdap 2.5 Lf unit-8 mcg-5 Lf/0.5 mL intramuscular syringe Performing Provider: Adele Gan MD Performing Location: [facility] Administered by: Manuela Tolbert on 03/22/25 14:16 Dose Route Admin Location Dispensed Lot Number Expiration Date Pack age NDC NDC Helicopter Mechanic 0.5 mL IM Left Deltoid 0.5 mL [id number] 02/06/27 10685-950-40 [id number] SANOFI- PASTUER VIS Given Date VIS Provided VIS Publication Date 03/22/25 Single Vaccine 24 Eligibility Eligibility Date Funding Source Not Applicable Coding Level of Care Code OB Routine Diagnoses Gestational diabetes mellitus (GDM) affecting , antepartum O24.419 Bartholin's gland cyst N75.0 History of labor Z87.51 Underweight (BMI < 18.5) R63.6; Z68.1 Multigravida of advanced maternal age in second trimester O09.522 Trimester: second trimester History of delivery, currently O34.219 Supervision of high risk in second trimester O09.92 Trimester: second trimester 31 weeks gestation of Z3A.31 Weeks of gestation: 31 weeks Assessment and Plan Assessment and Plan (1) Gestational diabetes mellitus (GDM) affecting , antepartum: Status: Acute Comment: testing QID. Seeing [facility] extrusion die coordinator. (2) Bartholin's gland cyst: Status: Acute Comment: [...] Status: Acute Comment: x2 - desires repeat csec. c/s 05/12 SM. (7) Supervision of high-risk : Status: Acute Qualifiers: Trimester: second trimester Qualified Code(s): O09.92 - Supervision of high risk , unspecified, second trimester Comment: PRR , KIMBERLEE 05/18/25, girl (name surprise) PC: Rubén & Ellen, : Palomo (8) : Status: Acute Qualifiers: Weeks of gestation: 31 weeks Qualified Code(s): Z3A.31 - 31 weeks gestation of Comment: Discussed genetic/carrier testing plan NIPT Orders: Orders POC Urinalysis 2 Dip (Clinic) Today Tdap Immunization Today Z23 - Encounter for immunization 03/22/25 5635 <Electronically signed by Adele timmons MD> Date _ Adele Gan MD Cosign Signature: Date (if applicable) CC: ~ [facility] Work Phone: 1(799) 232-305310-02-2025 Progress [facility] [address] [place] [address], [address] [place] [address] OFFICE VISIT Date of Service: 03/10/25 MR#: [id number] Acct: [id number] Name: ALYSSIA ROBERSON Rep #: [id number] : 1985 Provider: NEVAEH Perez Age/Sex: 39/F [place] [facility] [place]: Signed Intake Vital Signs 12/15/24 11:00 03/08/25 16:22 03/10/25 14:58 Height 5 ft 4 in 5 ft 4 in 5 ft 4 in Weight: 126 lb 4 oz BMI 21.7 BP 117/76 Intake Visit Reasons: 30wk ob Chief Complaint: 30wk OB Middleware Engineer Required: No Is patient in pain?: No Allergies No Known Allergies Allergy (Verified 03/10/25 14:55) Medications ?Medication ?Instructions ?Recorded ?Confirmed ?Type PNV 153-FA 400 mcg-om3 35 mg-dha tab PO 04/23/2203/10 History 25 mg-epa 5 mg-fish oil chew tablet blood sugar diagnostic (Blood #120 ea 02/18/25 5 Rx Glucose Test strips) blood-glucose meter #1 ea 02/18/25 03/10/25 Rx lancets #200 ea 02/18/25 03/10/25 Rx Last Menstrual Period: 08/11/24 : No Have you fallen in the past year?: No PFSH PFSH Medical History Seasonal allergies [...] occupational status: employed 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 OB Visit KIMBERLEE Calculator Estimated Delivery Date Method Current WG Current Estimate 05/18/25 LMP (Certain) 30w 1d Expected Delivery Route/Plan plan RLTCS Specific Issue/Plans Covid status: [] Flu vaccine: [] Tdap vaccine: [] Rhogam: [] LARC form signed: [] Problem list reviewed and updated with the most current plan of care details and appropriate ordersplaced. Relevant counseling for the gestational age provided. [...] 106 lb 4 oz 103/70 Nega tive -?-?-?-?-?-?--?-?-?-?-?-?- Negative 160 -?-?-?-?-?-?-?-?-?-?-?-?- MH-No VB. Feels well. [...] 115 lb 5 oz 103/72 Nega tive -?-?-?-?-?--?-?-?-?-?-?-?- Negative 145 -?-?-?-?-?-?-?-?-?-?-?-?- kw- no vb/crampi ng. good fm. reviewed US and previa. has follow up US scheduled. 02/10/25 -?-?-?-?-?-?-?-?-?-?-?-?- 26w 1d 124 lb 4 oz 111/73 Nega tive -?-?-?-?-?-?-?-?-?-?-?-?- Negative 165 26 -?-?-?-?-?-?-?-?-?-?-?-?- JV- no lof, vagi nal bleeding, or cramping. had gct today. blood type is RH pos 03/10/25 -?-?-?-?-?-?-?-?-?-?-?-?- 30w 1d 126 lb 4 oz 117/76 Nega tive -?-?-?-?-?-?-?-?-?-?-?-?- Negative 155 29 -?-?-?-?-?-?-?-?-?-?-?-?- KW- no vb/lof/ct x. good fm. BS well controlled. considering tdap. LARC today. has growth US with MFM scheduled. ACOG First Trimester First Trimester: Desire for , Alcohol, Tobacco Cessation, Illicit/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 Drug/Substance Use, Intimate Partner Violence, Barriers to care, Unstable Housing, Communication Barriers, Environmental/Work Hazards, Anticipated Course of Care, Toxoplasmosis Precations, Use of Any med ications, Sexual activity, Exercise, Dental Care, Sauna/Hot tub [...] Office Urine Glucose Negative Last Edit by Luz Pratt on 03/10/25 15:07 Office Urine Protein Negative Last Edit by Luz Pratt on 03/10/25 15:07 Coding Level of Care Code OB Routine Diagnoses Gestational diabetes mellitus (GDM) affecting , antepartum O24.419 Placenta previa O44.00 Bartholin's gland cyst N75.0 History of labor Z87.51 Underweight (BMI < 18.5) R63.6; Z68.1 Multigravida of advanced maternal age in second trimester O09.522 Trimester: second trimester History of delivery, currently O34.219 Supervision of high risk in second trimester O09.92 Trimester: second trimester 30 weeks gestation of Z3A.30 Weeks of gestation: 30 weeks Assessment and Plan Assessment and Plan (1) Gestational diabetes mellitus (GDM) affecting , antepartum: Status: Acute Comment: testing QID. Seeing [facility] extrusion die coordinator. (2) Placenta previa: Status: Acute Comment: repeat scan at 28 weeks. pelvic rest . (3) Bartholin's gland cyst: Status: Acute Comment: left side asymptomatic reviewed precautions (4) History of labor: Status: Acute Comment: Last - 37weeks (5) Underweight (BMI < 18.5): Status: Acute Comment: BMI 18; B12, Thiamine & iron studies ordered w/NOB (6) AMA (advanced maternal age) multigravida 35+: Status: Acute Qualifiers: Trimester: second trimester Qualified Code(s): O09.522 - Supervision of elderly multigravida, second trimester (7) History of delivery, currently : Status: Acute Comment: x2 - desires repeat csec (8) Supervision of high-risk : Status: Acute Qualifiers: Trimester: second trimester Qualified Code(s): O09.92 - Supervision of high risk , unspecified, second trimester Comment: , KIMBERLEE 05/18/25, PC: Tay, : Palomo (9) : Status: Acute Qualifiers: Weeks of gestation: 30 weeks Qualified Code(s): Z3A.30 - 30 weeks gestation of Comment: Discussed genetic/carrier testing plan NIPT Orders: Orders POC Urinalysis 2 Dip (Clinic) Today Plan Details Additional Comments: ACOG trimester education reviewed and updated. see problem list details for updated plan management information and see below for orders placed atthis visit. [place] appropriate handout given. Clinical Quality Measures Falls Risk Screening/Assistive Devices Have you fallen in the past year?: No 03/10/25 1518 s CNM> Date _ Bianca Perez CNM Cosigner Signature: Date (if applicable) CC: ~ [facility]10-02-2025 Progress note Author Bianca Perez [facility] Note Date/Time March 10, 2025 3: 18pm [facility] [address] [place] [address], [address] [place] [address] OFFICE VISIT Date of Service: 03/10/25 MR#: [id number] Acct: [id number] Name: ALYSSIA ROBERSON Rep #: [id number] : 1985 Provider: NEVAEH Perez Age/Sex: 39/F [place] [facility] [place]: Signed Intake Vital Signs 12/15/24 11:00 03/08/25 16:22 03/10/25 14:58 Height 5 ft 4 in 5 ft 4 in 5 ft 4 in Weight: 126 lb 4 oz BMI 21.7 BP 117/76 Intake Visit Reasons: 30wk ob Chief Complaint: 30wk OB Middleware Engineer Required: No Is patient in pain?: No Allergies No Known Allergies Allergy (Verified 03/10/25 14:55) Medications ?Medication ?Instructions ?Recorded ?Confirmed ?Type PNV 153-FA 400 mcg-om3 35 mg-dha tab PO 04/23/2203/10 History 25 mg-epa 5 mg-fish oil chew tablet blood sugar diagnostic (Blood #120 ea 02/18/25 5 Rx Glucose Test strips) blood-glucose meter #1 ea 02/18/25 03/10/25 Rx lancets #200 ea 02/18/25 03/10/25 Rx Last Menstrual Period: 08/11/24 : No Have you fallen in the past year?: No PFSH PFSH Medical History Seasonal allergies [...] 2 current occupational status: employed current occupation: [employer] current occupational exposures/hazards: No pets and [...] physical activity do you participate in: none champ/spiritism: Mandaen seatbelt use: always do you feel safe [...] Updated by: Lety Mejia RN D&C HPI 30wk ob Details: ALYSSIA ROBERSON is a 39 year old who presents for routine OB visit. OB Visit KIMBERLEE Calculator Estimated Delivery Date Method Current WG Current Estimate 05/18/25 LMP (Certain) 30w 1d Expected Delivery Route/Plan plan RLTCS Specific Issue/Plans [...] 106 lb 4 oz 103/70 Nega tive -?-?-?-?-?-?--?-?-?-?-?-?- Negative 160 -?-?-?-?-?-?-?-?-?-?-?-?- MH-No VB. Feels well. [...] 115 lb 5 oz 103/72 Nega tive -?-?-?-?-?--?-?-?-?-?-?-?- Negative 145 -?-?-?-?-?-?-?-?-?-?-?-?- kw- no vb/crampi ng. good fm. reviewed US and previa. has follow up US scheduled. 02/10/25 -?-?-?-?-?-?-?-?-?-?-?-?- 26w 1d 124 lb 4 oz 111/73 Nega tive -?-?-?-?-?-?-?-?-?-?-?-?- Negative 165 26 -?-?-?-?-?-?-?-?-?-?-?-?- JV- no lof, vagi nal bleeding, or cramping. had gct today. blood type is RH pos 03/10/25 -?-?-?-?-?-?-?-?-?-?-?-?- 30w 1d 126 lb 4 oz 117/76 Nega tive -?-?-?-?-?-?-?-?-?-?-?-?- Negative 155 29 -?-?-?-?-?-?-?-?-?-?-?-?- KW- no vb/lof/ct x. good fm. BS well controlled. considering tdap. LARC today. has growth US with MFM scheduled. ACOG First Trimester First Trimester: Desire [...] Office Urine Glucose Negative Last Edit by Luz Pratt on 03/10/25 15:07 Office Urine Protein Negative Last Edit by Luz Pratt on 03/10/25 15:07 Coding Level of Care Code OB Routine Diagnoses Gestational diabetes mellitus (GDM) affecting , antepartum O24.419 Placenta previa O44.00 Bartholin's gland cyst N75.0 History of labor Z87.51 Underweight (BMI < 18.5) R63.6; Z68.1 Multigravida of advanced maternal age in second trimester O09.522 Trimester: second trimester History of delivery, currently O34.219 Supervision of high risk in second trimester O09.92 Trimester: second trimester 30 weeks gestation of Z3A.30 Weeks of gestation: 30 weeks Assessment and Plan Assessment and Plan (1) Gestational diabetes mellitus (GDM) affecting , antepartum: Status: Acute Comment: testing QID. Seeing [facility] extrusion die coordinator. (2) Placenta previa: Status: Acute Comment: repeat scan at 28 weeks. pelvic rest . (3) Bartholin's gland cyst: Status: Acute Comment: left side asymptomatic reviewed precautions (4) History of labor: Status: Acute Comment: Last - 37weeks (5) Underweight (BMI < 18.5): Status: Acute Comment: BMI 18; B12, Thiamine & iron studies ordered w/NOB (6) AMA (advanced maternal age) multigravida 35+: Status: Acute Qualifiers: Trimester: second trimester Qualified Code(s): O09.522 - Supervision of elderly multigravida, second trimester (7) History of delivery, currently : Status: Acute Comment: x2 - desires repeat csec (8) Supervision of high-risk : Status: Acute Qualifiers: Trimester: second trimester Qualified Code(s): O09.92 - Supervision of high risk , unspecified, second trimester Comment: , KIMBERLEE 05/18/25, PC: Tay, : Palomo (9) : Status: Acute Qualifiers: Weeks of gestation: 30 weeks Qualified Code(s): Z3A.30 - 30 weeks gestation of Comment: Discussed genetic/carrier testing plan NIPT Orders: Orders POC Urinalysis 2 Dip (Clinic) Today Plan Details Additional Comments: ACOG trimester education reviewed and updated. see problem list details for updated plan management information and see below for orders placed at this visit. [place] appropriate handout given. Clinical Quality Measures Falls Risk Screening/Assistive Devices Have you fallen in the past year?: No 03/10/25 1781 <Electronically signed by Bianca ferrell CNM> Date _ Bianca Dewitt Signature: Date (if applicable) CC: ~ [facility] Work Phone: 1(862) 920-736208-06-2025 Progress [facility] [address], [place] [address] OFFICE VISIT Date of Service: 01/12/25 MR#: [id number] Acct: [id number] Name: ALYSSIA ROBERSON Rep #: [id number] : 1985 Provider: NEVAEH Perez Age/Sex: 39/F [place] [facility] [place] Status: Signed Intake Vital Signs 10/18/24 10:21 12/15/24 11:00 01/12/25 09:22 Height 5 ft 4 in 5 ft 4 in 5 ft 4 in Weight: 115 lb 5 oz BMI 19.8 BP 103/72 Intake Visit Reasons: 22wk ob 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 Relevant counseling for the gestational age provided. [...] of Care, Toxoplasmosis Precations, Use of Any med ications, Sexual activity, Exercise, Dental Care, Sauna/Hot tub [...] information and see below for orders placed atthis visit. [place] appropriate handout given. 01/12/25 0942 s NEVAEH> Date _ Bianca Perez CNM Cosigner Signature: Date (if applicable) CC: ~ [facility]07-09-2025 Evaluation note* Diagnosis Onset Date Resolution Status Admit Date AMA (advanced maternal age) multigravida 35+ acute December 15, 2024 10:53am Bartholin's gland cyst acute Ju ly 5 10:53am History of delivery , currently acute [...] of labor acute January 12, 2025 9:21am acute January 12 9:21am Supervision of high-risk acute January 12, 2025 9:21am Underweight (BMI < 18.5) acute January 12, 2025 9:21am Placenta previa resolved January 9:21am AMA (advanced maternal age) multigravida 35+ acute February 10, 2025 3:18pm Bartholin's gland cyst acute Se pt2024 3:18pm History of delivery , currently acute February 3:18pm History of labor acute February 10, 2025 3:18pm acute February 10, 2025 3:18pm Supervision of high-risk acute February 10, 2 025 3:18pm Underweight (BMI < 18.5) acute February 10, 2025 3:18pm Placenta previa resolved February 10, 2025 3:18pm AMA (advanced maternal age) multigravida 35+ acute March 10 2:53pm Bartholin's gland cyst acute Oc tob2024 2:53pm Gestational diabetes mellitu s (GDM) affecting , antepartum acute March 10 2:53pm History of delivery , currently acute March 10, 2025 2:53pm History of labor acute March 10, 2025 2:53pm acute March 10, 2 025 2:53pm Supervision of high-risk acute March 10 2:53pm Underweight (BMI < 18.5) acute March 10, 2025 2:53pm Placenta previa resolved March 102024 2:53pm AMA (advanced maternal age) multigravida 35+ acute March 22 025 2:04pm Bartholin's gland cyst acute Oc tober 2024 2:04pm Gestational diabetes mellitu s (GDM) affecting , antepartum acute March 22 2:04pm History of delivery , currently acute March 22, 2025 2:04pm History of labor acute March 22, 2025 2:04pm acute March 22, 2025 2:04pm Supervision of high-risk acute March 22 2:04pm Underweight (BMI < 18.5) acute March 22, 2025 2:04pm [facility] Work Phone: 1(347) 157-730007-09-2025 [facility] [address] [place] [address], [address] [place] [address] OFFICE VISIT Date of Service: 12/15/24 MR#: [id number] Acct: [id number] Name: ALYSSIA ROBERSON Rep #: [id number] : 1985 Provider: Dr. 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 Relevant counseling for the gestational age provided. [...] of Care, Toxoplasmosis Precations, Use of Any med ications, Sexual activity, Exercise, Dental Care, Sauna/Hot tub [...] second trimester Comment: , KIMBERLEE 05/18/25, PC: Tay : Palomo (7) : Status: Acute Qualifiers: Weeks of gestation: 18 weeks Qualified Code(s): Z3A.18 - 18 weeks gestation of Comment: Discussed genetic/carrier testing plan NIPT Orders: Orders POC Urinalysis 2 Dip (Clinic) Today 12/15/24 1125 e Velde DO> Date _ Ghislaine Holliday DO Cosigner Signature: Date (if applicable) CC: ~ [facility]06-09-2025 Evaluation note* Diagnosis Onset Date Resolution Status [...] 3:18pm Supervision of high-risk acute February 10, 025 3:18pm Underweight (BMI < 18.5) acute February 10, 2025 3:18pm [facility] Work Phone: 1(387) 122-812206-09-2025 Evaluation note* Diagnosis Onset Date Resolution Status Admit Date AMA (advanced maternal age) multigravida 35+ acute November 15, 2024 1:28pm Bartholin's gland cyst acute Ju 2024 1:28pm History of delivery , currently [...] of delivery , currently acute January 12, 025 9:21am History of labor acute January [...] 3:18pm Supervision of high-risk acute February 10, 025 3:18pm Underweight (BMI < 18.5) acute February 10, 2025 3:18pm AMA (advanced maternal age) multigravida 35+ acute March 10 2:53pm Bartholin's gland cyst acute Oc 2024 2:53pm Gestational diabetes mellitu s (GDM) affecting , antepartum acute March 10 2:53pm History of delivery , currently acute March 10, 2025 2:53pm History of labor acute March 10, 2025 2:53pm Placenta previa acute March 102024 2:53pm acute March 10, 2 025 2:53pm Supervision of high-risk acute March 10 2:53pm Underweight (BMI < 18.5) acute March 10, 2025 2:53pm [facility] Work Phone: 1(903) 900-425306-09-2025 [facility] [address] [place] [address], [address] [place] [address] OFFICE VISIT Date of Service: 11/15/24 MR#: [id number] Acct: [id number] Name: ALYSSIA ROBERSON Rep #: [id number] : 1985 Provider: BLANCHE Olea Age/Sex: 39/F [place] [facility] [place] Status: Signed Intake Vital Signs 05/10/22 16:08 10/18/24 10:21 11/15/24 13:36 Height 5 ft 4 in 5 ft 4 in 5 ft 4 in Weight: 106 lb 4 oz BMI 18.2 BP 103/70 Intake Visit Reasons: 14wk ob Chief Complaint: 14 Week OB Middleware Engineer Required: No Is patient in pain?: No [...] occupational status: employed 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 Relevant counseling for the gestational age provided. [...] of Care, Toxoplasmosis Precations, Use of Any med ications, Sexual activity, Exercise, Dental Care, Sauna/Hot tub [...] routine care and follow up. 11/15/24 1352 s SENIOR GOVERNMENT PROGRAM ANALYST SENIOR GOVERNMENT PROGRAM ANALYST-C> Date _ Manuela Olea SENIOR GOVERNMENT PROGRAM ANALYST SENIOR GOVERNMENT PROGRAM ANALYST-C Cosigner Signature: Date (if applicable) CC: ~ [facility]05-12-2025 Evaluation note* Diagnosis Onset Date Resolution Status [...] of miscarriage, currently resolved October 18 10:17am [facility] Work Phone: 1(324) 575-923905-12-2025 Evaluation note* Diagnosis Onset Date Resolution Status [...] 15, 2024 1:28pm Bartholin's gland cyst acute ne 2024 1:28pm History of delivery , currently acute November 15 1:28pm History of labor acute November 15, 2024 1:28pm acute November 15, 2024 1:28pm Supervision of high-risk acute November 15, 2024 1 :28pm Underweight (BMI < 18.5) acute November 15, 2024 1:28pm [facility] Work Phone: 1(326) 409-971205-12-2025 Evaluation note* Diagnosis Onset Date Resolution Status [...] 15, 2024 1:28pm Bartholin's gland cyst acute Ju ne 2025 1:28pm History of delivery , currently acute November 15 1:28pm History of labor acute November 15, 2024 1:28pm acute November 15, 2024 1:28pm Supervision of high-risk acute November 15, 2024 1 :28pm Underweight (BMI < 18.5) acute November 15, 2024 1:28pm AMA (advanced maternal age) multigravida 35+ acute December 15, 2024 10:53am Bartholin's gland cyst acute [facility] 2024 10:53am History of delivery , currently acute December 15 10:53am History of labor acute December 15, 2024 10:53am acute December 15, 2024 10:53am Supervision of high-risk acute December 15, 2024 1 0:53am Underweight (BMI < 18.5) acute December 15, 2024 10:53am [facility] Work Phone: 1(172) 594-366405-12-2025 Evaluation note* Diagnosis Onset Date Resolution Status [...] 2024 10:53am Bartholin's gland cyst acute Ju ly 2024 10:53am History of delivery , currently [...] of delivery , currently acute January 12, 025 9:21am History of labor acute January 12, 2025 9:21am Placenta previa acute January 9:21am acute January 12 9:21am Supervision of high-risk acute January 12, 2025 9:21am Underweight (BMI < 18.5) acute January 12, 2025 9:21am [facility] Work Phone: 1(330) 756-295505-12-2025 Evaluation note* Diagnosis Onset Date Resolution Status [...] 15, 2024 1:28pm Bartholin's gland cyst acute Ju ne 2024 1:28pm History of delivery , currently [...] < 18.5) acute February 10, 2025 3:18pm [facility] Work Phone: 1(112) 163-976901-16-2025 History of Present illness Narrative* Thierry Diaz [...] daily, need to check level. Was following [employer] in [place], needs to schedule. Review of Systems Constitutional: [...] year or sooner prn. documented in this [facility] Work Phone: 1(675) 998-519001-15-2024 History of Present illness Narrative* Thierry Diaz [...] Vit D levels then. documented in this [facility] Work Phone: 1(802) 810-682412-12-2023 Emergency department Note* Markus Arce, - 05/20/2023 [...] or vomiting. Denies coughor shortness of breath. [place] Coma Scale Score: 15 Patient History No [...] I did speak to the hospitalist at [place], Dr. Mccullough, who stated that he would [...] the nurse practitioner for trauma services at [facility] and she agreed to accept the patient to the service of her attending physician, Dr. Bermudez. The patient will be transported by local squad in stabilized condition to [facility] emergency room to the service of Dr. Bermudez Critical care time for this patient excluding billable procedures is 48 minutes secondary to multiple repeat physical examinations, expert consultation, and interpretation of radiographic studies. Procedure Procedures Markus Arce DO 05/20/23 1245 documented in this [facility] Work Phone: 1(422) 924-551812-12-2023 Physician Emergency department Note* Markus Arce, DO - 05/20/2023 7:46 AM EST HPI Chief Complaint Patient presents with Syncope Brought to ED per [facility] squad from home after syncopal episode. She reports that she passed out when she stood up from the toilet. started with N/V around 0300, but she denies any N/V/D. EKG done at Patient presents by squad after a syncopal event at home. States [...] or vomiting. Denies coughor shortness of breath. [place] Coma Scale Score: 15 Patient History No [...] I did speak to the hospitalist at [place], Dr. Mccullough, who stated that he would [...] the nurse practitioner for trauma services at [facility] and she agreed to accept the patient to the service of her attending physician, Dr. Bermudez. The patient will be transported by local squad in stabilized condition to [facility] emergency room to the service of Dr. Bermudez Critical care time for this patient excluding billable procedures is 48 minutes secondary to multiple repeat physical examinations, expert consultation, and interpretation of radiographic studies. Procedure Procedures Markus Arce DO 05/20/23 1245 [facility] Work Phone: Evaluation note* Diagnosis Onset Date Resolution Status Missed acute Missed acute [facility] Work Phone: Evaluation noteNo assessment information available [facility] Work Phone: Evaluation note* Diagnosis Subdural hemorrhage ([facility])- Primary Subdural hemorrhage Syncope and collapse documented in this encounter [facility] Work Phone: Evaluation note* Diagnosis Traumatic subdural hemorrhage with loss of consciousness, subsequent encounter- Primary documented in this encounter [facility] Work Phone: Evaluation note* Diagnosis Vitamin D deficiency- Primary Screening for thyroid disorder Fatigue, unspecified type BMI < 18.5 Seasonal allergies Allergic rhinitis, cause unspecified documented in this encounter [facility] Work Phone: Progress note Author Manuela Olea [facility] Note Date/Time November 15, 2024 1:52p m [facility] [address] [place] [address] OFFICE VISIT Date of Service: 11/15/24 MR#: [id number] Acct: [id number] Name: ALYSSIA ROBERSON Rep #: [id number] : 1985 Provider: BLANCHE Olea Age/Sex: 39/F [place] [facility] [place] Status: Signed Intake Vital Signs 05/10/22 16:08 10/18/24 10:21 11/15/24 13:36 Height 5 ft 4 in 5 ft 4 in 5 ft 4 in Weight: 106 lb 4 oz BMI 18.2 BP 103/70 Intake Visit Reasons: 14wk ob Chief Complaint: 14 Week OB Middleware Engineer Required: No Is patient in pain?: No [...] occupational status: employed 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 11/15/24 5847 <Electronically signed by Manuela ferrell NP SENIOR GOVERNMENT PROGRAM ANALYST-C> Date _ Manuela Olea NP SENIOR GOVERNMENT PROGRAM ANALYST-C Cosigner Signature: Date (if applicable) CC: ~ [facility] Work Phone: Progress note Author Ghislaine Dietz [facility] Note Date/Time December 15, 2024 11:25 am [facility] [address], [address] [place] [address] OFFICE VISIT Date of Service: 12/15/24 MR#: [id number] Acct: [id number] Name: ALYSSIA ROBERSON Rep #: [id number] : 1985 Provider: Dr. 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: No pets and [...] physical activity do you participate in: none champ/spiritism: Mandaen seatbelt use: always do you feel safe [...] Cosigner Signature: Date (if applicable) CC: ~ [facility] Work Phone: Prodyafq note Author Bianca Perez [facility] Note Date/Time January 12, 2025 9:4 2am [facility] [address] [place] [address], [address] [place] [address] OFFICE VISIT Date of Service: 01/12/25 MR#: [id number] Acct: [id number] Name: ALYSSIA ROBERSON Rep #: [id number] : 1985 Provider: NEVAEH Perez Age/Sex: 39/F Location[place] [facility] [place] Status: Signed Intake Vital Signs 10/18/24 10:21 12/15/24 11:00 01/12/25 09:22 Height 5 ft 4 in 5 ft 4 in 5 ft 4 in Weight: 115 lb 5 oz BMI 19.8 BP 103/72 Intake Visit Reasons: 22wk ob Middleware Engineer Required: No Is patient in pain?: No [...] occupational status: employed 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 Date Name GA/Weeks Outcome Route Bth Weight Infant Gen Labor Lgth Anes thesia Del Locatn [...] -?-?-?-?-?-?-?-?-?-?-?-?- Negative 145 -?-?-?-?-?-?-?-?-?-?-?-?- kw- no vb/crampi rabia. saida fm. reviewed US and previa. has [...] second trimester Comment: , KIMBERLEE 05/18/25, PC: Rubén & Ellen, : Palomo (8) : Status: Acute Qualifiers: [...] this visit. [place] appropriate handout given. 01/12/25 0942 <Electronically signed by Bianca ferrell CNM> Date _ Bianca Perez CNM Cosigner Signature: Date (if applicable) CC: ~ [facility] Work Phone: Reason for referral (narrative)* Consultation (Routine) - Authorized Specialty Diagnoses / Procedures Referred By Contac t Referred To Contact Primary Care Procedures Follow Up In Primary Care - Established Thierry Diaz PA-C [address] [place] [address] Referral ID Status Reason Start Date Expiration Date V isits Requested Visits Authorized [id number] Authorized 2023 06/22/2024 1 1 [facility] Work Phone: Rekvcp for referral (narrative)* Consultation (Routine) - Authorized Specialty Diagnoses / Procedures Referred By Contac t Referred To Contact Primary Care Procedures Follow Up In Primary Care - Established Thierry Diaz PA-C [address] [facility], [place] [id number] Phone: tel: fax: Referral ID Status Reason Start Date Expiration Date V isits Requested Visits Authorized [id number] Authorized 06/24/2024 06/24/2025 1 1 [facility] Work Phone: Reason for referral (narrative)No reason for referral information [facility] Work Phone: Summary Purpose Family History No [...] FoundDocuments on File Type Date Recorded Patient 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 Resort Manager Expl anation Advance Directives and Livin g Will 02/03/2019 9:10 PM Latest Code Status on File Code Status Date Activated Date Inactivated Comments Full Code 02/03/2019 11:02 PM Full Code 02/03/2019 9:19 PM 02/03/2019 11:02 PM Advance Directive Response Recorded Date/ Time Living Will No April 25, 022 8:11pm Power of Flexographic Press Helper No April 25, 2022 8:11pm Hospital Course * Laxmi Bee, - 02/06/2019 10:30 AM EDT DISCHARGE SUMMARY Patient: Alyssia Roberson Date of : 1985 Site: [facility] Family Provider: Physician No Admit Date: [...] Family Provider: Physician No, Phone: None Address: [facility] Follow Up: No follow-up provider specified. Additional [...] AM EDT Thank you for delivery at [facility], it was a pleasure taking care of you. If you have anyquestions regarding your care please call the [facility] Maternity unit [phone]. * Additional Instructions* Janice Krishnan RN - [...] your doctor if you can take an xush-ynv-yplwcak medicine. If you think your pain medicine [...] Log into your personal health record on https://Playsino[employer] and enter M806 in the Education box to learn more about Section: What to Expect at Home. Current as of: February 11, 2018 Content Version: 12.20050030-1619 [employer]. Care instructions adapted under license by your healthcare professional. If you have questions about a medical condition or this instruction, always ask your healthcare professional. [employer] disclaims any warranty or liability for your [...] eating high-fiber foods. Ask your doctor about jgit-jsu-wbcyjkd stool softeners. Cleanse yourself with a gentle [...] few days after delivery. Plan for child welfare caseworker if you have other children. Stay flexible [...] Log into your personal health record on https://[employer] and enter A461 in the Education box to learn more about After Your Delivery (the Period): Care Instructions. Current as of: February 11, 2018 Content Version: 12.20051984-8608 [employer]. Care instructions adapted under license by your healthcare professional. If you have questions about a medical condition or this instruction, always ask your healthcare professional. [employer] disclaims any warranty or liability for your use of this information. * Attachments The following attachments cannot be sent through Care Everywhere. * Baby-Friendly : General Info (Equatorial Guinean) * Section: Post-op (Equatorial Guinean) * (Equatorial [place]inean) documented in this encounter History of Present [...] 9:21am Chief Complaint Admit Date NOB LMP 3/5 October 18, 2024 10:17 [...] February 10, 2025 3:18pm Supervision of high-risk Maishae [id number] 3:18pm Underweight (BMI < 18.5) February 10, 2025 3:18pm Chief Complaint Admit Date 14wk ob November 15, 2024 1:28p m 18wk ob December 15, 2024 10:53 am 22wk ob January 12, 2025 9:2 1am 26wk ob/glucose February 10, 2025 3:18pm Impaired glucose tolerance during pregna ncy February 18, 2025 6:50am GDM March 08, 2025 2:30pm Reason for Visit Admit Date AMA (advanced maternal age) multigravida 35+ November [...] (BMI < 18.5) February 10, 2025 3:18pm Chief Complaint Admit Date 14wk ob November 15, 2024 1:28p m 18wk ob December 15, 2024 10:53 am 22wk ob January 12, 2025 9:2 1am 26wk ob/glucose February 10, 2025 3:18pm Impaired glucose tolerance during pregna ncy February 18, 2025 6:50am GDM March 08, 2025 2:30pm 30wk ob March 10, 2025 2: 53pm Reason for Visit Admit Date AMA (advanced maternal age) multigravida 35+ November [...] (BMI < 18.5) February 10, 2025 3:18pm AMA (advanced maternal age) multigravida 35+ March 10, 2025 2:53pm Bartholin's gland cyst March 10, 2025 2:53pm Gestational diabetes mellitu s (GDM) affecting , antepartum March 10, 2025 2:53pm History of delivery, currently March 10, 2025 2:53pm History of labor March 10 2:53pm Placenta previa March 10, 2025 2: 53pm March 10, 2025 2: 53pm Supervision of high-risk Octob 2024 2:53pm Underweight (BMI < 18.5) March 10 2:53pm Chief Complaint Admit Date 18wk ob December 15, 2024 10:53 am 22wk ob January 12, 2025 9:2 1am 26wk ob/glucose February 10, 2025 3:18pm Impaired glucose tolerance during pregna ncy February 18, 2025 6:50am GDM March 08, 2025 2:30pm 30wk ob March 10, 2025 2: 53pm 31w 6d ob *csection March 22, 2025 2 :04pm Reason for Visit Admit Date AMA (advanced maternal age) multigravida 35+ December [...] 9:21am History of labor January 12 9:21am January 12, 2025 9:2 1am Supervision of high-risk Augus t 2024 9:21am Underweight (BMI < 18.5) January 12 9:21am Placenta previa January 12, 2025 9:2 1am AMA (advanced maternal age) multigravida 35+ February 10, 2025 3:18pm Bartholin's gland cyst February 10 3:18pm History of delivery, currently February 10, 2025 3:18pm History of labor February 10, 2025 3:18pm February 10, 2025 3:18pm Supervision of high-risk Septe [id number] 3:18pm Underweight (BMI < 18.5) February 10, 2025 3:18pm Placenta previa February 10, 2025 3:18pm AMA (advanced maternal age) multigravida 35+ March 10, 2025 2:53pm Bartholin's gland cyst March 10, 2025 2:53pm Gestational diabetes mellitu s (GDM) affecting , antepartum March 10, 2025 2:53pm History of delivery, currently March 10, 2025 2:53pm History of labor March 10 2:53pm March 10, 2025 2: 53pm Supervision of high-risk Octob er 2024 2:53pm Underweight (BMI < 18.5) March 10 2:53pm Placenta previa March 10, 2025 2: 53pm AMA (advanced maternal age) multigravida 35+ March 22, 2025 2:04pm Bartholin's gland cyst March 22 2:04pm Gestational diabetes mellitu s (GDM) affecting , antepartum March 22, 2025 2:04pm History of delivery, currently March 22, 2025 2:04pm History of labor March 22, 025 2:04pm March 22, 2025 2 :04pm Supervision of high-risk Octob er 2024 2:04pm Underweight (BMI < 18.5) March 22 025 2:04pm Additional Source Comments INFORMATION SOURCE (unrecogn ized section and content) DATE CREATED AUTHOR 12/02/2017 [facility] DATE CREATED AUTHOR AUTHOR'S ORGANIZ ATION 02/04/2019 [facility] DATE CREATED AUTHOR AUTHOR'S ORGANIZ ATION 03/26/2019 [facility] DATE CREATED AUTHOR AUTHOR'S ORGANIZ ATION 10/03/2021 [facility] DATE CREATED AUTHOR AUTHOR'S ORGANIZ ATION 04/26/2022 [facility] DATE CREATED AUTHOR AUTHOR'S ORGANIZ ATION 05/31/2022 [facility] DATE CREATED AUTHOR AUTHOR'S ORGANIZ ATION 09/01/2022 [facility] DATE CREATED AUTHOR AUTHOR'S ORGANIZ ATION 05/25/2023 [facility] DATE CREATED AUTHOR AUTHOR'S ORGANIZ ATION 02/25/2024 [facility] DATE CREATED AUTHOR AUTHOR'S ORGANIZ ATION 06/27/2024 [facility] DATE CREATED AUTHOR AUTHOR'S ORGANIZ ATION 06/29/2024 [facility] DATE CREATED AUTHOR AUTHOR'S ORGANIZ ATION 04/02/2025 [facility] DATE CREATED AUTHOR AUTHOR'S ORGANIZ ATION 04/19/2025 [facility] Reason for Visit (unrecogniz ed section [...] Care - Established Thierry Diaz PA-C [address] [facility], [place] [address] Referral ID Status Reason Start Date Expiration Date V isits Requested Visits Authorized [id number] Authorized 05/23/2023 05/22/2024 1 1 Reason Comments pt here for 1 yr follow up Pt c/o freque nt bloody nose and allergy sx Specialty Diagnoses / Procedures Referred By Jack parkinson Referred To Contact Primary Care Procedures Follow Up In Primary Care - Established Thierry Diaz PA-C [address] [facility], [place] [id number] Phone: tel: fax: Referral ID Status Reason Start Date Expiration Date V isits Requested Visits Authorized [id number] Authorized 2023 06/22/2024 1 1 Mirian Ford [...] Problems: Delivery of by section Maude Roberson [[id number]] Delivery Anesthesia Method: Spinal Operative Delivery Forceps attempted?: No Vacuum extractor attempted?: Yes Number of pop offs: 1 [place] Presentation Presentation: Vertex [place] Information date/time: 02/03/192221 Gender: Female Delivery type: , Low Transverse Delivery location: OB Unit Initial disposition: Routine NB Care Details: Trial of labor?: No categorization: Repeat priority: Unscheduled Indications for : Prior , Low Transverse Skin incision type: Pfannenstiel Delivery Providers Delivering clinician: Mirian Ford MD Other personnel: Provider Role Covering Attending Resident Adaptive Physical Education Teacher Delivery Nurse Registered Nurse Delivery Assist Nurse Practitioner Cord Vessels: 3 vessels Complications: None Delayed cord clamping?: No Cord blood obtained?: Refrigerator Cord segment obtained?: No Gases sent?: No Stem cell collection (by Provider)?: No Placenta Date/time: 02/03/2019 2223 Removal: Manual removal Appearance: Intact Disposition: Refrigerator [...] (33 y.o.) Date of Service: 02/03/2019 CSN: [id number] Procedure(s): SECTION Pre-Operative Diagnoses: * PRIOR C/S, labor Post-Operative Diagnoses:same Surgeon(s) and Role: * Mirian Ford MD - Primary Anesthesiologist: Shaheed Kraus MD Instrumentation Supervisor: Carole Adams RN Scrub Person: Chantelle Wilde [...] Care Teams (unrecognized sec tion and content) Gse Mechanic Relationship Specialty Start Date End Date No, Physician [facility] PCP - General 02/03/19 Gse Mechanic Relationship Specialty Start Date End Date Generic Provider, No Assigned Pcp[facility] [address] [place] [address] PCP - General Family Medicine 05/20/23 Gse Mechanic Relationship Specialty Start Date End Date Thierry Diaz PA-C [address] [facility], [facility] [address] [place] [address] PCP - General Family Medicine 05/23/23 Gse Mechanic Relationship Specialty Start Date End Date Thierry Diaz PA-C [address] [facility], [place] [address] [place] [id number] PCP - General Family Medicine 05/23/23 Thierry Diaz PA-C [address] [facility], [place] [address] [place] [id number] PCP - MMO ACO PCP 06/09/23 Team Status: Active Member Role Status Dates No Primary Care Physician Primary Care Provider Active Team Status: Active Member Role Status Dates No Primary Care Physician Primary Care Provider Active Start: October 08, 2024 Lety Mejia , ADAN Attending Provider Active St art: October 08, [...] End: November 15, 2024 Manuela Olea NP, SENIOR GOVERNMENT PROGRAM ANALYST-C Attending Provider Active Start: November 15, 2024 [...] End: November 15, 2024 Manuela Olea NP, SENIOR GOVERNMENT PROGRAM ANALYST-C Attending Provider Active Start: November 15, 2024 [...] Active Start: February 10, 2025 Dr. Ghislaine Vande Velde , DO Attending Provider Activ e Start: [...] February 10, 2025 End: February 10, 2025 Team Status: Active Member Role/Relationship Status Dates NUBIA Jarquin Primary care physician Active Team Status: Inactive Member Role/Relationship Status Dates No Primary Care Physician Primary care physician Activ e Start: November 15, 2024 End: November 15, 2024 No Primary Care Physician Referring Provider Active Start: November 15, 2024 End: November 15, 2024 Manuela Olea NP, SENIOR GOVERNMENT PROGRAM ANALYST-C Attending physician Active Start: November 15, 2024 End: November 15, 2024 Team Status: Inactive Member Role/Relationship Status Dates No Primary Care Physician Primary care physician Activ e Start: November 15, 2024 End: November 15, 2024 Dr. Adele Gan MD Attending physician Active Start: November 15, 2024 End: November 15, 2024 Dr. Adele Gan MD Referring Provider Active Start: November 15, 2024 End: November 15, 2024 Team Status: Inactive Member Role/Relationship Status Dates No Primary Care Physician Primary care physician Activ e Start: December 15, 2024 End: December 15, 2024 No Primary Care Physician Referring Provider Active Start: December 15, 2024 End: December 15, 2024 Dr. Ghislaine Holliday DO Attending physician Acti ve Start: December 15, 2024 End: December 15, 2024 Team Status: Inactive Member Role/Relationship Status Dates No Primary Care Physician Primary care physician Activ e Start: January 12, 2025 End: January 12, 2025 No Primary Care Physician Referring Provider Active Start: January 12, 2025 End: January 12, 2025 Bianca Perez CNM Attending physician Active Start: January 12, 2025 End: January 12, 2025 Team Status: Inactive Member Role/Relationship Status Dates No Primary Care Physician Primary care physician Activ e Start: February 10, 2025 End: February 10, 2025 Dr. Ghislaine Holliday DO Attending physician Active Start: February End: February 10, 2025 Team Status: Inactive Member Role/Relationship Status Dates No Primary Care Physician Primary care physician Activ e Start: February 10, 2025 End: February 10, 2025 No Primary Care Physician Referring Provider Active Start: February 10, 2025 End: February 10, 2025 Dr. Ghislaine Holliday DO Attending physician Active Start: February End: February 10, 2025 Team Status: Inactive Member Role/Relationship Status Dates Bianca Perez CNM Attending physician Active Start: February 18, 2025 End: February 18, 2025 Bianca Perez CNM Referring Provider Active S tart: February 18, 2025 End: February 18, 2025 NUBIA Jarquin Primary care physician Active Start: February 18, 2025 End: February 18, 2025 Team Status: Active Member Role/Relationship Status Dates NUBIA Jarquin Primary care physician Active Start: March 08, 2025 Dr. Adele Gan MD Attending physician Active Start: March 08, 2025 Dr. Adele Gan MD Referring Provider Active Start: March 08, 2025 Team Status: Inactive Member Role/Relationship Status Dates NUBIA Jarquin Primary care physician Active Start: March 08, 2025 End: March 08, 2025 Dr. Adele Gan MD Attending physician Active Start: March 08, 2025 End: March 08, 2025 Dr. Adele Gan MD Referring Provider Active Start: March 08, 2025 End: March 08, 2025 Team Status: Inactive Member Role/Relationship Status Dates No Primary Care Physician Referring Provider Active Start: March 10, 2025 End: March 10, 2025 Bianca Perez CNM Attending physician Active Start: March 10, 2025 End: March 10, 2025 NUBIA Jarquin Primary care physician Active Start: March 10, 2025 End: March 10, 2025 Team Status: Inactive Member Role/Relationship Status Dates No Primary Care Physician Primary care physician Activ e Start: December 15, 2024 End: December 15, 2024 No Primary Care Physician Referring Provider Active Start: December 15, 2024 End: December 15, 2024 Dr. Ghislaine Holliday DO Attending physician Acti ve Start: December 15, 2024 End: December 15, 2024 Team Status: Inactive Member Role/Relationship Status Dates No Primary Care Physician Primary care physician Activ e Start: January 12, 2025 End: January 12, 2025 No Primary Care Physician Referring Provider Active Start: January 12, 2025 End: January 12, 2025 Bianca Perez CNM Attending physician Active Start: January 12, 2025 End: January 12, 2025 Team Status: Inactive Member Role/Relationship Status Dates No Primary Care Physician Primary care physician Activ e Start: February 10, 2025 End: February 10, 2025 Dr. Ghislaine Holliday DO Attending physician Active Start: February End: February 10, 2025 Team Status: Inactive Member Role/Relationship Status Dates No Primary Care Physician Primary care physician Activ e Start: February 10, 2025 End: February 10, 2025 No Primary Care Physician Referring Provider Active Start: February 10, 2025 End: February 10, 2025 Dr. Ghislaine Holliday DO Attending physician Active Start: February End: February 10, 2025 Team Status: Inactive Member Role/Relationship Status Dates Bianca Perez CNM Attending physician Active Start: February 18, 2025 End: February 18, 2025 Bianca Perez CNM Referring Provider Active S tart: February 18, 2025 End: February 18, 2025 NUBIA Jarquin Primary care physician Active Start: February 18, 2025 End: February 18, 2025 Team Status: Inactive Member Role/Relationship Status Dates NUBIA Jarquin Primary care physician Active Start: March 08, 2025 End: March 08, 2025 Dr. Adele Gan MD Attending physician Active Start: March 08, 2025 End: March 08, 2025 Dr. Adele Gan MD Referring Provider Active Start: March 08, 2025 End: March 08, 2025 Team Status: Inactive Member Role/Relationship Status Dates No Primary Care Physician Referring Provider Active Start: March 10, 2025 End: March 10, 2025 Bianca Perez CNM Attending physician Active Start: March 10, 2025 End: March 10, 2025 NUBIA Jarquin Primary care physician Active Start: March 10, 2025 End: March 10, 2025 Team Status: Inactive Member Role/Relationship Status Dates No Primary Care Physician Referring Provider Active Start: March 22, 2025 End: March 22, 2025 Dr. Adele Gan MD Attending physician Active Start: March 22, 2025 End: March 22, 2025 NUBIA Jarquin Primary care physician Active Start: March 22, 2025 End: March 22, 2025 <item><item><item> Privacy Markings (unrecogniz ed section [...] Valentin RN) Goals (unrecognized section and content) Type Care Experience plan RLTCS Type Detail Care Experience plan RLTCS with SM FOR RECORDS PERTAINING TO PATIENTS WHO ARE [...] BE BASED ON THE PRIMARY CLINICAL RECORDS. [employer] provides no warranty or guarantee of the accuracy or completeness of information in this document.
[2025-05-12] MEDS: Lactated Ringers 1,000 ML 999 ML IV ×2 (05:40→14:30)
[2025-05-12 05:53] LABS: Hematocrit 32.0 % (37-47); Hemoglobin 10.4 g/dL (12.0-15.0); Immature Granulocytes Count 0.170 X10^3/uL (0.0-0.0); Mean Corp Hgb Conc 32.5 g/dL (32-36); Mean Corpuscular Volume 76.0 fL (81-99); Mean Platelet Vol. 9.7 fl (6.2-12.0); NRBC Flagged by Analyzer 0 % (0-5); Platelet Count 213 K/mm3 (150-450); RBC Distribution Width CV 14.0 % (11.6-14.6); RBC Distribution Width SD 38.0 fl (35.1-43.9); Red Blood Count 4.21 M/mm3 (4.2-5.4); White Blood Count 10.4 K/mm3 (4.4-11.0)
[2025-05-12 06:24] LABS: Syphilis Antibodies Nonreactive (Nonreactive)
[2025-05-12] MEDS: Lactated Ringers 1,000 ML 150 ML IV (06:42)
--- NOTE | 2025-05-12 08:35 | HP.PCM_ITS ---
History and Physical Date of Admission: 05/12/25 Vital Signs 03/10/2514:58 05/02/2513:19 05/09/2514:50 05/09/2514:53 Height 5 ft 4 in 5 ft 4 in 5 ft 4 in Weight: 133 lb BMI 22.8 BP 133/89 H 128/87 H Intake Visit Reasons: 38w 5d ob *csection Top Case Assembler Required: No Is patient in pain?: No Allergies No Known Allergies Allergy (Verified 05/09/25 14:49) Medications ?Medication ?Instructions ?Recorded ?Confirmed ?Type PNV 153-FA 400 mcg-om3 35 mg-dha tab PO 04/23/22 05/09/25 History 25 mg-epa 5 mg-fish oil chew tablet blood sugar diagnostic (Blood #120 ea 02/18/25 05/09/25 Rx Glucose Test strips) blood-glucose meter #1 ea 02/18/25 05/09/25 Rx lancets #200 ea 02/18/25 05/09/25 Rx Last Menstrual Period: 08/11/24 Zika: Zika virus screening: Negative : No PFSH PFSH Medical History Seasonal allergies 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 Missed Surgical History Status post surgery S/P dilatation and curettage S/P Family History Grandmother Brain cancer, Onset Age: 70 Grandfather Heart disease Mother Heart disease Grandmother Colon cancer Social History adopted: No household members: spouse and children housing: house number of children: 2 current occupational status: employed current occupation: [employer] current occupational exposures/hazards: No pets and animals: Yes (Not managing litterbox) pets and animals: cat(s) history of recent travel: No sexually active: Yes Smoking Status: Never smoker alcohol intake: current alcohol intake frequency: holidays/special occasions only details: Not while substance use type: does not use well-balanced diet: daily or most days caffeine: Yes Type: coffee eating out: 1-3 times/week during the past year weight has: remained stable what type of physical activity do you participate in: none champ/hoahaoism: Catholic seatbelt use: always do you feel safe at home: Yes additional social history: : Palomo- Principal History 4 Elective abortions Hx Para 2 Spontaneous abortions 1 Hx # Term Pregnancies Ectopic pregnancies Hx # Pregnancies Multiple births # of living children 2 Past Pregnancies Del. Date Name GA/Weeks Outcome Route Bth Weight Gen Labor Lgth Anesthesia Del Locatn Provider FOB 02/11/16 Rubén 41 live - full term 7#4oz Male 24 hours epidural Emely Culver 02/03/19 Ellen 37 live - full term 6#7oz Female 8 hours epidural Emely Culver 04/09/22 8 spontaneous Delivery Date: 02/11/16 Last Updated by: Fouzia Funes Failure to progress Delivery Date: 02/03/19 Last Updated by: Fouzia Funes pre-term labor Delivery Date: 04/09/22 Last Updated by: Lety Mejia RN D&C HPI 38w 5d ob *csection Details: ARANZA LAM is a 39 year old who presents for routine OB visit. OB Visit KIMBERLEE Calculator Estimated Delivery Date Method Current WG Current Estimate 05/18/25 LMP (Certain) 38w 5d Expected Delivery Route/Plan plan RLTCS with Specific Issue/Plans Covid status: [] Flu vaccine: declined Tdap vaccine: given Rhogam: na LARC form signed: declined movement and labor precautions reviewed. Problem list reviewed and updated with the most current plan of care details and appropriate orders placed. Relevant counseling for the gestational age provided. Continue routine care and follow up unless otherwise noted in visit notes/problem list details Initial Weight: Not Recorded Date -?-?-?-?-?-?-?-?-?-?-?-?- EGA Weight BP Urine Prot -?-?-?-?-?-?-?-?-?-?-?-?- Glucose FHR FuHt Pres Dilation -?-?-?-?-?-?-?-?-?-?-?-?- Effaced St Visit Note 10/18/24-?-?-?-?-?-?-?-?-?-?-?-?- 9w 5d 108 lb 2 oz 112/71 -?-?-?-?-?-?-?-?-?-?-?-?- 160 -?-?-?-?-?-?-?-?-?-?-?-?- SM- SM- CRL 3.1cm cons with LMP 11/15/24-?-?-?-?-?-?-?-?-?-?-?--?- 13w 5d 106 lb 4 oz 103/70 Negative -?-?-?-?-?-?-?-?-?-?-?-?- Negative 160 -?-?-?-?-?-?-?-?-?-?-?-?- MH-No VB. Feels well. PN labs and NIPT today. Br US to confirm FHT 12/15/24-?-?-?-?-?-?-?-?-?-?-?-?- 18w 0d 109 lb 2 oz 110/75 Negative -?-?-?-?-?-?-?-?-?-?-?-?- Negative 150 -?-?-?-?-?-?-?-?-?-?-?-?- JV- no lof, vaginal bleeding, or cramping. did have some side pains that lasted 45 min a couple of times a week. 01/12/25-?-?-?-?-?-?-?-?-?-?-?-?- 22w 0d 115 lb 5 oz 103/72 Negative -?-?-?-?-?-?-?-?-?-?-?-?- Negative 145 -?-?-?-?-?-?-?-?-?-?-?-?- kw- no vb/cramping. good fm. reviewed US and previa. has follow up US scheduled. 02/10/25-?-?-?-?-?-?-?-?-?-?-?-?- 26w 1d 124 lb 4 oz 111/73 Negative -?-?-?-?-?-?-?-?-?-?-?--?- Negative 165 26 -?-?-?-?-?-?-?-?-?-?-?-?- JV- no lof, vaginal bleeding, or cramping. had gct today. blood type is RH pos 03/10/25-?-?-?-?-?-?-?-?-?-?-?-?- 30w 1d 126 lb 4 oz 117/76 Negative -?-?-?-?-?-?-?-?-?-?-?-?- Negative 155 29 -?-?-?-?-?-?-?-?-?-?-?-?- KW- no vb/lof/ctx. good fm. BS well controlled. considering tdap. LARC today. has growth US with MFM scheduled. 03/22/25-?-?-?-?-?-?-?-?-?-?-?-?- 31w 6d 127 lb 1 oz 129/76 -?-?-?-?-?-?-?-?-?-?-?-?- 145 32 -?-?-?-?-?-?-?-?-?-?-?-?- SM- no vb lof good fm no regular ctx. previa resolved. BFS controlled, a few BS elevated after dinner- discussed dietary changes. 04/05/25-?-?-?-?-?-?-?-?-?-?-?-?- 33w 6d 129 lb 5 oz 119/78 Negative -?-?-?-?-?-?-?-?-?-?-?-?- Negative 140 32 -?-?-?-?-?-?-?-?-?-?-?-?- SM- no vb lof good fm no regular ctx size slightly small 04/18/25-?-?-?-?-?-?-?-?-?-?-?-?- 35w 5d 130 lb 111/64 -?-?-?-?-?-?-?-?-?-?-?-?- 135 3534 -?-?-?-?-?-?-?-?-?-?-?-?- KW- no vb/lof/ctx. good fm. GBS next visit 04/26/25-?-?-?-?-?-?-?-?-?-?-?-?- 36w 6d 129 lb 7 oz 119/78 -?-?-?-?-?-?-?-?-?-?-?-?- 140 36 0-?-?-?-?-?-?-?-?-?- -?-?-?- JV- normal glucose log. gbs today. no complaints. 05/02/25-?-?-?-?-?-?-?-?-?-?-?-?- 37w 5d 131 lb 6 oz 118/74 Negative -?-?-?-?-?-?-?-?-?-?-?-?- Negative 134 37 0.5-?-?-?-?-?-?-?-?- ?-?-?-?- KV- Good FM. No ctx, LOF, or VB. BG within goal. 05/09/25-?-?-?-?-?-?-?-?-?-?-?-?- 38w 5d 133 lb 133/10322/87 Negativ e -?-?-?-?-?-?-?-?-?-?-?-?- Negative 135 35 -?-?-?-?-?-?-?-?-?-?-?-?- SM- no vb lofe good fm no reuglar ctx SM- no vb lofe good fm no reuglar ctx bedside alex 8cm reviewed fm labor precautions plan ltcs ACOG First Trimester First Trimester: Desire for , Alcohol, Tobacco Cessation, Illicit/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 Drug/Substance Use, Intimate Partner Violence, Barriers to care, Unstable Housing, Communication Barriers, Environmental/Work Hazards, Anticipated Course of Care, Toxoplasmosis Precations, Use of Any medications, Sexual activity, Exercise, Dental Care, Sauna/Hot tub use, Seat Belt use, Childbirth classes/Hospital facilities, Travel, Indications for Ultrasound and Screening for Aneuploidy; Discussed ROS Const Reports system reviewed and no additional complaints, except as documented Card Reports system reviewed and no additional complaints, except as documented Resp Reports system reviewed and no additional complaints, except as documented GI Reports system reviewed and no additional complaints, except as documented and Reports nausea Reports system reviewed and no additional complaints, except as documented Musc Reports system reviewed and no additional complaints, except as documented Exam Const General: cooperative, healthy appearing, comfortable and anxious HENIL Head: normal to inspection Nose: external nose normal Face and sinus: normal facial exam Neck Neck: normal visual inspection, full ROM and no lymphadenopathy Thyroid: thyroid normal Chest Chest palpation & inspection: normal inspection of the chest Resp Effort & Inspection: normal respiratory effort GI Inspection: normal to inspection Palpation: soft and other (gravid uterus) Other: vertex and appropriate size for gestational age Other: Cervical Exam: Extrem General: pedal edema Results POC Urinalysis 2 Dip (Clinic) Office Urine Glucose Negative Last Edit by Manuela Tolbert on 05/09/25 14:55 Office Urine Protein Negative Last Edit by Manuela Tolbert on 05/09/25 14:55 Coding Level of Care Code OB Routine Diagnoses Gestational diabetes mellitus (GDM) affecting , antepartum O24.419 Bartholin's gland cyst N75.0 History of labor Z87.51 Underweight (BMI < 18.5) R63.6; Z68.1 Multigravida of advanced maternal age in second trimester O09.522 Trimester: second trimester History of delivery, currently O34.219 Supervision of high risk in second trimester O09.92 Trimester: second trimester 39 weeks gestation of Z3A.39 Weeks of gestation: 39 weeks Assessment and Plan Assessment and Plan (1) Gestational diabetes mellitus (GDM) affecting , antepartum: Status: Acute Comment: diet controlled, testing QID. Seeing [facility] bender helper. Growth US Q4w. Once weekly testing. (2) Bartholin's gland cyst: Status: Acute Comment: left side asymptomatic reviewed precautions (3) History of labor: Status: Acute Comment: Last - 37weeks (4) Underweight (BMI < 18.5): Status: Acute Comment: BMI 18; B12, Thiamine & iron studies ordered w/NOB (5) AMA (advanced maternal age) multigravida 35+: Status: Acute Qualifiers: Trimester: second trimester Qualified Code(s): O09.522 - Supervision of elderly multigravida, second trimester (6) History of delivery, currently : Status: Acute Comment: x2 - desires repeat csec. c/s 05/12 SM. (7) Supervision of high-risk : Status: Acute Qualifiers: Trimester: second trimester Qualified Code(s): O09.92 - Supervision of high risk , unspecified, second trimester Comment: PRR , KIMBERLEE 05/18/25, girl (name surprise) PC: Tay, : Palomo (8) : Status: Acute Qualifiers: Weeks of gestation: 39 weeks Qualified Code(s): Z3A.39 - 39 weeks gestation of Comment: Neg GBS. Low risk NIPT Orders: Orders POC Urinalysis 2 Dip (Clinic) Today UPDATE- I have seen the patient and performed any clinically relevant updates to the history and physical exam. Adele Miner MD
[2025-05-12] MEDS: Cefazolin 1 GM/5 ML Vial 2 GM IV (08:59)
[2025-05-12] MEDS: morphine PF (epidural) 5 MG/10 ML Vial EPIDURAL (09:12)
--- NOTE | 2025-05-12 09:27 | FALS_PTH ---
PATIENT: ARANZA LAM LOC: WP U#:[id number] AGE/SX: 39/F ROOM: WP005 RE05/12/[address]: Dr. Adele Miner MD : 1985 BED: 1 DIS: 05/13/2025 SPEC #: [id number] RECD: 05/12/25 19:19 STATUS: HUBERT REAnnmarie #: [id number] JOVANNI: 05/12/25 09:[address]: Adele Miner DEPT: SURGICAL PATHOLOGY RECD BY: Orlin Zamora ENTERED: 05/13/25 11:28 SP TYPE: FALL TUBES OTHR DR: NUBIA Jarquin Tissues: A - Fallopian tube Procedures: Surgery Specimen Level II HEADER OPERATION: Tubal ligation PRE-OP DIAGNOSIS: Sterilization TISSUE SUBMITTED: A- Bilateral fallopian tubes *stitch in left* MICROSCOPIC DIAGNOSIS A. Bilateral fallopian tubes,resection: - No specific pathologic change with complete luminal cross-section confirmed, left (A1). - No specific pathologic change with complete luminal cross-section confirmed and benign paratubal cysts, right (A2, A3). MICROSCOPIC DESCRIPTION Slides are reviewed. GROSS DESCRIPTION A. Received in formalin labeled with the patient's name and date of . Designated as bilat fallopian tubes L stitch are 2 pink-purple fimbriated fallopian tubes with a suture designated as L; they measure 7.1 x 0.6 cm (left) and 6.3 x 0.6 cm (right). There are few paratubal cysts on the right fallopian tube, 0.7 cm to 1.4 cm. Timber Management Assistant sections are submitted in 3 cassettes as follows: A1: Left fallopian tubeA2-A3: Right fallopian tube IA 05/13/2025 CPT:[id number]
[2025-05-12] MEDS: 0.9% Normal Saline (1000mL) 350 ML IV (09:32)
[2025-05-12] MEDS: fentaNYL 100 MCG/2 ML Ampul 50 MCG IV (09:41)
[2025-05-12] MEDS: Oxytocin 15 Units/NS 250ml 15 UNITS/250 ML IV.SOLN 83 UNITS IV (10:00)
--- NOTE | 2025-05-12 10:00 | EX.PCM.OBRPT ---
Assessment & Plan (1) Gestational diabetes mellitus (GDM) affecting , antepartum: COMMENT: diet controlled, testing QID. Seeing [facility] machine sneller. Growth US Q4w. Once weekly testing. (2) Bartholin's gland cyst: COMMENT: left side asymptomatic reviewed precautions (3) History of labor: COMMENT: Last - 37weeks (4) Underweight (BMI < 18.5): COMMENT: BMI 18; B12, Thiamine & iron studies ordered w/NOB (5) AMA (advanced maternal age) multigravida 35+: QUALIFIERS: Trimester: second trimester Qualified Code(s): O09.522 - Supervision of elderly multigravida, second trimester (6) History of delivery, currently : COMMENT: x2 - desires repeat csec. c/s 05/12 NELLY. (7) Supervision of high-risk : QUALIFIERS: Trimester: second trimester Qualified Code(s): O09.92 - Supervision of high risk , unspecified, second trimester COMMENT: PRR , KIMBERLEE 05/18/25, girl (name surprise) PC: Tay, : Palomo (8) : QUALIFIERS: Weeks of gestation: 39 weeks Qualified Code(s): Z3A.39 - 39 weeks gestation of COMMENT: Neg GBS. Low risk NIPT (9) delivery delivered: COMMENT: RLTCS girl Brittny 39 (10) Status post bilateral salpingectomy: Maternal Data Information KIMBERLEE Calculator Estimated Delivery Date Method Current WG Current Estimate 05/18/25 LMP (Certain) 39w 1d Final KIMBERLEE Source: LMP [place] Doctor Who Attended Delivery: -Attn: COLLIN Fink Lab Operative Report (OB) Procedure Details Date of Procedure: 05/12/25 Procedure Start Time: 09:12 Pre-Operative Diagnosis: Other Other Pre-Operative diagnosis: see a/p comments Post-Operative Diagnosis: Same as Pre-operative diagnosis Classification: Scheduled Type of Anesthesia: Spinal Special Medications: none Antibiotic Given: Ancef 2 grams IV x1 Drain: Escobar to straight drain Estimated Blood Loss: 900 Fluids Replaced: crystalloid Findings Description of surgery: Spinal anesthesia was placed without difficulty. Escobar catheter was placed. The patient was placed in the dorsal supine position with leftward tilt. Patient was prepped and draped in the normal sterile fashion. Pfannenstiel skin incision was made with the scalpel and carried through to the underlying layer of fascia with the scalpel. Fascia was nicked in the midline and the incision extended laterally. The rectus bellies were dissected off superiorly and inferiorly with out complication both sharply and bluntly. The peritoneum was entered digitally. The incision was stretched and a low transverse uterine incision was made with the scalpel. The 's head was delivered atraumatically followed by the anterior and posterior shoulders without complication the rest of the infant delivered. The cord was clamped and cut and the was handed off to awaiting nurse. The placenta was delivered spontaneously immediately following and was noted to be intact and have a three-vessel cord. The uterus was exteriorized cleared of all clots and debris, and the incision was closed in a single layer closure using #1 Monocryl. additional figure of eight on the right hand side. methergine given for atony. The ovaries and fallopian tubes were noted to be within normal limits. Patient had desired sterilization and was counseled preoperatively regarding irreversibility and permanency. Therefore bilateral fallopian tubes were elevated and transected across using a LigaSure device starting proximally to distally without complication the entire fallopian tubes were removed. The uterus was returned to the maternal abdomen and gutters were cleared of all clots and debris. The peritoneum was closed with 3-0 Monocryl in a running fashion. Gloves were changed prior to fascial closure. Fascia was closed with 0 PDS in a running fashion. Subcutaneous tissue was copiously irrigated and the skin was closed with 3-0 Monocryl in a subcuticular fashion. Mepilex dressing was applied without complication. Patient was taken to recovery in stable condition. Surgical findings: vertex nc x 2 Presentation: Vertex Amniotic Membrane Rupture Type: Artificial Amniotic Fluid Description: Clear Specimen collected: Yes Description of specimen(s) removed: placenta and baby Cord Vessel Description: 3 Vessels Delayed Cord Clamping: Yes Board Runner oracle analyst: Yes Health And Wellness Coach: Kelli Calhoun Tasks completed by certified surgical first assistant: Opening & closing, Retracting and Other (assisting in delivery of the ) Additional assistant construction superintendent?: No Complications Complications: No Admit VTE Documentation VTE Present on Admission: No VTE Mechan Device Prophylaxis: SCD's Procedures Urinary/Genital 52xxx-59xxx: 48860 Delivery global pkg Multi Select Codes Urinary/Genital Urinary/Genital CPT Codes: 72251 C/[place] [address] Delivery [facility]
--- NOTE | 2025-05-12 10:01 | PCM.POST.ANE ---
Anesthesia: Postop Eval I Current Vital Signs Temperature: 98 F Pulse Rate: 78 Blood Pressure: 116/71 Respiratory Rate: 16 Pulse Ox: 100 Oxygen Delivery Method: Room Air Assessment Airway patent: Yes Spontaneous unlabored respirations: Yes Mental status: Awake and Calm nausea: No Vomiting: No Anesthesia Complication: No Fluid Hydration Crystalloid volume administer (ml): 1,000 Total IV fluid infused: 1,000 Progress Note Anesthesia document: Postop Eval 1 completed: Yes
--- NOTE | 2025-05-12 10:06 | POSTOPAN2_ITS ---
Anesthesia Postop Eval I Sum Postop Eval Completion status Anesthesia document: Postop Eval 1 completed: Yes Anesthesia Postop Eval I Summary Anesthesia Postop Eval I Summary: Anesthesia Postop Eval I: Assessment Summary Airway patent Yes 05/12/25 10:01 SHOE [email or web address] Spontaneous unlabored Yes 05/12/25 10:01 SHOE STAMPER.MDOT respirations Mental status Awake,Calm 05/12/25 10:01 SHOE STAMPER.MDOT nausea No 05/12/25 10:01 SHOE STAMPER.MDOT Vomiting No 05/12/25 10:01 SHOE [email or web address].MDOT Anesthesia Postop Eval I: Fluid Summary Crystalloid volume administer 1,000 05/12/25 10:01 SHOE STAMPER.MDOT (ml) Colloids volume administered ( ml) Blood Product volume administered (ml) Total IV fluid infused 1,000 05/12/25 10:01 SHOE [email or web address].MDOT Anesthesia Postop Eval I: Summary Notes Anesthesia Complication No 05/12/25 10:01 SHOE STAMPER.MDOT Anesthesia Complication Comment: Post-operative progress note Anesthesia: Postop Eval II Evaluation Mental status: Awake and Calm Pain Level: 0 nausea: No Vomiting: No Complications Anesthesia Complication: No
--- NOTE | 2025-05-12 10:06 | PCM.POSTANE2 ---
Anesthesia Postop Eval I Sum Postop Eval Completion status Anesthesia document: Postop Eval 1 completed: Yes Anesthesia Postop Eval I Summary Anesthesia Postop Eval I Summary: Anesthesia Postop Eval I: Assessment Summary Airway patent Yes 05/12/25 10:01 CERTIFIED EXECUTIVE CHEF.MDOT Spontaneous unlabored Yes 05/12/25 10:01 CERTIFIED EXECUTIVE CHEF.MDOT respirations Mental status Awake,Calm 05/12/25 10:01 CERTIFIED EXECUTIVE CHEF.MDOT nausea No 05/12/25 10:01 CERTIFIED EXECUTIVE CHEF.MDOT Vomiting No 05/12/25 10:01 CERTIFIED EXECUTIVE CHEF.MDOT Anesthesia Postop Eval I: Fluid Summary Crystalloid volume administer 1,000 05/12/25 10:01 CERTIFIED EXECUTIVE CHEF.MDOT (ml) Colloids volume administered ( ml) Blood Product volume administered (ml) Total IV fluid infused 1,000 05/12/25 10:01 CERTIFIED EXECUTIVE CHEF.MDOT Anesthesia Postop Eval I: Summary Notes Anesthesia Complication No 05/12/25 10:01 CERTIFIED EXECUTIVE CHEF.MDOT Anesthesia Complication Comment: Post-operative progress note Anesthesia: Postop Eval II Evaluation Mental status: Awake and Calm Pain Level: 0 nausea: No Vomiting: No Complications Anesthesia Complication: No
--- NOTE | 2025-05-12 10:10 | DCINST_ITS ---
Discharge Instructions DC O2, CPAP, BIPAP needs Home O2 Discharge instructions: No Dressing / Incision May resume sexual activity in: 6 weeks Weight Bearing Status: Full weight bearing Dressing / Incision Call your doctor if your incision/area has: Continuous Slow Oozing, Sudden Increased Bleeding, Increased Pain/ Swelling, Increased Redness and Foul Smelling Discharge Call your doctor if you observe: Fever of 101 or Higher, Using more than 1 pad per hour, Shortness of breath, Chest pain and Uncontrolled pain Suture Line Care: Avoid Pulling/Pushing and Avoid Pinching/Bending Remove Dressing in: 1 week (if present) Cleanse incision/area with: Soap & Water and Keep Dressing Clean & Dry Follow Up Care Please Follow Up With: Adele Miner MD When: Call to make an appointment with your doctor for a postop visit in 2 and 6 weeks. Test Results: Test results from this visit will be discussed in further detail at your follow- up appointment, if applicable. Discharge Plan Admission Admit Date/Time: 05/12/25 05:05 Attending Provider: dAele Miner Primary Care Provider: Thierry Diaz Discharge Orders/Prescriptions Prescriptions: New naproxen 500 mg tablet 500 mg PO BID PRN PRN (Reason: Pain) Qty: 30 1RF oxycodone-acetaminophen [Percocet] 5-325 mg tablet 1 tab PO Q4H PRN (Reason: pain) 7 Days Qty: 20 0RF No Action PNV no.[id number] 400 mcg-35 mg- 25 mg-5 mg tablet,chewable 1 tab PO (DME) Blood Glucose Test Strip See Rx Instructions .MEDSUPPLY Qty: 120 5RF Rx Instructions: As directed-fasting & 2 hr post meals (DME) blood-glucose meter Misc See Rx Instructions .MEDSUPPLY Qty: 1 0RF Rx Instructions: As directed- Test fasting and 2 hours after meals (DME) lancets Misc See Rx Instructions .MEDSUPPLY Qty: 200 5RF Rx Instructions: As directed-fasting & 2 hr post meals Referrals / Follow Up: Thierry Diaz PA [Primary Care Provider, Family Practice] Disposition Disposition (needs filled in before D/C Order can be placed): Home, Self Care
[2025-05-12] MEDS: Ketorolac 30 MG/ML Syringe IV ×2 (11:06→17:35)
[2025-05-12] MEDS: Acetaminophen 650 MG/20 ML UDC 1000 MG PO ×2 (12:48→18:58)
--- NOTE | 2025-05-12 14:23 | PCM.PN.BLA ---
Progress Note patient seen postop, noted to have some tachycardia ordered cbc. patient feeling well no issues, recovery going well minimal bleeding. she had some atony at delivery and bleeding- given methergine and had 900 ebl.
[2025-05-12 14:37] LABS: Hematocrit 27.8 % (37-47); Hemoglobin 8.9 g/dL (12.0-15.0); Immature Granulocytes Count 0.140 X10^3/uL (0.0-0.0); Mean Corp Hgb Conc 32.0 g/dL (32-36); Mean Corpuscular Volume 76.6 fL (81-99); Mean Platelet Vol. 9.9 fl (6.2-12.0); NRBC Flagged by Analyzer 0 % (0-5); Platelet Count 208 K/mm3 (150-450); RBC Distribution Width CV 13.9 % (11.6-14.6); RBC Distribution Width SD 38.6 fl (35.1-43.9); Red Blood Count 3.63 M/mm3 (4.2-5.4); White Blood Count 17.9 K/mm3 (4.4-11.0)
[2025-05-12] MEDS: Lactated Ringers 1,000 ML 100 ML IV (15:35)
[2025-05-12] MEDS: 0.9% Saline Lock 10 ML Syringe IV (17:36)
[2025-05-13] MEDS: Ketorolac 30 MG/ML Syringe IV ×2 (00:44→06:55)
[2025-05-13 00:50] VITALS: BP 94/62; PULSE 79; RESP 16; TEMP 36.3
[2025-05-13] MEDS: Acetaminophen 650 MG/20 ML UDC 1000 MG PO ×3 (00:52→12:35)
[2025-05-13 05:04] VITALS: BP 105/79; PULSE 85; RESP 16; TEMP 36.3; O2SAT 98
[2025-05-13] MEDS: 0.9% Saline Lock 10 ML Syringe IV ×4 (05:08→08:57)
[2025-05-13 05:19] LABS: Hematocrit 25.0 % (37-47); Hemoglobin 7.8 g/dL (12.0-15.0); Mean Corp Hgb Conc 31.2 g/dL (32-36); Mean Corpuscular Volume 77.6 fL (81-99); Mean Platelet Vol. 10.1 fl (6.2-12.0); Platelet Count 191 K/mm3 (150-450); RBC Distribution Width CV 14.1 % (11.6-14.6); RBC Distribution Width SD 39.7 fl (35.1-43.9); Red Blood Count 3.22 M/mm3 (4.2-5.4); White Blood Count 14.2 K/mm3 (4.4-11.0)
[2025-05-13] MEDS: Sodium Ferric Gluconat 250 MG in 0.9% Normal Saline 250 ML 135 MG IV (06:44)
[2025-05-13 09:00] VITALS: BP 94/65; PULSE 87; RESP 16; TEMP 36.7; O2SAT 97
[2025-05-13] MEDS: Senna/Docusate Sodium 1 Tablet PO (12:34)
--- NOTE | 2025-05-13 13:55 | PN.OBGYN_ITS ---
Subjective Subjective Patient doing well without complaints. Tolerating PO. Ambulating and voiding without difficulty. feeding well. Denies chest pain, shortness of breath, calf pain/swelling, fevers, chills, lightheadedness. Objective Data Objective Data Vital Signs: Vital Signs Temp Pulse Resp BP Pulse Ox O2 Del Method 98.1 F 87 16 94/65 97 Room Air 05/13/25 09:00 05/13/25 09:00 05/13/25 09:00 05/13/25 09:00 05/13/25 09:00 05/13/25 09:00 Oxygen Delivery Method Room Air Weight: 133 lb 13.129 oz Body Mass Index (BMI) 22.9 Intake & Output: Intake and Output for Last 24 Hours 05/11/25 05/12/25 05/13/25 23:59 23:59 23:59 Intake Total 2808.17 / 2808.17 270 / 270 Output Total 3850 / 3850 800 / 800 Balance -1041.83 / -1041.83 -530 / -530 Lab / Micro Data 05/13/25 05:11 Labs: Laboratory Results - last 24 hr 05/12/25 14:10: WBC 17.9 H, RBC 3.63 L, Hgb 8.9 L, Hct 27.8 L, MCV 76.6 L, MCH 24.5 L, MCHC 32.0, RDW Std Deviation 38.6, RDW Coeff of Tamiko 13.9, Plt Count 208, MPV 9.9, Immature Gran % (Auto) 0.800, Neut % (Auto) 85.4 H, Lymph % (Auto) 8.0 L, Grainger % (Auto) 5.0, Eos % (Auto) 0.5, Baso % (Auto) 0.3, Absolute Neuts (auto) 15.3 H, Absolute Lymphs (auto) 1.44, Nucleated RBC % 0 05/13/25 05:11: WBC 14.2 H, RBC 3.22 L, Hgb 7.8 L, Hct 25.0 L, MCV 77.6 L, MCH 24.2 L, MCHC 31.2 L, RDW Std Deviation 39.7, RDW Coeff of Tamiko 14.1, Plt Count 191, MPV 10.1 05/13/25 06:41: POC Glucose 86 ROS Constitutional Constitutional: Reports systems reviewed and no addt'l complaints, except as documented Cardiovascular Cardiovascular: Reports systems reviewed and no addt'l complaints, except as documented Respiratory/Chest Respiratory/Chest: Reports systems reviewed and no addt'l complaints, except as documented Gastrointestinal Gastrointestinal: Reports systems reviewed and no addt'l complaints, except as documented Physical Exam Const alert, oriented x3 and no apparent distress HEENT Head and Scalp: atraumatic Resp normal respiratory effort GI soft to palpation and non-tender Inspection: incision intact, healing well and drainage (none) Bimanual Exam - Vag & Uterus: uterus non-tender Uterus Palpation: uterus fundus firm (below Umbilicus) Assessment & Plan (1) delivery delivered: COMMENT: RLTCS girl Brittny 39 (2) Status post bilateral salpingectomy: PLAN: Plan s/p LTCS PPD # 1 1. routine post care 2. breast feeding- support given 3. rh positive 4. rubella immune
[2025-05-13 14:50] VITALS: BP 102/68; PULSE 81; RESP 16; TEMP 36.8; O2SAT 100
[2025-05-18 09:42] LABS: Pathology Specimen OB SEE PATHOLOGY REPORT
== END 2025-05-13 15:10 | disposition home or self-care (01) | DRG 784 ==
PROVIDERS: Admitting Provider Obstetrics & Gynecology; PCP Physician Assistant; Visit Provider Obstetrics & Gynecology
PROC: 10D00Z1 Extraction of Products of Conception, Low, Open Approach (ICD-10-PCS; CPT 59514; principal; 2025-05-12 07:00)
DX: O24.420 Gestational diabetes mellitus in childbirth, diet controlled (principal); O72.1 Other immediate postpartum hemorrhage; N75.0 Cyst of Bartholin's gland; O34.211 Maternal care for low transverse scar from previous cesarean delivery; Z37.0 Single live birth; R63.6 Underweight; Z3A.39 39 weeks gestation of pregnancy; Z30.2 Encounter for sterilization; Z87.51 Personal history of pre-term labor; O99.892 Other specified diseases and conditions complicating childbirth; O99.893 Other specified diseases and conditions complicating puerperium; R00.0 Tachycardia, unspecified
CPT/HCPCS: 59025; 82962; 85025; 85027; 86780; 86850; 86900; 86901; 88302; 99221; A4216; G0378; J2405; J2916